=== PATIENT | female | born 1995 | race Caucasian/White ===

== ENCOUNTER 2023-03-02 19:22 | Outpatient (REF) | payer OTHER, SELFPAY ==
[2023-03-06 11:11] LABS: Age Gdln ACOG Testing Note (.); IGP, rfx Aptima HPV ASCU Note (.)
== END 2023-03-02 19:23 | disposition home or self-care (01) ==
LOC: LAB 19:22
PROVIDERS: Visit Provider Obstetrics & Gynecology
DX: Z12.4 Encounter for screening for malignant neoplasm of cervix (principal)
CPT/HCPCS: G0145

== ENCOUNTER 2024-04-24 08:57 | Outpatient (OUT) | payer OTHER, SELFPAY ==
--- NOTE | 2024-04-24 09:00 | US_ITS ---
The [address] [address] Patient Name: WILL BELL MRN: [id number] date: 1995 Sex: F Assigned Patient Location: [place] Current Patient Location: Accession/Order Number: [id number] Exam Date: 04/24/2024 09:01 Report Date: 04/25/2024 05:06 At the request of: QUENTIN SAHNI Procedure: US thyroid EXAMINATION: US thyroid HISTORY: Cervical Lymphadenopathy COMPARISON: No relevant comparison available. FINDINGS: RIGHT LOBE: Normal size and echotexture. Lobe size: 5.0 x 1.7 1.2 cm LEFT LOBE: Normal size and echotexture. Lobe size: 3.4 x 1.205 cm ISTHMUS: Normal size and echotexture. Thickness: 2 mm OTHER: 1.1 x 0.8 x 0.4 cm benign-appearing lymph node within upper posterior left neck corresponds to patient's palpable lump. US/US thyroid IMPRESSION: Unremarkable thyroid gland. 2. Patient's palpable lump corresponds to a benign-appearing lymph node. Electronically authenticated by: FARZANA LEON Date: 04/25/2024 05:06
== END 2024-04-24 08:58 | disposition home or self-care (01) ==
LOC: US 08:57
PROVIDERS: PCP Family Medicine; Visit Provider Family Medicine
DX: R59.0 Localized enlarged lymph nodes (principal)
CPT/HCPCS: 76536

== ENCOUNTER 2024-04-25 20:26 | Outpatient (REF) | payer OTHER, SELFPAY ==
--- OUTSIDE RECORDS SUMMARY | 2024-04-25 20:29 | XMS_ITS | CCD ---
Author Organization [facility] Prov[facility] Care Shank Archer Name Role Phone Schwerer, Cielo Unavailable Fitt, Mirella Unavailable DARIAN ., DR GANN Admitting Unavailable DARIAN ., DR GANN Attending Unavailable DARIAN ., DR GANN Consulting Unavailable REQUEST, NONE LISTED Primary Care Unavaila ble SCHWERER, CIELO Primary Care Unavailable SCHWERER, CIELO Consulting Unavailable SCHWERER, CIELO Attending Unavailable SCHWERER, CIELO Admitting Unavailable DARIAN ., DR GANN Attending Unavailable DARIAN ., DR GANN Admitting Unavailable DARIAN ., DR GANN Consulting Unavailable REQUEST, NONE LISTED Primary Care Unavaila ble DARIAN ., DR GANN Admitting Unavailable DARIAN ., DR GANN Consulting Unavailable DARIAN ., DR GANN Attending Unavailable REQUEST, NONE LISTED Primary Care Unavaila ble REQUEST, DR NGO LISTED Primary Care Unavaila ble DARIAN ., DR GANN Consulting Unavailable DARIAN ., DR GANN Attending Unavailable DARIAN ., DR GANN Admitting Unavailable SCARLET OROZCO Consulting Unavailable VEENA, SCARLET Consulting Unavailable VEENA, SCARLET Attending Unavailable REQUEST, NONE LISTED Primary Care Unavaila ble VEENA, SCARLET Admitting Unavailable DOMINIQUE POOLE Consulting Unavailable REQUEST, NONE LISTED Primary Care Unavaila ble DARIAN ., DR GANN Consulting Unavailable DARIAN ., DR GANN Attending Unavailable DARIAN ., DR GANN Admitting Unavailable GWEN II, ADELINA Consulting Unavailable DARIAN ., DR GANN Procedure Practitioner Unavail able REINA FULLER Attending Unavailable Bienvenido Long Consulting Unavailable REQUEST, DR NGO LISTED Primary Care Unavaila ble WILLIE ., REINA Admitting Unavailable WILLIE ., REINA Consulting Unavailable [place], DR MIMI Contreras Consulting Unavailable DARIAN ., DR GANN Attending Unavailable REQUEST, DR NONE LISTED Primary Care Unavaila ble DARIAN ., DR GANN Admitting Unavailable DARIAN ., DR GANN Consulting Unavailable DARIAN ., DR GANN Consulting Unavailable DARIAN ., DR GANN Attending Unavailable REQUEST, NONE LISTED Primary Care Unavaila ble DARIAN ., DR GANN Admitting Unavailable DARIAN ., DR GANN Consulting Unavailable DARIAN ., DR GANN Attending Unavailable REQUEST, NONE LISTED Primary Care Unavaila ble DARIAN ., DR GNAN Admitting Unavailable Zieber, Bienvenido Consulting Unavailable DARIAN ., DR GANN Admitting Unavailable DARIAN ., DR GANN Attending Unavailable DARIAN ., DR GANN Consulting Unavailable REQUEST, NONE LISTED Primary Care Unavaila ble Zieber, Bienvenido Consulting Unavailable DARIAN ., DR GANN Admitting Unavailable DARIAN ., DR GANN Attending Unavailable REQUEST, NONE LISTED Primary Care Unavaila ble [place], DR MIMI Contreras Consulting Unavailable DARIAN ., DR GANN Consulting Unavailable DARIAN ., DR GANN Attending Unavailable DARIAN ., DR GANN Consulting Unavailable REQUEST, NONE LISTED Primary Care Unavaila ble DARIAN ., DR GANN Admitting Unavailable DARIAN ., DR GANN Admitting Unavailable DARIAN ., DR GANN Attending Unavailable DARIAN ., DR GANN Consulting Unavailable REQUEST, NONE LISTED Primary Care Unavaila ble Perri Carmona Unavailable Cielo [place] DO Primary Care Provider [phone] REINA TAPIA Attending Unavailable REINA TAPIA Attending Unavailable REINA TAPIA Attending Unavailable DARIANAZEEM Attending Unavailable BRADEN DODD Attending Unavailable YOLIE FLETCHER Attending Unavailable REINA TAPIA Attending Unavailable Medications Current Medications Medication Drug Class(es) Dates Sig (Normalized) Sig (Original) [id number] 200 actuat albuterol 0.09 mg/actuat metered dose inhaler (2 sources) beta2-Adrenergic Agonist Start: 01-28-2024 take 2 puff(s) by inhalation every four hours albuterol HFA (ProAir HFA) 90 mcg/act inhaler Indications: Acute cough Inhale 2 puffs every 4 (four) hours if needed (cough) 8.5 g 01/28/2024 Active amoxicillin 875 mg / clavulanate 125 mg oral tablet (1 source) Penicillin-class Antibacterial Amoxicillin-Pot Clavulanate 875-125 MG 1 tablet BID for 10 days Active benzonatate 200 mg oral capsule (2 sources) Non-narcotic Antitussive Start: 01-28-2024 End: 02-04-2024 take 1 capsule by mouth three times daily as needed for cough benzonatate (Tessalon) 200 MG capsule Indications: Acute cough Take 1 capsule (200 mg) by mouth 3 (three) times a day as needed for cough for up to 7 days Do not crush or chew. 21 capsule 01/28/2024 02/04/2024 Active doxycycline monohydrate 100 mg oral tablet (2 sources) Tetracycline-class Drug Start: 01-28-2024 End: 02-07-2024 take 1 tablet by mouth once doxycycline (Adoxa) 100 MG tablet Indications: Acute cough Take 1 tablet (100 mg) by mouth every 12 (twelve) hours for 10 days Take with a full glass of water and do not lie down for at least 30 minutes after, avoid sun exposure 20 tablet 01/28/2024 02/07/2024 Active ethinyl estradiol 0.035 mg / norethindrone acetate 1 mg oral tablet (4 sources) Estrogen Start: 02-15-2023 End: 02-15-2024 take 1 tablet by mouth in the morning Nylia 135 1-35 MG-MCG tablet Indications: Encounter for initial prescription of contraceptive pills TAKE 1 TABLET BY MOUTH IN THE MORNING. 28 tablet 11 01/19/2024 Active metFORMIN hydrochloride 500 mg oral tablet (7 sources) Biguanide Start: 11-24-2022 End: 01-18-2025 take 1 tablet by mouth at mealtime metFORMIN (Glucophage) 500 MG tablet Indications: Abnormal weight gain TAKE 1 TABLET (500 MG) BY MOUTH IN THE MORNING. TAKE WITH MEALS. 30 tablet 6 01/19/2024 01/18/2025 Active Completed/Discontinued Medications Medication Drug Class(es) Dates Sig (Normalized) Sig (Original) fluconazole 150 mg oral tablet (3 sources) Azole Antifungal Start: 01-28-2024 End: 01-30-2024 fluconazole (Diflucan) 150 MG tablet Indications: History of candidal vulvovaginitis Take 1 tablet (150 mg) by mouth Daily for 2 doses 1 dose and repeat second dose in 3 days. 2 tablet 01/28/2024 01/30/2024 Start: 10-26-2023 End: 04-20-2024 Fluconazole 150 mg tablet Di scontinued 150 MG PO Q3D 2 October 25, 2023 11:00pm April 20, 2024 9:23am phentermine hydrochloride 37.5 mg oral tablet (11 sources) Sympathomimetic Amine Anorectic Start: 04-15-2023 End: 08-11-2023 take 1 tablet by mouth once daily 30 minutes after breakfast Phentermine (Adipex-P) 37.5 mg tablet Discontinued 37.5 MG PO Daily July 20, 2023 11:00pm July 22, 2023 9:07am must administer 30 minutes before or 1-2 hours after breakfast Adipex-P Active Problems Active Problems Problem Classification Problem Date Documented Date Episodic/Chronic Acute bronchitis (2 sources) Acute bronchitis; Translations: [Acute bronchitis, unspecified] 01-28-2024 Episodic Administrative/social admission (2 sources) Patient encounter status; Translations: [Persons encountering health services in other specified circumstances] 05-13-2023 Episodic Bacterial infection; unspecified site (1 source) Other specified bacterial agents as the cause of diseases classified elsewhere Episodic Early or threatened labor (4 sources) False labor at or after 37 completed weeks of gestation; Translations: [FALSE LABOR AT/AFTR 37 CMPL WK GEST] Onset: 07-14-2022 Episodic Fluid and electrolyte disorders (1 source) Dehydration; Translations: [DEHYDRATION] Onset: 05-19-2022 Episodic Menstrual disorders (4 sources) Irregular menstruation, unspecified; Translations: [IRREGULAR MENSTRUATION UNSPECIFIED] Onset: 12-25-2021 Chronic Nausea and vomiting (1 source) Nausea with vomiting, unspecified; Translations: [NAUSEA WITH VOMITING UNSPECIFIED] Onset: 05-19-2022 Episodic OB-related trauma to perineum and vulva (1 source) First degree perineal laceration during delivery; Translations: [FIRST DEG PERINEAL LAC DUR DELIV] Onset: 07-30-2022 Episodic Other complications of (5 sources) Other specified related conditions, third trimester; Translations: [OTH SPEC PREG RELATED COND 3RD TRI] Onset: 02-21-2023 Episodic Other complications of (4 sources) Maternal care for excessive growth, third trimester, not applicable or unspecified; Translations: [MAT CARE EXCSS FTL GRTH 3RD TRI UNS] Onset: 07-13-2022 Episodic Other ear and sense organ disorders (1 source) Impacted cerumen; Translations: [Impacted cerumen, bilateral] 07-22-2023 Episodic Other infections; including parasitic (2 sources) History of gynecological disorder; Translations: [Personal history of other infectious and parasitic diseases] 01-28-2024 Episodic Other lower respiratory disease (2 sources) Cough; Translations: [Acute cough] 01-28-2024 Episodic Other nutritional; endocrine; and metabolic disorders (2 sources) Weight gain; Translations: [Abnormal weight gain] 05-10-2023 Episodic Other and delivery including normal (14 sources) Single live ; Translations: [Encounter for supervision of normal , unspecified, third trimester] Onset: 12-12-2021 Episodic Other upper respiratory infections (2 sources) Bacterial sinusitis; Translations: [Chronic sinusitis, unspecified] Chronic Other upper respiratory infections (2 sources) Acute maxillary sinusitis; Translations: [Acute maxillary sinusitis, unspecified] 01-28-2024 Episodic Residual codes; unclassified (1 source) 40 weeks gestation of ; Translations: [40 WEEKS GESTATION OF ] Onset: 07-30-2022 Episodic Residual codes; unclassified (1 source) Type A blood, Rh negative; Translations: [TYPE A BLOOD RH NEGATIVE] Onset: 07-30-2022 Episodic Residual codes; unclassified (1 source) 38 weeks gestation of ; Translations: [38 WEEKS GESTATION OF ] Onset: 07-16-2022 Episodic Residual codes; unclassified (1 source) 34 weeks gestation of ; Translations: [34 WEEKS GESTATION OF ] Onset: 06-20-2022 Episodic Residual codes; unclassified (1 source) 30 weeks gestation of ; Translations: [30 WEEKS GESTATION OF ] Onset: 05-22-2022 Episodic Residual codes; unclassified (1 source) Unspecified blood type, Rh negative; Translations: [UNSPECIFIED BLOOD TYPE RH NEGATIVE] Onset: 05-05-2022 Episodic Residual codes; unclassified (1 source) 28 weeks gestation of ; Translations: [28 WEEKS GESTATION OF ] Onset: 05-05-2022 Episodic Past or Other Problems Problem Classification Problem Date Documented Date Episodic/Chronic Immunizations and screening for infectious disease (2 sources) Encounter for screening for human papillomavirus (HPV); Translations: [Contact with and (suspected) exposure to infections with a predominantly sexual mode of transmission] Onset: 02-26-2022 Episodic Other ear and sense organ disorders (1 source) Impacted cerumen, bilateral Onset: 10-20-2021 Resolved: 10-20-2021 Episodic Other female genital disorders (1 source) Other specified noninflammatory disorders of vagina; Translations: [OTH SPEC NONINFLAMMATORY D/O VAGINA] Onset: 02-26-2022 Episodic Other nutritional; endocrine; and metabolic disorders (2 sources) Abnormal weight gain; Translations: [ABNORMAL WEIGHT GAIN] Onset: 10-20-2021 Resolved: 10-20-2021 Episodic Other screening for suspected conditions (not mental disorders or infectious disease) (5 sources) Encounter for screening for malignant neoplasm of cervix; Translations: [Encounter for screening for diabetes mellitus] Onset: 12-29-2021 Episodic Unclassified (4 sources) Plastic surgery; Translations: [Plastic surgery, other] Results Test Name Value Interpretation Reference Range Facility CBC AUTO DIFFon 07-28-2022 BASO # 0.0 103/ul Normal 0.0-0.1 [facility] Comment on above: Performed By: #### C BC ####[facility] [address] [place] [address]Dr. Leigh Annpee Titus Basophils/100 WBC (Bld) 0.2 % Normal 0.2-2.0 [facility] Comment on above: Performed By: #### C BC ####[facility] [address] [place] [address]Dr. Leigh Annpee Titus EO # 0.1 103/ul Normal 0.0-0.7 [facility] Comment on above: Performed By: #### C BC ####[facility] [address] [place] [address]Dr. Bee Titus Eosinophils/100 WBC (Bld) 0.5 % Critically low 0.9-7.0 [facility] Comment on above: Performed By: #### C BC ####[facility] [address] [place] [address]Dr. Bee Titus Erythrocyte distribution width (RBC) [Ratio] 13.4 % Normal 11.0-15.0 [facility] Comment on above: Performed By: #### C BC ####[facility] [address] [place] [address]Dr. Bee Titus Hematocrit (Bld) [Volume fraction] 33.8 % Critically low 36.0-48.0 [facility] Comment on above: Performed By: #### C BC ####[facility] [address] [place] [address]Dr. Bee Titus Hemoglobin (Bld) [Mass/Vol] 11.3 g/dL Critically low 12.0-16.0 [facility] Comment on above: Performed By: #### C BC ####[facility] [address] [place], [place] [address]Dr. Leigh Annpee Titus IG # 0.05 10e3/ul Critically high 0.00-0.03 [facility] Comment on above: Performed By: #### C BC ####[facility] [address] [place] [address]Dr. Bee Titus IG % 0.4 % Normal 0.0-0.5 [facility] Comment on above: Performed By: #### C BC ####[facility] [address]qs[address] [place], [place] [address]Dr. Bee Titus LYMPH # 2.1 103/ul Normal 1.2-3.8 [facility] Comment on above: Performed By: #### C BC ####[facility] I[address]cin[address] [place], [place] [address]Dr. Leigh Annpee Titus Lymphocytes/100 WBC (Bld) 15.9 % Critically low 20.5-60.0 [facility] Comment on above: Performed By: #### C BC ####[facility] [address] [place], [place] [address]Dr. Leigh Annpee Titus MANUAL DIFF REQ NO Normal [facility] Comment on above: Performed By: #### C BC ####[facility] [address] [place] [id number]. eBe Titus MCH (RBC) [Entitic mass] 30.1 pg Normal 26.7-34.0 [facility] Comment on above: Performed By: #### C BC ####[facility] [address] [place] [address]Dr. Bee Titus MCHC (RBC) [Mass/Vol] 33.4 g/dL Normal 29.9-35.2 [facility] Comment on above: Performed By: #### C BC ####[facility] [address] [place], [place] [address]Dr. Bee Titus MCV (RBC) [Entitic vol] 90.1 fL Normal 81.0-99.0 [facility] Comment on above: Performed By: #### C BC ####[facility] Pdpnatk[address] [place], [place] [address]Dr. Bee Titus MONO # 0.7 103/ul Normal 0.3-0.8 [facility] Comment on above: Performed By: #### C BC ####[facility] [address] [place], [place] [address]Dr. Bee Titus Monocytes/100 WBC (Bld) 5.4 % Normal 1.7-12.0 [facility] Comment on above: Performed By: #### C BC ####[facility] [address] [place], [place] [id number]. Bee Titus NEUT # 10.2 103/ul Critically high 1.4-6.5 [facility] Comment on above: Performed By: #### C BC ####[facility] [address] [place], [place] [address]Dr. Bee Titus Neutrophils/100 WBC (Bld) 77.6 % Critically high 43.0-75.0 [facility] Comment on above: Performed By: #### C BC ####[facility] [address] [place], [place] [address]Dr. Bee Titus Platelet mean volume (Bld) [Entitic vol] 10.6 fL Normal 9.5-13.5 [facility] Comment on above: Performed By: #### C BC ####[facility] [address] [place], [place] [address]Bp. Bee Tacho PLT 198 103/ul Normal 150-450 [facility] Comment on above: Performed By: #### C BC ####[facility] [address] [place], [place] [address]Un. Bee Titus RBC 3.75 106/ul Critically low 4.20-5.40 [facility] Comment on above: Performed By: #### C BC ####[facility] [address] [place], [place] [address]Ah. Bee Titus WBC 13.1 103/ul Critically high 4.0-11.0 [facility] Comment on above: Performed By: #### C BC ####[facility] [address] [place] [id number]. Bee Titus SCREENon 07-28-2022 SCREEN Negative Normal [facility] Comment on above: Performed By: #### F ETSCRN ####[facility] [address] [place] [id number]. Bee Titus CBC AUTO DIFFon 07-27-2022 BASO # 0.0 103/ul Normal 0.0-0.1 [facility] Comment on above: Performed By: #### C BC #### [facility] [address] [address] [address] Bee Titus Basophils/100 WBC (Bld) 0.3 % Normal 0.2-2.0 [facility] Comment on above: Performed By: #### C BC #### [facility] [address] [address] [address] Bee Titus EO # 0.1 103/ul Normal 0.0-0.7 [facility] Comment on above: Performed By: #### C BC #### [facility] [address] [address] [address] Bee Titus Eosinophils/100 WBC (Bld) 0.7 % Critically low 0.9-7.0 [facility] Comment on above: Performed By: #### C BC #### [facility] [address] [place] [address] Dr. Bee Titus Erythrocyte distribution width (RBC) [Ratio] 13.2 % Normal 11.0-15.0 [facility] Comment on above: Performed By: #### C BC #### [facility] [address] [place] [address] Dr. Bee Titus Hematocrit (Bld) [Volume fraction] 35.8 % Critically low 36.0-48.0 [facility] Comment on above: Performed By: #### C BC #### [facility] [address] [place] [address] Dr. Bee Titus Hemoglobin (Bld) [Mass/Vol] 12.1 g/dL Normal 12.0-16.0 [facility] Comment on above: Performed By: #### C BC #### [facility] [address] [place] [address] Dr. Bee Titus IG # 0.06 10e3/ul Critically high 0.00-0.03 [facility] Comment on above: Performed By: #### C BC #### [facility] [address] [place] [address] Dr. Bee Titus IG % 0.5 % Normal 0.0-0.5 [facility] Comment on above: Performed By: #### C BC #### [facility] [address] [place] [address] Dr. Bee Titus LYMPH # 2.2 103/ul Normal 1.2-3.8 [facility] Comment on above: Performed By: #### C BC #### [facility] [address] [place] [address] Dr. Bee Titus Lymphocytes/100 WBC (Bld) 17.9 % Critically low 20.5-60.0 [facility] Comment on above: Performed By: #### C BC #### [facility] [address] [place] [address] Dr. Bee Titus MANUAL DIFF REQ NO Normal [facility] [place] [facility] Comment on above: Performed By: #### C BC #### [facility] [address] [place] [address] Dr. Bee Titus MCH (RBC) [Entitic mass] 29.4 pg Normal 26.7-34.0 [facility] Comment on above: Performed By: #### C BC #### [facility] [address] [address] [address] Bee Titus MCHC (RBC) [Mass/Vol] 33.8 g/dL Normal 29.9-35.2 [facility] Comment on above: Performed By: #### C BC #### [facility] [address] [address] [address] Bee Titus MCV (RBC) [Entitic vol] 87.1 fL Normal 81.0-99.0 [facility] Comment on above: Performed By: #### C BC #### [facility] [address] [place] [address] Dr. Bee Titus MONO # 0.6 103/ul Normal 0.3-0.8 [facility] Comment on above: Performed By: #### C BC #### [facility] [address] [place] [address] Dr. Bee Titus Monocytes/100 WBC (Bld) 5.0 % Normal 1.7-12.0 [facility] Comment on above: Performed By: #### C BC #### [facility] [address] [place] [address] Dr. Bee Titus NEUT # 9.1 103/ul Critically high 1.4-6.5 [facility] Comment on above: Performed By: #### C BC #### [facility] [address] [place] [address] Dr. Bee Titus Neutrophils/100 WBC (Bld) 75.6 % Critically high 43.0-75.0 [facility] Comment on above: Performed By: #### C BC #### [facility] [address] [place] [address] Dr. Bee Titus Platelet mean volume (Bld) [Entitic vol] 11.1 fL Normal 9.5-13.5 [facility] Comment on above: Performed By: #### C BC #### [facility] [address] [address] [address] Bee Titus PLT 249 103/ul Normal 150-450 [facility] Comment on above: Performed By: #### C BC #### [facility] [address] [address] [address] Bee Titus RBC 4.11 106/ul Critically low 4.20-5.40 [facility] Comment on above: Performed By: #### C BC #### [facility] [address] [address] [address] Bee Titus WBC 12.0 103/ul Critically high 4.0-11.0 [facility] Comment on above: Performed By: #### C BC #### [facility] [address] [address] [address] Bee Titus DRUG SCREEN RAPID (URINE)on 07-27-2022 AMP Negative Normal NEGATIVE [facility] Comment on above: Performed By: #### D RUGRPD ####[facility] [address] [place], [place] [address]Dr. Bee Titus BAR Negative Normal NEGATIVE [facility] Comment on above: Performed By: #### D RUGRPD ####[facility] [address] [place] [address]Dr. Bee Titus BUP Negative Normal NEGATIVE [facility] Comment on above: Performed By: #### D RUGRPD ####[facility] [address] [place] [address]Dr. Bee Titus BZO Negative Normal NEGATIVE [facility] Comment on above: Performed By: #### D RUGRPD ####[facility] [address] [place] [address]Dr. Bee Titus LORRI Negative Normal NEGATIVE [facility] Comment on above: Performed By: #### D RUGRPD ####[facility] [address] [place], [place] [address]Dr. Bee Titus CUT-OFFS SEE BELOW Normal [facility] Comment on above: Result Comment: AMP (Amphetamine): 500ng/mL, BAR (Barbituates): 200 ng/mL, BZO (Benzodiazepines): 150 ng/mL, BUP (Buprenorphine): 10 ng/mL, LORRI (Cocaine): 150 ng/mL, mAMP (Methamphetamine): 500 ng/mL, MTD (Methadone): 200 ng/mL, OPI (Opiates): 100 ng/mL, OXY (Oxycodone): 100 ng/mL, PCP (Phencyclidine): 25 ng/mL, PPX (Propoxyphene): 300 ng/mL, THC (Cannabinoids): 50 ng/mL, TCA (Trycyclic Antidepressants): 300 ng/mL Performed By: #### D RUGRPD ####[facility] [address] [place], [place] [address]Dr. [facility] DRUG CUT HEADER DRUG CLASS TEST SYSTEM CUT-OFF CONCENTRATIONS ARE FOLLOWS: Normal [facility] Comment on above: Performed By: #### D RUGRPD ####[facility] [address] [place], [place] [address]Dr. Leigh Annpee Titus mAMP Negative Normal NEGATIVE [facility] Comment on above: Performed By: #### D RUGRPD ####[facility] [address] [place], [place] [address]Dr. Bee Titus MTD Negative Normal NEGATIVE [facility] Comment on above: Performed By: #### D RUGRPD ####[facility] [address] [place], [place] [address]Dr. Leigh Annpee Titus OPI Negative Normal NEGATIVE [facility] Comment on above: Performed By: #### D RUGRPD ####[facility] [address] [place], [place] [address]Dr. Bee Titus OXY Negative Normal NEGATIVE [facility] Comment on above: Performed By: #### D RUGRPD ####[facility] [address] [place] [id number]. Bee Titus PCP Negative Normal NEGATIVE [facility] Comment on above: Performed By: #### D RUGRPD ####[facility] [id number] [place], [place] [address]Dr. Leigh Annpee [facility] PPX Negative Normal NEGATIVE [facility] Comment on above: Performed By: #### D RUGRPD ####[facility] [id number] [place] [id number]. Bee Titus TCA Negative Normal NEGATIVE [facility] Comment on above: Performed By: #### D RUGRPD ####[facility] [address] [place] [address]Dr. Bee Titus THC Negative Normal NEGATIVE [facility] Comment on above: Performed By: #### D RUGRPD ####[facility] [address] [place] [address] [address]Dr. Bee Titus TYPE AND SCREENon 07-27-2022 TYPE AND SCREEN Antibody Screen POSITIVE Blood Bank Notes PROBABLE ANTI-D DUE TO RHIG ADMIN. @28WEEKS, FURTHER WORKUP AT PHYSICIAN Blood Bank Notes REQUEST ABO Rh Typing A Rh Negative Normal [facility] Comment on above: Performed By: #### T NS ####[facility] [address] [address]Dr. Bee Titus AMNISUREon 07-14-2022 AMNISURE Negative Normal NEGATIVE [facility] Comment on above: Performed By: #### A MNI ####[facility] [address] [place] [address]Dr. Bee Titus BUNon 07-14-2022 Urea nitrogen [Mass/Vol] 8.0 mg/dL Normal 7.0-18.0 [facility] Comment on above: Performed By: #### U MICRO, UACSIND #### [facility] [address] [address] [address] Bee Titus CBC AUTO DIFFon 07-14-2022 BASO # 0.0 103/ul Normal 0.0-0.1 [facility] Comment on above: Performed By: #### U MICRO, UACSIND #### [facility] [address] [address] [address] Bee Titus Basophils/100 WBC (Bld) 0.3 % Normal 0.2-2.0 [facility] Comment on above: Performed By: #### U MICRO, UACSIND #### [facility] [address] [address] [address] Bee Titus EO # 0.1 103/ul Normal 0.0-0.7 [facility] Comment on above: Performed By: #### U MICRO, UACSIND #### [facility] [address] [address] [address] Bee Titus Eosinophils/100 WBC (Bld) 0.4 % Critically low 0.9-7.0 [facility] Comment on above: Performed By: #### U MICRO, UACSIND #### [facility] [address] [place] [address] Dr. Bee Titus Erythrocyte distribution width (RBC) [Ratio] 13.6 % Normal 11.0-15.0 [facility] Comment on above: Performed By: #### U MICRO, UACSIND #### [facility] [address] [place] [address] Dr. Bee Titus Hematocrit (Bld) [Volume fraction] 32.8 % Critically low 36.0-48.0 [facility] Comment on above: Performed By: #### U MICRO, UACSIND #### [facility] [address] [place] [address] Dr. Bee Titus Hemoglobin (Bld) [Mass/Vol] 11.2 g/dL Critically low 12.0-16.0 [facility] Comment on above: Performed By: #### U MICRO, UACSIND #### [facility] [address] [place] [address] Dr. Bee Titus IG # 0.05 10e3/ul Critically high 0.00-0.03 [facility] Comment on above: Performed By: #### U MICRO, UACSIND #### [facility] [address] [place] [address] Dr. Bee Titus IG % 0.4 % Normal 0.0-0.5 [facility] Comment on above: Performed By: #### U MICRO, UACSIND #### [facility] [address] [place] [address] Dr. Bee Titus LYMPH # 2.0 103/ul Normal 1.2-3.8 [facility] Comment on above: Performed By: #### U MICRO, UACSIND #### [facility] [address] [address] [address] Bee Titus Lymphocytes/100 WBC (Bld) 16.3 % Critically low 20.5-60.0 [facility] Comment on above: Performed By: #### U MICRO, UACSIND #### [facility] [address] [place] [address] Dr. Bee Titus MANUAL DIFF REQ NO Normal [facility] Comment on above: Performed By: #### U MICRO, UACSIND #### [facility] [address] [place] [address] Dr. Bee Titus MCH (RBC) [Entitic mass] 30.4 pg Normal 26.7-34.0 [facility] Comment on above: Performed By: #### U MICRO, UACSIND #### [facility] [address] [place] [address] Dr. Bee Titus MCHC (RBC) [Mass/Vol] 34.1 g/dL Normal 29.9-35.2 [facility] Comment on above: Performed By: #### U MICRO, UACSIND #### [facility] [address] [place] [address] Dr. Bee Titus MCV (RBC) [Entitic vol] 88.9 fL Normal 81.0-99.0 [facility] Comment on above: Performed By: #### U MICRO, UACSIND #### [facility] [address] [place] [address] Dr. Bee Titus MONO # 0.6 103/ul Normal 0.3-0.8 [facility] Comment on above: Performed By: #### U MICRO, UACSIND #### [facility] [address] [place] [address] Dr. Bee Titus Monocytes/100 WBC (Bld) 5.1 % Normal 1.7-12.0 [facility] Comment on above: Performed By: #### U MICRO, UACSIND #### [facility] [address] [place] [address] Dr. Bee Titus NEUT # 9.3 103/ul Critically high 1.4-6.5 [facility] Comment on above: Performed By: #### U MICRO, UACSIND #### [facility] [address] [address] [address] Bee Titus Neutrophils/100 WBC (Bld) 77.5 % Critically high 43.0-75.0 [facility] Comment on above: Performed By: #### U MICRO, UACSIND #### [facility] [address] [place] [address] Dr. Bee Titus Platelet mean volume (Bld) [Entitic vol] 10.4 fL Normal 9.5-13.5 [facility] Comment on above: Performed By: #### U MICRO, UACSIND #### [facility] [address] [place] [address] Dr. Bee Titus PLT 193 103/ul Normal 150-450 [facility] Comment on above: Performed By: #### U MICRO, UACSIND #### [facility] [address] [place] [address] Dr. Bee Titus RBC 3.69 106/ul Critically low 4.20-5.40 [facility] [place] [facility] Comment on above: Performed By: #### U MICRO, UACSIND #### [facility] [address] [place] [address] Dr. Bee Titus WBC 12.0 103/ul Critically high 4.0-11.0 [facility] Comment on above: Performed By: #### U MICRO, UACSIND #### [facility] [address] [place] [address] Dr. Bee Titus CREATININEon 07-14-2022 Creatinine [Mass/Vol] 0.83 mg/dL Normal 0.55-1.02 [facility] Comment on above: Performed By: #### C JORGE #### [facility] [address] [place] [address] Dr. Bee Titus EGFR-AF ESTONIAN >60 Normal >=60 [facility] Comment on above: Result Comment: Prev iously reported as: (blank) On 07/14/2022 10:27 By [email or web address] Performed By: #### C JORGE #### [facility] [address] [address] [address] Bee Titus EGFR-NON AF ESTONIAN >60 Normal >=60 [facility] Comment on above: Result Comment: Prev iously reported as: (blank) On 07/14/2022 10:27 By [email or web address] Performed By: #### C JORGE #### [facility] [address] [place] [address] Dr. Bee Titus UA (CLEAN/CATCH) ROLLER PRINTER/MICRO I F IND.on 07-14-2022 Bilirubin Ql (U) Negative Normal NEGATIVE [facility] Comment on above: Performed By: #### U MICRO, UACSIND #### [facility] [address] [address] [address] Bee Titus Clarity (U) CLEAR Normal CLEAR [facility] Comment on above: Performed By: #### U MICRO, UACSIND #### [facility] [address] [place] [address] Dr. Bee Titus Color (U) YELLOW Normal YELLOW [facility] Comment on above: Performed By: #### U MICRO, UACSIND #### [facility] [address] [place] [address] Dr. Bee Titus Glucose Ql (U) Negative Normal NEGATIVE [facility] Comment on above: Performed By: #### U MICRO, UACSIND #### [facility] [address] [place] [address] Dr. Bee Titus Hemoglobin Ql (U) LARGE Abnormal NEGATIVE [facility] Comment on above: Performed By: #### U MICRO, UACSIND #### [facility] [address] [address] [address] Bee Titus Ketones Ql (U) 15 mg/dl Abnormal NEGATIVE [facility] Comment on above: Performed By: #### U MICRO, UACSIND #### [facility] [address] [place] [address] Dr. Bee Titus LEUKOCYTES Negative Normal NEGATIVE [facility] Comment on above: Performed By: #### U MICRO, UACSIND #### [facility] [address] [place] [address] Dr. Bee Titus Nitrite Ql (U) Negative Normal NEGATIVE [facility] Comment on above: Performed By: #### U MICRO, UACSIND #### [facility] [address] [place] [address] Dr. Bee Titus pH (U) 5.5 [pH] Normal 5-9 [facility] Comment on above: Performed By: #### U MICRO, UACSIND #### [facility] [address] [address] [address] Bee Titus SPEC GRAVITY >=1.030 Abnormal 1.005-<=1.025 [facility] [place] [facility] Comment on above: Performed By: #### U MICRO, UACSIND #### [facility] [address] [place] [address] Dr. Bee Titus UA PROTEIN 30 mg/dl Abnormal NEGATIVE/ TRACE [facility] Comment on above: Performed By: #### U MICRO, UACSIND #### [facility] [address] [place] [address] Dr. Bee Titus UR MICRO IND INDICATED Normal [facility] Comment on above: Performed By: #### U MICRO, UACSIND #### [facility] [address] [place] [address] Dr. Bee Titus Urobilinogen Qn (U) 0.2 {Rama'U}/dL Normal 0.2 - 1. 0 [facility] Comment on above: Performed By: #### U MICRO, UACSIND #### [facility] [address] [place] [address] Dr. Bee Titus URINE MICROSCOPIC ONLYon BACTERIA NONE SEEN Normal NONE SEEN [facility] Comment on above: Performed By: #### U MICRO, UACSIND #### [facility] [address] [place] [address] Dr. Bee Titus Bacteria identified Cx Nom (U) NOT INDICATED Normal [facility] Comment on above: Performed By: #### U MICRO, UACSIND #### [facility] [address] [place] [address] Dr. Bee Titus CAST NONE SEEN Normal NONE SEEN [facility] Comment on above: Performed By: #### U MICRO, UACSIND #### [facility] [address] [address] [address] Bee Titus Crystals LM Nom (Urine sed) NONE SEEN Normal NONE SEEN [facility] Comment on above: Performed By: #### U MICRO, UACSIND #### [facility] [address] [address] [address] Bee Titus Epithelial cells LM Ql (Urine sed) FEW Abnormal NONE SEEN /RARE [facility] Comment on above: Performed By: #### U MICRO, UACSIND #### [facility] [address] [address] [address] Bee Titus MUCOUS MODERATE Abnormal NONE SEEN [facility] Comment on above: Performed By: #### U MICRO, UACSIND #### [facility] [address] [address] [address] Bee Titus RBC 20-50 Abnormal 0-2 [facility] Comment on above: Performed By: #### U MICRO, UACSIND #### [facility] [address] [address] [address] Bee Titus WBC NONE SEEN Normal NONE SEEN [facility] Comment on above: Performed By: #### U MICRO, UACSIND #### [facility] [address] [address] [address] Bee Titus US KIDNEYS BLADDERon 07-14- 023 US KIDNEYS BLADDER EXAM: US KIDNEYS BLADDER HISTORY: pain COMPARISON: None. TECHNIQUE: Transabdominal exam FINDINGS: The right kidney measures 12 cm Left kidney measures 12 cm. There is moderate hydronephrosis on the right with dilatation of the calyces and infundibula. Echogenic focus is identified involving the midportion of the right kidney measuring 7 mm may relate to nonobstructing calculus. There is mild caliectasis on the left. Echogenic focus measuring 7 mm midportion of the left kidney may relate to nonobstructive calculus. Urinary bladder is unremarkable. Prevoid bladder volume 146 cc. Bilateral ureteral jets noted. IMPRESSION: Bilateral hydronephrosis right greater than left indeterminate. Findings may relate to outlet obstruction or physiologic hydronephrosis secondary to . Bilateral ureteral jets noted. Suspected nonobstructive bilateral renal calculi. Clinical correlation and follow-up recommended Electronically authenticated by: SCARLET OROZCO Date: 2022-07-14 11:26 Normal [facility] US PREG GROWTHon 07-13-2022 US PREG GROWTH EXAMINATION: US PREG GROWTH HISTORY: High weight infant COMPARISON: No relevant comparison available. FINDINGS: Heart Rate: 142.9 bpm Amniotic Fluid Volume: 12.6 cm Number: 1.0 Position: Cephalic presentation, longitudinal lie Maximum Vertical Pocket: 2.7 cm cm 4.2 cm cm 2.5 cm cm 3.2 cm cm BIOMETRY: BPD: 9.1 cm cm; 36 weeks 5 days; 36% HC: 34.4 cmcm; 39 weeks 5 days, 69% AC: 34.3 cm cm; 38 weeks 1 days, 69% FL: 7.3 cm cm; 37 weeks 2 days; 29.4 % % EFW: 3352.6 grams, 7 lbs. 6 oz., 58% FL/AC: 21.2 FL/BPD: 80.2 HC/AC: 1.0 GESTATIONAL AGE: Age by EDC: 38 weeks 1 days CARY by EDC: 07/26/2022 Age by US: 38 weeks 0 days CARY by US: 07/27/2022 IMPRESSION: Normal interval growth. Electronically authenticated by: MIMI RICHEY Date: 2022-07-13 18:08 Normal [facility] GROUP B STREP CULTUREon S. agalactiae Ag Ql (Unsp spec) Culture Observations: NEGATIVE FOR GROUP B STREPTOCOCCUS. Normal [facility] Comment on above: Performed By: #### G BSCX #### [facility] [address] [place] [address] Dr. Bee Titus US PREG GROWTHon 06-16-2022 US PREG GROWTH EXAMINATION: US PREG GROWTH HISTORY: High weight COMPARISON: Ultrasound growth 05/19/2022 FINDINGS: Heart Rate: 135.7 bpm Number: 1.0 Position: CEPHALIC Amniotic Fluid Volume: 13.8 cm Maximum Vertical Pocket: 5.2 cm BIOMETRY: BPD: 8.7 cm cm; 35 weeks 1 days; 72% HC: 32.7 cmcm; 37 weeks 1 days; 84% AC: 33.0 cm cm; 37 weeks 0 days; >97% FL: 6.6 cm cm; 34 weeks 1 days; 35% EFW: 2833.7 grams; 90% FL/AC: 20.0 FL/BPD: 76.1 HC/AC: 1.0 GESTATIONAL AGE: Age by EDC: 34 weeks 2 days CARY by EDC: 07/26/2022 Age by US: 35 weeks 6 days CARY by US: 07/15/2022 IMPRESSION: 1. Single live intrauterine with growth detailed above. Electronically authenticated by: BIENVENIDO LONG Date: 2022-06-16 13:49 Normal [facility] US PREG GROWTHon 05-19-2022 US PREG GROWTH EXAMINATION: US PREG GROWTH HISTORY: Large for gestation age fetus COMPARISON: Ultrasound anatomy 03/09/2022 FINDINGS: Heart Rate: 142.0 bpm Number: 1.0 Position: CEPHALIC Amniotic Fluid Volume: 15.1 cm Maximum Vertical Pocket: 3.9 cm BIOMETRY: BPD: 7.9 cm cm; 31 weeks 6 days; 83% HC: 29.8 cmcm; 33 weeks 0 days; 86% AC: 27.8 cm cm; 31 weeks 6 days; 87% FL: 6.2 cm cm; 32 weeks 1 days; 85% EFW: 1894.7 grams; 92% FL/AC: 22.3 FL/BPD: 78.3 HC/AC: 1.1 GESTATIONAL AGE: Age by EDC: 30 weeks 2 days CARY by EDC: 07/26/2022 Age by US: 32 weeks 2 days CARY by US: 07/12/2022 IMPRESSION: 1. Single live intrauterine with growth detailed above. 2. Estimated weight is at 92nd percentile. Electronically authenticated by: BIENVENIDO LONG Date: 2022-05-19 15:21 Normal [facility] AMYLASEon 05-17-2022 Amylase [Catalytic activity/Vol] 49 U/L Normal 25-115 [facility] Comment on above: Performed By: #### A MY, CMP, LIPA ####[facility] [address] [place], [place] [address]HcEric Leigh Annpee Titus CBC AUTO DIFFon 05-17-2022 BASO # 0.0 103/ul Normal 0.0-0.1 [facility] Comment on above: Performed By: #### U MICRO, UACSIND #### [facility] [address] [address] [address] Bee Titus Basophils/100 WBC (Bld) 0.2 % Normal 0.2-2.0 [facility] Comment on above: Performed By: #### U MICRO, UACSIND #### [facility] [address] [place] [address] Dr. Bee Titus EO # 0.0 103/ul Normal 0.0-0.7 [facility] Comment on above: Performed By: #### U MICRO, UACSIND #### [facility] [address] [place] [address] Dr. Bee Titus Eosinophils/100 WBC (Bld) 0.1 % Critically low 0.9-7.0 [facility] Comment on above: Performed By: #### U MICRO, UACSIND #### [facility] [address] [place] [address] Dr. Bee Titus Erythrocyte distribution width (RBC) [Ratio] 12.9 % Normal 11.0-15.0 [facility] Comment on above: Performed By: #### U MICRO, UACSIND #### [facility] [address] [place] [address] Dr. Bee Titus Hematocrit (Bld) [Volume fraction] 35.7 % Critically low 36.0-48.0 [facility] Comment on above: Performed By: #### U MICRO, UACSIND #### [facility] [address] [place] [address] Dr. Bee Titus Hemoglobin (Bld) [Mass/Vol] 12.6 g/dL Normal 12.0-16.0 [facility] Comment on above: Performed By: #### U MICRO, UACSIND #### [facility] [address] [place] [address] Dr. Bee Titus IG # 0.10 10e3/ul Critically high 0.00-0.03 [facility] Comment on above: Performed By: #### U MICRO, UACSIND #### [facility] [address] [address] [address] Bee Titus IG % 0.6 % Critically high 0.0-0.5 [facility] Comment on above: Performed By: #### U MICRO, UACSIND #### [facility] [address] [place] [address] Dr. Bee Titus LYMPH # 0.4 103/ul Critically low 1.2-3.8 [facility] Comment on above: Performed By: #### U MICRO, UACSIND #### [facility] [address] [place] [address] Dr. Bee Titus Lymphocytes/100 WBC (Bld) 2.1 % Critically low 20.5-60.0 [facility] Comment on above: Performed By: #### U MICRO, UACSIND #### [facility] [address] [place] [address] Dr. Bee Titus MANUAL DIFF REQ NO Normal [facility] Comment on above: Performed By: #### U MICRO, UACSIND #### [facility] [address] [place] [address] Dr. Bee Titus MCH (RBC) [Entitic mass] 31.7 pg Normal 26.7-34.0 [facility] Comment on above: Performed By: #### U MICRO, UACSIND #### [facility] [address] [place] [address] Dr. Bee Titus MCHC (RBC) [Mass/Vol] 35.3 g/dL Critically high 29.9-35.2 [facility] Comment on above: Performed By: #### U MICRO, UACSIND #### [facility] [address] [place] [address] Dr. Bee Titus MCV (RBC) [Entitic vol] 89.9 fL Normal 81.0-99.0 [facility] Comment on above: Performed By: #### U MICRO, UACSIND #### [facility] [address] [place] [address] Dr. Bee Titus MONO # 0.4 103/ul Normal 0.3-0.8 [facility] Comment on above: Performed By: #### U MICRO, UACSIND #### [facility] [address] [address] [address] Bee Titus Monocytes/100 WBC (Bld) 2.0 % Normal 1.7-12.0 [facility] Comment on above: Performed By: #### U MICRO, UACSIND #### [facility] [address] [address] [address] Bee Titus NEUT # 17.2 103/ul Critically high 1.4-6.5 [facility] Comment on above: Performed By: #### U MICRO, UACSIND #### [facility] [address] [address] [address] Bee Titus Neutrophils/100 WBC (Bld) 95.0 % Critically high 43.0-75.0 [facility] Comment on above: Performed By: #### U MICRO, UACSIND #### [facility] [address] [place] [address] Dr. Bee Titus Platelet mean volume (Bld) [Entitic vol] 9.8 fL Normal 9.5-13.5 [facility] Comment on above: Performed By: #### U MICRO, UACSIND #### [facility] [address] [place] [address] Dr. Bee Titus PLT 164 103/ul Normal 150-450 [facility] Comment on above: Performed By: #### U MICRO, UACSIND #### [facility] [address] [address] [address] Bee Titus RBC 3.97 106/ul Critically low 4.20-5.40 [facility] Comment on above: Performed By: #### U MICRO, UACSIND #### [facility] [address] [place] [address] Dr. Bee Titus WBC 18.1 103/ul Critically high 4.0-11.0 [facility] Comment on above: Performed By: #### U MICRO, UACSIND #### [facility] [address] [place] [address] Dr. Bee Titus ER URINE PROFILEon 3 Bilirubin Ql (U) Negative Normal NEGATIVE [facility] Comment on above: Performed By: #### U MICRO, UACSIND #### [facility] [address] [address] [address] Bee Titus Clarity (U) CLEAR Normal CLEAR [facility] Comment on above: Performed By: #### U MICRO, UACSIND #### [facility] [address] [address] [address] Bee Titus Color (U) YELLOW Normal YELLOW [facility] Comment on above: Performed By: #### U MICRO, UACSIND #### [facility] [address] [address] [address] Bee GARLAND A micrscopic examination will be performed if indicated. Normal [facility] Comment on above: Performed By: #### U MICRO, UACSIND #### [facility] [address] [place] [address] Dr. Bee Titus Glucose Ql (U) Negative Normal NEGATIVE [facility] Comment on above: Performed By: #### U MICRO, UACSIND #### [facility] [address] [address] [address] Bee Titus Hemoglobin Ql (U) TRACE-INTACT Abnormal NEGATIVE [facility] Comment on above: Performed By: #### U MICRO, UACSIND #### [facility] [address] [address] [address] Bee Titus Ketones Ql (U) >=80 Abnormal NEGATIVE [facility] Comment on above: Performed By: #### U MICRO, UACSIND #### [facility] [address] [address] [address] Bee Titus LEUKOCYTES Negative Normal NEGATIVE [facility] Comment on above: Performed By: #### U MICRO, UACSIND #### [facility] [address] [address] [address] Bee Titus Nitrite Ql (U) Negative Normal NEGATIVE [facility] Comment on above: Performed By: #### U MICRO, UACSIND #### [facility] [address] [address] [address] Bee Titus pH (U) 6.5 [pH] Normal 5-9 [facility] Comment on above: Performed By: #### U MICRO, UACSIND #### [facility] [address] [address] [address] Bee Titus SPEC GRAVITY 1.015 Normal 1.005-<=1.025 [facility] Comment on above: Performed By: #### U MICRO, UACSIND #### [facility] [address] [address] [address] Bee Titus UA PROTEIN Negative Normal NEGATIVE/ TRACE [facility] Comment on above: Performed By: #### U MICRO, UACSIND #### [facility] [address] [address] Dr. Bee Titus UR MICRO IND INDICATED Normal [facility] Comment on above: Performed By: #### U MICRO, UACSIND #### [facility] [address] [address] [address] Bee Titus Urobilinogen Qn (U) 0.2 {Rama'U}/dL Normal 0.2 - 1. 0 [facility] Comment on above: Performed By: #### U MICRO, UACSIND #### [facility] [address] [address] [address] Bee Titus LIPASEon 05-17-2022 Lipase [Catalytic activity/Vol] 95.0 U/L Normal 73.0-393.0 [facility] Comment on above: Performed By: #### A MY, CMP, LIPA ####[facility] [address] [address]Dr. Bee Titus PROF 14(COMP METB)on 023 Albumin [Mass/Vol] 2.9 g/dL Critically low 3.4-5.0 Th e [facility] Comment on above: Performed By: #### A MY, CMP, LIPA ####[facility] [address] [address]Dr. Bee Titus Albumin/Globulin [Mass ratio] 0.8 {ratio} Normal [facility] Comment on above: Performed By: #### A MY, CMP, LIPA ####[facility] [address] [address]Dr. Bee Titus ALP [Catalytic activity/Vol] 85 U/L Normal 46-116 [facility] Comment on above: Performed By: #### A MY, CMP, LIPA ####[facility] [address] [address]Dr. Bee Titus ALT [Catalytic activity/Vol] 17 U/L Normal 14-59 [facility] Comment on above: Performed By: #### A MY, CMP, LIPA ####[facility] [address] [place], [place] [address]Dr. Bee Titus Anion gap [Moles/Vol] 15.6 mmol/L Normal [facility] Comment on above: Performed By: #### A MY, CMP, LIPA ####[facility] Myrd[address]of[address] [place], [place] [address]Dr. Bee Titus AST [Catalytic activity/Vol] 15 U/L Normal 15-37 [facility] Comment on above: Performed By: #### A MY, CMP, LIPA ####[facility] [address] [place], [place] [address]Dr. Bee Titus Bilirubin [Mass/Vol] 0.5 mg/dL Normal 0.2-1.0 [facility] Comment on above: Performed By: #### A MY, CMP, LIPA ####[facility] [address] [place], [place] [address]Dr. Bee Titus Calcium [Mass/Vol] 8.4 mg/dL Critically low 8.5-10.1 [facility] Comment on above: Performed By: #### A MY, CMP, LIPA ####[facility] [address] [place], [place] [address]Dr. Bee Titus Chloride [Moles/Vol] 105 mmol/L Normal 98-107 [facility] Comment on above: Performed By: #### A MY, CMP, LIPA ####[facility] [address] [place], [place] [address]Dr. Bee Titus CO2 [Moles/Vol] 22.3 mmol/L Normal 21.0-32.0 [facility] Comment on above: Performed By: #### A MY, CMP, LIPA ####[facility] [address] [address]Dr. Bee Titus Creatinine [Mass/Vol] 0.61 mg/dL Normal 0.55-1.02 [facility] Comment on above: Performed By: #### A MY, CMP, LIPA ####[facility] [address] [address]Dr. Bee Titus EGFR-AF ESTONIAN >60 Normal >=60 [facility] Comment on above: Performed By: #### A MY, CMP, LIPA ####[facility] [address] [address]Dr. Bee Titus EGFR-NON AF ESTONIAN >60 Normal >=60 [facility] Comment on above: Performed By: #### A MY, CMP, LIPA ####[facility] [address] [address]Dr. Bee Titus Globulin (S) [Mass/Vol] 3.7 g/dL Normal [facility] Comment on above: Performed By: #### A MY, CMP, LIPA ####[facility] [address] [address]Dr. Bee Titus Glucose [Mass/Vol] 112 mg/dL Critically high 74-106 [facility] Comment on above: Performed By: #### A MY, CMP, LIPA ####[facility] [address] [address]Dr. Bee Titus Potassium [Moles/Vol] 3.9 mmol/L Normal 3.5-5.1 [facility] Comment on above: Performed By: #### A MY, CMP, LIPA ####[facility] [address] [address]Dr. Bee Titus Protein [Mass/Vol] 6.6 g/dL Normal 6.4-8.2 [facility] Comment on above: Performed By: #### A MY, CMP, LIPA ####[facility] [address] [id number]. Bee Titus Sodium [Moles/Vol] 139 mmol/L Normal 136-145 [facility] Comment on above: Performed By: #### A MY, CMP, LIPA ####[facility] Hzluxxjmwc[address] [address]Dr. Bee Titus Urea nitrogen [Mass/Vol] 10.0 mg/dL Normal 7.0-18.0 [facility] Comment on above: Performed By: #### A MY, CMP, LIPA ####[facility] [address] [address]Dr. Bee Titus Urea nitrogen/Creatinine [Mass ratio] 16.4 mg/mg Normal [facility] Comment on above: Performed By: #### A MY, CMP, LIPA ####[facility] [address] [address]Dr. Bee Titus URINE MICROSCOPIC ONLYon BACTERIA NONE SEEN Normal NONE SEEN [facility] Comment on above: Performed By: #### U MICRO, UACSIND #### [facility] [address] [address] [address] Bee Titus Bacteria identified Cx Nom (U) NOT INDICATED Normal [facility] Comment on above: Performed By: #### U MICRO, UACSIND #### [facility] [address] [address] [address] Bee Titus CAST NONE SEEN Normal NONE SEEN [facility] Comment on above: Performed By: #### U MICRO, UACSIND #### [facility] [address] [address] [address] Bee Ttius Crystals LM Nom (Urine sed) NONE SEEN Normal NONE SEEN [facility] Comment on above: Performed By: #### U MICRO, UACSIND #### [facility] [address] [address] [address] Bee Titus Epithelial cells LM Ql (Urine sed) NONE SEEN Normal NONE SEEN /RARE [facility] Comment on above: Performed By: #### U MICRO, UACSIND #### [facility] [address] [address] [address] Bee Titus MUCOUS NONE SEEN Normal NONE SEEN [facility] Comment on above: Performed By: #### U MICRO, UACSIND #### [facility] [address] [address] [address] Bee Titus RBC 0-2 Normal 0-2 [facility] Comment on above: Performed By: #### U MICRO, UACSIND #### [facility] [id number] Bee Titus WBC NONE SEEN Normal NONE SEEN [facility] Comment on above: Performed By: #### U MICRO, UACSIND #### [facility] [address] [address] [address] Bee Titus TYPE AND SCREENon 05-04-2022 TYPE AND SCREEN Negative Normal [facility] [place] [facility] Comment on above: Performed By: #### T NS #### [facility] [address] [address] [address] Bee Titus GLUCOSE - 1HRon 04-30-2022 Glucose [Mass/Vol] 136 mg/dL Critically high 74-106 [facility] Comment on above: Performed By: #### G LU1HR ####[facility] [address] [id number]. Bee Titus US PREG ANATOMY SINGLEon US PREG ANATOMY SINGLE EXAMINATION: US PREG ANATOMY SINGLE HISTORY: Gynecologic examination COMPARISON: No relevant comparison available. TECHNIQUE: Transabdominal sonographic examination was performed for obstetrical and evaluation. FINDINGS: Number: 1 Heart Rate: 152.5 bpm H.B. /min Amniotic Fluid Volume: Subjectively normal position: Cephalic presentation, longitudinal lie Placental Location: Posterior, grade 0. Placental edge 2.7 cm from the internal os Cervix Length: 5.1 cm, closed Normal structures: Cerebellum. Choroid plexus. Cisterna magna. Lateral cerebral ventricles. Orbits. Midline falx. Hard palate. 4-chamber heart. RVOT. LVOT. Stomach. Kidneys. Bladder. Umbilical cord insertion into abdomen. 3 vessel cord. Cervical spine. Thoracic spine. Lumbar spine. Sacral spine. Right upper extremity. Left upper extremity. Right lower extremity. Left lower extremity. Suboptimally seen: None. Abnormalities/Other: None BIOMETRY: BPD: 4.8 cm 20 weeks 4 days , 69% HC: 18.5 cm 20 weeks 6 days, 73% AC: 17.1 cm 22 weeks 0 days, 93% FL: 3.2 cm 20 weeks 1 days, 42% EFW:400.9 grams; 14 ounces, 92% FL/AC: 19.0 FL/BPD: 67.2 HC/AC: 1.1 GESTATIONAL AGE: Age by EDC: 20 weeks 1 days CARY by EDC: 07/26/2022 Age by current US: 20 weeks 6 days CARY by current US: 07/21/2022 IMPRESSION: Normal anatomy scan *Reference: [employer] Practice Guideline for the performance of Obstetric Ultrasound Examinations, December 27, 2006. Electronically authenticated by: MIMI RICHEY Date: 2022-03-10 07:17 Normal [facility] PAP ACOG PANEL 2: 21 to 29on 03-03-2022 . . Normal [facility] Comment on above: Performed By: #### 4 [id number] ####[facility] [address] [address]DrEric Titus Age Gdln ACOG Testing 21-29 [facility] Comment on above: Performed By: #### 4 [id number] ####[facility] [address] [address]DrEric Titus DIAGNOSIS: Comment Normal [facility] Comment on above: Result Comment: NEGA TIVE FOR INTRAEPITHELIAL LESION OR MALIGNANCY. Performed By: #### 4 [id number] ####[facility] [address] [address]DrEric Titus Methodology: Comment Normal [facility] Comment on above: Result Comment: This liquid based ThinPrep(R) pap test was screened with the use of an image guided system. Performed By: #### 4 [id number] ####[facility] [address] [address]DrEric Titus Note: Comment Normal [facility] Comment on above: Result Comment: The Pap smear is a screening test designed to aid in the detection of premalignant and malignant conditions of the uterine cervix. It is not a diagnostic procedure and should not be used as the sole means of detecting cervical cancer. Both false-positive and false-negative reports do occur. . Performed By: #### 4 [id number] ####[facility] [address] [place], [place] [address]Dr. Bee Titus Performed by: Comment Normal [facility] Comment on above: Result Comment: Kamila Land, Breaker Engineer Performed By: #### 4 [id number] ####[facility] [address] [place], [place] [address]Dr. Bee Titus Reflex Criteria: Comment Normal [facility] Comment on above: Result Comment: The HPV DNA reflex criteria were not met with this specimen result therefore, no HPV testing was performed. . Performed By: #### 4 [id number] ####[facility] [address] [place], [place] [address]Dr. Bee Titus Specimen adequacy: Comment Normal [facility] Comment on above: Result Comment: Sati sfactory for evaluation. No endocervical component is identified. Performed By: #### 4 [id number] ####[facility] Z[address]rah[address] [place], [place] [address]Dr. Bee Titus CHLAMYDIA/GONOCOCCUS CJ (SW AB/URINE/PAPon 02-26-2022 Chlamydia trachomatis, CJ Negative Normal Negative [facility] Comment on above: Performed By: #### C T/NGNA #### [facility] [address] [place] [address] Dr. Bee Titus Neisseria gonorrhoeae, CJ Negative Normal Negative [facility] Comment on above: Performed By: #### C T/NGNA #### [facility] [address] [place] [address] Dr. Bee Titus VAGINITIS/VAGINOSIS DNA PROB Alcon 02-25-2022 Sofya species Negative Normal Negative [facility] Comment on above: Performed By: #### V AGINT ####[facility] [address] [place], [place] [address]DrEric Titus Gardnerella vaginalis Negative Normal Negative [facility] Comment on above: Performed By: #### V AGINT ####[facility] [address] [place], [place] [address]JsEric Titus Trichomonas vaginalis Negative Normal Negative [facility] Comment on above: Performed By: #### V AGINT ####[facility] [address] [place], [place] [address]Jb. Bee Titus HEP B SURFACE ANTIGEN SCREEN on 12-26-2021 HBsAg Screen Negative Normal Negative [facility] Comment on above: Performed By: #### U MICRO, UACSIND #### [facility] [address] [address] [address] Bee Titus HEPATITIS C VIRUS AB W/ REFL EX QUANTon 12-26-2021 HCV AB <0.1 Normal 0.0-0.9 [facility] Comment on above: Performed By: #### U MICRO, UACSIND #### [facility] [address] [address] [address] Bee Titus Interpretation: Comment Normal [facility] Comment on above: Result Comment: Nega tive Not infected with HCV, unless recent infection is suspected or other evidence exists to indicate HCV infection. Performed By: #### U MICRO, UACSIND #### [facility] [address] [address] [address] Bee Titus HIV 1 AND 2 WITH REFLEXon HIV Screen 4th Generation wRfx Non-Reactive Normal Non Reactive [facility] Comment on above: Result Comment: HIV Negative HIV-1/HIV-2 antibodies and HIV-1 p24 antigen were NOT detected. There is no laboratory evidence of HIV infection. Performed By: #### H IV12 ####[facility] [address] [id number]. Bee Titus RPR QUANTon 12-26-2021 Rapid Plasma Reagin, Quant Non-Reactive Normal NonRea<1:1 [facility] Comment on above: Result Comment: Plea se Note: This test does not meet current guidelines for screening and diagnosis of syphilis. This test is intended for following treatment response in patients being treated for syphilis infection. To screen for syphilis infection, a reflex cascade that includes both RPR and a treponema-specific assay should be utilized, such as Treponema pallidum (Syphilis) Screening Holder (218235) or Rapid Plasma Reagin (RPR) Test With Reflex to Quantitative RPR and Confirmatory Treponema pallidum Antibodies (654506). Performed By: #### U MICRO, UACSIND #### [facility] [address] [place] [address] Dr. Bee Titus RUBELLA AB IGGon 12-26-2021 Rubella Antibodies, IgG 2.83 index Normal Immune >0.99 [facility] Comment on above: Result Comment: Non- immune <0.90 Equivocal 0.90 - 0.99 Immune >0.99 Performed By: #### U MICRO, UACSIND #### [facility] [address] [place] [address] Dr. Bee Titus CBC AUTO DIFFon 12-25-2021 BASO # 0.0 103/ul Normal 0.0-0.1 [facility] Comment on above: Performed By: #### C BC ####[facility] [address] [place], [place] [address]Dr. Bee Titus Basophils/100 WBC (Bld) 0.3 % Normal 0.2-2.0 [facility] Comment on above: Performed By: #### C BC ####[facility] [address] [place], [place] [address]DrEric Titus EO # 0.1 103/ul Normal 0.0-0.7 [facility] Comment on above: Performed By: #### C BC ####[facility] [address] [place], [place] [address]DrEric Titus Eosinophils/100 WBC (Bld) 0.6 % Critically low 0.9-7.0 [facility] Comment on above: Performed By: #### C BC ####[facility] X[address] [place], [place] [address]DrEric Titus Erythrocyte distribution width (RBC) [Ratio] 12.1 % Normal 11.0-15.0 [facility] Comment on above: Performed By: #### C BC ####[facility] [address] [address]Dr. Bee Titus Hematocrit (Bld) [Volume fraction] 37.5 % Normal 36.0-48.0 [facility] Comment on above: Performed By: #### C BC ####[facility] [address] [address]Dr. Bee Titus Hemoglobin (Bld) [Mass/Vol] 13.3 g/dL Normal 12.0-16.0 [facility] Comment on above: Performed By: #### C BC ####[facility] [address] [address]Dr. Bee Tacho IG # 0.04 10e3/ul Critically high 0.00-0.03 [facility] Comment on above: Performed By: #### C BC ####[facility] [address] [place], [place] [address]Dr. Bee Tacho IG % 0.4 % Normal 0.0-0.5 [facility] Comment on above: Performed By: #### C BC ####[facility] [address] [place], [place] [address]Dr. Bee Tacho LYMPH # 1.7 103/ul Normal 1.2-3.8 [facility] Comment on above: Performed By: #### C BC ####[facility] [address] [address]DrEric Bee Tacho Lymphocytes/100 WBC (Bld) 17.2 % Critically low 20.5-60.0 [facility] Comment on above: Performed By: #### C BC ####[facility] [address] [address]DrEric Bee Tacho MANUAL DIFF REQ NO Normal [facility] Comment on above: Performed By: #### C BC ####[facility] [address] [address]DrEric Bee Tacho MCH (RBC) [Entitic mass] 32.0 pg Normal 26.7-34.0 [facility] Comment on above: Performed By: #### C BC ####[facility] [address] [place], [place] [address]DrEric Bee Titus MCHC (RBC) [Mass/Vol] 35.5 g/dL Critically high 29.9-35.2 [facility] Comment on above: Performed By: #### C BC ####[facility] [address] [id number]. Bee Titus MCV (RBC) [Entitic vol] 90.1 fL Normal 81.0-99.0 [facility] Comment on above: Performed By: #### C BC ####[facility] [address] [id number]. Bee Tacho MONO # 0.5 103/ul Normal 0.3-0.8 [facility] Comment on above: Performed By: #### C BC ####[facility] [address] [address]Dr. Bee Titus Monocytes/100 WBC (Bld) 4.8 % Normal 1.7-12.0 [facility] Comment on above: Performed By: #### C BC ####[facility] [address] [id number]. Bee Tacho NEUT # 7.4 103/ul Critically high 1.4-6.5 [facility] Comment on above: Performed By: #### C BC ####[facility] [address]so[address] [address]Dr. Leigh Annpee Titus Neutrophils/100 WBC (Bld) 76.7 % Critically high 43.0-75.0 [facility] Comment on above: Performed By: #### C BC ####[facility] [address] [id number]. Bee Tacho Platelet mean volume (Bld) [Entitic vol] 10.2 fL Normal 9.5-13.5 [facility] Comment on above: Performed By: #### C BC ####[facility] [address] [id number]. Bee Titus PLT 226 103/ul Normal 150-450 [facility] Comment on above: Performed By: #### C BC ####[facility] [address]fn[address] [id number]. Bee Titus RBC 4.16 106/ul Critically low 4.20-5.40 [facility] Comment on above: Performed By: #### C BC ####[facility] [address] [id number] Titus WBC 9.7 103/ul Normal 4.0-11.0 [facility] Comment on above: Performed By: #### C BC ####[facility] [address] [address]Dr. Leigh Annpee Titus CULTURE URINEon 12-25-2021 CULTURE URINE Culture Observations : LIGHT GROWTH OF MIXED GENITAL SUMA. NO POTENTIAL PATHOGENS SEEN. Normal [facility] Comment on above: Performed By: #### U RCX ####[facility] [address] [address]Dr. Bee Titus GLYCOHEMOGLOBIN A1Con 2021 ADA RECOMMENDATION SEE BELOW Normal [facility] Comment on above: Result Comment: ADA RECOMMENDED LIMIT 4.0 - 6.0 ADA THERAPEUTIC TARGET < 7.0 ACTION SUGGESTED > 7.0 Performed By: #### U MICRO, UACSIND #### [facility] [address] [address] [address] Bee Titus Glucose [Mass/Vol] 88 mg/dL Normal [facility] Comment on above: Performed By: #### U MICRO, UACSIND #### [facility] [address] [address] [address] Bee Titus HbA1c (Bld) [Mass fraction] 4.7 % Normal 4.5-6.2 [facility] Comment on above: Performed By: #### U MICRO, UACSIND #### [facility] [address] [address] [address] Bee Titus TYPE AND SCREENon 12-25-2021 TYPE AND SCREEN Negative Normal [facility] [place] [facility] Comment on above: Performed By: #### T NS #### [facility] [address] [address] [address] Bee Titus US PREG TVon 12-05-2021 US PREG TV EXAMINATION: US PREG TV HISTORY: Missed period COMPARISON: No relevant comparison available. FINDINGS: GESTATIONAL SAC: Present and normal appearing. POLE: Present and normal appearing. YOLK SAC: Present. CARDIAC: Present. UTERUS: Normal size and appearance. OVARIES: Right: Normal. Left: Normal. CERVIX: 4.7 cm in length and closed. CUL-DE-SAC: Normal. OTHER: None. AGE BY LMP: 8 weeks, 3 days CARY BY LMP: 07/14/2022 AGE BY US CRL: 6 weeks, 5 days CARY BY US CRL: 07/26/2022 IMPRESSION: 1. Single live intrauterine . Electronically authenticated by: BIENVENIDO LONG Date: 2021-12-05 16:58 Normal [facility] HCG-BETA SUBUNIT QUANTon hCG,Beta Subunit,Qnt,Serum 105 mIU/mL Normal [facility] Comment on above: Result Comment: Fema le (Non-) 0 - 5 (Postmenopausal) 0 - 8 . Female () Weeks of Gestation 3 6 - 71 4 10 - 750 5 217 - 7138 6 158 - 16926 7 [phone] [phone] 8 26987 -412501 9 96703 -667758 10 34830 077809 12 06438 -[phone] 14 55841 - 04966 15 54293 - 45112 16 9040 - 69170 17 8175 - 20008 18 8099 - 73157 [place] ECLIA methodology Performed By: #### U MICRO, UACSIND #### [facility] [address] [place] [address] Dr. Bee Titus HCG-BETA SUBUNIT QUANTon hCG,Beta Subunit,Qnt,Serum 41 mIU/mL Normal [facility] Comment on above: Result Comment: Fema le (Non-) 0 - 5 (Postmenopausal) 0 - 8 . Female () Weeks of Gestation 3 6 - 71 4 10 - 750 5 217 - 7138 6 158 - 47805 7 9757 -[phone] 8 94351 -556825 9 90517 -064726 10 54393 -670353 12 97114 -719996 14 87149 - 93164 15 69577 - 31608 16 9040 - 02465 17 8175 - 82261 18 8099 - 09108 [place] ECLIA methodology Performed By: #### H CGSUB ####[facility] [address] [address]Dr. Bee Titus CBC AUTO DIFFon 10-23-2021 BASO # 0.0 103/ul Normal 0.0-0.1 [facility] Comment on above: Performed By: #### C BC ####[facility] [address] [place], [place] [address]Dr. Bee Titus Basophils/100 WBC (Bld) 0.7 % Normal 0.2-2.0 [facility] Comment on above: Performed By: #### C BC ####[facility] [address] [place], [place] [address]Dr. Bee Titus EO # 0.2 103/ul Normal 0.0-0.7 [facility] Comment on above: Performed By: #### C BC ####[facility] [address] [place], [place] [address]Dr. Bee Titus Eosinophils/100 WBC (Bld) 2.7 % Normal 0.9-7.0 [facility] Comment on above: Performed By: #### C BC ####[facility] [address] [place], [place] [address]Dr. Bee Titus Erythrocyte distribution width (RBC) [Ratio] 12.2 % Normal 11.0-15.0 [facility] Comment on above: Performed By: #### C BC ####[facility] [address] [place], [place] [address]Dr. Bee Titus Hematocrit (Bld) [Volume fraction] 40.4 % Normal 36.0-48.0 [facility] Comment on above: Performed By: #### C BC ####[facility] [address] [place], [place] [address]Dr. Bee Titus Hemoglobin (Bld) [Mass/Vol] 14.0 g/dL Normal 12.0-16.0 [facility] Comment on above: Performed By: #### C BC ####[facility] [facility] Bcssooymlz[address] [place], [place] [address]Dr. Bee Titus IG # 0.01 10e3/ul Normal 0.00-0.03 [facility] Comment on above: Performed By: #### C BC ####[facility] [address] [address]Dr. Bee Tacho IG % 0.2 % Normal 0.0-0.5 [facility] Comment on above: Performed By: #### C BC ####[facility] [address] [address]Dr. Bee Tacho LYMPH # 1.8 103/ul Normal 1.2-3.8 [facility] Comment on above: Performed By: #### C BC ####[facility] [address]doc[address] [address]DrEric Bee Tacho Lymphocytes/100 WBC (Bld) 30.1 % Normal 20.5-60.0 [facility] Comment on above: Performed By: #### C BC ####[facility] [address] [place], [place] [address]Dr. Bee Tacho MANUAL DIFF REQ NO Normal [facility] Comment on above: Performed By: #### C BC ####[facility] [address] [address]Dr. Bee Tacho MCH (RBC) [Entitic mass] 31.2 pg Normal 26.7-34.0 [facility] Comment on above: Performed By: #### C BC ####[facility] [address]es[address] [place], [place] [address]Dr. Bee Tacho MCHC (RBC) [Mass/Vol] 34.7 g/dL Normal 29.9-35.2 [facility] Comment on above: Performed By: #### C BC ####[facility] [address] [address]DrEric Bee Tacho MCV (RBC) [Entitic vol] 90.0 fL Normal 81.0-99.0 [facility] Comment on above: Performed By: #### C BC ####[facility] [address] [place], [place] [address]DrEric Titus MONO # 0.4 103/ul Normal 0.3-0.8 [facility] Comment on above: Performed By: #### C BC ####[facility] [address] [address]Dr. Bee Titus Monocytes/100 WBC (Bld) 7.0 % Normal 1.7-12.0 [facility] Comment on above: Performed By: #### C BC ####[facility] [address] [address]Dr. Bee Titus NEUT # 3.5 103/ul Normal 1.4-6.5 [facility] Comment on above: Performed By: #### C BC ####[facility] [address] [place], [place] [address]Dr. Bee Titus Neutrophils/100 WBC (Bld) 59.3 % Normal 43.0-75.0 [facility] Comment on above: Performed By: #### C BC ####[facility] [address] [place], [place] [address]Dr. Bee Titus Platelet mean volume (Bld) [Entitic vol] 10.0 fL Normal 9.5-13.5 [facility] Comment on above: Performed By: #### C BC ####[facility] [address] [place], [place] [address]Dr. Bee Titus PLT 244 103/ul Normal 150-450 [facility] Comment on above: Performed By: #### C BC ####[facility] [address] [place], [place] [address]Dr. Bee Titus RBC 4.49 106/ul Normal 4.20-5.40 [facility] Comment on above: Performed By: #### C BC ####[facility] Ee[address]vct[address] [place], [place] [address]Dr. Bee Titus WBC 5.9 103/ul Normal 4.0-11.0 [facility] Comment on above: Performed By: #### C BC ####[facility] Ve[address] [place], [place] [address]Dr. Bee Titus FREE T4on 10-23-2021 Free T4 [Mass/Vol] 0.91 ng/dL Normal 0.76-1.46 [facility] Comment on above: Performed By: #### U MICRO, UACSIND #### [facility] [address] [address] [address] Bee Titus LIPID PROFILEon 10-23-2021 CHOL-HDL RATIO NORM SEE BELOW Normal [facility] Comment on above: Result Comment: 3.3 - 4.4 LOW RISK 4.4 - 7.1 AVERAGE RISK 7.1 - 11.0 MODERATE RISK >11.0 HIGH RISK Performed By: #### U MICRO, UACSIND #### [facility] [address] [address] [address] Bee Titus Cholesterol [Mass/Vol] 191 mg/dL Normal <=200 [facility] Comment on above: Performed By: #### U MICRO, UACSIND #### [facility] [address] [address] [address] Bee Titus Cholesterol in HDL [Mass/Vol] 77 mg/dL Critically high 40-60 [facility] Comment on above: Performed By: #### U MICRO, UACSIND #### [facility] [address] [address] [address] Bee Titus Cholesterol in LDL [Mass/Vol] 103.2 mg/dL Normal [facility] Comment on above: Performed By: #### U MICRO, UACSIND #### [facility] [address] [address] [address] Bee Titus Cholesterol.total/Cho lesterol in HDL [Mass ratio] 2.5 {ratio} Normal [facility] Comment on above: Performed By: #### U MICRO, UACSIND #### [facility] [address] [address] [address] Bee Titus HDL NORMAL > or = 60 mg/dl - LO W CARDIOVASCULAR RISK <40 mg/dl - HIGH CARDIOVASCULAR RISK Normal [facility] Comment on above: Performed By: #### U MICRO, UACSIND #### [facility] [address] [address] [address] Bee Titus LDL CALC NORMAL SEE BELOW Normal [facility] Comment on above: Result Comment: <100 mg/dl OPTIMAL 100 - 129 mg/dl NEAR OR ABOVE OPTIMAL 130 - 159 mg/dl BORDERLINE HIGH 160 - 189 mg/dl HIGH >190 mg/dl VERY HIGH Performed By: #### U MICRO, UACSIND #### [facility] [address] [place] [address] Dr. Bee Titus Triglyceride [Mass/Vol] 54 mg/dL Normal <=150 [facility] Comment on above: Performed By: #### U MICRO, UACSIND #### [facility] [address] [place] [address] Dr. Bee Titus VLDL CALC 10.8 mg/dL Normal [facility] Comment on above: Performed By: #### U MICRO, UACSIND #### [facility] [address] [place] [address] Dr. Bee Titus PROF 14(COMP METB)on 022 Albumin [Mass/Vol] 3.9 g/dL Normal 3.4-5.0 [facility] Comment on above: Performed By: #### U MICRO, UACSIND #### [facility] [address] [place] [address] Dr. Bee Titus Albumin/Globulin [Mass ratio] 1.3 {ratio} Normal [facility] Comment on above: Performed By: #### U MICRO, UACSIND #### [facility] [address] [place] [address] Dr. Bee Titus ALP [Catalytic activity/Vol] 54 U/L Normal 46-116 [facility] Comment on above: Performed By: #### U MICRO, UACSIND #### [facility] [address] [place] [address] Dr. Bee Titus ALT [Catalytic activity/Vol] 38 U/L Normal 14-59 [facility] Comment on above: Performed By: #### U MICRO, UACSIND #### [facility] [address] [place] [address] Dr. Bee Titus Anion gap [Moles/Vol] 10.9 mmol/L Normal [facility] Comment on above: Performed By: #### U MICRO, UACSIND #### [facility] [address] [address] [address] Bee Titus AST [Catalytic activity/Vol] 56 U/L Critically high 15-37 [facility] Comment on above: Performed By: #### U MICRO, UACSIND #### [facility] [address] [address] [address] Bee Titus Bilirubin [Mass/Vol] 0.4 mg/dL Normal 0.2-1.0 [facility] Comment on above: Performed By: #### U MICRO, UACSIND #### [facility] [address] [address] [address] Bee Titus Calcium [Mass/Vol] 8.9 mg/dL Normal 8.5-10.1 [facility] Comment on above: Performed By: #### U MICRO, UACSIND #### [facility] [address] [address] [address] Bee Titus Chloride [Moles/Vol] 109 mmol/L Critically high 98-107 [facility] Comment on above: Performed By: #### U MICRO, UACSIND #### [facility] [address] [address] [address] Bee Titus CO2 [Moles/Vol] 26.9 mmol/L Normal 21.0-32.0 [facility] Comment on above: Performed By: #### U MICRO, UACSIND #### [facility] [address] [address] [address] Bee Titus Creatinine [Mass/Vol] 0.84 mg/dL Normal 0.55-1.02 [facility] Comment on above: Performed By: #### U MICRO, UACSIND #### [facility] [address] [address] [address] Bee Titus EGFR-AF ESTONIAN >60 Normal >=60 [facility] Comment on above: Performed By: #### U MICRO, UACSIND #### [facility] [address] [address] [address] Bee Titus EGFR-NON AF ESTONIAN >60 Normal >=60 [facility] Comment on above: Performed By: #### U MICRO, UACSIND #### [facility] [address] [address] [address] Bee Titus Globulin (S) [Mass/Vol] 3.1 g/dL Normal [facility] Comment on above: Performed By: #### U MICRO, UACSIND #### [facility] [address] [address] [address] Bee Titus Glucose [Mass/Vol] 97 mg/dL Normal 74-106 [facility] Comment on above: Performed By: #### U MICRO, UACSIND #### [facility] [address] [address] [address] Bee Titus Potassium [Moles/Vol] 3.8 mmol/L Normal 3.5-5.1 [facility] Comment on above: Performed By: #### U MICRO, UACSIND #### [facility] [address] [place] [address] Dr. Bee Titus Protein [Mass/Vol] 7.0 g/dL Normal 6.4-8.2 [facility] Comment on above: Performed By: #### U MICRO, UACSIND #### [facility] [address] [address] [address] Bee Titus Sodium [Moles/Vol] 143 mmol/L Normal 136-145 [facility] Comment on above: Performed By: #### U MICRO, UACSIND #### [facility] [address] [place] [address] Dr. Bee Titus Urea nitrogen [Mass/Vol] 11.0 mg/dL Normal 7.0-18.0 [facility] Comment on above: Performed By: #### U MICRO, UACSIND #### [facility] [address] [address] [address] Bee Titus Urea nitrogen/Creatinine [Mass ratio] 13.1 mg/mg Normal [facility] Comment on above: Performed By: #### U MICRO, UACSIND #### [facility] [address] [place] [address] Dr. Bee Titus TSHon 10-23-2021 TSH 1.495 uIU/mL Normal 0.358-3.740 [facility] Comment on above: Performed By: #### U BANNER, UN[facility] HOSPITALSIND #### [facility] [address] [place] [address] Dr. Bee Titus Coding Summaryon 07-18-2020 Coding Summary HTMLBase 64 KpteqwhsFVm1kTs+PGhlY WQ+LX0LLWDaB80zxEApeH 8VF8mJCV3ALUHNUMAMEZ6 PQP1kdMX7RAzaY9UosgBr VtwyfFAzNM02YWm1YZE9x XjwLItkcK2wgEKjE6l8Yb KkDD35wE49DUcmZFBlEqQ 3LjZpbjsgbWFy H2vlKxMpeVTuQvi+PHRhY mxlIHdpZHRoPScxMDAlJy HcmMnoWK9uAl0bWKSrZBQ vbGxhcHNlOiBj s1sqHAHyZJbxHQ5msGpeG 0HeoDJ7HNLrp2c0Lo95oI I+TFJrECV3qCeyKEgmp36 8CrRjn4qoGRN5 rXVrKIuxPTV0W26sk8V1T NJnCGWmRWM5oFF8jJ6qtB kodxrtP4RowPCiIxM7LOW 2pTQfgS9cvHim dvhesL3hYnw+Z16SYF0BK SITHT2SQgg7L4WhFrsmdU I+WQ83MLNvET82sSAuhIL is8gpbTl6CmHk ANTgABH1pBkwHYxja1KjS AYxC99dtSZul2Q0CBCxgR nimQUhXgLhaAP9uI5sVOy kslimo5rrgkwz Wflcr4xrzn24kB97E20pV CjuZOBgMDJ9DSOpHRKvyL vsvp0caO8uGi8+MCaqg3b yr7rgjLk2IhYk GVYpduRzfUhhWZN6s1GyY i04C7WvaTuuu0JxBdg6ue 34uKZcb0F8dNZ9VUfgUOE irW5uJUzbTnR2 GDXbDwNiiS06fVPmEZuoI p6blKcmrYkbZQ5oAHIvcx tlHQHywD8aCVYneHSvlNw vVQ2eQRDnhalm c825OvRePQJ8PNVmiGLeM 2ElqH5xMjCjHMDfVRLwX6 JgcZGxRAblO612XMxpNiA 6GAJnvsMkM9Xg MSAwaFmgXhE4k1A9Fp7Ig 3OvlvclJNL0MZvyAHB1Ke HsBlEtYfD2O6SnSqe2KHS dkHlzGU2fR0Nu UYBoyjojmpxskSN6SREzB JAqoM30xITpRNqyTm0ag0 F0r301DAIlAJUwdS11Cw0 udDogMTBwdCBU kQ9cycppi2wgruqhEeMrZ MBnCCa3TGc9KTSuhVtdXl GpRTV3BoB5YYN4oWEcrH7 slDvxtdaeaK4p Oyc+W90jdR5eOGY5ZHN5w agqRWKmmhVwYL14EK92S5 RyPjwvdGFibGU+PGRpdiB woXjsLU5yQdTf t4fed9XkSPzvA1SnUYQfL YeuYwv4ESHzQSW5qRP3eY 1lMNOmOOemb3P1iIB9Z4R aqpAkrg4qg1tt UGUoKZllX26pyKIto3M6J HLfgOQ7BQTtbMmlEqEfcO 93Oyc+WCGxeJkgt4GkNcl zf4jiz0fnoDy7 RnLxDWPhwqMxeLmcNBD3z 9QiYw86O90dPClqZFPmFQ SfAERbCRMgsPxkkc7gbH5 wIi8+PGNvbCB3 hKI4wG6lQJGpQoY7FWlhZ 627AoMasLEhGtxvb3vxw9 bliAk2VpDtULCptkFkoEm dKZT8h3IkUu93 H23cTOrnGNWsCIKnICBtM VHiaGpzjl5rxR7lWg1+PC 6bo0ipst99dE02qER+PHR pFEE8fJyzFTuf FYVwfL0rNVykFxU9LYRaC pNjuQ12pVYnSVelVv4vzE kxyUhaPL6rSLAwbudvu75 0IdGcp0bxJMMt tXJmQRcuMZN7Z67xc5E5Z JGpABXcLOT5hBW7oE2taO lnbjogbGVmdDsgdmVydGl fYKmvVKqfS652 IHRvcDsnPlBhdGllbnQgT tCwDWr1X7XkOjw6RCTblE lkDP0mgRIeKMkhDm9xlEo dmPxhCV9xQFTn lqejb478CwXzs3dhSJWtk DJeZEetZRL5B88am4H7LQ HrRBRyWJO8wZN3lL6neDj nbjogbGVmdDsg jpBhaKbkXHllSBdaZ746P HRvcDsnPkJpcnRoIERhdG I0QF23GI25yDTse5T5sZE 2Y3BkYIVsgmzy iebhfIW1SDPxSCFyxH56N i7crSsmDz8bYCZpFKV2TT BafFQqR9DnsZ1eLrXaOGS vQCIsU7ZrzWZw SChxS835DZtwUeI3JVNsj sJwT6GwSLQffTntIeC1r2 G3Au3TB5R3BC68WD10ePP gz9O9sPH9S3Bh RCHplnvgcfykkRH8PTBrT NAqxI80Xj6zfRrbVk3wCJ KlTMW7PLGjfIBwD6OqsG4 yOiAjMDAwMDAw Q9VedEDfSSuqP873BOkeC nW8ZPIzjgNhW3HkXNVkmQ pyAhA7d9X5So6FBDi9XD7 8RW12fVRfp0E0 xUN4R8HwNVCsjguuzgzbu SJ0DFKcAWQgvH05Ot2itU dkBa0jRGPsKBN5HHVkcQQ cN8TnkP8iNhWr XOBsQIPzH2SrhQTzPNmlD 738LHwjZpS6PBRzbrPhX6 JnGRChaTzjMvJ1a3O2Un4 EUOHmGG07MKK1 tOY8EF44YP07R0FiJkkob GFibGU+PHRhYmxlIHdpZH RoPScxMDAlJyBzdHlsZT0 nEs9lASOiQMRi kXhinXLmScIsa1cwPELhQ PfaLL8haOxcN5BwaHQ9IO Orn9q5Iv28H87rA8AlcPS +MGRkhMA4lUW3 mM3zTvMsGqN7LShoV788G lNtdDXgRdsdl4wba9zmjO g9CnO6JWCxhxWvnTmqOTT 3t1AkOc51Z01w IHdpZHRoPSIxNSUiIHZhb Msdfp0hcO4eDf1+PGNvbC G8cBJ2xH1aEyTiFoM6PVp sB230XlArjOTv Apkpy0ubp6ciiLk8EjXqC ZGgkdRxnYdoLAR2m8NjIe 51H5GusPbol2OhGct1db8 6bYBaa0Z2aUL0 S1VrWUNsniasvBVxmWibK M0mFNNuqvheMCUtoU8aLE RlC6n9OoEmQzZ6IOgfP3T bnlE2MQPleICa LFzdWEO3B26eg5B2QKIqR XLwUUD9nKX5eS5piBuxva ogbGVmdDsgdmVydGljYWw bAGqdM479TTZk jUeiIURgwB7hTMLvrBIfw SjiVV0hBRPdflqhFgZUHD wgTElORFNZIEdSQUNFPC9 6EQ48vHUqf1Y5 lYI4B4ZkPIJlttdijpyvt BM5NQHpCELagL30dIKdMJ uePa4ed6J7n551HWHbHTT ocN93Vm0xvEua IONlpWVOdB0kuxkun4vnh ekxXlLdOGJgZNw0ETj4GC TngSpcGwNwAPK2MpZ8KIN 9oDXjqD4omKzj ftmbtP9hPuw+MDkvMTAvM Qo2YskldVF+ALQzBQG2dN mlGJhtHJZucC2cBUAxM1i 8SjLhFkE4NFat J1OwSNOvhbhsVi65gP7rA dYjGvT7QLkqR3LuoaG0BD QziCLcOUvkLYJ2U90rn2J 0RYIvEOKmFAH9 gEH3mS3fgZydvikgwAFgf DsgdmVydGljYWwtYWxpZ2 46IHRvcDsnPjIzIFllYXJ cHJ51EM32eEOo h6A3vFD4H5NhRTFkbofki otahFP9MMHrPFBotM34iH NlKTdcTi2gq3W4l359XWJ cZQUxaR63Bz5g vQyzASLlpBWLyD4savucd 5jdiiupGmLrGOKsGOw9UJ i3VIDjjKhzNoCuVLK1EwX 4WRT5jMCibI7k vLenkjlzyP4xKuo+RkVNQ QhLQS04YQ27gNYbc2R1aE D3F1KvFFMjlyhilqpsjLX 5DDOxUXObqY26 hUUeAGdgOi7dg0B8k278Z UHhUDKynN53Pb5swTkuXJ DuxXJXrU6tnxujh6gzemi gIzAwMDAwMDt0 QRb6RWQavAolSnNzMAM8D aS8YJI9uXYmvK8iaLlbru dqqP7eDzm+D0V6I1BsXew vdHI+AI53IHJe UT73zFKbkLJes5mktCy4O nZpCRPoKCV8jCutMXtpj4 PeTLKkW36bxXZiy3F1FCK vbGxhcHNlOyBl gRJ7gP5fFOxbhrqrg3dxk tvfVkovc3xagi65aK00Z9 9sIHdpZHRoPSIzMCUiIHZ wpIdzuk7zhQ7b Ii8+MOEkgQS0mCX5qY7fF zLxKyP3JKbwB387LyDboG QqKaonh7ngw4ctnPw6NpD wJSIgdmFsaWdu ZMV7o5OcWo81V17iRUipJ HRoPSIyMCUiIHZhbGlnbj 4pbU7dQq2+DQ9jl6vsbz5 8yI99tEX+PHRk RMD8bTfbJBsuOFTnaG0vP SlnVuP5ZXQjViUtcG66wA OcUFatLp6lkAyrvBijPN5 tSTElnxkxc254 DvKwb5ppCYRhyOTiUMsfC DA6X73vy1E7NGQnUXRhEV V4vKQ1oK5pbZiycsdraDM mdDsgdmVydGlj AMyaFWblL669BQTkiBglC eZujSSnS8kwdwXQYB3qLg wvdGQ+ENZkNCX7tUukGRj wUHPxoA4aGFJu F1v9ViDwJhV5AZblE5Yob oY5HWVusGYnTXYbmPOXqX 5vwzcfo8dvfupgEpHbXZS uDUg0DRv0BSVp iBeeUwJzIHU7UdZ8YBE7h FSpoM0scPyfrcuvvO6fKt c+RklOOjwvdGQ+PHRkIHN 0eWxlPSdwYWRk zZ3nZBRwV6x5MpDzEwX9O BenT4CmkvJ6XSKkhJQsMM DvyCFYyQ9oixybp9touxj gIzAwMDAwMDt0 PVw1LQGwlLdoJyUfKCT9H bC0MKB1bWPibU0niXckqo ntmP7xRss+TVJOOjwvdGQ +SHMlYSI3eKfx USapOATgvY4sFJIfH6j8Z iYpGmS0CBikO8GnaaK8HP ZleXRgVEHxoAANnF0jyiw kf7fqspxsWgVq PBAcMTl6AYn5QVWyqRheD tQpTDY9MwE1AZA6wUYogN 3hvRkzgpvvfM3aOcj+UGF 2LDD9AD84YX72 Q8ZhPwfuyPVyaNP+PHRhY mxlIHdpZHRoPScxMDAlJy VbsNeyQK9jEe9uBEEmHFN vbGxhcHNlOiBj b2x (more content not included)... Normal [facility] ED Clinical Summaryon 2020 ED Clinical Summary [facility] ? Urgent Care [address] [place] [address] [id number] Clinical Summary PERSON INFORMATION Name: LAKEISHA BELL Age: 24 Years Sex: FEMALE : 1995 MRN: Acct#: Visit Reason: UC - Skin Problem: simple; SKIN PROBLEM ON BACK Arrival: 07/10/2020 15:22:15 Discharge: 07/10/2020 16:32:00 LOS: 000 01:10 Check In: 07/10/2020 15:22:15 Checkout: 07/10/2020 16:32:00 Address: [address] [place] [address] [facility] [address] PCP: FLOR VILLAGOMEZ MD PROVIDER INFORMATION Provider Role Assigned Unassigned Ramsey Miranda PA-C ED PA 07/10/2020 15:23:21 Whitney Polanco ED Nurse 07/10/2020 15:24:58 VITALS INFORMATION Vital Sign Triage Latest Temperature Tympanic Temperature Temporal Artery Pulse Rate O2 Sat Respiratory Rate Blood Pressure /78 mmHg /78 mmHg MEDICAL INFORMATION Medications Given: Allergy Information: No Known Medication Allergies PHYSICIAN DOCUMENTATION DISCHARGE INFORMATION: Discharge Disposition: Home Discharge Location: Home PATIENT EDUCATION INFORMATION Instructions: Percutaneous Abscess Drain, Care After; Pilonidal Cyst Drainage, Care After Follow-Up: With: Address: When: Return to this practice Comments: 48 hours for packing removal With: Address: When: Braden Sandoval [address] [place] [address] Business (1) , only if needed With: Address: When: Jae Flores [address] [place], [place] [id number] O4IT (1) Comments: OR DIAGNOSIS: Pilonidal abscess Patient Understands: Yes - Patient/family/caregi fahad verbalizes understanding of instructions given Comment: Normal [facility] ED Patient Summaryon 021 ED Patient Summary [facility] ? Urgent Care [address] [place] [address] PATIENT DISCHARGE INSTRUCTIONS Patient Information Name: LAKEISHA BELL Age: 24 Years Date of : 1995 Reason For Visit: UC - Skin Problem: simple; SKIN PROBLEM ON BACK Arrival Time: 07/10/2020 15:22:15 Primary Care Physician: FLOR VILLAGOMEZ MD Attending Physician: Jhon Vigil Comment: Patient Education With: Address: When: Return to this practice Comments: 48 hours for packing removal With: Address: When: Braden Sandoval [address] [place], [place] [id number] O4IT (1) , only if needed With: Address: When: Jae Flores [address] [place], [place] [id number] O4IT (1) Comments: OR Percutaneous Abscess Drain, Care After This sheet gives you information about how to care for yourself after your procedure. Your health care provider may also give you more specific instructions. If you have problems or questions, contact your health care provider. What can I expect after the procedure? After your procedure, it is common to have: ? A small amount of bruising and discomfort in the area where the drainage tube (catheter) was placed. ? Sleepiness and fatigue. This should go away after the medicines you were given have worn off. Follow these instructions at home: Incision care ? Follow instructions from your health care provider about how to take care of your incision. Make sure you: ? Wash your hands with soap and water before you change your bandage (dressing). If soap and water are not available, use hand certified ophthalmic technologist. ? Change your dressing as told by your health care provider. ? Leave stitches (sutures), skin glue, or adhesive strips in place. These skin closures may need to stay in place for 2 weeks or longer. If adhesive strip edges start to loosen and curl up, you may trim the loose edges. Do not remove adhesive strips completely unless your health care provider tells you to do that. ? Check your incision area every day for signs of infection. Check for: ? More redness, swelling, or pain. ? More fluid or blood. ? Warmth. ? Pus or a bad smell. ? Fluid leaking from around your catheter (instead of fluid draining through your catheter). Catheter care ? Follow instructions from your health care provider about emptying and cleaning your catheter and collection bag. You may need to clean the catheter every day so it does not clog. ? If directed, write down the following information every time you empty your bag: ? The date and time. ? The amount of drainage. General instructions ? Rest at home for 1?2 days after your procedure. Return to your normal activities as told by your health care provider. ? Do not take baths, swim, or use a hot tub for 24 hours after your procedure, or until your health care provider says that this is okay. ? Take eufs-ukg-ryzfktb and prescription medicines only as told by your health care provider. ? Keep all follow-up visits as told by your health care provider. This is important. Contact a health care provider if: ? You have less than 10 mL of drainage a day for 2?3 days in a row, or as directed by your health care provider. ? You have more redness, swelling, or pain around your incision area. ? You have more fluid or blood coming from your incision area. ? Your incision area feels warm to the touch. ? You have pus or a bad smell coming from your incision area. ? You have fluid leaking from around your catheter (instead of through your catheter). ? You have a fever or chills. ? You have pain that does not get better with medicine. Get help right away if: ? Your catheter comes out. ? You suddenly stop having drainage from your catheter. ? You suddenly have blood in the fluid that is draining from your catheter. ? You become dizzy or you faint. ? You develop a rash. ? You have nausea or vomiting. ? You have difficulty breathing or you feel short of breath. ? You develop chest pain. ? You have problems with your speech or vision. ? You have trouble balancing or moving your arms or legs. Summary ? It is common to have a small amount of bruising and discomfort in the area where the drainage tube (catheter) was placed. ? You may be directed to record the amount of drainage from the bag every time you empty it. ? Follow instructions from your health care provider about emptying and cleaning your catheter and collection bag. This information is not intended to replace advice given to you by your health care provider. Make sure you discuss any questions you have with your health care provider. Document Released: 07/30/2014 Document Revised: 02/25/2018 Document Reviewed: 02/04/2017 [employer] Patient Education ? 2019 [employer]. Pilonidal Cyst Drainage, Care After This sheet gives you information about how to care f (more content not included)... [facility] Ur[facility] Care Note- Provideron 07-10-2020 Urgent Care Note- Provider Patient: LAKEISHA BELL Age: 24 years Sex: FEMALE : 1995 Associated Diagnoses: Pilonidal abscess Author: Ramsey Miranda PA-C Basic Information Additional information: Chief Complaint from Nursing Triage Note : Chief Complaint 07/10/2020 15:28 EDT Chief Complaint possible abscess 2 days painful area just to right of gluteal crease . History of Present Illness This is a 24 year old healthy female here today with concerns of her third day of worsening pain, swelling and a lump to top of the crease of her buttocks and to the right slightly. No fevers, chills or malaise. No abdominal pain, nausea, vomiting or diarrhea/constipation . No other skin rashes or lesions. She otherwise feels healthy. No history of this in the past. There are no other associated symptoms. Nothing makes the symptoms better or worse. Symptoms are described as gradual onset, moderate in nature and worsening. Health Status Allergies: Allergic Reactions (Selected) No Known Medication Allergies. Past Medical/ Family/ Social History Medical history: No active or resolved past medical history items have been selected or recorded.. Surgical history: No active procedure history items have been selected or recorded.. Family history: No family history items have been selected or recorded.. Social history: Social & Psychosocial Habits Tobacco 07/10/2020 Smoking tobacco use: Never (less than 100 in l Electronic Cigarette/Vaping 07/10/2020 Electronic Cigarette Use: Never . Problem list: No qualifying data available . Physical Examination Vital Signs Vital Signs 07/10/2020 15:28 EDT Temperature Oral 37 DegC Peripheral Pulse Rate 76 bpm Respiratory Rate 16 br/min Systolic Blood Pressure 138 mmHg Diastolic Blood Pressure 78 mmHg . GENERAL: Awake, alert and oriented to person, place and situation. Well nourished, well developed, non toxic, NAD. CARDIOVASCULAR: Regular rate and rhythm. +S1 +S2. No murmurs or rubs. RESPIRATORY: Clear to auscultation bilaterally without rales, rhonchi or wheeze. ABD: Soft, non tender, non distended, normal bowel sounds. SKIN: There is an area of induration and fluctuance to the pilonidal area and slightly to the right, tender to the touch, no local redness or warmth. Otherwise normal inspection, no visualized rash. Medical Decision Making Pilonidal abscess, drained. She tolerated well. It was packed. Return in 2 days for packing removal. Hot soaks until better after that. Bactrim. OTC Motrin as recommended, add PRN Only for severe pain. I reviewed OARR's. I have discussed the risks of taking opiates along with a benzodiazepine, which she is not on. She has failed Tylenol, Motrin. She understands the risks/benefits of this opiate medications as well as the addiction risk. No signs of escalating use or abuse identified today. Opioid risk tool score is 1. General surgery follow-up as needed. Return with new, or worsening symptoms, or symptoms failing to improve as expected and the patient voiced their understanding. Questions answered. Follow-up with their family doctor as directed, return here sooner as needed. Rx for Diflucan to use as needed for yeast vaginitis which she states is common after antibiotics. Procedure PROCEDURE NOTE: The affected area is cleansed with Betadine and anesthetized with 2 cc's of lidocaine without epinephrine. With an 11 blade scalpel, a 1 cm incision is made and 5 cc's of purulent, bloody discharge is expressed. The area is irrigated. It is packed with iodoform gauze. It is dressed in a sterile fashion. The patient tolerated the procedure well without complication. Impression and Plan Diagnosis Pilonidal abscess ([id number] L05.01, Discharge, Medical) Plan Condition: Stable. Disposition: Discharged: Time 07/10/2020 16:14:00, to home. Prescriptions: Launch prescriptions Pharmacy: Only 5 mg-325 mg oral tablet (Prescribe): 1 tab(s), PO, q4hr, for 3 day(s), PRN: for pain, 10 tab(s), 0 Refill(s) Bactrim DS 800 mg-160 mg oral tablet (Prescribe): 1 tab(s), PO, BID, for 10 day(s), 20 tab(s), 0 Refill(s), Launch prescriptions Pharmacy: Diflucan 150 mg oral tablet (Prescribe): 150 mg = 1 tab(s), PO, Once, Take one tab now and repeat in three days, 2 tab(s), 0 Refill(s). Patient was given the following educational materials: Pilonidal Cyst Drainage, Care After, Percutaneous Abscess Drain, Care After, Percutaneous Abscess Drain, Care After, Pilonidal Cyst Drainage, Care After. Follow up with: ; Jae Flores OR; Braden Sandoval , only if needed; Return to this practice 48 hours for packing removal. Counseled: Patient, Regarding diagnosis, Regarding treatment plan, Regarding prescription, Patient indicated understanding of instructions. Normal [facility] 021 Urgent Care Record [facility] ? Urgent Care [address] [place] [address] PATIENT DISCHARGE INSTRUCTIONS Patient Information Name: LAKEISHA BELL Age: 24 Years Date of : 1995 Reason For Visit: UC - Skin Problem: simple; SKIN PROBLEM ON BACK Arrival Time: 07/10/2020 15:22:15 Primary Care Physician: FLOR VILLAGOMEZ MD Attending Physician: Jhon Vigil Comment: Visit Diagnosis: Diagnoses This Visit Pilonidal abscess (L05.01) UC - Skin Problem: simple ([id number]) If you received any narcotics, sedation, or any other medication that causes drowsiness for the next 24 hours, unless otherwise directed: ? Do not drive a car. ? Do not operate machinery such as power tools, lawn mowers, drills, sewing machines, or stoves ? Avoid alcoholic beverages and drugs for allergies, nerves, or sleep ? Do not make important personal or business decisions or sign any legal documents With: Address: When: Return to this practice Comments: 48 hours for packing removal With: Address: When: Braden Sandoval [address] [place] [address] Business (1) , only if needed With: Address: When: Jae Flores [address] [facility] [address] [place] [address] Business (1) Comments: OR Medication Information: The exam and treatment you received today in the [facility] were for an urgent problem and are not intended as complete care. It is important for you to follow up with a doctor, nurse practitioner, or physician?s bindery library technical assistant for ongoing care. If your symptoms become worse or you do not improve as expected and you are unable to reach your usual health care provider, you should return to the Emergency Department, we are available 24 hours a day. For those patients who have received Radiology results, the interpretation of your X-ray as given to you by our Urgent Care physician is only a preliminary report. The Radiologist will review your films and if there is a change in the diagnosis you will be notified by phone. Please make sure you have provided a working phone number so we can reach you if necessary. In the event that you had a lab culture while you were a patient in the Urgent Care, you will be notified by phone if there is a need to change your antibiotic. Please make sure you have provided a working phone number so we can reach you if necessary. [facility] has provided you with a complete list of medications post discharge. Please inform your physician assistant primary care/provider of your visit and for further instruction on these medications. Any specific questions regarding your chronic medications and dosages should be discussed with your primary care physician(s) and/or pharmacist. New Medications [facility], [address] [place] [phone], [phone] acetaminophen-hydroco done (Only 5 mg-325 mg oral tablet) 1 tab(s) Oral Every 4 hours as needed for pain for 3 Days. Refills: 0. sulfamethoxazole-trim ethoprim (Bactrim DS 800 mg-160 mg oral tablet) 1 tab(s) Oral 2 times a day for 10 Days. Refills: 0. Visit Information Allergies: Substance Reaction Symptoms Type Comments No Known Medication Allergies Drug Vital Signs: Vitals and Measurements this Visit (last charted value for your 07/10/2020 visit) Vital Signs This Visit Temperature Oral: 37 DegC Peripheral Pulse Rate: 76 bpm Respiratory Rate: 16 br/min Systolic Blood Pressure: 138 mmHg Diastolic Blood Pressure: 78 mmHg Problems List: Problem Onset Comments No Problems found Patient Education Percutaneous Abscess Drain, Care After This sheet gives you information about how to care for yourself after your procedure. Your health care provider may also give you more specific instructions. If you have problems or questions, contact your health care provider. What can I expect after the procedure? After your procedure, it is common to have: ? A small amount of bruising and discomfort in the area where the drainage tube (catheter) was placed. ? Sleepiness and fatigue. This should go away after the medicines you were given have worn off. Follow these instructions at home: Incision care ? Follow instructions from your health care provider about how to take care of your incision. Make sure you: ? Wash your hands with soap and water before you change your bandage (dressing). If soap and water are not available, use hand certified ophthalmic technologist. ? Change your dressing as told by your health care provider. ? Leave stitches (sutures), skin glue, or adhesive strips in place. These skin closures may need to stay in place for 2 weeks or longer. If adhesive strip edges start to loosen and curl up, you may trim the loose edges. Do not remove adhesive strips completely unless your health care provider tells you to do that. ? Check your incision area every day for signs of infection. Check for: (more content not included)... Normal [facility] Vital Signs Date Time Vital Sign Value Performing Clinician Facility 04-20-2024 09:18-0500 Body height 167.64 cm [facility] 04-20-2024 09:18-0500 Body mass index (BMI) [Ratio] 28.5 kg/m2 [facility] 04-20-2024 09:18-0500 Body weight 80.28 kg [facility] 04-20-2024 09:18-0500 Diastolic blood pressure 74 mm[Hg] [facility] 04-20-2024 09:18-0500 Heart rate 81 /min [facility] 04-20-2024 09:18-0500 Systolic blood pressure 109 mm[Hg] [facility] 01-28-2024 12:33-0400 Body temperature 97 [degF] Yolie Fletcher STITCH BONDING MACHINE OPERATOR Work Phone: [facility] 01-28-2024 12:33-0400 Diastolic blood pressure 80 mm[Hg] Yolie Fletcher STITCH BONDING MACHINE OPERATOR Work Phone: [facility] 01-28-2024 12:33-0400 Heart rate 79 /min Yolie Fletcher STITCH BONDING MACHINE OPERATOR Work Phone: [facility] 01-28-2024 12:33-0400 SaO2% (BldA) [Mass fraction] 99 % Yolie Fletcher STITCH BONDING MACHINE OPERATOR Work Phone: [facility] 01-28-2024 12:33-0400 Systolic blood pressure 112 mm[Hg] Yolie Fletcher STITCH BONDING MACHINE OPERATOR Work Phone: [facility] 07-22-2023 10:01-0400 Body height 167.64 cm [facility] 07-22-2023 10:01-0400 Body mass index (BMI) [Ratio] 27.4 kg/m2 [facility] 07-22-2023 10:01-0400 Body temperature 98.5 [degF] [facility] 07-22-2023 10:01-0400 Body weight 77.11 kg [facility] 07-22-2023 10:01-0400 Diastolic blood pressure 78 mm[Hg] [facility] 07-22-2023 10:01-0400 Heart rate 74 /min [facility] 07-22-2023 10:01-0400 Systolic blood pressure 112 mm[Hg] [facility] 05-13-2023 09:56-0500 Body mass index (BMI) [Ratio] 27.41 kg/m2 Reina Tapia PA Work Phone: [facility] 05-13-2023 09:56-0500 Body weight 79.38 kg Reina Laneey PA Work Phone: [facility] 05-13-2023 09:56-0500 Diastolic blood pressure 76 mm[Hg] Reina Laneey PA Work Phone: [facility] 05-13-2023 09:56-0500 Systolic blood pressure 114 mm[Hg] Reina Laneey PA Work Phone: [facility] 01-29-2023 11:00-0400 Body height Perri Carmona Other [facility] Other 01-29-2023 11:00-0400 Body mass index (BMI) [Ratio] 32.6 kg/m2 Perri Carmona Other [facility] Other 01-29-2023 11:00-0400 Body weight 91.63 kg Perri Carmona Other [facility] Other 01-29-2023 11:00-0400 Diastolic blood pressure 74 mm[Hg] Perri Carmona Other [facility] Other 01-29-2023 11:00-0400 Systolic blood pressure 107 mm[Hg] Perri Carmona Other [facility] Other 10-20-2021 09:00-0400 Body height Cielo Boston Other [facility] Other 10-20-2021 09:00-0400 Body mass index (BMI) [Ratio] 35.26 kg/m2 Cielo Schwerer Other [facility] Other 10-20-2021 09:00-0400 Body temperature 98.2 [degF] Cielo Boston Other [facility] Other 10-20-2021 09:00-0400 Body weight 99.11 kg Cielo Lopezr Other [facility] Other 10-20-2021 09:00-0400 Diastolic blood pressure 88 mm[Hg] Cielo Mouraerer Other [facility] Other 10-20-2021 09:00-0400 SaO2% (BldA) [Mass fraction] 99 % Cielo Mouraerer Other [facility] Other 10-20-2021 09:00-0400 Systolic blood pressure 122 mm[Hg] Cielo Mouraerer Other [employer] Other Encounters Encounter Date Encounter Type Care Provider Facility Start: 04-20-2024 End: 04-20-2024 ambulatory [facility] Work Phone: Start: 04-20-2024 End: 04-20-2024 Patient encounter procedure [facility] Work Phone: Start: 01-28-2024 End: 01-28-2024 ambulatory YOLIE FLETCHER Not Available Start: 01-28-2024 End: 01-28-2024 Office outpatient visit 25 minutes Yolie Fletcher STITCH BONDING MACHINE OPERATOR Work Phone: [facility] Comment on above: Acute non-recurrent maxillary sinusitis (Primary Dx); Acute cough; Acute bronchitis, unspecified organism; History of candidal vulvovaginitis Start: 07-23-2023 End: 07-23-2023 ambulatory BRADEN DODD Not Available Start: 07-22-2023 End: 07-22-2023 ambulatory [facility] Work Phone: Start: 07-22-2023 End: 07-22-2023 Patient encounter procedure [facility] Work Phone: Start: 05-13-2023 End: 05-13-2023 Office outpatient visit 15 minutes Reina KULKARNI Work Phone: [facility] Comment on above: Weight gain; Encounter for weight management Start: 05-13-2023 End: 05-13-2023 ambulatory REINA TAPIA Not Available Start: 04-15-2023 End: 04-15-2023 ambulatory REINA LANEEY Not Available Start: 03-15-2023 End: 03-15-2023 ambulatory REINA TAPIA Not Available Start: 03-02-2023 End: 03-02-2023 ambulatory AZEEM VALENCIA Not Available Start: 02-15-2023 End: 02-15-2023 ambulatory REINA TAPIA Not Available Start: 01-29-2023 End: 01-29-2023 ambulatory Perri Carmona Other [facility] Other Start: 01-29-2023 Office outpatient ne w 30 minutes Perri Carmona [facility] Start: 07-27-2022 End: 07-28-2022 Evaluation and management of inpatient DR NONE LISTED REQUEST Facility:[facility] Start: 07-14-2022 End: 07-14-2022 ambulatory NONE LISTED REQUEST Facility:[facility] Start: 07-13-2022 End: 07-14-[address] MIMI RICHEY Facility:[facility] Start: 07-02-2022 End: 07-02-[address] AZEEM VALENCIA . Facility:[facility] Start: 06-16-2022 End: 06-17-[address] AZEEM VALENCIA . Facility:[facility] Start: 05-19-2022 End: 05-20-2022 ambulatory REINA TAPIA . Facility:[facility] Start: 05-17-2022 End: 05-17-2022 ambulatory SCARLET CURIEL Facility:[facility] Start: 05-04-2022 End: 05-05-[address] AZEEM VALENCIA . Facility:[facility] Start: 04-30-2022 End: 05-01-[address] AZEEM VALENCIA . Facility:[facility] Start: 03-09-2022 End: 03-10-[address] AZEEM VALENCIA . Facility:[facility] Start: 02-23-2022 End: 02-23-[address] AZEEM VALENCIA . Facility:[facility] Start: 12-25-2021 End: 12-26-[address] AZEEM VALENCIA . Facility:[facility] Start: 12-05-2021 End: [address] AZEEM VALENCIA . Facility:[facility] Start: 11-11-2021 End: 11-26-[address] AZEEM VALENCIA . Facility:[facility] Start: 11-03-2021 End: 11-03-2021 ambulatory Mirella Escobar Other [facility] Other Start: 11-03-2021 Telephone encounter Mirella Escobar [facility] Start: 10-29-2021 Encounter for genera l adult medical examination without abnormal findings CIELO BOSTON [facility] Start: 10-23-2021 End: 10-24-2021 ambulatory CIELO BOSTON Facility: Start: 10-23-2021 End: 10-24-2021 Encounter for general adult medical examination without abnormal findings CIELO BOSTON Facility: Start: 10-20-2021 End: 10-20-2021 ambulatory Cielo Boston Other [facility] Other Start: 10-20-2021 Encounter for genera l adult medical examination without abnormal findings Cielo Boston [facility] [place] Start: 10-20-2021 Initial preventive medicine new pt age 18-39yrs Cielo Boston [facility] [place] Start: 10-14-2021 End: 10-14-2021 ambulatory Cielo Boston Other [facility] Other Start: 10-14-2021 Telephone encounter Cielo Boston [facility] [place] Procedures Date Procedure Procedure Detail Performing Clinician Start: 07-27-2022 Delivery of Products of Conception, External Approach DR AZEEM VALENCIA . Start: 07-27-2022 Repair Perineum Skin , External Approach DR AZEEM VALENCIA . Plan of Treatment Date Care Activity Detail Author Start: 04-25-2024 End: 04-25-2024 Patient encounter procedure 04/25/2024 11:00 AM EST Office Visit [facility] [address] [place] [address] Azeem Valencia, [address] [place] [address] [facility] Payers Date Payer Category Payer Private Health Insurance [id number] 2021 Managed Care HMO (unspecified) [id number] 1995 Unknown [id number] 2.16.84 0.1.431171.3.579.2.593 1995 Unknown [id number] 2.16.84 0.1.226416.3.579.2.593 1996 Unknown [id number] 2.16.84 0.1.188528.3.579.2.593 1996 Unknown [id number] 2.16.84 0.1.662472.3.579.2.593 1996 Unknown [id number] 2.16.84 0.1.859829.3.579.2.593 1996 Unknown [id number] 2.16.84 0.1.960771.3.579.2.593 1996 Unknown [id number] 2.16.84 0.1.727207.3.579.2.593 1996 Unknown [id number] 2.16.84 0.1.990667.3.579.2.593 1996 Unknown [id number] 2.16.84 0.1.349228.3.579.2.593 1996 Unknown [id number] 2.16.84 0.1.334934.3.579.2.593 1996 Unknown [id number] 2.16.84 0.1.343254.3.579.2.593 1996 Unknown [id number] 2.16.84 0.1.446527.3.579.2.593 1996 Unknown [id number] 2.16.84 0.1.972347.3.579.2.593 1996 Unknown [id number] 2.16.84 0.1.532179.3.579.2.593 1996 Unknown [id number] 2.16.84 0.1.213882.3.579.2.593 1996 Unknown [id number] 2.16.840.1.580213.3.579.2.1259 1996 Unknown [id number] 2.16.840.1.205339.3.579.2.1259 1996 Unknown [id number] 2.16.840.1.593419.3.579.2.1259 1996 Unknown [id number] 2.16.840.1.066561.3.579.2.1259 1996 Unknown [id number] 2.16.840 .1.907299.3.579.2.1259 1996 Unknown [id number] 2.16.840 .1.362651.3.579.2.1259 1996 Unknown [id number] 2.16.840 .1.291215.3.579.2.1259 1959 Private Health Insurance [id number] 1959 Private Health Insurance [id number] 1959 Unknown [id number] 2.1 [id number] Unknown [facility] [id number] Social History Date Type Detail Facility Unknown if ever smoked [facility] Other Start: 03-12-2023 End: 07-23-2023 Sex Assigned At [facility] Start: 11-11-2022 End: 01-29-2023 Tobacco smoking status NHIS Never smoked tobacco [facility] Start: 11-11-2022 Tobacco use and exposure Smokeless tobacco non-user [facility] Start: 05-13-2023 End: 07-23-2023 Alcohol intake Current drinker of alcohol (finding) [facility] Start: 03-12-2023 End: 07-23-2023 History of Social function [facility] How often to you hav e a drink containing alcohol? Monthly or less [facility] Average Number of Drinks Not on file [facility] Start: 09-06-2022 Alcohol Comment drinks less than monthly in the past year [facility] Start: 1995 Sex Assigned At Female [facility] Start: 09-07-2022 Gender identity Identifies as female gender (finding) [facility] Start: 09-07-2022 Sexual orientation Heterosexual (finding) [facility] Start: 04-20-2024 Sex Female (finding) [facility] History of Present illness Narrative 01-28-2024 Yolie Fletcher NP - 01/28/2024 12:25 PM EDT Note Date & Type Note Facility 01-28-2024 History of Presen t illness Narrative HPI: Historian of HPI: patient Lakeisha Bell is a 28 y.o. female who presents today to the Urgent Care with the following complaints and denials which have been present for 2 week(s) C/O Denies Symptom Comments [] [x] Runny Nose [] [x] Difficulty Swallowing [] [x] Sore Throat [x] [] Cough Productive at times [x] [] Ear Pain [] [x] Fever [] [x] Chills [] [x] Nasal Congestion [] [x] Myalgia [] [x] Sinus Pain [] [x] Sinus Pressure Additional Comments: Denies or breatfeeding. Denies SOB. ROS: A complete system ROS was performed and negative aside from the pertinent positives noted in the HPI and PE. Examination General Examination: General Examination: in no acute distress, well developed, well nourished Head: normocephalic, atraumatic Eyes: no discharge Ears: BOTH EARS canals normal. TM with mild effusion bilat. Nose: nares patent, mild maxillary sinus tenderness Oral Cavity: mucosa moist Throat: pharynx with erythema and PND. No trismus, muffled voice, drooling or protrusion of soft palate. Uvula midline Neck/Thyroid: neck supple, trachea midline Lymph Nodes: no cervical adenopathy Skin: warm and dry Heart: S1, S2 normal, regular rate and rhythm, no S3, S4, no murmurs, rubs, gallops Lungs: clear anteriorly and posteriorly, clear to auscultation bilaterally, good air movement, no wheezes, rales, rhonchi Chest: normal shape and expansion, normal anteroposterior (AP) diameter occasional hacking cough. Psych: alert, oriented. 1. Acute non-recurrent maxillary sinusitis (Primary) Start meds as directed. Diflucan as needed due to report of candidal infection with use of atb. Immediate eval if new or worsening sx otherwise follow up with PCP if sx not resolved with course of atb, sooner if not improving over next 72 hours 2. Acute cough See 1 - doxycycline (Adoxa) 100 MG tablet; Take 1 tablet (100 mg) by mouth every 12 (twelve) hours for 10 days Take with a full glass of water and do not lie down for at least 30 minutes after, avoid sun exposure Dispense: 20 tablet; Refill: 0 - albuterol HFA (ProAir HFA) 90 mcg/act inhaler; Inhale 2 puffs every 4 (four) hours if needed (cough) Dispense: 8.5 g; Refill: 0 - benzonatate (Tessalon) 200 MG capsule; Take 1 capsule (200 mg) by mouth 3 (three) times a day as needed for cough for up to 7 days Do not crush or chew. Dispense: 21 capsule; Refill: 0 3. Acute bronchitis, unspecified organism See 1 documented in this encounter [facility] History of Present illness Narrative 05-13-2023 SHAD Thayer - 05/13/2023 9:40 AM EST Note Date & Type Note Facility 05-13-2023 History of Presen t illness Narrative Reason for Appointment: Patient ID: Lakeisha Bell is a 27 y.o. female who presents for Weight Management (Adipex #6) Patient presents today for a weight management consultation. Patient has been prescribed Adipex and she is here for her 6th prescription. Today's Vitals: Estimated body mass index is 27.41 kg/m as calculated from the following: Height as of 09/08/22: 5' 7 . Weight as of this encounter: 175 lb. 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 No pertinent surgical history. Review of Systems: Review of Systems Constitutional: Negative. HENT: Negative. Eyes: Negative. Respiratory: Negative. Cardiovascular: Negative. Gastrointestinal: Negative. Genitourinary: Negative. Musculoskeletal: Negative. Skin: Negative. Neurological: Negative. All other systems reviewed and are negative. Hematological: Negative. Endocrine: Negative. Allergic/Immunologic: Negative. Objective Physical Exam Constitutional: Appearance: Normal appearance. She is normal weight. HENT: Head: Normocephalic. Cardiovascular: Rate and Rhythm: Normal rate. Pulses: Normal pulses. Pulmonary: Effort: Pulmonary effort is normal. Breath sounds: Normal breath sounds. Abdominal: Palpations: Abdomen is soft. Musculoskeletal: General: Normal range of motion. Neurological: General: No focal deficit present. Mental Status: She is alert and oriented to person, place, and time. Psychiatric: Mood and Affect: Mood normal. Behavior: Behavior normal. Thought Content: Thought content normal. Judgment: Judgment normal. Vitals and nursing note reviewed. Assessment/Plan Encounter Diagnoses Name Primary? Weight gain Encounter for weight management Patient presents today for 3rd Adipex prescription. Patient desires additional weigh loss and she is currently taking metformin along with working out to achieve further results. Weight and blood pressure has been captured and I have discussed/reiterated the importance of keeping a food journal, proper nutrition/diet, and exercise regimen. Patient verbalized understanding. Patient has lost more than 5% of her initial body weight Follow Up: Pt will follow up in 3 months or for annual exam when needed. Pt doing well and given 90 day supply with this refill and will taper as needed. Documented by: SHAD Thayer on behalf of SHAD Thayer documented in this encounter [facility] Evaluation note 01-29-2023 Note Date & Type Note Facility 01-29-2023 Evaluation note Encounter Date Diagnosis Assessment Notes Jan, Chronic sinusitis, unspecified (ICD-10 - J32.9) Finish antibiotics. Stay hydrated. Discussed GI effects w Augmentin. Jan, Other specified bacterial agents as the cause of diseases classified elsewhere (ICD-10 - B96.89) Jan, Other Discussed wellness needs and overall care w future treatment options. [employer] Other Evaluation note 10-20-2021 Note Date & Type Note Facility 10-20-2021 Evaluation note Encounter Date Diagnosis Assessment Notes Sep, Well adult exam (ICD-10 - Z00.00) no concerns on exam. will follow as needed. will update labs. Sep, Weight gain (ICD-10 - R63.5) will get labs, if normal will set up with weight managament. Sep, Impacted cerumen of both ears (ICD-10 - H61.23) irrigated today without issue, large cerumen impaction removed from each ear. she will use debrox 1x per week to hopefully help prevent. Recommended against q tips. Sep, Other Patient was given a written hand out of important bullet points of what we had talked about in today's office visit with reminders of ordered items, new or changed prescriptions, and follow-up timing. Patient was instructed if there are any questions/neris rns to call the office between now and next office visit. Patient had all questions/neris rns that were relayed to me in the office visit today discussed/addre ssed. Patient denied further questions at conclusion of office visit. [employer] Other History general Narrative - Reported 03-29-2021 Note Date & Type Note Facility 03-29-2021 History general N arrative - Reported Type Medical History Cellulitis as a child Surgical History hand surgery 2004 Hospitalization History childbirth 03/2021 [facility] Other Clinical Note 07-10-2020 Note Date & Type Note Facility 07-10-2020 Note Patient Education Ma terials Follows: Pilonidal Cyst Drainage, Care After This sheet gives you information about how to care for yourself after your procedure. Your health care provider may also give you more specific instructions. If you have problems or questions, contact your health care provider. What can I expect after the procedure? After the procedure, it is common to have: ? Pain that gets better when you take medicine. ? Some fluid or blood coming from your wound. Follow these instructions at home: Medicines ? Take bvyg-mvt-mgklfxh and prescription medicines only as told by your health care provider. ? If you were prescribed an antibiotic medicine, take it as told by your health care provider. Do not stop taking the antibiotic even if you start to feel better. Lifestyle ? Do not do activities that irritate or put pressure on your buttocks for about 2 weeks, or as long as told by your health care provider. These activities include bike riding, running, and anything that involves a twisting motion. ? Do not sit for long periods at a time without getting up to move around. ? Sleep on your side instead of your back. ? Avoid wearing tight underwear and tight pants. Bathing ? Do not take baths or showers, swim, or use a hot tub until your health care provider approves. This depends on the type of wound you have from surgery. ? While bathing, clean your buttocks area gently with soap and water. ? After bathing: ? Pat the area dry with a soft, clean towel. ? Cover the area with a clean bandage (dressing), if told to by your health care provider. General instructions ? If you are taking prescription pain medicine, take actions to prevent or treat constipation. Your health care provider may recommend that you: ? Drink enough fluid to keep your urine pale yellow. ? Eat foods that are high in fiber, such as fresh fruits and vegetables, whole grains, and beans. ? Limit foods that are high in fat and processed sugars, such as fried or sweet foods. ? Take an fyct-mtv-qbdnlmy or prescription medicine for constipation. ? You will need to have a caregiver help you manage wound care and dressing changes. Your caregiver should: ? Wash his or her hands with soap and water before changing your dressing. If soap and water are not available, your caregiver should use hand certified ophthalmic technologist. ? Check your wound every day for signs of infection, such as: ? Redness, swelling, or more pain. ? More fluid or blood. ? Warmth. ? Pus or a bad smell. ? Follow any additional instructions from your health care provider on how to care for your wound, such as wound cleaning, wound flushing (irrigation), or packing your wound with a dressing. ? Keep all follow-up visits as told by your health care provider. This is important. If you had incision and drainage with wound packing: ? Return to your health care provider as instructed to have your packing material changed or removed. ? Keep the area dry until your packing has been removed. ? After the packing has been removed, you may start taking showers. If you had marsupialization: ? You may start taking showers the day after surgery, or when your health care provider approves. ? Remove your dressing before you shower, but let the water from the shower moisten your dressing before you remove it. This will make it easier to remove. ? Ask your health care provider when you can stop using a dressing. If you had incision and drainage without wound packing: ? Change your dressing as directed. ? Leave stitches (sutures), skin glue, or adhesive strips in place. These skin closures may need to stay in place for 2 weeks or longer. If adhesive strip edges start to loosen and curl up, you may trim the loose edges. Do not remove adhesive strips completely unless your health care provider tells you to do that. Contact a health care provider if: ? You have redness, swelling, or more pain around your wound. ? You have more fluid or blood coming from your wound. ? You have new bleeding from your wound. ? Your wound feels warm to the touch. ? There is pus or a bad smell coming from your wound. ? You have pain that does not get better with medicine. ? You have a fever or chills. ? You have muscle aches. ? You are dizzy. ? You feel generally sick. Summary ? After a procedure to drain a pilonidal cyst, it is common to have some fluid or blood coming from your wound. ? If you were prescribed an antibiotic medicine, take it as told by your health care provider. Do not stop taking the antibiotic even if you start to feel better. ? Return to your health care provider as instructed to have any packing material changed or removed. This information is not intended to replace advice given to you by your health care provider. Make sure you discuss any questions you have with your health care provider. Document Released: 04/15/2007 Document Revised: 01/05/2019 Docum (more content not included)... [facility] Evaluation note Note Date & Type Note Facility Evaluation note No Information [facility] Other Evaluation note Note Date & Type Note Facility Evaluation note Diagnosis Weight gain Other symptoms concerning nutrition, metabolism, and development Encounter for weight management documented in this encounter [facility] Evaluation note Note Date & Type Note Facility Evaluation note No assessment information [facility] Work Phone: Evaluation note Note Date & Type Note Facility Evaluation note Diagnosis Acute non-recurrent maxillary sinusitis- Primary Acute cough Acute bronchitis, unspecified organism History of candidal vulvovaginitis documented in this encounter [facility] Summary Purpose Family History Relationship Condition Age at Onset Recorded Date/T mayelin Not Specified Graves' disease Unknown Relationship Condition Age at Onset Recorded Date/T mayelin mother Graves' disease Unknown Advance Directives Advance Directive Response Recorded Date/ Time Advance Directives No July 20 10:06am Advance Directive Response Recorded Date/ Time Advance Directives No July 20 9:06am Chief Complaint and Reason for Visit Chief Complaint ear pain Chief Complaint Admit Date Knot on Neck April 20, 2024 9 :10am Additional Source Comments INFORMATION SOURCE (unrecogn ized section and content) DATE CREATED AUTHOR 07/21/2020 [facility] l DATE CREATED AUTHOR AUTHOR'S ORGANIZ ATION 07/31/2022 [facility] DATE CREATED AUTHOR AUTHOR'S ORGANIZ ATION 01/30/2024 [facility] EPIC REASON FOR VISIT (unrecogniz ed section and content) Reason Comments Weight Management Adipex #6 Care Teams (unrecognized sec tion and content) Shank Archer Relationship Specialty Start Date End Date Cielo Boston DO [address] [facility] [place] [id number] PCP - [facility] 09/08/22 Team Status: Active Member Role Status Dates Perri Carmona MD Primary Care Provider Active Team Status: Inactive Member Role Status Dates Perri Carmona MD Primary Care Provide r, Attending Provider Active Start: July 22, 2023 End: July 22, 2023 Shank Archer Relationship Specialty Start Date End Date Cielo Boston DO [address] [facility] [place] [id number] PCP - [facility] 09/08/22 Team Status: Inactive Member Role Status Dates Perri Carmona MD Primary Care Provide r, Attending Provider Active Start: April 20, 2024 End: April 20, 2024 Goals (unrecognized section and content) Goals may be documented in a n alternate section FOR RECORDS PERTAINING TO PATIENTS WHO ARE OR HAVE BEEN ENROLLED IN A CHEMICAL DEPENDENCY/SUBSTANCEABUSE PROGRAM, SOME INFORMATION MAY BE OMITTED. This clinical summary was aggregated from multiple sources. Caution should be exercised in using it in the provision of clinical care. This summary normalizes information from multiple sources, and as a consequence, information in this document may materially change the coding, format and clinical context of patient data. In addition, data may be omitted in some cases. CLINICAL DECISIONS SHOULD BE BASED ON THE PRIMARY CLINICAL RECORDS. [facility] provides no warranty or guarantee of the accuracy or completeness of information in this document.
[2024-05-01 12:08] LABS: Age Gdln ACOG Testing Note (.); IGP, rfx Aptima HPV ASCU Note (.)
== END 2024-04-25 20:27 | disposition home or self-care (01) ==
LOC: LAB 20:26
PROVIDERS: PCP Family Medicine; Visit Provider Obstetrics & Gynecology
DX: Z01.419 Encounter for gynecological examination (general) (routine) without abnormal findings (principal)
CPT/HCPCS: 88175

== ENCOUNTER 2024-05-15 11:25 | Outpatient (RCR) | payer OTHER, SELFPAY ==
--- OUTSIDE RECORDS SUMMARY | 2024-05-15 11:42 | XMS_ITS | CCD ---
Author Organization [facility] Care Team Providers Care Wood Barrel Reconditioner Name Role Phone Schwerer, Cielo Unavailable Fitt Mirella Unavailable ERIK ., DR GANN Admitting Unavailable ERIK ., DR GANN Attending Unavailable ERIK ., DR GANN Consulting Unavailable REQUEST, NONE LISTED Primary Care Unavaila ble SCHWERER, CIELO Primary Care Unavailable SCHWERER, CIELO Consulting Unavailable SCHWERER, CIELO Attending Unavailable SCHWERER, CIELO Admitting Unavailable ERIK ., DR GANN Attending Unavailable ERIK ., DR GANN Admitting Unavailable ERIK ., DR GANN Consulting Unavailable REQUEST, NONE LISTED Primary Care Unavaila ble ERIK ., DR GANN Admitting Unavailable ERIK ., DR GANN Consulting Unavailable ERIK ., DR GANN Attending Unavailable REQUEST, NONE LISTED Primary Care Unavaila ble REQUEST, NONE LISTED Primary Care Unavaila ble ERIK ., DR GANN Consulting Unavailable ERIK ., DR GANN Attending Unavailable ERIK ., DR GANN Admitting Unavailable SCARLET OROZCO Consulting Unavailable SCARLET CURIEL Consulting Unavailable SCARLET CURIEL Attending Unavailable REQUEST, NONE LISTED Primary Care Unavaila ble VEENA, SCARLET Admitting Unavailable DOMINIQUE POOLE Consulting Unavailable REQUEST, NONE LISTED Primary Care Unavaila ble ERIK ., DR GANN Consulting Unavailable ERIK ., DR GANN Attending Unavailable ERIK ., DR GANN Admitting Unavailable GWEN II, ADELINA Consulting Unavailable ERIK ., DR GANN Procedure Practitioner Unavail able WILLIE ., REINA Attending Unavailable Bienvenido Long Consulting Unavailable REQUEST, NONE LISTED Primary Care Unavaila ble WILLIE ., REINA Admitting Unavailable WILLIE ., REINA Consulting Unavailable WESTON, DR MIMI Contreras Consulting Unavailable ERIK ., DR GANN Attending Unavailable REQUEST, DR NONE LISTED Primary Care Unavaila ble ERIK ., DR GANN Admitting Unavailable ERIK ., DR GANN Consulting Unavailable ERIK ., DR GANN Consulting Unavailable ERIK ., DR GANN Attending Unavailable REQUEST, DR NONE LISTED Primary Care Unavaila ble ERIK ., DR GANN Admitting Unavailable ERIK ., DR GANN Consulting Unavailable ERIK ., DR GANN Attending Unavailable REQUEST, NONE LISTED Primary Care Unavaila ble ERIK ., DR GANN Admitting Unavailable Zieber, Bienvenido Consulting Unavailable ERIK ., DR GANN Admitting Unavailable ERIK ., DR GANN Attending Unavailable ERIK ., DR GANN Consulting Unavailable REQUEST, NONE LISTED Primary Care Unavaila ble Zieber, Bienvenido Consulting Unavailable ERIK ., DR GANN Admitting Unavailable ERIK ., DR GANN Attending Unavailable REQUEST, NONE LISTED Primary Care Unavaila ble WESTON, DR MIMI Contreras Consulting Unavailable ERIK ., DR GANN Consulting Unavailable ERIK ., DR GANN Attending Unavailable ERIK ., DR GANN Consulting Unavailable REQUEST, NONE LISTED Primary Care Unavaila ble ERIK ., DR GANN Admitting Unavailable ERIK ., DR GANN Admitting Unavailable ERIK ., DR GANN Attending Unavailable ERIK ., DR GANN Consulting Unavailable REQUEST, NONE LISTED Primary Care Unavaila ble Perri Carmona Unavailable Cielo [place] DO Primary Care Provider AZEEM VALENCIA Attending Unavailable REINA TAPIA Attending Unavailable BRADEN DODD Attending Unavailable YOLIE FLETCHER Attending Unavailable Medications Current Medications Medication Drug Class(es) Dates Sig (Normalized) Sig (Original) amoxicillin 875 mg / clavulanate 125 mg [...] sun exposure 20 tablet 01/28/2024 02/07/2024 Active Completed/Discontinued Medications Medication Drug Class(es) Dates Sig (Normalized) Sig (Original) [id number] 200 actuat albuterol 0.09 mg/actuat metered dose inhaler (5 sources) beta2-Adrenergic Agonist Start: 01-28-2024 End: 04-25-2024 take 2 puff(s) by inhalation every four hours albuterol HFA (ProAir HFA) 90 mcg/act inhaler Indications: Acute cough Inhale 2 puffs every 4 (four) hours if needed (cough) 8.5 g 01/28/2024 04/25/2024 Discontinued ethinyl estradiol 0.035 mg / norethindrone acetate 1 mg oral tablet (7 sources) Estrogen Start: 02-15-2023 End: 04-25-2024 take 1 tablet by mouth in the morning Nylia 1/35 1-35 MG-MCG tablet Indications: Encounter for initial prescription of contraceptive pills TAKE 1 TABLET BY MOUTH IN THE MORNING. 28 tablet 11 01/19/2024 04/25/2024 Discontinued fluconazole 150 mg oral tablet (3 sources) [...] 25, 2023 11:00pm April 20, 2024 9:23am metFORMIN hydrochloride 500 mg oral tablet (10 sources) Biguanide Start: 11-24-2022 End: 01-18-2025 take 1 tablet by mouth at mealtime metFORMIN (Glucophage) 500 MG tablet Indications: Abnormal weight gain TAKE 1 TABLET (500 MG) BY MOUTH IN THE MORNING. TAKE WITH MEALS. 30 tablet 6 01/19/2024 04/25/2024 Discontinued phentermine hydrochloride 37.5 mg oral tablet (17 sources) Sympathomimetic Amine Anorectic Start: 04-15-2023 End: 04-25-2024 take 1 tablet by mouth before mealtime phentermine (Adipex-P) 37.5 MG tablet Indications: Encounter for weight management Take 1 tablet (37.5 mg) by mouth in the morning. Take before meals. 90 tablet 05/13/2023 04/25/2024 Discontinued Adipex-P Active Problems Active Problems Problem Classification [...] SPEC PREG RELATED COND 3RD TRI] Onset: 05-19-2022 Episodic Other complications of (4 sources) Maternal [...] Test Name Value Interpretation Reference Range Facility IGP,APTIMA HPV,AGE GDLNon AGE GDLN ACOG TESTING Note . [facility] Comment on above: TESTS RESULT FLAG U NITS REF RANGE LAB Clinician Provided Cytology Information Source.............Cervix;Endocervix No. of containers..01 ThinPrep Vial Age Algo ACOG Tiffanie... FLAG LEGEND: L-Low Normal,H-High Normal,LL-Alert Low,HH-Alert High <-Panic Low,>-Panic High,A-Abnormal,AA-Critical Abnormal Performed at: 01 =[facility] [place] [address] Hetal Estrella MD, IGP, RFX APTIMA HPV ASCU Note . [facility] Comment on above: TESTS RESULT FLAG UN ITS REF RANGE LAB DIAGNOSIS: 02 NEGATIVE FOR INTRAEPITHELIAL LESION OR MALIGNANCY. Specimen adequacy: 02 Satisfactory for evaluation. No endocervical component is identified. Performed by: 02 Mary Polanco, [employer] . 02 Note: Note 02 The Pap smear is a screening test designed to aid in the detection of premalignant and malignant conditions of the uterine cervix. It is not a diagnostic procedure and should not be used as the sole means of detecting cervical cancer. Both false-positive and false-negative reports do occur. Test Methodology: Note 02 This liquid based ThinPrep(R) pap test was screened with the use of an image guided system. . 02 The HPV DNA reflex criteria were not met with this specimen result therefore, no HPV testing was performed. FLAG LEGEND: L-Low Normal,H-High Normal,LL-Alert Low,HH-Alert High <-Panic Low,>-Panic High,A-Abnormal,AA-Critical Abnormal Performed at: 02 WB [facility] [address] [id number] Hetal Estrella MD, Performed at: =G - [facility] [address] [id number] Pack Mule Worker: Hetal Estrella MD, Phone: [phone] Performed at: WB - [facility] [address] [id number] Pack Mule Worker: Hetal Estrella MD, Phone: [phone] BRUSH-SPATULA CERVIX ENDOCERVIX [facility] CBC AUTO DIFFon 07-28-2022 BASO # 0.0 103/ul Normal 0.0-0.1 [facility] Comment on above: Performed By: #### C BC ####[facility] [address] [place], [place] [address]Dr. Bee Titus Basophils/100 WBC (Bld) 0.2 % Normal 0.2-2.0 [facility] Comment on above: Performed By: #### C BC ####[facility] [address] [place], [place] [address]DrEric Titus EO # 0.1 103/ul Normal 0.0-0.7 [facility] Comment on above: Performed By: #### C BC ####[facility] [address] [place], [place] [address]DrEric Titus Eosinophils/100 WBC (Bld) 0.5 % Critically low 0.9-7.0 [facility] Comment on above: Performed By: #### C BC ####[facility] Mrx[address]byin[address] [place], [place] [address]DrEric Titus Erythrocyte distribution width (RBC) [Ratio] 13.4 % Normal 11.0-15.0 [facility] Comment on above: Performed By: #### C BC ####[facility] [address] [place], [place] [address]DrEric Titus Hematocrit (Bld) [Volume fraction] 33.8 % Critically low 36.0-48.0 [facility] Comment on above: Performed By: #### C BC ####[facility] [address] [place] [address]DrEric Titus Hemoglobin (Bld) [Mass/Vol] 11.3 g/dL Critically low 12.0-16.0 [facility] Comment on above: Performed By: #### C BC ####[facility] [address] [place], [place] [address]DrEric Titus IG # 0.05 10e3/ul Critically high 0.00-0.03 [facility] Comment on above: Performed By: #### C BC ####[facility] [address]up[address] [place], [place] [address]DrEric Titus IG % 0.4 % Normal 0.0-0.5 [facility] Comment on above: Performed By: #### C BC ####[facility] [address] [place], [place] [address]DrEric Titus LYMPH # 2.1 103/ul Normal 1.2-3.8 [facility] Comment on above: Performed By: #### C BC ####[facility] [address] [place], [place] [address]DrEric Titus Lymphocytes/100 WBC (Bld) 15.9 % Critically low 20.5-60.0 [facility] Comment on above: Performed By: #### C BC ####[facility] [address] [place], [place] [address]DrEric Titus MANUAL DIFF REQ NO Normal [facility] Comment on above: Performed By: #### C BC ####[facility] [address] [place] [address]DrEric Titus MCH (RBC) [Entitic mass] 30.1 pg Normal 26.7-34.0 [facility] Comment on above: Performed By: #### C BC ####[facility] [address] [place], [place] [address]DrEric Titus MCHC (RBC) [Mass/Vol] 33.4 g/dL Normal 29.9-35.2 [facility] Comment on above: Performed By: #### C BC ####[facility] [address] [place] [address]DrEric Titus MCV (RBC) [Entitic vol] 90.1 fL Normal 81.0-99.0 [facility] Comment on above: Performed By: #### C BC ####[facility] [address] [place], [place] [address]DrEric Titus MONO # 0.7 103/ul Normal 0.3-0.8 [facility] Comment on above: Performed By: #### C BC ####[facility] [address] [place], [place] [address]DrEric Titus Monocytes/100 WBC (Bld) 5.4 % Normal 1.7-12.0 [facility] Comment on above: Performed By: #### C BC ####[facility] [address] [place], [place] [address]DrEric Titus NEUT # 10.2 103/ul Critically high 1.4-6.5 [facility] Comment on above: Performed By: #### C BC ####[facility] [address] [place], [place] [address]DrEric Titus Neutrophils/100 WBC (Bld) 77.6 % Critically high 43.0-75.0 [facility] Comment on above: Performed By: #### C BC ####[facility] [address] [place], [place] [address]DrEric Titus Platelet mean volume (Bld) [Entitic vol] 10.6 fL Normal 9.5-13.5 [facility] Comment on above: Performed By: #### C BC ####[facility] [address] [place], [place] [address]DrEric Titus PLT 198 103/ul Normal 150-450 [facility] Comment on above: Performed By: #### C BC ####[facility] [address] [place], [place] [address]DrEric Titus RBC 3.75 106/ul Critically low 4.20-5.40 [facility] Comment on above: Performed By: #### C BC ####[facility] [address] [place] [address]Dr. Bee Titus WBC 13.1 103/ul Critically high 4.0-11.0 [facility] Comment on above: Performed By: #### C BC ####[facility] [address] [place] [address]Dr. Bee Titus SCREENon 07-28-2022 SCREEN Negative Normal [facility] Comment on above: Performed By: #### F ETSCRN ####[facility] [address] [place] [address]Dr. Bee Titus CBC AUTO DIFFon 07-27-2022 BASO # 0.0 103/ul Normal 0.0-0.1 [facility] Comment on above: Performed By: #### C BC #### [facility] [address] [place] [address] Dr. Bee Titus Basophils/100 WBC (Bld) 0.3 % Normal 0.2-2.0 [facility] Comment on above: Performed By: #### C BC #### [facility] [address] [place] [address] Dr. Bee Titus EO # 0.1 103/ul Normal 0.0-0.7 [facility] Comment on above: Performed By: #### C BC #### [facility] [address] [address] [address] Bee Titus Eosinophils/100 WBC (Bld) 0.7 % Critically low 0.9-7.0 [facility] Comment on above: Performed By: #### C BC #### [facility] [address] [address] [address] Bee Titus Erythrocyte distribution width (RBC) [Ratio] 13.2 % Normal 11.0-15.0 [facility] Comment on above: Performed By: #### C BC #### [facility] [address] [address] [address] Bee Titus Hematocrit (Bld) [Volume fraction] 35.8 % Critically low 36.0-48.0 [facility] Comment on above: Performed By: #### C BC #### [facility] [address] [place] [address] Dr. Bee Titus Hemoglobin (Bld) [Mass/Vol] 12.1 g/dL Normal 12.0-16.0 [facility] Comment on above: Performed By: #### C BC #### [facility] [address] [place] [address] Dr. Bee Titus IG # 0.06 10e3/ul Critically high 0.00-0.03 [facility] Comment on above: Performed By: #### C BC #### [facility] [address] [place] [address] Dr. Bee Titus IG % 0.5 % Normal 0.0-0.5 [facility] Comment on above: Performed By: #### C BC #### [facility] [address] [place] [address] Dr. Bee Titus LYMPH # 2.2 103/ul Normal 1.2-3.8 [facility] Comment on above: Performed By: #### C BC #### [facility] [address] [place] [address] Dr. Bee Titus Lymphocytes/100 WBC (Bld) 17.9 % Critically low 20.5-60.0 [facility] Comment on above: Performed By: #### C BC #### [facility] [address] [place] [address] Dr. Bee Titus MANUAL DIFF REQ NO Normal [facility] Comment on above: Performed By: #### C BC #### [facility] [address] [place] [address] Dr. Bee Titus MCH (RBC) [Entitic mass] 29.4 pg Normal 26.7-34.0 [facility] Comment on above: Performed By: #### C BC #### [facility] [address] [place] [address] Dr. Bee Titus MCHC (RBC) [Mass/Vol] 33.8 g/dL Normal 29.9-35.2 [facility] Comment on above: Performed By: #### C BC #### [facility] [address] [address] [address] Bee Titus MCV (RBC) [Entitic vol] 87.1 fL Normal 81.0-99.0 [facility] Comment on above: Performed By: #### C BC #### [facility] [address] [address] [address] Bee Titus MONO # 0.6 103/ul Normal 0.3-0.8 [facility] Comment on above: Performed By: #### C BC #### [facility] [address] [address] [address] Bee Titus Monocytes/100 WBC (Bld) 5.0 % Normal 1.7-12.0 [facility] Comment on above: Performed By: #### C BC #### [facility] [address] [place] [address] Dr. Bee Titus NEUT # 9.1 103/ul Critically high 1.4-6.5 [facility] Comment on above: Performed By: #### C BC #### [facility] [address] [place] [address] Dr. Bee Titus Neutrophils/100 WBC (Bld) 75.6 % Critically high 43.0-75.0 [facility] Comment on above: Performed By: #### C BC #### [facility] [address] [address] [address] Bee Titus Platelet mean volume (Bld) [Entitic vol] 11.1 fL Normal 9.5-13.5 [facility] Comment on above: Performed By: #### C BC #### [facility] [address] [address] [address] Bee Titus PLT 249 103/ul Normal 150-450 [facility] Comment on above: Performed By: #### C BC #### [facility] [address] [address] [address] Bee Titus RBC 4.11 106/ul Critically low 4.20-5.40 [facility] Comment on above: Performed By: #### C BC #### [facility] [address] [address] [address] Bee Titus WBC 12.0 103/ul Critically high 4.0-11.0 [facility] Comment on above: Performed By: #### C BC #### [facility] [address] [address] [address] Bee Titus DRUG SCREEN RAPID (URINE)on 07-27-2022 AMP Negative Normal NEGATIVE [facility] Comment on above: Performed By: #### D RUGRPD ####[facility] [address] [place] [address]Dr. Bee Titus BAR Negative Normal NEGATIVE [facility] Comment on above: Performed By: #### D RUGRPD ####[facility] [address] [place] [address]Dr. Bee Titus BUP Negative Normal NEGATIVE [facility] Comment on above: Performed By: #### D RUGRPD ####[facility] [address] [place] [address]Dr. Bee Titus BZO Negative Normal NEGATIVE [facility] Comment on above: Performed By: #### D RUGRPD ####[facility] [address] [place] [address]Dr. Bee Titus LORRI Negative Normal NEGATIVE [facility] Comment on above: Performed By: #### D RUGRPD ####[facility] [address] [place] [address]Dr. Bee Titus CUT-OFFS SEE BELOW Normal [facility] Comment on above: Result Comment: AMP (Amphetamine): 500ng/mL, BAR (Barbituates): 200 ng/mL, BZO (Benzodiazepines): 150 ng/mL, BUP (Buprenorphine): 10 ng/mL, LORRI (Cocaine): 150 ng/mL, mAMP (Methamphetamine): 500 ng/mL, MTD (Methadone): 200 ng/mL, OPI (Opiates): 100 ng/mL, OXY (Oxycodone): 100 ng/mL, PCP (Phencyclidine): 25 ng/mL, PPX (Propoxyphene): 300 ng/mL, THC (Cannabinoids): 50 ng/mL, TCA (Trycyclic Antidepressants): 300 ng/mL Performed By: #### D RUGRPD ####[facility] [address] [place], [place] [address]Dr. Bee Titus DRUG CUT HEADER DRUG CLASS TEST SYSTEM CUT-OFF CONCENTRATIONS ARE FOLLOWS: Normal [facility] Comment on above: Performed By: #### D RUGRPD ####[facility] [address] [place], [place] [address]Dr. Bee Titus mAMP Negative Normal NEGATIVE [facility] Comment on above: Performed By: #### D RUGRPD ####[facility] [address] [place], [place] [address]Dr. Bee Titus MTD Negative Normal NEGATIVE [facility] Comment on above: Performed By: #### D RUGRPD ####[facility] [address] [place], [place] [address]Dr. Bee Titus OPI Negative Normal NEGATIVE [facility] Comment on above: Performed By: #### D RUGRPD ####[facility] [address] [place], [place] [address]Dr. Bee Titus OXY Negative Normal NEGATIVE [facility] Comment on above: Performed By: #### D RUGRPD ####[facility] [address] [place], [place] [address]Dr. Bee Titus PCP Negative Normal NEGATIVE [facility] Comment on above: Performed By: #### D RUGRPD ####[facility] [address] [place], [place] [address]Dr. Bee Titus PPX Negative Normal NEGATIVE [facility] Comment on above: Performed By: #### D RUGRPD ####[facility] [address] [place], [place] [address]Dr. Bee Titus TCA Negative Normal NEGATIVE [facility] Comment on above: Performed By: #### D RUGRPD ####[facility] [address] [place], [place] [address]Dr. Bee Titus THC Negative Normal NEGATIVE [facility] Comment on above: Performed By: #### D RUGRPD ####[facility] [address] [place] [address]Dr. Bee Titus TYPE AND SCREENon 07-27-2022 TYPE AND SCREEN Antibody Screen POSITIVE Blood Bank Notes PROBABLE ANTI-D DUE TO RHIG ADMIN. @28WEEKS, FURTHER WORKUP AT PHYSICIAN Blood Bank Notes REQUEST ABO Rh Typing A Rh Negative Normal [facility] Comment on above: Performed By: #### T NS ####[facility] [address] [place] [address]Dr. Bee Titus AMNISUREon 07-14-2022 AMNISURE Negative Normal NEGATIVE [facility] Comment on above: Performed By: #### A MNI ####[facility] [address] [place], [place] [address]Dr. Bee Titus BUNon 07-14-2022 Urea nitrogen [Mass/Vol] 8.0 mg/dL Normal 7.0-18.0 [facility] Comment on above: Performed By: #### U MICRO, UACSIND #### [facility] [address] [place] [address] Dr. Bee Titus CBC AUTO DIFFon 07-14-2022 BASO # 0.0 103/ul Normal 0.0-0.1 [facility] Comment on above: Performed By: #### U MICRO, UACSIND #### [facility] [address] [place] [address] Dr. Bee Titus Basophils/100 WBC (Bld) 0.3 % Normal 0.2-2.0 [facility] Comment on above: Performed By: #### U MICRO, UACSIND #### [facility] [address] [address] [address] Bee Titus EO # 0.1 103/ul Normal 0.0-0.7 [facility] Comment on above: Performed By: #### U MICRO, UACSIND #### [facility] [address] [place] [address] Dr. Bee Titus Eosinophils/100 WBC (Bld) 0.4 % Critically low 0.9-7.0 [facility] Comment on above: Performed By: #### U MICRO, UACSIND #### [facility] [address] [address] [address] Bee Titus Erythrocyte distribution width (RBC) [Ratio] 13.6 % Normal 11.0-15.0 [facility] Comment on above: Performed By: #### U MICRO, UACSIND #### [facility] [address] [address] [address] Bee Titus Hematocrit (Bld) [Volume fraction] 32.8 % Critically low 36.0-48.0 [facility] Comment on above: Performed By: #### U MICRO, UACSIND #### [facility] [address] [address] [address] Bee Titus Hemoglobin (Bld) [Mass/Vol] 11.2 g/dL Critically low 12.0-16.0 [facility] Comment on above: Performed By: #### U MICRO, UACSIND #### [facility] [address] [address] [address] Bee Titus IG # 0.05 10e3/ul Critically high 0.00-0.03 [facility] Comment on above: Performed By: #### U MICRO, UACSIND #### [facility] [address] [place] [address] Dr. Bee Titus IG % 0.4 % Normal 0.0-0.5 [facility] Comment on above: Performed By: #### U MICRO, UACSIND #### [facility] [address] [address] [address] Bee Titus LYMPH # 2.0 103/ul Normal 1.2-3.8 [facility] Comment on above: Performed By: #### U MICRO, UACSIND #### [facility] [address] [address] [address] Bee Titus Lymphocytes/100 WBC (Bld) 16.3 % Critically low 20.5-60.0 [facility] Comment on above: Performed By: #### U MICRO, UACSIND #### [facility] [address] [place] [address] Dr. Bee Titus MANUAL DIFF REQ NO Normal [facility] Comment on above: Performed By: #### U MICRO, UACSIND #### [facility] [address] [address] [address] Bee Titus MCH (RBC) [Entitic mass] 30.4 pg Normal 26.7-34.0 [facility] Comment on above: Performed By: #### U MICRO, UACSIND #### [facility] [address] [place] [address] Dr. Bee Titus MCHC (RBC) [Mass/Vol] 34.1 g/dL Normal 29.9-35.2 [facility] Comment on above: Performed By: #### U MICRO, UACSIND #### [facility] [address] [place] [address] Dr. Bee Titus MCV (RBC) [Entitic vol] 88.9 fL Normal 81.0-99.0 [facility] Comment on above: Performed By: #### U MICRO, UACSIND #### [facility] [address] [place] [address] Dr. Bee Titus MONO # 0.6 103/ul Normal 0.3-0.8 [facility] Comment on above: Performed By: #### U MICRO, UACSIND #### [facility] [address] [place] [address] Dr. Bee Titus Monocytes/100 WBC (Bld) 5.1 % Normal 1.7-12.0 [facility] Comment on above: Performed By: #### U MICRO, UACSIND #### [facility] [address] [place] [address] Dr. Bee Titus NEUT # 9.3 103/ul Critically high 1.4-6.5 [facility] Comment on above: Performed By: #### U MICRO, UACSIND #### [facility] [address] [place] [address] Dr. Bee Titus Neutrophils/100 WBC (Bld) 77.5 % Critically high 43.0-75.0 [facility] Comment on above: Performed By: #### U MICRO, UACSIND #### [facility] [address] [address] [address] Bee Titus Platelet mean volume (Bld) [Entitic vol] 10.4 fL Normal 9.5-13.5 [facility] Comment on above: Performed By: #### U MICRO, UACSIND #### [facility] [address] [address] [address] Bee Titus PLT 193 103/ul Normal 150-450 [facility] Comment on above: Performed By: #### U MICRO, UACSIND #### [facility] [address] [address] [address] Bee Titus RBC 3.69 106/ul Critically low 4.20-5.40 [facility] Comment on above: Performed By: #### U MICRO, UACSIND #### [facility] [address] [address] [address] Bee Titus WBC 12.0 103/ul Critically high 4.0-11.0 [facility] Comment on above: Performed By: #### U MICRO, UACSIND #### [facility] [address] [address] [address] Bee Titus CREATININEon 07-14-2022 Creatinine [Mass/Vol] 0.83 mg/dL Normal 0.55-1.02 [facility] Comment on above: Performed By: #### C JORGE #### [facility] [address] [place] [address] Dr. Bee Titus EGFR-AF SOUTH AFRICAN >60 Normal >=60 [facility] Comment on above: Result Comment: Prev iously reported as: (blank) On 07/14/2022 10:27 By [email or web address] Performed By: #### C JORGE #### [facility] [address] [place] [address] Dr. Bee Titus EGFR-NON AF SOUTH AFRICAN >60 Normal >=60 [facility] Comment on above: Result Comment: Prev iously reported as: (blank) On 07/14/2022 10:27 By [email or web address] Performed By: #### C JORGE #### [facility] [address] [place] [address] Dr. Bee Titus UA (CLEAN/CATCH) HOT CELL TECHNICIAN/MICRO I F IND.on 07-14-2022 Bilirubin Ql (U) Negative Normal NEGATIVE [facility] Comment on above: Performed By: #### U MICRO, UACSIND #### [facility] [address] [place] [address] Dr. Bee Titus Clarity (U) CLEAR Normal CLEAR [facility] Comment on above: Performed By: #### U MICRO, UACSIND #### [facility] [address] [address] [address] Bee Titus Color (U) YELLOW Normal YELLOW [facility] Comment on above: Performed By: #### U MICRO, UACSIND #### [facility] [address] [place] [address] Dr. Bee Titus Glucose Ql (U) Negative Normal NEGATIVE [facility] Comment on above: Performed By: #### U MICRO, UACSIND #### [facility] [address] [address] [address] Bee Titus Hemoglobin Ql (U) LARGE Abnormal NEGATIVE [facility] Comment on above: Performed By: #### U MICRO, UACSIND #### [facility] [address] [place] [address] Dr. Bee Titus Ketones Ql (U) 15 mg/dl Abnormal NEGATIVE [facility] Comment on above: Performed By: #### U MICRO, UACSIND #### [facility] [address] [address] [address] Bee Titus LEUKOCYTES Negative Normal NEGATIVE [facility] Comment on above: Performed By: #### U MICRO, UACSIND #### [facility] [address] [address] [address] Bee Titus Nitrite Ql (U) Negative Normal NEGATIVE [facility] Comment on above: Performed By: #### U MICRO, UACSIND #### [facility] [address] [place] [address] Dr. Bee Titus pH (U) 5.5 [pH] Normal 5-9 [facility] Comment on above: Performed By: #### U MICRO, UACSIND #### [facility] [address] [address] [address] Bee Titus SPEC GRAVITY >=1.030 Abnormal 1.005-<=1.025 [facility] Comment on above: Performed By: #### U MICRO, UACSIND #### [facility] [address] [address] [address] Bee Titus UA PROTEIN 30 mg/dl Abnormal NEGATIVE/ TRACE [facility] Comment on above: Performed By: #### U MICRO, UACSIND #### [facility] [address] [address] [address] Bee Titus UR MICRO IND INDICATED Normal [facility] Comment on above: Performed By: #### U MICRO, UACSIND #### [facility] [address] [place] [address] Dr. Bee Titus Urobilinogen Qn (U) 0.2 {Rama'U}/dL Normal 0.2 - 1. 0 [facility] Comment on above: Performed By: #### U MICRO, UACSIND #### [facility] [address] [place] [address] Dr. Bee Titus URINE MICROSCOPIC ONLYon BACTERIA NONE SEEN Normal NONE SEEN [facility] Comment on above: Performed By: #### U MICRO, UACSIND #### [facility] [address] [place] [address] Dr. Bee Titus Bacteria identified Cx Nom (U) NOT INDICATED Normal [facility] Comment on above: Performed By: #### U MICRO, UACSIND #### [facility] [address] [place] [address] Dr. Bee Titus CAST NONE SEEN Normal NONE SEEN [facility] Comment on above: Performed By: #### U MICRO, UACSIND #### [facility] [address] [place] [address] Dr. Bee Titus Crystals LM Nom (Urine sed) NONE SEEN Normal NONE SEEN [facility] Comment on above: Performed By: #### U MICRO, UACSIND #### [facility] [address] [place] [address] Dr. Bee Titus Epithelial cells LM Ql (Urine sed) FEW Abnormal NONE SEEN /RARE [facility] Comment on above: Performed By: #### U MICRO, UACSIND #### [facility] [address] [address] [address] Bee Titus MUCOUS MODERATE Abnormal NONE SEEN [facility] Comment on above: Performed By: #### U MICRO, UACSIND #### [facility] [address] [address] [address] Bee Titus RBC 20-50 Abnormal 0-2 [facility] Comment on above: Performed By: #### U MICRO, UACSIND #### [facility] [address] [address] [address] Bee Titus WBC NONE SEEN Normal NONE SEEN [facility] Comment on above: Performed By: #### U MICRO, UACSIND #### [facility] [address] [address] [address] Bee Titus US KIDNEYS BLADDERon 023 US KIDNEYS BLADDER EXAM: US KIDNEYS [...] SCARLET OROZCO Date: 2022-07-14 11:26 Normal [facility] US PREG GROWTHon 07-13-2022 US PREG GROWTH EXAMINATION: US PREG GROWTH HISTORY: High weight COMPARISON: No relevant comparison available. FINDINGS: Heart [...] MIMI RICHEY Date: 2022-07-13 18:08 Normal [facility] GROUP B STREP CULTUREon S. agalactiae Ag Ql (Unsp spec) Culture Observations: NEGATIVE FOR GROUP B STREPTOCOCCUS. Normal [facility] Comment on above: Performed By: #### G BSCX #### [facility] [address] [place] [address] Dr. Bee Titus US PREG GROWTHon 06-16-2022 [...] BIENVENIDO LONG Date: 2022-06-16 13:49 Normal [facility] US PREG GROWTHon 05-19-2022 US PREG GROWTH [...] BIENVENIDO LONG Date: 2022-05-19 15:21 Normal [facility] AMYLASEon 05-17-2022 Amylase [Catalytic activity/Vol] 49 U/L Normal 25-115 [facility] Comment on above: Performed By: #### A MY, CMP, LIPA ####[facility] [id number] [address]Dr. Bee Titus CBC AUTO DIFFon 05-17-2022 BASO # 0.0 103/ul Normal 0.0-0.1 [facility] Comment on above: Performed By: #### U MICRO, UACSIND #### [facility] [id number] Bee Titus Basophils/100 WBC (Bld) 0.2 % Normal 0.2-2.0 [facility] Comment on above: Performed By: #### U MICRO, UACSIND #### [facility] [address] [address] [address] Bee Titus EO # 0.0 103/ul Normal 0.0-0.7 [facility] Comment on above: Performed By: #### U MICRO, UACSIND #### [facility] [address] [address] [address] Bee Titus Eosinophils/100 WBC (Bld) 0.1 % Critically low 0.9-7.0 [facility] Comment on above: Performed By: #### U MICRO, UACSIND #### [facility] [address] [address] [address] Bee Titus Erythrocyte distribution width (RBC) [Ratio] 12.9 % Normal 11.0-15.0 [facility] Comment on above: Performed By: #### U MICRO, UACSIND #### [facility] [address] [place] [address] Dr. Bee Tiuts Hematocrit (Bld) [Volume fraction] 35.7 % Critically low 36.0-48.0 [facility] Comment on above: Performed By: #### U MICRO, UACSIND #### [facility] [address] [address] [address] Bee Titus Hemoglobin (Bld) [Mass/Vol] 12.6 g/dL Normal 12.0-16.0 [facility] Comment on above: Performed By: #### U MICRO, UACSIND #### [facility] [address] [address] [address] Bee Titus IG # 0.10 10e3/ul Critically high 0.00-0.03 [facility] Comment on above: Performed By: #### U MICRO, UACSIND #### [facility] [address] [address] [address] Bee Titus IG % 0.6 % Critically high 0.0-0.5 [facility] Comment on above: Performed By: #### U MICRO, UACSIND #### [facility] [address] [address] [address] Bee Titus LYMPH # 0.4 103/ul Critically low 1.2-3.8 [facility] Comment on above: Performed By: #### U MICRO, UACSIND #### [facility] [address] [place] [address] Dr. Bee Titus Lymphocytes/100 WBC (Bld) 2.1 % Critically low 20.5-60.0 [facility] Comment on above: Performed By: #### U MICRO, UACSIND #### [facility] [address] [place] [address] Dr. Bee Titus MANUAL DIFF REQ NO Normal [facility] Comment on above: Performed By: #### U MICRO, UACSIND #### [facility] [address] [place] [address] Dr. Bee Titus MCH (RBC) [Entitic mass] 31.7 pg Normal 26.7-34.0 [facility] Comment on above: Performed By: #### U MICRO, UACSIND #### [facility] [address] [place] [address] Dr. Bee Titus MCHC (RBC) [Mass/Vol] 35.3 g/dL Critically high 29.9-35.2 [facility] Comment on above: Performed By: #### U MICRO, UACSIND #### [facility] [address] [place] [address] Dr. Bee Titus MCV (RBC) [Entitic vol] 89.9 fL Normal 81.0-99.0 [facility] Comment on above: Performed By: #### U MICRO, UACSIND #### [facility] [address] [place] [address] Dr. Bee Titus MONO # 0.4 103/ul Normal 0.3-0.8 [facility] Comment on above: Performed By: #### U MICRO, UACSIND #### [facility] [address] [place] [address] Dr. Bee Titus Monocytes/100 WBC (Bld) 2.0 % Normal 1.7-12.0 [facility] Comment on above: Performed By: #### U MICRO, UACSIND #### [facility] [address] [address] [address] Bee Titus NEUT # 17.2 103/ul Critically high 1.4-6.5 [facility] Comment on above: Performed By: #### U MICRO, UACSIND #### [facility] [address] [place] [address] Dr. Bee Titus Neutrophils/100 WBC (Bld) 95.0 % Critically high 43.0-75.0 [facility] Comment on above: Performed By: #### U MICRO, UACSIND #### [facility] [address] [place] [address] Dr. Bee Titus Platelet mean volume (Bld) [Entitic vol] 9.8 fL Normal 9.5-13.5 [facility] Comment on above: Performed By: #### U MICRO, UACSIND #### [facility] [address] [place] [address] Dr. Bee Titus PLT 164 103/ul Normal 150-450 [facility] Comment on above: Performed By: #### U MICRO, UACSIND #### [facility] [address] [place] [address] Dr. Bee Titus RBC 3.97 106/ul Critically low 4.20-5.40 [facility] Comment on above: Performed By: #### U MICRO, UACSIND #### [facility] [address] [place] [address] Dr. Bee Titus WBC 18.1 103/ul Critically high 4.0-11.0 [facility] Comment on above: Performed By: #### U MICRO, UACSIND #### [facility] [address] [place] [address] Dr. Bee Titus ER URINE PROFILEon 3 Bilirubin Ql (U) Negative Normal NEGATIVE [facility] Comment on above: Performed By: #### U MICRO, UACSIND #### [facility] [address] [place] [address] Dr. Bee Titus Clarity (U) CLEAR Normal CLEAR [facility] Comment on above: Performed By: #### U MICRO, UACSIND #### [facility] [address] [address] [address] Bee Titus Color (U) YELLOW Normal YELLOW [facility] Comment on above: Performed By: #### U MICRO, UACSIND #### [facility] [address] [address] [address] Bee GARLAND A micrscopic examination will be performed if indicated. Normal [facility] Comment on above: Performed By: #### U MICRO, UACSIND #### [facility] [address] [address] [address] Bee Titus Glucose Ql (U) Negative Normal NEGATIVE [facility] Comment on above: Performed By: #### U MICRO, UACSIND #### [facility] [address] [address] [address] Bee Titus Hemoglobin Ql (U) TRACE-INTACT Abnormal NEGATIVE [facility] Comment on above: Performed By: #### U MICRO, UACSIND #### [facility] [address] [address] [address] Bee Titus Ketones Ql (U) >=80 Abnormal NEGATIVE [facility] Comment on above: Performed By: #### U MICRO, UACSIND #### [facility] [address] [place] [address] Dr. Bee Titus LEUKOCYTES Negative Normal NEGATIVE [facility] Comment on above: Performed By: #### U MICRO, UACSIND #### [facility] [address] [place] [address] Dr. Bee Titus Nitrite Ql (U) Negative Normal NEGATIVE [facility] Comment on above: Performed By: #### U MICRO, UACSIND #### [facility] [address] [address] [address] Bee Titus pH (U) 6.5 [pH] Normal 5-9 [facility] Comment on above: Performed By: #### U MICRO, UACSIND #### [facility] [address] [place] [address] Dr. Bee Titus SPEC GRAVITY 1.015 Normal 1.005-<=1.025 [facility] Comment on above: Performed By: #### U MICRO, UACSIND #### [facility] [address] [address] [address] Bee Titus UA PROTEIN Negative Normal NEGATIVE/ TRACE [facility] Comment on above: Performed By: #### U MICRO, UACSIND #### [facility] [address] [address] [address] Bee Titus UR MICRO IND INDICATED Normal [facility] Comment on above: Performed By: #### U MICRO, UACSIND #### [facility] [address] [address] [address] Bee Titus Urobilinogen Qn (U) 0.2 {Rama'U}/dL Normal 0.2 - 1. 0 [facility] Comment on above: Performed By: #### U MICRO, UACSIND #### [facility] [address] [place] [address] Dr. Bee Titus LIPASEon 05-17-2022 Lipase [Catalytic activity/Vol] 95.0 U/L Normal 73.0-393.0 [facility] Comment on above: Performed By: #### A MY, CMP, LIPA ####[facility] [address] [address]Dr. Bee Titus PROF 14(COMP METB)on 023 Albumin [Mass/Vol] 2.9 g/dL Critically low 3.4-5.0 [facility] Comment on above: Performed By: #### A MY, CMP, LIPA ####[facility] [address] [address]DrEric Titus Albumin/Globulin [Mass ratio] 0.8 {ratio} Normal [facility] Comment on above: Performed By: #### A MY, CMP, LIPA ####[facility] [address] [address]DrEric Titus ALP [Catalytic activity/Vol] 85 U/L Normal 46-116 [facility] Comment on above: Performed By: #### A MY, CMP, LIPA ####[facility] [address] [address]Dr. Bee Titus ALT [Catalytic activity/Vol] 17 U/L Normal 14-59 [facility] Comment on above: Performed By: #### A MY, CMP, LIPA ####[facility] [address] [address]Dr. Bee Titus Anion gap [Moles/Vol] 15.6 mmol/L Normal [facility] Comment on above: Performed By: #### A MY, CMP, LIPA ####[facility] [address] [address]Dr. Bee Titus AST [Catalytic activity/Vol] 15 U/L Normal 15-37 [facility] Comment on above: Performed By: #### A MY, CMP, LIPA ####[facility] [address] [address]Dr. Bee Titus Bilirubin [Mass/Vol] 0.5 mg/dL Normal 0.2-1.0 [facility] Comment on above: Performed By: #### A MY, CMP, LIPA ####[facility] [address] [address]Dr. Bee Titus Calcium [Mass/Vol] 8.4 mg/dL Critically low 8.5-10.1 [facility] Comment on above: Performed By: #### A MY, CMP, LIPA ####[facility] [address] [address]Dr. Bee Titus Chloride [Moles/Vol] 105 mmol/L Normal 98-107 [facility] Comment on above: Performed By: #### A MY, CMP, LIPA ####[facility] [address] [address]Dr. Bee Titus CO2 [Moles/Vol] 22.3 mmol/L Normal 21.0-32.0 [facility] Comment on above: Performed By: #### A MY, CMP, LIPA ####[facility] [address] [address]Dr. Bee Titus Creatinine [Mass/Vol] 0.61 mg/dL Normal 0.55-1.02 [facility] Comment on above: Performed By: #### A MY, CMP, LIPA ####[facility] [address] [address]Dr. Bee Titus EGFR-AF SOUTH AFRICAN >60 Normal >=60 [facility] Comment on above: Performed By: #### A MY, CMP, LIPA ####[facility] [address] [address]Dr. Bee Titus EGFR-NON AF SOUTH AFR[place] >60 Normal >=60 [facility] Comment on above: Performed By: #### A MY, CMP, LIPA ####[facility] [address] [address]Dr. Bee Titus Globulin (S) [Mass/Vol] 3.7 g/dL Normal [facility] Comment on above: Performed By: #### A MY, CMP, LIPA ####[facility] [address] [place], [place] [address]Dr. Bee Titus Glucose [Mass/Vol] 112 mg/dL Critically high 74-106 [facility] Comment on above: Performed By: #### A MY, CMP, LIPA ####[facility] [address] [place], [place] [address]Dr. Bee Titus Potassium [Moles/Vol] 3.9 mmol/L Normal 3.5-5.1 [facility] Comment on above: Performed By: #### A MY, CMP, LIPA ####[facility] [address] [place], [place] [address]Dr. Bee Titus Protein [Mass/Vol] 6.6 g/dL Normal 6.4-8.2 [facility] Comment on above: Performed By: #### A MY, CMP, LIPA ####[facility] [address] [place], [place] [address]Dr. Bee Titus Sodium [Moles/Vol] 139 mmol/L Normal 136-145 [facility] Comment on above: Performed By: #### A MY, CMP, LIPA ####[facility] [address] [place], [place] [address]Dr. Yilan Titus Urea nitrogen [Mass/Vol] 10.0 mg/dL Normal 7.0-18.0 [facility] Comment on above: Performed By: #### A MY, CMP, LIPA ####[facility] [address] [address]Dr. Bee Titus Urea nitrogen/Creatinine [Mass ratio] 16.4 mg/mg Normal [facility] Comment on above: Performed By: #### A MY, CMP, LIPA ####[facility] [address] [address]Dr. Bee Titus URINE MICROSCOPIC ONLYon BACTERIA NONE SEEN Normal NONE SEEN [facility] Comment on above: Performed By: #### U MICRO, UACSIND #### [facility] [address] [place] [address] Dr. Bee Titus Bacteria identified Cx Nom (U) NOT INDICATED Normal [facility] Comment on above: Performed By: #### U MICRO, UACSIND #### [facility] [address] [place] [address] Dr. Bee Titus CAST NONE SEEN Normal NONE SEEN [facility] Comment on above: Performed By: #### U MICRO, UACSIND #### [facility] [address] [address] [address] Bee Titus Crystals LM Nom (Urine sed) NONE SEEN Normal NONE SEEN [facility] Comment on above: Performed By: #### U MICRO, UACSIND #### [facility] [address] [place] [address] Dr. Bee Titus Epithelial cells LM Ql (Urine sed) NONE SEEN Normal NONE SEEN /RARE [facility] Comment on above: Performed By: #### U MICRO, UACSIND #### [facility] [address] [address] [address] Bee Titus MUCOUS NONE SEEN Normal NONE SEEN [facility] Comment on above: Performed By: #### U MICRO, UACSIND #### [facility] [address] [place] [address] Dr. Bee Titus RBC 0-2 Normal 0-2 [facility] Comment on above: Performed By: #### U MICRO, UACSIND #### [facility] [address] [place], [place] [address] Dr. Bee Titus WBC NONE SEEN Normal NONE SEEN [facility] Comment on above: Performed By: #### U MICRO, UACSIND #### [facility] [address] [place], [place] [address] Dr. Bee Titus TYPE AND SCREENon 05-04-2022 TYPE AND SCREEN Negative Normal [facility] Comment on above: Performed By: #### T NS #### [facility] [address] [place], [place] [address] Dr. Bee Titus GLUCOSE - 1HRon 04-30-2022 Glucose [Mass/Vol] 136 mg/dL Critically high 74-106 [facility] Comment on above: Performed By: #### G LU1HR ####[facility] [address] [place], [place] [address]BpDr. Bee Titus US PREG ANATOMY SINGLEon US [...] authenticated by: MIMI RICHEY Date: 2022-03-10 07:17 [facility] PAP ACOG PANEL 2: 22 to 30on 03-03-2022 . . Normal [facility] Comment on above: Performed By: #### [id number] ####[facility] [address] [place], [place] [address]DrEric Titus Age Gdln ACOG Testing 22- [facility] Comment on above: Performed By: #### [id number] ####[facility] [address] [place], [place] [address]DrEric Titus DIAGNOSIS: Comment [facility] Comment on above: Result Comment: NEGA TIVE FOR INTRAEPITHELIAL LESION OR MALIGNANCY. Performed By: #### [id number] ####[facility] [address] [place], [place] [address]DrEric Titus Methodology: Comment [facility] Comment on above: Result Comment: This liquid based ThinPrep(R) pap test was screened with the use of an image guided system. Performed By: #### 4 [id number] ####[facility] [address] [place], [place] [address]DrEric Titus Note: Comment [facility] Comment on above: Result Comment: The Pap smear is a screening test designed to aid in the detection of premalignant and malignant conditions of the uterine cervix. It is not a diagnostic procedure and should not be used as the sole means of detecting cervical cancer. Both false-positive and false-negative reports do occur. . Performed By: #### 4 [id number] ####[facility] [address] [place], [place] [address]DrEric Titus Performed by: Comment Normal [facility] Comment on above: Result Comment: Kamila lie A Emery, [place] Wheeler Performed By: #### 4 [id number] ####[facility] [address] [place] [address]Dr. Bee Titus Reflex Criteria: Comment Normal [facility] Comment on above: Result Comment: The HPV DNA reflex criteria were not met with this specimen result therefore, no HPV testing was performed. . Performed By: #### 4 [id number] ####[facility] [address] [place] [address]Dr. Bee Titus Specimen adequacy: Comment Normal [facility] Comment on above: Result Comment: Sati sfactory for evaluation. No endocervical component is identified. Performed By: #### 4 [id number] ####[facility] [address] [place] [address]Dr. Bee Titus CHLAMYDIA/GONOCOCCUS CJ (SW AB/URINE/PAPon 02-26-2022 Chlamydia trachomatis, CJ Negative Normal Negative [facility] Comment on above: Performed By: #### C T/NGNA #### [facility] [address] [place] [address] Dr. Bee Titus Neisseria gonorrhoeae, CJ Negative Normal Negative [facility] Comment on above: Performed By: #### C T/NGNA #### [facility] [address] [place] [address] Dr. Bee Titus VAGINITIS/VAGINOSIS DNA PROB Alcon 02-25-2022 Sofya species Negative Normal Negative [facility] Comment on above: Performed By: #### V AGINT ####[facility] [address] [place] [address]Dr. Bee Titus Gardnerella vaginalis Negative Normal Negative [facility] Comment on above: Performed By: #### V AGINT ####[facility] [address] [place], [place] [address]DrEric Titus Trichomonas vaginalis Negative Normal Negative [facility] Comment on above: Performed By: #### V AGINT ####[facility] [address] [place], [place] [address]DrEric Titus HEP B SURFACE ANTIGEN SCREEN on 12-26-2021 HBsAg Screen Negative Normal Negative [facility] Comment on above: Performed By: #### U MICRO, UACSIND #### [facility] [address] [place] [address] [address] Bee Titus HEPATITIS C VIRUS AB W/ REFL EX QUANTon 12-26-2021 HCV AB <0.1 Normal 0.0-0.9 [facility] Comment on above: Performed By: #### U MICRO, UACSIND #### [facility] [address] [place] [address] [address] Bee Titus Interpretation: Comment Normal [facility] Comment on above: Result Comment: Nega tive Not infected with HCV, unless recent infection is suspected or other evidence exists to indicate HCV infection. Performed By: #### U MICRO, UACSIND #### [facility] [address] [place] [address] [address] Bee Titus HIV 1 AND 2 WITH REFLEXon HIV Screen 4th Generation wRfx Non-Reactive Normal Non Reactive [facility] Comment on above: Result Comment: HIV Negative HIV-1/HIV-2 antibodies and HIV-1 p24 antigen were NOT detected. There is no laboratory evidence of HIV infection. Performed By: #### H IV12 ####[facility] [address] [place] [address]Dr. Bee Titus RPR QUANTon 12-26-2021 Rapid Plasma Reagin, Quant Non-Reactive Normal NonRea<1:1 [facility] Comment on above: Result Comment: Plea se Note: This test does not meet current guidelines for screening and diagnosis of syphilis. This test is intended for following treatment response in patients being treated for syphilis infection. To screen for syphilis infection, a reflex cascade that includes both RPR and a treponema-specific assay should be utilized, such as Treponema pallidum (Syphilis) Screening Charles (350767) or Rapid Plasma Reagin (RPR) Test With Reflex to Quantitative RPR and Confirmatory Treponema pallidum Antibodies (042797). Performed By: #### U MICRO, UACSIND #### [facility] [address] [place] [address] [address] Bee Titus RUBELLA AB IGGon 12-26-2021 Rubella Antibodies, IgG 2.83 index Normal Immune >0.99 [facility] Comment on above: Result Comment: Non- immune <0.90 Equivocal 0.90 - 0.99 Immune >0.99 Performed By: #### U MICRO, UACSIND #### [facility] [address] [place], [place] [address] Dr. Bee Titus CBC AUTO DIFFon 12-25-2021 BASO # 0.0 103/ul Normal 0.0-0.1 [facility] Comment on above: Performed By: #### C BC ####[facility] [address] [place] [id number]. Bee Titus Basophils/100 WBC (Bld) 0.3 % Normal 0.2-2.0 [facility] Comment on above: Performed By: #### C BC ####[facility] [address] [place] [address]DrEric Titus EO # 0.1 103/ul Normal 0.0-0.7 [facility] Comment on above: Performed By: #### C BC ####[facility] [address] [place] [id number]. Bee Titus Eosinophils/100 WBC (Bld) 0.6 % Critically low 0.9-7.0 [facility] Comment on above: Performed By: #### C BC ####[facility] [address] [place] [id number] Titus Erythrocyte distribution width (RBC) [Ratio] 12.1 % Normal 11.0-15.0 [facility] Comment on above: Performed By: #### C BC ####[facility] [address] [place] [id number] Titus Hematocrit (Bld) [Volume fraction] 37.5 % Normal 36.0-48.0 [facility] Comment on above: Performed By: #### C BC ####[facility] [address] [place] [phone] Titus Hemoglobin (Bld) [Mass/Vol] 13.3 g/dL Normal 12.0-16.0 [facility] Comment on above: Performed By: #### C BC ####[facility] [address]ms[address] [place] [address]DrEric Titus IG # 0.04 10e3/ul Critically high 0.00-0.03 [facility] Comment on above: Performed By: #### C BC ####[facility] [address] [place] [address]DrEric Titus IG % 0.4 % Normal 0.0-0.5 [facility] Comment on above: Performed By: #### C BC ####[facility] [address]we[address] [place] [address]DrEric Titus LYMPH # 1.7 103/ul Normal 1.2-3.8 [facility] Comment on above: Performed By: #### C BC ####[facility] [address]sm[address] [place] [address]DrEric Titus Lymphocytes/100 WBC (Bld) 17.2 % Critically low 20.5-60.0 [facility] Comment on above: Performed By: #### C BC ####[facility] [address]fib[address] [place] [address]DrEric Titus MANUAL DIFF REQ NO Normal [facility] Comment on above: Performed By: #### C BC ####[facility] [address]im[address] [place] [address]DrEric Titus MCH (RBC) [Entitic mass] 32.0 pg Normal 26.7-34.0 [facility] Comment on above: Performed By: #### C BC ####[facility] [address] [place] [id number] Titus MCHC (RBC) [Mass/Vol] 35.5 g/dL Critically high 29.9-35.2 [facility] Comment on above: Performed By: #### C BC ####[facility] [address] [place] [phone] Titus MCV (RBC) [Entitic vol] 90.1 fL Normal 81.0-99.0 [facility] Comment on above: Performed By: #### C BC ####[facility] [address] [place] [id number]. Bee Titus MONO # 0.5 103/ul Normal 0.3-0.8 [facility] Comment on above: Performed By: #### C BC ####[facility] [address]sx[address]wmemb[address] [place] [id number]. Bee Titus Monocytes/100 WBC (Bld) 4.8 % Normal 1.7-12.0 [facility] Comment on above: Performed By: #### C BC ####[facility] [address]urs[address] [place] [phone]. Bee Titus NEUT # 7.4 103/ul Critically high 1.4-6.5 [facility] Comment on above: Performed By: #### C BC ####[facility] [address] [place] [address]Dr. Bee Titus Neutrophils/100 WBC (Bld) 76.7 % Critically high 43.0-75.0 [facility] Comment on above: Performed By: #### C BC ####[facility] [address]tr[address]xf[address] [place] [phone]. Bee Titus Platelet mean volume (Bld) [Entitic vol] 10.2 fL Normal 9.5-13.5 [facility] Comment on above: Performed By: #### C BC ####[facility] [address] [place] [phone]. Bee Titus PLT 226 103/ul Normal 150-450 [facility] Comment on above: Performed By: #### C BC ####[facility] [address]hmijtcnxo[address] [place] [phone]. Bee Titus RBC 4.16 106/ul Critically low 4.20-5.40 [facility] Comment on above: Performed By: #### C BC ####[facility] [address] [place] [phone]. Bee Titus WBC 9.7 103/ul Normal 4.0-11.0 [facility] Comment on above: Performed By: #### C BC ####[facility] [address] [place] [phone]. Bee Titus CULTURE URINEon 12-25-2021 CULTURE URINE Culture Observations : LIGHT GROWTH OF MIXED GENITAL SUMA. NO POTENTIAL PATHOGENS SEEN. Normal [facility] Comment on above: Performed By: #### U RCX ####[facility] [address] [place] [address]Dr. Bee Titus GLYCOHEMOGLOBIN A1Con 2021 ADA RECOMMENDATION SEE BELOW Normal [facility] Comment on above: Result Comment: ADA RECOMMENDED LIMIT 4.0 - 6.0 ADA THERAPEUTIC TARGET < 7.0 ACTION SUGGESTED > 7.0 Performed By: #### U MICRO, UACSIND #### [facility] [address] [place] [address] [address] Bee Titus Glucose [Mass/Vol] 88 mg/dL Normal [facility] Comment on above: Performed By: #### U MICRO, UACSIND #### [facility] [address] [place] [address] [address] Bee Titus HbA1c (Bld) [Mass fraction] 4.7 % Normal 4.5-6.2 [facility] Comment on above: Performed By: #### U MICRO, UACSIND #### [facility] [address] [place] [address] [address] Bee Titus TYPE AND SCREENon 12-25-2021 TYPE AND SCREEN Negative Normal [facility] Comment on above: Performed By: #### T NS #### [facility] [address] [place] [address] [address] Bee Titus US PREG TVon 12-05-2021 [...] BIENVENIDO LONG Date: 2021-12-05 16:58 Normal [facility] HCG-BETA SUBUNIT QUANTon hCG,Beta Subunit,Qnt,Serum 105 mIU/mL Normal [facility] Comment on above: Result Comment: Fema le (Non-) 0 - 5 (Postmenopausal) 0 - 8 . Female () Weeks of Gestation 3 6 - 71 4 10 - 750 5 217 - 7138 6 158 - 55969 7 3697 -731079 8 70607 -156160 9 26567 -513180 10 77889 -723778 12 27993 -631149 14 97450 - 15078 15 11344 - 85753 16 9040 - 79583 17 8175 - 33739 18 8099 - 37974 [place] ECLIA methodology Performed By: #### U JOSE UAIND #### [facility] [address] [place], [place] [address] Dr. Bee Titus HCG-BETA SUBUNIT QUANTon hCG,Beta Subunit,Qnt,Serum 41 mIU/mL Normal [facility] Comment on above: Result Comment: Fema le (Non-) 0 - 5 (Postmenopausal) 0 - 8 . Female () Weeks of Gestation 3 6 - 71 4 10 - 750 5 217 - 7138 6 158 - 80448 7 3697 -127324 8 87079 -479715 9 36542 -369743 10 48380 -677777 12 62078 -559574 14 05136 - 25985 15 74561 - 67029 16 9040 - 09989 17 8175 - 77372 18 8099 - 65929 [place] ECLIA methodology Performed By: #### H CGSUB ####[facility] [address] [place], [place] [address]WaDr. Bee Titus CBC AUTO DIFFon 10-23-2021 BASO # 0.0 103/ul Normal 0.0-0.1 [facility] Comment on above: Performed By: #### C BC ####[facility] [address]uy[address] [place] [phone]. Bee Titus Basophils/100 WBC (Bld) 0.7 % Normal 0.2-2.0 [facility] Comment on above: Performed By: #### C BC ####[facility] Howbdjuhni[address] [place] [phone]. Bee Titus EO # 0.2 103/ul Normal 0.0-0.7 [facility] Comment on above: Performed By: #### C BC ####[facility] [address] [place], [place] [address]Dr. Bee Titus Eosinophils/100 WBC (Bld) 2.7 % Normal 0.9-7.0 [facility] Comment on above: Performed By: #### C BC ####[facility] [address] [place], [place] [address]Dr. Bee Titus Erythrocyte distribution width (RBC) [Ratio] 12.2 % Normal 11.0-15.0 [facility] Comment on above: Performed By: #### C BC ####[facility] [address] [place], [place] [address]Dr. Bee Titus Hematocrit (Bld) [Volume fraction] 40.4 % Normal 36.0-48.0 [facility] Comment on above: Performed By: #### C BC ####[facility] [address] [place], [place] [address]Dr. Bee Titus Hemoglobin (Bld) [Mass/Vol] 14.0 g/dL Normal 12.0-16.0 [facility] Comment on above: Performed By: #### C BC ####[facility] [address] [place], [place] [address]Dr. Bee Titus IG # 0.01 10e3/ul Normal 0.00-0.03 [facility] Comment on above: Performed By: #### C BC ####[facility] [address] [place], [place] [address]Dr. Bee Titus IG % 0.2 % Normal 0.0-0.5 [facility] Comment on above: Performed By: #### C BC ####[facility] [address]qsnd[address] [place] [id number]. Bee Titus LYMPH # 1.8 103/ul Normal 1.2-3.8 [facility] Comment on above: Performed By: #### C BC ####[facility] [address] [place] [phone]. Bee Tacho Lymphocytes/100 WBC (Bld) 30.1 % Normal 20.5-60.0 [facility] Comment on above: Performed By: #### C BC ####[facility] [address]otquiby[address] [place] [phone]. Bee Tacho MANUAL DIFF REQ NO Normal [facility] Comment on above: Performed By: #### C BC ####[facility] [address]um[address] [place] [phone]. Bee Tacho MCH (RBC) [Entitic mass] 31.2 pg Normal 26.7-34.0 [facility] Comment on above: Performed By: #### C BC ####[facility] [address] [place] [phone]. Bee Titus MCHC (RBC) [Mass/Vol] 34.7 g/dL Normal 29.9-35.2 [facility] Comment on above: Performed By: #### C BC ####[facility] [address]bf[address] [place] [phone]. Bee Tacho MCV (RBC) [Entitic vol] 90.0 fL Normal 81.0-99.0 [facility] Comment on above: Performed By: #### C BC ####[facility] [address]ur[address] [place] [phone]. Bee Tacho MONO # 0.4 103/ul Normal 0.3-0.8 [facility] Comment on above: Performed By: #### C BC ####[facility] [address]isc[address] [place] [phone]. Bee Tacho Monocytes/100 WBC (Bld) 7.0 % Normal 1.7-12.0 [facility] Comment on above: Performed By: #### C BC ####[facility] [address]ms[address] [place], [place] [address]Wb. Bee Titus NEUT # 3.5 103/ul Normal 1.4-6.5 [facility] Comment on above: Performed By: #### C BC ####[facility] [address]sh[address] [place], [place] [address]Rz. Bee Titus Neutrophils/100 WBC (Bld) 59.3 % Normal 43.0-75.0 [facility] Comment on above: Performed By: #### C BC ####[facility] [address]eb[address] [place], [place] [address]Qg. Bee Titus Platelet mean volume (Bld) [Entitic vol] 10.0 fL Normal 9.5-13.5 [facility] Comment on above: Performed By: #### C BC ####[facility] [address] [place] [phone]. Bee Titus PLT 244 103/ul Normal 150-450 [facility] Comment on above: Performed By: #### C BC ####[facility] [address] [place] [phone]. Bee Titus RBC 4.49 106/ul Normal 4.20-5.40 [facility] Comment on above: Performed By: #### C BC ####[facility] [address]qu[address] [place] [phone]. Bee Tacho WBC 5.9 103/ul Normal 4.0-11.0 [facility] Comment on above: Performed By: #### C BC ####[facility] [address] [place] [phone] Titus FREE T4on 10-23-2021 Free T4 [Mass/Vol] 0.91 ng/dL Normal 0.76-1.46 [facility] Comment on above: Performed By: #### U MICRO, UACSIND #### [facility] [address] [place], [place] [address] Dr. Bee Titus LIPID PROFILEon 10-23-2021 CHOL-HDL RATIO NORM SEE BELOW Normal [facility] Comment on above: Result Comment: 3.3 - 4.4 LOW RISK 4.4 - 7.1 AVERAGE RISK 7.1 - 11.0 MODERATE RISK >11.0 HIGH RISK Performed By: #### U MICRO, UACSIND #### [facility] [address] [place] [address] [address] Bee Titus Cholesterol [Mass/Vol] 191 mg/dL Normal <=200 [facility] Comment on above: Performed By: #### U MICRO, UACSIND #### [facility] [address] [place] [address] [address] Bee Titus Cholesterol in HDL [Mass/Vol] 77 mg/dL Critically high 40-60 [facility] Comment on above: Performed By: #### U MICRO, UACSIND #### [facility] [address] [place] [address] [address] Bee Titus Cholesterol in LDL [Mass/Vol] 103.2 mg/dL Normal [facility] Comment on above: Performed By: #### U MICRO, UACSIND #### [facility] [address] [place] [address] [address] Bee Titus Cholesterol.total/Ch olesterol in HDL [Mass ratio] 2.5 {ratio} Normal [facility] Comment on above: Performed By: #### U MICRO, UACSIND #### [facility] [address] [place] [address] [address] Bee Titus HDL NORMAL > or = 60 mg/dl - LO W CARDIOVASCULAR RISK <40 mg/dl - HIGH CARDIOVASCULAR RISK Normal [facility] Comment on above: Performed By: #### U MICRO, UACSIND #### [facility] [address] [place] [address] [address] Bee Titus LDL CALC NORMAL SEE BELOW Normal [facility] Comment on above: Result Comment: <100 mg/dl OPTIMAL 100 - 129 mg/dl NEAR OR ABOVE OPTIMAL 130 - 159 mg/dl BORDERLINE HIGH 160 - 189 mg/dl HIGH >190 mg/dl VERY HIGH Performed By: #### U MICRO, UACSIND #### [facility] [address] [place] [address] [address] Bee Titus Triglyceride [Mass/Vol] 54 mg/dL Normal <=150 [facility] Comment on above: Performed By: #### U MICRO, UACSIND #### [facility] [address] [place] [address] [address] Bee Titus VLDL CALC 10.8 mg/dL Normal [facility] Comment on above: Performed By: #### U MICRO, UACSIND #### [facility] [address] [place] [address] [address] Bee Titus PROF 14(COMP METB)on 022 Albumin [Mass/Vol] 3.9 g/dL Normal 3.4-5.0 [facility] Comment on above: Performed By: #### U MICRO, UACSIND #### [facility] [address] [place] [address] [address] Bee Titus Albumin/Globulin [Mass ratio] 1.3 {ratio} Normal [facility] Comment on above: Performed By: #### U MICRO, UACSIND #### [facility] [address] [place] [address] [address] Bee Titus ALP [Catalytic activity/Vol] 54 U/L Normal 46-116 [facility] Comment on above: Performed By: #### U MICRO, UACSIND #### [facility] [address] [place] [address] [address] Bee Titus ALT [Catalytic activity/Vol] 38 U/L Normal 14-59 [facility] Comment on above: Performed By: #### U MICRO, UACSIND #### [facility] [address] [place] [address] [address] Bee Titus Anion gap [Moles/Vol] 10.9 mmol/L Normal [facility] Comment on above: Performed By: #### U MICRO, UACSIND #### [facility] [address] [place] [address] [address] Bee Titus AST [Catalytic activity/Vol] 56 U/L Critically high 15-37 [facility] Comment on above: Performed By: #### U MICRO, UACSIND #### [facility] [address] [place] [address] [address] Bee Titus Bilirubin [Mass/Vol] 0.4 mg/dL Normal 0.2-1.0 [facility] Comment on above: Performed By: #### U MICRO, UACSIND #### [facility] [address] [place] [address] [address] Bee Titus Calcium [Mass/Vol] 8.9 mg/dL Normal 8.5-10.1 [facility] Comment on above: Performed By: #### U MICRO, UACSIND #### [facility] [address] [place] [address] [address] Bee Titus Chloride [Moles/Vol] 109 mmol/L Critically high 98-107 [facility] Comment on above: Performed By: #### U MICRO, UACSIND #### [facility] [address] [place] [address] Dr. Bee Titus CO2 [Moles/Vol] 26.9 mmol/L Normal 21.0-32.0 [facility] Comment on above: Performed By: #### U MICRO, UACSIND #### [facility] [address] [place] [address] Dr. Bee Titus Creatinine [Mass/Vol] 0.84 mg/dL Normal 0.55-1.02 [facility] Comment on above: Performed By: #### U MICRO, UACSIND #### [facility] [address] [place] [address] Dr. Bee Titus EGFR-AF SOUTH AFRICAN >60 Normal >=60 [facility] Comment on above: Performed By: #### U MICRO, UACSIND #### [facility] [address] [place] [address] Dr. Bee Titus EGFR-NON AF SOUTH AFRICAN >60 Normal >=60 [facility] Comment on above: Performed By: #### U MICRO, UACSIND #### [facility] [address] [place] [address] Dr. Bee Titus Globulin (S) [Mass/Vol] 3.1 g/dL Normal [facility] Comment on above: Performed By: #### U MICRO, UACSIND #### [facility] [address] [place] [address] Dr. Bee Titus Glucose [Mass/Vol] 97 mg/dL Normal 74-106 [facility] Comment on above: Performed By: #### U MICRO, UACSIND #### [facility] [address] [place] [address] [address] Bee Titus Potassium [Moles/Vol] 3.8 mmol/L Normal 3.5-5.1 [facility] Comment on above: Performed By: #### U MICRO, UACSIND #### [facility] [address] [place] [address] [address] Bee Titus Protein [Mass/Vol] 7.0 g/dL Normal 6.4-8.2 [facility] Comment on above: Performed By: #### U MICRO, UACSIND #### [facility] [address] [place] [address] Dr. Bee Titus Sodium [Moles/Vol] 143 mmol/L Normal 136-145 [facility] Comment on above: Performed By: #### U MICRO, UACSIND #### [facility] [address] [place] [address] [address] Bee Titus Urea nitrogen [Mass/Vol] 11.0 mg/dL Normal 7.0-18.0 [facility] Comment on above: Performed By: #### U MICRO, UACSIND #### [facility] [address] [place] [address] Dr. Bee Titus Urea nitrogen/Creatinine [Mass ratio] 13.1 mg/mg Normal [facility] Comment on above: Performed By: #### U MICRO, UACSIND #### [facility] [address] [place] [address] [address] Bee Titus TSHon 10-23-2021 TSH 1.495 uIU/mL Normal 0.358-3.740 [facility] Comment on above: Performed By: #### U MICRO, UACSIND #### [facility] [address] [place] [address] [address] Bee Titus Coding Summaryon 07-18-2020 Coding Summary [facility] ZpexbejvUCa0iJq+PGhlY WQ+GM9OXURqX71yfNWieF 3NK5nOCQ4JECRLIKJXKC1 NNM3kmIQ6RVwmB7VzolGg DuxjcLEuAW16NUu9TRO4p EfoNHwyaN2kmKHhV5e5Yr MkKB56iW97YYghQSSzBgA 3LjZpbjsgbWFy J4cwDuLhiQQmFut+PHRhY mxlIHdpZHRoPScxMDAlJy KdoKotCS7oMm8mXXRmLBP vbGxhcHNlOiBj s0sySDHuWTkfBD5kfYooF 7RfkRW2JUNso4b1Ta02iK I+SDMnUHM6tEhfFBtuf82 8DtTch2ztIXU1 nNBvSIrfRCR9M56mk7S7O LSuCNRmOBP8yRT1gT3knS zpeaghW0RlhYPqHyI1SYY 2tADlsI6erGly flrweF1uBvq+B99HSP9EL EMTLX1PWee1N8NkFetnmZ I+ZY51VWFxEA84nKSxiWF uu4oheXx9QiIl YKBwHVG6gQcvENslz8WtS OFqN84orIHgg0B7XGHwvD kmzNGqBaVpsRT0bH4nKYq kdvcdy0tpjvep Vstbq6vrpm06xY94W45tL AicJDYzPES6MVTkKPQaaA dyqx2brF2tYh5+AAixb6r gp5jfkYu0CgSz XPKghaGkeMkxGXO6d8UqD e18P0TjrQimp6XoElm2sl 97nCWcg7Q0yJZ2BHrdFVE ouI9pPGntKjR1 JGYjBrDdiO02bJHpCJdmQ d0sdLwspZjcSS8pEOEzvf crADNydP1tHZTrwQCjnQf sQH7hNMBjwfdm c384CtTgUIW1QLFvjWDsT 5UrwM2eKuHbQFKhPEBmZ0 QvuCKiYYqgQ429ALcwJeL 5CKMchyTjO5Cy OJWvwXgfSxW6s4Q8Zf4Hp 3WtglfyKSD5IDrxRGQ0Pm QbXmGiLhF5P8SzNpm3ADN mtLoxZX1xH4Ah ICYyaelrsdkkeJD6FIBxN AAryX03yQSuSSnbIv0ja5 F8i890ZWVsMMKfcY51Cx7 udDogMTBwdCBU lL0qavzhk9wniamdNiFjD YIdTHk6AKj1TWJbkAqkYg OmBDZ7VdV2TQP4cDMzaG5 hvGibtfolzS7d Oyc+V93kpW1hHQD6ZJQ0l uhcDTXiydNcRX63YE75F2 RyPjwvdGFibGU+PGRpdiB yvYgjCB9dUeYk v2miq4YxXGidH1MrRVMoE LthWdf6EJWjKIB3xRO4jC 8dXYWlCXchw5S8wZE0F2W jvzGjhc4wn3ms ZFTjSSplO50nmFBrd8L6Q WHkrGE3FFHgaJxwOlMylP 93Oyc+ZKUwbPsfu3KpRgy sq8dwd7pijPg6 QeOwAVObndSfpOuaRCN6c 0AeCc76C33mMVjyGDUsWX DuSMVuGAWgkPchos7uhY4 wIi8+PGNvbCB3 oOA2uE3fRNXpGqP0TDtyG 008GoFshIWhZoqkm7afq5 jmrEz2YuYbFWEolgPxjHx vFND2j5MzSw53 M11tLYwgVUGtMUBfTXOvU MSdqZoivh0utI2kCh0+PC 7mg6xqxr49zK99oAF+PHR tIWH6kAenVMpg GEVszC8wTIfqDoK5DGTgQ hNvzR69iFWnNScfMk0bmI dbrLwpDM0iAYZdmewys64 4PfBjd8vmTZWg xYVfQDqoKVY5B35lt5S2A RYbUBTsGLV0iQD9bQ3voI lnbjogbGVmdDsgdmVydGl vBWnsCZlnR567 IHRvcDsnPlBhdGllbnQgT bEgHNp7L7ZlCwu3DUGlwH bqJM5fvQIzGPimGg6foCp yuHwjBS1vNAFf pzghb249JoRbq7uqQUFcw LZuZSvfESG8K35fy7F3ZV NqBCKmGMH5nCU4fH3moMo nbjogbGVmdDsg jfAwrEdtUGflNSjgG145Q HRvcDsnPkJpcnRoIERhdG I1TF32TP15gGUnc6S0gJS 5K4YuFJUezehe uqqnvXZ3EPCdGCRpmK65W k0nfEayLy2wOBFqFYF6IM TwqTTpN4ZqqT8yHaZfTHW lEEWeF1JxtJOp INluQ301OCcpBkI0TYZtz dQyN8TiPOQbkYzcUnW8w4 F7Jv1UE0F5HQ71IG85jJW pe5P4nGO2Y8Fq XIXbsdsrfgxpiJJ7WTKoN DZxpO19Pm1sxApnGy5kWG SxRYT4HLDofLVtN0VtbH7 yOiAjMDAwMDAw H7VtzUEhPBorO377DDshZ uT1FXNjfiEgK3RqPFBliQ lgHvK1e3N6Jq4ITLm4CT8 5PR69oUQms7Z0 vXY5B7RsYPYefraotxylf TP4QRJtAEQyqB29Cq4tcK fvBr8sSNUiTON1RHFvfCK dM1DemX5zOfBm SDRcJDLnH5ErwXHyAWtwT 578IEdqBsO3GTVtvfVeF9 QqGQOkaUkkPnX8r8V3Kh8 XWNJoSX37EMO4 cMJ5BF74JO51N7EzLutse GFibGU+PHRhYmxlIHdpZH RoPScxMDAlJyBzdHlsZT0 gBs3zUHWkSAEn vRrkeIFqHjHrr4veXQPyK ZojFR7bvGxnA0FsyKX6DA Feg0r4Ux98D48lY4OhzSH +CBTmoVC9aLL5 gV2hFdTeKtO0CJpeR796X fTgkYCpCaudv4gkh3jmiF w0BgE3HBUtllLeyFfaSKW 6r4WaHy29P43b IHdpZHRoPSIxNSUiIHZhb Amkym3psY7cKt4+PGNvbC O2bID1rJ0tZiRfGoK5KSr rU007PzOggAAg Skqlk7wpd6aumJp5XsGeY KYyccRxrYkiNTJ0q7KcJp 10X7CkcGdqw5PrAzd8dl1 9tYCzn7M8kZC6 B3RhDJXkcwgsuTBwzRaoP J7gXFAjasfmYPUebS1bCI RiT5z4ReKmLaW5UPyfG0G pmcP0ZTWcjWVi HSmsHTV8S63nn6K7WTOlL RBjTIX9mUO8zT5ujRwjfv ogbGVmdDsgdmVydGljYWw xGItoK655MXIr fWreDEEsuB2hQGOfgHSaq LtoSC0iTJJnxscaZmIRIL wgTElORFNZIEdSQUNFPC9 2MY00sNHjh3L5 xLY7E1QjXGAcicvidlmea VA5XMLtLVLqbK89vYMeHR viKd9wz9C3z404UVCcKUC imY85Vq2ldSlp UPFptQYBlV4suimbh6fqw jpdQwPqAOSmEUs3DLb0BS JybLgjErHzEKD0QoI3NVA 4vLPjuH4csXup iimlaP9hRhp+MDkvMTAvM Dm2QhlhvIS+JONvWZN9yP ptXZerWGHuyO2zIAGxI1f 3XrBhOgC2HGzs C3WfREGvscceYb60aF0vQ lDxEcF4OOzrO8TttpH0NA CnlIDgLVggNYW8A10jr2D 6YVQoZOZqSPH7 sQA7oQ5upFdrozbhbJWgt DsgdmVydGljYWwtYWxpZ2 46IHRvcDsnPjIzIFllYXJ pRE86WZ85jDAi p1H1oKX2X4PxMKZghklim pppoQO7CVTwTTFjwD97wE YhUZicZj8hc9F1n464PFE wKCVmiQ52Vu8z bQnrPPHzkNAFgL1hykvgi 8vavrvzPxYqZCEfUKj5KQ h2OSIkgDrvGvMiBRC7CcX 8LMN0qPZdpD0u zRoukkdpzU8xRxp+RkVNQ OpDZW87HV65dRVdf0S5uM K5V6HsLARptdnbadjedVR 4XDJyOZJbnU36 aNOdIYfkNb5xe7K5s289A ZJhZNHrfZ60Zc9hqQjrXZ VxtIFTyK7hbluzo6gwive gIzAwMDAwMDt0 JMu2BACuxMunMwYrCHC6J lK9SWN4iWOelR8mpFutdd eebK1yDfk+M5A4L1BrXcl vdHI+XJ83QFNq RM63jUIfiYRza1cgzXy8K uHaTAOvUPK2mLueCKqjo1 IxUEKuG09dyBTfn2E4FWO vbGxhcHNlOyBl uQF5fS3uHHlsvoiyh7fph czvAizfc2ablz64oE04Q2 9sIHdpZHRoPSIzMCUiIHZ rpZsnin8ogS8n Ii8+MJQdpSI9rRE8lX6bP bKeJmF8LGteB730OzPhyS DyDeqjf5kyt9wiqAr1BtF wJSIgdmFsaWdu NZO5y6BtVg67E73lENniF HRoPSIyMCUiIHZhbGlnbj 4umT4qBm3+CA0xo8tfbp3 0oW54sWR+PHRk YRM9uJyxTCnwMDJugL6gG JbkDvF1HJItRnLxyC54tF ChJNpsWr6qvJatdVbmEV6 wKCZtoybso513 XkQeg8wjJNUeqKKyVPcwA NA4D51pf6I9INKiTNTkQL J6jQU6yT5qxNlslmxqyKO mdDsgdmVydGlj RAxhFSjrS765HULdmAiiS dTxdJNnP0xsrmDKCZ2tEn wvdGQ+URXwLMA5pSgsTFq iJEQzgX2nPLGa S0z1WrSpJuU4SNpaI8Dsw pY2STIwzDRfJVNrhFUOxZ 7hifrwl1bhdhavKiXgLZM vVZr0HZn0FHKz lWhcOnOyDXT7OwH4CBY1p HZpvN8drNwdfsgljA9gBr c+RklOOjwvdGQ+PHRkIHN 0eWxlPSdwYWRk wU8vIOPdL3a6QuUxJnR7J ZwmX5TjdtP7JQSmnXEeFJ FdhUYWeI1wqrvtv2zexmp gIzAwMDAwMDt0 YTw2UOXbhPgnXuOgTPS5T xH6BAL7uYGtkG5ulPiqvl rkdQ0aVlw+TVJOOjwvdGQ +QGHaMXA8jXkp VGwmKTEqxD4bBNDoI9k8F yHmDhY1YGnwO7LcppP8UX JdoNKeREDneEFYoJ1onmj db3typazhSqJx CRBtOYk7QNu4PXIgvHicU rRlVSY0KgO1RDI5lSHmhD 1slXijvfmizA4pYow+UGF 1CNW8RV38YG41 T0BbNiudrMEgzOU+PHRhY mxlIHdpZHRoPScxMDAlJy QybAsaXM7oBh8fGBZkCLO vbGxhcHNlOiBj b2x (more content not included)... [facility] ED Clinical Summaryon 2020 ED Clinical Summary [facility] [address] [place] [id number] Clinical Summary PERSON INFORMATION Name: LAKEISHA BELL Age: 24 Years Sex: FEMALE : 1995 MRN: Acct#: Visit Reason: UC - Skin Problem: simple; SKIN PROBLEM ON BACK Arrival: 07/10/2020 15:22:15 Discharge: 07/10/2020 16:32:00 LOS: 000 01:10 Check In: 07/10/2020 15:22:15 Checkout: 07/10/2020 16:32:00 Address: [address] [place] [address] [place] [facility] [address] PCP: FLOR VILLAGOMEZ MD PROVIDER INFORMATION Provider Role Assigned Unassigned Ramsey Miranda-C ED PA 07/10/2020 15:23:21 Whitney Polanco ED [...] removal With: Address: When: Braden Sandoval [address] [place] [address] [employer] (1) , only if needed With: Address: When: Jae Flores [address] [address] [employer] (1) Comments: OR DIAGNOSIS: Pilonidal abscess Patient Understands: Yes - Patient/family/caregi fahad verbalizes understanding of instructions given Comment: [facility] ED Patient Summaryon ED Patient Summary [facility] ? Urgent Care [address] [place] [address] PATIENT DISCHARGE INSTRUCTIONS Patient Information Name: LAKEISHA BELL Age: 24 Years Date of : 1995 Reason For Visit: UC - Skin Problem: simple; SKIN PROBLEM ON BACK Arrival Time: 07/10/2020 15:22:15 Primary Care Physician: FLOR VILLAGOMEZ MD Attending Physician: Jhon Vigil Comment: Patient Education With: Address: When: Return to this practice Comments: 48 hours for packing removal With: Address: When: Braden Roseinocencio [address] [place] [address] [employer] (1) , only if needed With: Address: When: Jae Flores [address] [address] [employer] (1) Comments: OR Percutaneous Abscess Drain, Care [...] and water are not available, use hand logistics support. ? Change your dressing as told by [...] says that this is okay. ? Take pzqm-svf-eeiyizm and prescription medicines only as told by [...] 07/30/2014 Document Revised: 02/25/2018 Document Reviewed: 02/04/2017 [employer] Patient Education ? 2019 [employer]. Pilonidal Cyst Drainage, Care After This sheet gives you information about how to care f (more content not included)... Normal [facility] Urgent Care Note- Provideron 07-10-2020 Urgent Care [...] Bactrim. OTC Motrin as recommended, add PRN Romulus for severe pain. I reviewed OARR's. I [...] complication. Impression and Plan Diagnosis Pilonidal abscess ([id number] L05.01, Discharge, Medical) Plan Condition: Stable. Disposition: Discharged: Time 07/10/2020 16:14:00, to home. Prescriptions: Launch prescriptions Pharmacy: Romulus 5 mg-325 mg oral tablet (Prescribe): 1 [...] prescription, Patient indicated understanding of instructions. Normal [facility] 021 Urgent Care Record [facility] ? Urgent Care [address] [place] [address] PATIENT DISCHARGE INSTRUCTIONS Patient Information Name: LAKEISHA BELL Age: 24 Years Date of : 1995 Reason For Visit: UC - Skin Problem: simple; SKIN PROBLEM ON BACK Arrival Time: 07/10/2020 15:22:15 Primary Care Physician: FLOR VILLAGOMEZ MD Attending Physician: Jhon Vigil Comment: Visit Diagnosis: Diagnoses This Visit Pilonidal abscess (L05.01) UC - Skin Problem: simple ([id number]) If you received any narcotics, sedation, or [...] hours for packing removal With: Address: When: Bradne Sandoval [address] [place] [address] [employer] (1) , only if needed With: Address: When: Jae Mark [address] [facility] [address] [place] [address] [employer] (1) Comments: OR Medication Information: The exam and treatment you received today in the [facility] were for an urgent problem and are not intended as complete care. It is important for you to follow up with a doctor, nurse practitioner, or physician?s certified first assistant for ongoing care. If your symptoms [...] so we can reach you if necessary. [facility] has provided you with a complete list of medications post discharge. Please inform your client relation specialist/provider of your visit and for further instruction on these medications. Any specific questions regarding your chronic medications and dosages should be discussed with your primary care physician(s) and/or pharmacist. New Medications [facility], [address] [place] [id number], [phone] acetaminophen-hydroco done (Romulus 5 mg-325 mg oral tablet) 1 tab(s) [...] and water are not available, use hand logistics support. ? Change your dressing as told by [...] Check for: (more content not included)... Normal [facility] Vital Signs Date Time Vital Sign Value Performing Clinician Facility 04-25-2024 11:15-0500 Body mass index (BMI) [Ratio] 27.53 kg/m2 [employer] Work Phone: [facility] 04-25-2024 11:15-0500 Body weight 79.74 kg [employer] Work Phone: [facility] 04-25-2024 11:15-0500 Diastolic blood pressure 70 mm[Hg] [employer] Work Phone: [facility] 04-25-2024 11:15-0500 Systolic blood pressure 120 mm[Hg] Azeem Valencia DO Work Phone: [facility] 04-20-2024 09:18-0500 Body height 167.64 cm [facility] 04-20-2024 09:18-0500 Body mass index (BMI) [Ratio] 28.5 kg/m2 [facility] 04-20-2024 09:18-0500 Body weight 80.28 kg [facility] 04-20-2024 09:18-0500 Diastolic blood pressure 74 mm[Hg] [facility] 04-20-2024 09:18-0500 Heart rate 81 /min [facility] 04-20-2024 09:18-0500 Systolic blood pressure 109 mm[Hg] [facility] 01-28-2024 12:33-0400 Body temperature 97 [degF] Yolie Fletcher COMMUNICATION CLERK Work Phone: [facility] 01-28-2024 12:33-0400 Diastolic blood pressure 80 mm[Hg] Yolie Fletcher COMMUNICATION CLERK Work Phone: [facility] 01-28-2024 12:33-0400 Heart rate 79 /min Yolie Fletcher COMMUNICATION CLERK Work Phone: [facility] 01-28-2024 12:33-0400 SaO2% (BldA) [Mass fraction] 99 % Yolie Fletcher COMMUNICATION CLERK Work Phone: [facility] 01-28-2024 12:33-0400 Systolic blood pressure 112 mm[Hg] Yolie Fletcher COMMUNICATION CLERK Work Phone: [facility] 07-22-2023 10:01-0400 Body height 167.64 cm [facility] 07-22-2023 10:01-0400 Body mass index (BMI) [Ratio] 27.4 kg/m2 [facility] 07-22-2023 10:01-0400 Body temperature 98.5 [degF] [facility] 07-22-2023 10:01-0400 Body weight 77.11 kg [facility] 04-25-2024 10:01-0400 Diastolic blood pressure 78 mm[Hg] [facility] 07-22-2023 10:01-0400 Heart rate 74 /min [facility] 07-22-2023 10:01-0400 Systolic blood pressure 112 mm[Hg] [facility] 05-13-2023 09:56-0500 Body mass index (BMI) [Ratio] 27.41 kg/m2 Reina Tapia PA Work Phone: [facility] 05-13-2023 09:56-0500 Body weight 79.38 kg Reina Kersey PA Work Phone: [facility] 05-13-2023 09:56-0500 Diastolic blood pressure 76 mm[Hg] Reina Kersey PA Work Phone: [facility] 05-13-2023 09:56-0500 Systolic blood pressure 114 mm[Hg] Reina Tapia PA Work Phone: [facility] 01-29-2023 11:00-0400 Body height Perri Carmona Other [employer] Other 01-29-2023 11:00-0400 Body mass index (BMI) [Ratio] 32.6 kg/m2 Perri Carmona Other [employer] Other 01-29-2023 11:00-0400 Body weight 91.63 kg Perri Carmona Other [employer] Other 01-29-2023 11:00-0400 Diastolic blood pressure 74 mm[Hg] Perri Carmona Other [employer] Other 01-29-2023 11:00-0400 Systolic blood pressure 107 mm[Hg] Perri Carmona Other [employer] Other 10-20-2021 09:00-0400 Body height Cielo Boston Other [employer] Other 10-20-2021 09:00-0400 Body mass index (BMI) [Ratio] 35.26 kg/m2 Cielo Schwerer Other [employer] Other 10-20-2021 09:00-0400 Body temperature 98.2 [degF] Cielo Schwerer Other [employer] Other 10-20-2021 09:00-0400 Body weight 99.11 kg Cielo Schwerer Other [employer] Other 10-20-2021 09:00-0400 Diastolic blood pressure 88 mm[Hg] Cielo Schwerer Other [employer] Other 10-20-2021 09:00-0400 SaO2% (BldA) [Mass fraction] 99 % Cielo Schwerer Other [employer] Other 10-20-2021 09:00-0400 Systolic blood pressure 122 mm[Hg] Cielo Schwerer Other [employer] Other Encounters Encounter Date Encounter Type Care Provider Facility Start: 04-25-2024 End: 04-25-2024 Bamboo flowsheet Azeem Erik DO Work Phone: [facility] Start: 04-25-2024 End: 05-01-2024 Bamboo flowsheet Azeem Erik DO Work Phone: [facility] Start: 04-25-2024 End: 05-01-2024 Clinisync Result Encounter Azeem Erik DO Work Phone: [facility] Unsolicited Start: 04-25-2024 End: 04-25-2024 Patient encounter procedure Azeem Erik DO Work Phone: [facility] Work Phone: Start: 04-25-2024 End: 04-25-2024 Periodic preventive med est patient 18-39 yrs Azeem Valencia DO Work Phone: [facility] Comment on above: Well woman exam with routine gynecological exam Start: 04-25-2024 End: 04-25-2024 ambulatory AZEEM VALENCIA Not Available Start: 04-20-2024 End: 04-20-2024 ambulatory [facility] Work Phone: Start: 04-20-2024 End: 04-20-[address] [facility] Work Phone: Start: 01-28-2024 End: 01-28-2024 ambulatory YOILE FLETCHER Not Available Start: 01-28-2024 End: 01-28-2024 Office outpatient visit 25 minutes Yolie Fletcher COMMUNICATION CLERK Work Phone: [facility] Comment on above: Acute non-recurrent maxillary sinusitis (Primary Dx); Acute cough; Acute bronchitis, unspecified organism; History of candidal vulvovaginitis Start: 07-23-2023 End: 07-23-2023 ambulatory BRADEN DODD Not Available Start: 07-22-2023 End: 07-22-2023 ambulatory [facility] Work Phone: Start: 07-22-2023 End: 07-22-[address] [facility] Work Phone: Start: 05-13-2023 End: 05-13-2023 Office outpatient visit 15 minutes Reina KULKARNI Work Phone: [facility] Comment on above: Weight gain; Encounter for weight management Start: 05-13-2023 End: 05-13-2023 ambulatory REINA TAPIA Not Available Start: 01-29-2023 End: 01-29-2023 ambulatory Perri Carmona Other [employer] Other Start: 01-29-2023 Office outpatient ne w 30 minutes Perri Carmona [facility] Start: 07-27-2022 End: 07-28-2022 Evaluation and management of inpatient DR NONE LISTED REQUEST Facility:[facility] Start: 07-14-2022 End: 07-14-[address] NONE LISTED REQUEST Facility:[facility] Start: 07-13-2022 End: [...] 11-03-2021 End: 11-03-2021 ambulatory Mirella Escobar Other [employer] Other Start: 11-03-2021 Telephone encounter Mirella Escobar [facility] Start: 10-29-2021 Encounter for genera l adult medical examination without abnormal findings CIELO BOSTON [facility] Start: 10-23-2021 End: 10-24-2021 ambulatory CIELO BOSTON Facility:[facility] Start: 10-23-2021 End: 10-24-2021 Encounter for general adult medical examination without abnormal findings CIELO BOSTON Facility:[facility] Start: 10-20-2021 End: 10-20-2021 ambulatory Cielo [place] Other [employer] Other Start: 10-20-2021 Encounter for genera l adult medical examination without abnormal findings Cielo Boston [facility] Start: 10-20-2021 Initial preventive medicine new pt age 18-39yrs Cielo Boston [facility] Start: 10-14-2021 End: 10-14-2021 ambulatory Cielo [place] Other [employer] Other Start: 10-14-2021 Telephone encounter Cielo Boston [facility] [place] Procedures Date Procedure Procedure Detail Performing Clinician Start: 04-25-2024 IGP,APTIMA HPV,AGE GDLN Azeem Valencia DO Work Phone: Start: 07-27-2022 Delivery of Products of Conception, External Approach DR AZEEM VALENCIA . Start: 07-27-2022 Repair Perineum Skin , External Approach DR AZEEM VALENCIA . Plan of Treatment Date Care Activity Detail Author Start: 04-25-2024 End: 04-25-2024 Patient encounter procedure [facility] Comment on above: Arrived Cytology Cervical or vaginal smear or scraping study Pap Smear Pathology and Cytology Routine Well woman exam with routine gynecological exam Ordered: 04/25/2024 [facility] Work Phone: Comment on above: Ordered: 04/25/2024 Payers Date Payer Category Payer Private Health Insurance [employer] [id number] 2024 Unknown [id number] 2023 Private Health Insurance [id number] 2021 Managed Care HMO (unspecified) [id number] 1995 Unknown [id number] 2.16.840.1.302337.3.579.2. 593 1996 Unknown [id number] 2.16.840.1.310649.3.579.2. 593 1996 Unknown [id number] 2.16.840.1.102280.3.579.2. 593 1996 Unknown [id number] 2.16.840.1.150522.3.579.2. 593 1996 Unknown [id number] 2.16.840.1.399152.3.579.2. 593 1996 Unknown [id number] 2.16.840.1.898747.3.579.2. 593 1996 Unknown [id number] 2.16.840.1.602413.3.579.2. 593 1996 Unknown [id number] 2.16.840.1.153261.3.579.2. 593 1996 Unknown [id number] 2.16.840.1.754235.3.579.2. 593 1996 Unknown [id number] 2.16.840.1.996867.3.579.2. 593 1996 Unknown [id number] 2.16.840.1.641534.3.579.2. 593 1996 Unknown [id number] 2.16.840.1.022835.3.579.2. 593 1996 Unknown [id number] 2.16.840.1.783747.3.579.2. 593 1996 Unknown [id number] 2.16.840.1.841064.3.579.2. 593 1996 Unknown [id number] 2.16.840.1.654575.3.579.2. 593 1996 Unknown [id number] 2.16.840.1.135681.3.579.2. 1259 1996 Unknown [id number] 2.16.840.1.837457.3.579.2. 1259 1996 Unknown [id number] 2.16.840.1.943701.3.579.2. 1259 1996 Unknown [id number] 2.16.840.1.943991.3.579.2. 1259 1959 Private Health Insurance [id number] Private Health Insurance [id number] 1959 Unknown [id number] [id number] Social History Date Type Detail Facility Unknown if ever smoked [employer] Other Start: 03-12-2023 End: 07-23-2023 Sex Assigned At [facility] Start: 11-11-2022 End: 01-29-2023 Tobacco smoking status [facility] Never smoked tobacco [facility] Start: 11-11-2022 Tobacco use and exposure Smokeless tobacco non-user [facility] Start: 05-13-2023 End: 04-25-2024 Alcohol intake Current drinker of alcohol (finding) [facility] Start: 03-12-2023 End: 07-23-2023 History of Social function [facility] How often to you hav e a drink containing alcohol? Monthly or less [facility] Average Number of Drinks Not on file [facility] Start: 09-06-2022 Alcohol Comment drinks less than monthly in the past year [facility] Start: 1995 Sex Assigned At Female [facility] Start: 09-07-2022 Gender identity Identifies as female gender (finding) [facility] Start: 09-07-2022 Sexual orientation Heterosexual (finding) [facility] Start: 04-20-2024 Sex Female (finding) [facility] Clinical Notes 07-10-2020 to 04-25-2024 Dominique YeboahPAULA - 04/25/2024 11:00 AM Laura Fletcher NP - 01/28/2024 12:25 PM SHAD [place] - 05/13/2023 9:40 AM EST Note Date & Type Note Facility 04-25-2024 History of Presen t illness Narrative Reason for Appointment: Patient ID: Lakeisha Bell is a 28 y.o. female who presents for [facility] [address] Women Visit Patient presents today for Annual Exam. 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 SURGICAL HISTORY History reviewed. No pertinent surgical history. REVIEW OF SYSTEMS Review of Systems: Review of Systems Constitutional: Negative. HENT: Negative. Eyes: Negative. Respiratory: Negative. Cardiovascular: Negative. Gastrointestinal: Negative. Genitourinary: Negative. Musculoskeletal: Negative. Skin: Negative. Neurological: Negative. All other systems reviewed and are negative. Hematological: Negative. Endocrine: Negative. Allergic/Immunologic: Negative. OBJECTIVE Objective: Physical Exam Constitutional: Appearance: Normal appearance. She is well-developed. Genitourinary: Vulva normal. Breasts: Breasts are soft. Right: Normal. Left: Normal. Cardiovascular: Rate and Rhythm: Normal rate and regular rhythm. Pulmonary: Effort: Pulmonary effort is normal. Breath sounds: Normal breath sounds. Abdominal: General: Bowel sounds are normal. There is no distension. Palpations: Abdomen is soft. Tenderness: There is no abdominal tenderness. There is no guarding or rebound. Musculoskeletal: General: No swelling. Normal range of motion. Right lower leg: No edema. Left lower leg: No edema. Neurological: Mental Status: She is alert and oriented to person, place, and time. Skin: General: Skin is warm and dry. Psychiatric: Mood and Affect: Mood normal. Behavior: Behavior normal. Vitals and nursing note reviewed. Exam conducted with a commercial retoucher present. Vitals: Estimated body mass index is 27.53 kg/m as calculated from the following: Height as of 09/08/22: 5' 7 . Weight as of this encounter: 175 lb 12.8 oz. BP: 120/70 No LMP recorded. ASSESSMENT & PLAN ICD-10-CM 1. Well woman exam with routine gynecological exam Z01.419 Pap Smear Annual Exam: Patient presents today for an annual exam. Patient states she is doing well and has no complaints. Pap was obtained without difficulty. No orders of the defined types were placed in this encounter. Follow Up: Patient is to return in one year for annual unless needed otherwise. Documented by Dominique Yeboah LPN on behalf of: Azeem Valencia DO documented in this encounter [facility] 01-28-2024 History of Presen t illness Narrative [...] organism See 1 documented in this encounter [facility] 05-13-2023 History of Presen t illness Narrative [...] of SHAD Thayer documented in this encounter [facility] 01-29-2023 Evaluation note Encounter Date Diagnosis Assessment Notes Jan, Chronic sinusitis, unspecified (ICD-10 - J32.9) Finish antibiotics. Stay hydrated. Discussed GI effects w Augmentin. Jan, Other specified bacterial agents as the cause of diseases classified elsewhere (ICD-10 - B96.89) Jan, Other Discussed wellness needs and overall care w future treatment options. Really [employer] Other 07-25-2022 Evaluation note* Encounter Date Diagnosis Assessment Notes Treatment Notes Treatment Clinical Notes Sep, Well adult exam (ICD-10 - [...] against q tips. Sep, Other Patient was giv en a written hand out of important bullet points of what we had talked about in today's office visit with reminders of ordered items, new or changed prescriptions, and follow-up timing. Patient was instructed if there are any questions/concerns to call the office between now and next office visit. Patient had all questions/concerns that were relayed to me in the office visit today discussed/addressed . Patient denied further questions at conclusion of office visit. [facility] [employer] Other 01-01-2022 History general Narrative - Reported* Type Description Date Medical History Cellulitis as a child Surgical History hand surgery 2003 Hospitalization History childbirth 03/2021 Really [employer] Other 04-14-2021 NotePatient Education Materials Follows: Pilonidal Cyst Drainage, Care After This [...] these instructions at home: Medicines ? Take [id number] and prescription medicines only as told by your health care provider. ? If you were prescribed an antibiotic medicine, take it as told by your health care provider. Do not stop taking the antibiotic even if you start to feel better. Lifestyle ? Do not do activities that irritate or put pressure on your buttocks for about 2 weeks, or as longas told by your health care provider. These [...] take actions to prevent or treat constipation. Yourhealth care provider may recommend that you: ? Drink enough fluid to keep your urine pale yellow. ? Eat foods that are high in fiber, such as fresh fruits and vegetables, whole grains, and beans. ? Limit foods that are high in fat and processed sugars, such as fried or sweet foods. ? Take an iwef-gvr-zjjvgqz or prescription medicine for constipation. ? You will need to have a caregiver help you manage wound care and dressing changes. Your caregivershould: ? Wash his or her hands with soap and water before changing your dressing. If soap and water are not available, your caregiver should use hand logistics support. ? Check your wound every day for [...] in place. These skin closures may need tostay in place for 2 weeks or longer. If adhesive strip edges start to loosen and curl up, you may trim the loose edges. Do not remove adhesive strips completely unless your health care provider tellsyou to do that. Contact a health care [...] to have some fluid or blood coming fromyour wound. ? If you were prescribed an [...] Document Revised: 01/05/2019 Docum (more content not included)...[facility] [employer] Other Evaluation note* Diagnosis Weight gain Other symptoms concerning nutrition, metabolism, and development Encounter for weight management documented in this encounter [facility] HealthcareEvaluation noteNo assessment information [facility] Work Phone: Evaluation note* Diagnosis Acute non-recurrent maxillary sinusitis- Primary Acute cough Acute bronchitis, unspecified organism History of candidal vulvovaginitis documented in this encounter [facility] HealthcareEvaluation note* Diagnosis Well woman exam with routine gynecological exam Routine gynecological examination documented in this encounter [facility] Healthcare Summary Purpose Family History Relationship Condition [...] section and content) DATE CREATED AUTHOR 07/21/2020 [facility] l DATE CREATED AUTHOR AUTHOR'S ORGANIZ ATION 07/31/2022 [facility] pital DATE CREATED AUTHOR AUTHOR'S ORGANIZ ATION 04/26/2024 [facility] EPIC REASON FOR VISIT (unrecogniz ed section and content) Reason Comments Weight Management Adipex #6 Reason Comments Well Women Visit Care Teams (unrecognized sec tion and content) [employer] Relationship Specialty Start Date End Date Cielo Boston DO [address] [place] [id number] PCP - General Family Medicine 09/08/22 Team Status: Active Member Role Status Dates Perri Carmona MD Primary Care Provider Active Team Status: Inactive Member Role Status Dates Perri Carmona MD Primary Care Provide r, Attending Provider Active Start: July 22, 2023 End: July 22, 2023 [employer] Relationship Specialty Start Date End Date Cielo Boston DO [address] [place] [phone] PCP - General Family Medicine 09/08/22 Team Status: Inactive Member Role Status Dates Perri Carmona MD Primary Care Provide r, Attending Provider Active Start: April 20, 2024 End: April 20, 2024 [employer] Relationship Specialty Start Date End Date Johnmaria luisa DO Cielo [address] [place] [phone] PCP - [facility] 09/08/22 [employer] Relationship Specialty Start Date End Date Cielo Boston DO [address] [place] [id number] PCP - [facility] Medicine 09/08/22 [employer]er Relationship Specialty Start Date End Date Cielo BostonDO [address] [place] [id number] PCP - General Family Medicine 09/08/22 Goals (unrecognized section and content) Goals may [...] BE BASED ON THE PRIMARY CLINICAL RECORDS. [facility] [employer] provides no warranty or guarantee of the accuracy or completeness of information in this document.
[2024-05-15 13:20] LABS: HCG Quantitative 643 mIU/mL
[2024-05-17 12:46] LABS: HCG Quantitative 1927 mIU/mL
== END 2024-05-26 15:03 | disposition home or self-care (01) ==
LOC: LAB 11:25
PROVIDERS: PCP Family Medicine; Visit Provider Obstetrics & Gynecology
DX: N92.6 Irregular menstruation, unspecified (principal)
CPT/HCPCS: 36415; 84702

== ENCOUNTER 2024-06-13 09:28 | Outpatient (OUT) | payer OTHER, SELFPAY ==
--- OUTSIDE RECORDS SUMMARY | 2024-06-13 09:42 | XMS_ITS | CCD ---
Author Organization [facility] Care Team Providers Care Dietary Supervisor Name Role Phone Schwerer, Cielo Unavailable Fitt [...] Admitting Unavailable WILLIE ., REINA Consulting Unavailable BARTOW, DR MIMI Contreras Consulting Unavailable ERIK ., DR GANN Attending Unavailable REQUEST, NONE LISTED Primary Care Unavaila ble ERIK ., DR GANN Admitting Unavailable ERIK ., DR GANN Consulting Unavailable ERKI ., DR GANN Consulting Unavailable ERIK ., [...] REQUEST, NONE LISTED Primary Care Unavaila ble BARTOW, DR MIMI Contreras Consulting Unavailable ERIK ., [...] Unavailable Cielo [place] DO Primary Care Provider [phone] AZEEM VALENCIA Attending Unavailable BRADEN DODD Attending Unavailable YOLIE [...] Drug Class(es) Dates Sig (Normalized) Sig (Original) [id number] 200 actuat albuterol 0.09 mg/actuat metered dose [...] tablet Di scontinued 150 MG PO Q3D October 25, 2023 11:00pm April 20, 2024 [...] Translations: [DEHYDRATION] Onset: 05-19-2022 Episodic Menstrual disorders (5 sources) Irregular menstruation, unspecified; Translations: [Missed period] Onset: 12-25-2021 Chronic Nausea and vomiting (1 [...] 05-10-2023 Episodic Other and delivery including normal (16 sources) Single live ; Translations: [Encounter for [...] Test Name Value Interpretation Reference Range Facility HCG ( test) Ql (U)o n 06-08-2024 Interpretation and review of laboratory results Abnormal [facility] Preg Test, Ur Positive Negative [facility] OB TRANSVAGINALon 025 US OB TRANSVAGINAL EXAM: US OB TRANSVAGINAL HISTORY: Dating. COMPARISON: None available. TECHNIQUE: Two-dimensional transabdominal grayscale ultrasound imaging of the pelvis was performed. Color Doppler evaluation of the ovaries was also performed. FINDINGS: The uterus demonstrates a normal homogeneous echotexture. The cervix measures 4.3 cm in length and the cervical os is closed. The right ovary measures 4.7 x 2.5 x 2.7 cm and demonstrates a normal echotexture. There is normal color Doppler flow. The left ovary measures 3.2 x 2.1 x 2.7 cm and demonstrates a normal echotexture. There is normal color Doppler flow. Trace fluid is present within the cul-de-sac. There is a single, live intrauterine gestation identified with a heart rate of 156 beats per minute and a crown-rump length measurement of 1.7 cm, correlating to a gestational age of 8 weeks 0 days (+/- 5 days). There is no subchorionic hemorrhage visualized. A yolk sac is visualized. IMPRESSION: 1. Single, live intrauterine gestation 8 weeks, 3 days by LMP. Today's ultrasound measurements correlate with a gestational age of 8 weeks 0 days (+/- 5 days). CARY by today's ultrasound is 01/18/2025. 2. Normal color Doppler evaluation of the bilateral ovaries. Electronically Signed:Electronically signed by VALERIA SUERO II, MD, PHD at 11-Jun-2024 07:44:53 AM [facility] Normal Not Available Comment on above: Order Comment: US OB TRANSVAGINAL No LMP recorded. Urinalysis macro (dipstick) panel (U)on 06-08-2024 Bilirubin, UA Negative Negative - 4(70) +++ mg/dL [facility] Blood, UA Negative Negative - 50 Cassius/mcL [facility] Clarity, UA Clear [facility] Color, UA Yellow [facility] Glucose, UA Negative Negative - 2000(110) ++++ mg/dL [facility] Interpretation and review of laboratory results Normal [facility] Ketones, UA Negative Negative - 160(16) ++++ mg/dL [facility] Leukocytes, UA Negative Negative - 500+++ Shane/mcL [facility] Nitrite, UA Negative Negative - Positive [facility] pH, UA 6 5 - 9 [facility] Protein, UA Negative Negative - 2000(20) ++++ mg/dL [facility] Spec Grav, UA 1.025 1 - 1.03 [facility] Urobilinogen, UA 0.2 0.2 - 12 mg/dL [facility] PREG QUANT HCGon 025 HCG QUANTITATIVE 1927 mIU/mL [facility] Comment on above: 5-50 0.2-1 WEEK 50-500 1-2 WEEKS 100-5,000 2-3 WEEKS 500-10,000 3-4 WEEKS 1,000-50,000 4-5 WEEKS 10,000-100,000 5-6 WEEKS 15,000-200,000 6-8 WEEKS 10,000-100,000 2-3 MONTHS [facility] PREG QUANT HCGon 02-17-2 025 HCG QUANTITATIVE 643 mIU/mL [facility] Comment on above: 5-50 0.2-1 WEEK 50-500 1-2 WEEKS 100-5,000 2-3 WEEKS 500-10,000 3-4 WEEKS 1,000-50,000 4-5 WEEKS 10,000-100,000 5-6 WEEKS 15,000-200,000 6-8 WEEKS 10,000-100,000 2-3 MONTHS [facility] IGP,APTIMA HPV,AGE GDLNon AGE GDLN ACOG TESTING Note . [facility] Comment on above: TESTS RESULT FLAG UN ITS REF RANGE LAB Clinician Provided Cytology Information Source.............Cervix;Endocervix No. of containers..01 ThinPrep Vial Age Algo ACOG Tiffanie... FLAG LEGEND: L-Low Normal,H-High Normal,LL-Alert Low,HH-Alert High <-Panic Low,>-Panic High,A-Abnormal,AA-Critical Abnormal Performed at: 01 =G [address] [id number] Hetal Estrella MD, IGP, RFX APTIMA HPV ASCU Note . [facility] Comment on above: TESTS RESULT FLAG UN ITS REF RANGE LAB DIAGNOSIS: 02 NEGATIVE FOR INTRAEPITHELIAL LESION OR MALIGNANCY. Specimen adequacy: 02 Satisfactory for evaluation. No endocervical component is identified. Performed by: 02 [employer] Intern . 02 Note: Note 02 The Pap [...] <-Panic Low,>-Panic High,A-Abnormal,AA-Critical Abnormal Performed at: [address] [place] [address] Hetal Estrella MD, Performed at: = - [facility] [address] [id number] Pipe Line Gauger: Hetal Estrella MD, Phone: [phone] Performed at: [facility] [id number] Pipe Line Gauger: Hetal Estrella MD, Phone: [phone] BRUSH-SPATULA CERVIX ENDOCERVIX [facility] CBC AUTO DIFFon 07-28-2022 BASO # 0.0 103/ul Normal 0.0-0.1 [facility] Comment on above: Performed By: #### C BC ####[facility] [address] [place] [address]DrEric Titus Basophils/100 WBC (Bld) 0.2 % Normal 0.2-2.0 [facility] Comment on above: Performed By: #### C BC ####[facility] [address] [place], [place] [address]DrEric Titus EO # 0.1 103/ul Normal 0.0-0.7 [facility] Comment on above: Performed By: #### C BC ####[facility] [address] [place], [place] [address]DrEric Titus Eosinophils/100 WBC (Bld) 0.5 % Critically low 0.9-7.0 [facility] Comment on above: Performed By: #### C BC ####[facility] [address] [place], [place] [address]DrEric Titus Erythrocyte distribution width (RBC) [Ratio] 13.4 % Normal 11.0-15.0 [facility] Comment on above: Performed By: #### C BC ####[facility] [address] [place], [place] [address]DrEric Titus Hematocrit (Bld) [Volume fraction] 33.8 % Critically low 36.0-48.0 [facility] Comment on above: Performed By: #### C BC ####[facility] [address] [place], [place] [address]DrEric Titus Hemoglobin (Bld) [Mass/Vol] 11.3 g/dL Critically low 12.0-16.0 [facility] Comment on above: Performed By: #### C BC ####[facility] [address] [place], [place] [address]DrEric Titus IG # 0.05 10e3/ul Critically high 0.00-0.03 [facility] Comment on above: Performed By: #### C BC ####[facility] Yub[address] [place], [place] [address]Dr. Bee Titus IG % 0.4 % Normal 0.0-0.5 [facility] Comment on above: Performed By: #### C BC ####[facility] [address] [place] [address]DrEric Titus LYMPH # 2.1 103/ul Normal 1.2-3.8 [facility] Comment on above: Performed By: #### C BC ####[facility] [address] [place] [address]DrEric Titus Lymphocytes/100 WBC (Bld) 15.9 % Critically low 20.5-60.0 [facility] Comment on above: Performed By: #### C BC ####[facility] [address] [place], [place] [address]DrEric Titus MANUAL DIFF REQ NO Normal [facility] Comment on above: Performed By: #### C BC ####[facility] [address] [place] [address]DrEric Titus MCH (RBC) [Entitic mass] 30.1 pg Normal 26.7-34.0 [facility] Comment on above: Performed By: #### C BC ####[facility] [address] [place], [place] [address]DrEric Titus MCHC (RBC) [Mass/Vol] 33.4 g/dL Normal 29.9-35.2 [facility] Comment on above: Performed By: #### C BC ####[facility] [address] [place], [place] [address]DrEric Titus MCV (RBC) [Entitic vol] 90.1 fL Normal 81.0-99.0 [facility] Comment on above: Performed By: #### C BC ####[facility] [address] [place], [place] [address]DrEric Titus MONO # 0.7 103/ul Normal 0.3-0.8 [facility] Comment on above: Performed By: #### C BC ####[facility] [address]qi[address] [place], [place] [address]DrEric Titus Monocytes/100 WBC (Bld) 5.4 % Normal 1.7-12.0 [facility] Comment on above: Performed By: #### C BC ####[facility] [address] [place] [address]Dr. Bee Titus NEUT # 10.2 103/ul Critically high 1.4-6.5 [facility] Comment on above: Performed By: #### C BC ####[facility] [address] [place] [address]Dr. Bee Titus Neutrophils/100 WBC (Bld) 77.6 % Critically high 43.0-75.0 [facility] Comment on above: Performed By: #### C BC ####[facility] [address] [place], [place] [address]Dr. Bee Titus Platelet mean volume (Bld) [Entitic vol] 10.6 fL Normal 9.5-13.5 [facility] Comment on above: Performed By: #### C BC ####[facility] [address] [place], [place] [address]Dr. Bee Titus PLT 198 103/ul Normal 150-450 [facility] Comment on above: Performed By: #### C BC ####[facility] [address] [place], [place] [address]Dr. Bee Titus RBC 3.75 106/ul Critically low 4.20-5.40 [facility] Comment on above: Performed By: #### C BC ####[facility] [address] [place], [place] [address]Dr. Bee Titus WBC 13.1 103/ul Critically high 4.0-11.0 [facility] Comment on above: Performed By: #### C BC ####[facility] [address] [place], [place] [address]Dr. Bee Titus SCREENon 07-28-2022 SCREEN Negative Normal [facility] Comment on above: Performed By: #### F ETSCRN ####[facility] Or[address] [place], [place] [address]Dr. Bee Titus CBC AUTO DIFFon 07-27-2022 BASO # 0.0 103/ul Normal 0.0-0.1 [facility] Comment on above: Performed By: #### C BC #### [facility] Laboratory [address] [place] [address] Dr. Bee Titus Basophils/100 WBC (Bld) 0.3 % Normal 0.2-2.0 [facility] Comment on above: Performed By: #### C BC #### [facility] [address] [place] [address] Dr. Bee Titus EO # 0.1 103/ul Normal 0.0-0.7 [facility] Comment on above: Performed By: #### C BC #### [facility] [address] [place] [address] Dr. Bee Titus Eosinophils/100 WBC (Bld) 0.7 % Critically low 0.9-7.0 [facility] Comment on above: Performed By: #### C BC #### [facility] [address] [place] [address] Dr. Bee Titus Erythrocyte distribution width (RBC) [Ratio] 13.2 % Normal 11.0-15.0 [facility] Comment on above: Performed By: #### C BC #### [facility] [address] [place] [address] Dr. Bee Titus Hematocrit (Bld) [Volume fraction] 35.8 % Critically low 36.0-48.0 [facility] Comment on above: Performed By: #### C BC #### [facility] [address] [place] [address] Dr. Bee Titus Hemoglobin (Bld) [Mass/Vol] 12.1 g/dL Normal 12.0-16.0 [facility] Comment on above: Performed By: #### C BC #### [facility] [address] [place] [address] Dr. Bee Titus IG # 0.06 10e3/ul Critically high 0.00-0.03 [facility] Comment on above: Performed By: #### C BC #### [facility] [address] [place] [address] Dr. Bee Titus IG % 0.5 % Normal 0.0-0.5 [facility] Comment on above: Performed By: #### C BC #### [facility] [address] [place] [address] Dr. Bee Titus LYMPH # 2.2 103/ul Normal 1.2-3.8 [facility] Comment on above: Performed By: #### C BC #### [facility] [address] [place] [address] Dr. Bee Titus Lymphocytes/100 WBC (Bld) 17.9 % Critically low 20.5-60.0 [facility] Comment on above: Performed By: #### C BC #### [facility] [address] [place] [address] Dr. Bee Titus MANUAL DIFF REQ NO Normal [facility] Comment on above: Performed By: #### C BC #### [facility] [address] [place] [address] Dr. Bee Titus MCH (RBC) [Entitic mass] 29.4 pg Normal 26.7-34.0 [facility] Comment on above: Performed By: #### C BC #### [facility] [address] [place] [address] Dr. Bee Titus MCHC (RBC) [Mass/Vol] 33.8 g/dL Normal 29.9-35.2 [facility] Comment on above: Performed By: #### C BC #### [facility] [address] [place] [address] Dr. Bee Titus MCV (RBC) [Entitic vol] 87.1 fL Normal 81.0-99.0 [facility] Comment on above: Performed By: #### C BC #### [facility] [address] [place] [address] Dr. Bee Titus MONO # 0.6 103/ul Normal 0.3-0.8 [facility] Comment on above: Performed By: #### C BC #### [facility] [address] [place] [address] Dr. Bee Titus Monocytes/100 WBC (Bld) 5.0 % Normal 1.7-12.0 [facility] Comment on above: Performed By: #### C BC #### [facility] [address] [address] [address] Bee Titus NEUT # 9.1 103/ul Critically high 1.4-6.5 [facility] Comment on above: Performed By: #### C BC #### [facility] [address] [address] [address] Bee Titus Neutrophils/100 WBC (Bld) 75.6 % Critically high 43.0-75.0 [facility] Comment on above: Performed By: #### C BC #### [facility] [address] [address] [address] Bee Titus Platelet mean volume (Bld) [Entitic vol] 11.1 fL Normal 9.5-13.5 [facility] Comment on above: Performed By: #### C BC #### [facility] [address] [address] [address] Bee Titus PLT 249 103/ul Normal 150-450 [facility] Comment on above: Performed By: #### C BC #### [facility] [address] [place] [address] [address] Bee Titus RBC 4.11 106/ul Critically low 4.20-5.40 [facility] Comment on above: Performed By: #### C BC #### [facility] [address] [place] [address] [address] Bee Titus WBC 12.0 103/ul Critically high 4.0-11.0 [facility] Comment on above: Performed By: #### C BC #### [facility] [address] [address] [address] Bee Titus DRUG SCREEN RAPID (URINE)on 07-27-2022 AMP Negative Normal NEGATIVE [facility] Comment on above: Performed By: #### D RUGRPD ####[facility] [address] [place], [place] [address]SgDr. Bee Titus BAR Negative Normal NEGATIVE [facility] Comment on above: Performed By: #### D RUGRPD ####[facility] [address] [place] [address]Dr. Bee Titus BUP Negative Normal NEGATIVE [facility] Comment on above: Performed By: #### D RUGRPD ####[facility] [address] [place], [place] [address]Dr. Bee Titus BZO Negative Normal NEGATIVE [facility] Comment on above: Performed By: #### D RUGRPD ####[facility] [address] [place], [place] [address]Dr. Bee Titus LORRI Negative Normal NEGATIVE [facility] Comment on above: Performed By: #### D RUGRPD ####[facility] [address] [place], [place] [address]Dr. Bee Titus CUT-OFFS SEE BELOW Normal [facility] Comment on above: Result Comment: [...] 300 ng/mL Performed By: #### D RUGRPD ####[facility] [address] [place], [place] [address]Dr. Bee Titus DRUG CUT HEADER DRUG CLASS TEST SYSTEM CUT-OFF CONCENTRATIONS ARE FOLLOWS: Normal [facility] Comment on above: Performed By: #### D RUGRPD ####[facility] [address] [place], [place] [address]Dr. Bee Titus mAMP Negative Normal NEGATIVE [facility] Comment on above: Performed By: #### D RUGRPD ####[facility] [address] [place], [place] [address]Dr. Bee Titus MTD Negative Normal NEGATIVE [facility] Comment on above: Performed By: #### D RUGRPD ####[facility] [address] [place] [id number]. Bee Titus OPI Negative Normal NEGATIVE [facility] Comment on above: Performed By: #### D RUGRPD ####[facility] [address] [place], [place] [address]Dr. Yipee Titus OXY Negative Normal NEGATIVE [facility] Comment on above: Performed By: #### D RUGRPD ####[facility] [address] [place] [id number]. Bee Titus PCP Negative Normal NEGATIVE [facility] Comment on above: Performed By: #### D RUGRPD ####[facility] [address] [place] [address]Dr. Bee Titus PPX Negative Normal NEGATIVE [facility] Comment on above: Performed By: #### D RUGRPD ####[facility] [address] [place], [place] [address]Dr. Bee Titus TCA Negative Normal NEGATIVE [facility] Comment on above: Performed By: #### D RUGRPD ####[facility] [address] [place], [place] [address]Dr. Bee Titus THC Negative Normal NEGATIVE [facility] Comment on above: Performed By: #### D RUGRPD ####[facility] [address] [place] [id number]. Bee Titus TYPE AND SCREENon 07-27-2022 TYPE AND SCREEN Antibody Screen POSITIVE Blood Bank Notes PROBABLE ANTI-D DUE TO RHIG ADMIN. @28WEEKS, FURTHER WORKUP AT PHYSICIAN Blood Bank Notes REQUEST ABO Rh Typing A Rh Negative Normal [facility] Comment on above: Performed By: #### T NS ####[facility] [address] [place], [place] [address]Dr. Bee Titus AMNISUREon 07-14-2022 AMNISURE Negative Normal NEGATIVE [facility] Comment on above: Performed By: #### A MNI ####[facility] [address] [place], [place] [address]Dr. Bee Titus BUNon 07-14-2022 Urea nitrogen [Mass/Vol] 8.0 mg/dL Normal 7.0-18.0 [facility] Comment on above: Performed By: #### U MICRO, UACSIND #### [facility] Laboratory [address] [address] [address] Bee Titus CBC AUTO DIFFon 07-14-2022 BASO # 0.0 103/ul Normal 0.0-0.1 [facility] Comment on above: Performed By: #### U MICRO, UACSIND #### [facility] [address] [address] [address] Bee Titus Basophils/100 WBC (Bld) 0.3 % Normal 0.2-2.0 [facility] Comment on above: Performed By: #### U MICRO, UACSIND #### [facility] Laboratory [address] [place] [address] Dr. Bee Titus EO # 0.1 103/ul Normal 0.0-0.7 [facility] Comment on above: Performed By: #### U MICRO, UACSIND #### [facility] [address] [address] [address] Bee Titus Eosinophils/100 WBC (Bld) 0.4 % Critically low 0.9-7.0 [facility] Comment on above: Performed By: #### U MICRO, UACSIND #### [facility] [address] [place] [address] Dr. Bee Titus Erythrocyte distribution width (RBC) [Ratio] 13.6 % Normal 11.0-15.0 [facility] Comment on above: Performed By: #### U MICRO, UACSIND #### [facility] [address] [address] [address] Bee Titus Hematocrit (Bld) [Volume fraction] 32.8 % Critically low 36.0-48.0 [facility] Comment on above: Performed By: #### U MICRO, UACSIND #### [facility] [address] [place] [address] Dr. Bee Titus Hemoglobin (Bld) [Mass/Vol] 11.2 g/dL Critically low 12.0-16.0 [facility] Comment on above: Performed By: #### U MICRO, UACSIND #### [facility] [address] [address] [address] Bee Titus IG # 0.05 10e3/ul Critically high 0.00-0.03 [facility] Comment on above: Performed By: #### U MICRO, UACSIND #### [facility] [address] [place] [address] Dr. Bee Titus IG % 0.4 % Normal 0.0-0.5 [facility] Comment on above: Performed By: #### U MICRO, UACSIND #### [facility] [address] [place] [address] Dr. Bee Titus LYMPH # 2.0 103/ul Normal 1.2-3.8 [facility] [place] Comment on above: Performed By: #### U MICRO, UACSIND #### [facility] [address] [place] [address] Dr. Bee Titus Lymphocytes/100 WBC (Bld) 16.3 % Critically low 20.5-60.0 [facility] [place] Comment on above: Performed By: #### U MICRO, UACSIND #### [facility] [address] [place] [address] Dr. Bee Titus MANUAL DIFF REQ NO Normal [facility] Comment on above: Performed By: #### U MICRO, UACSIND #### [facility] [address] [place] [address] Dr. Bee Titus MCH (RBC) [Entitic mass] 30.4 pg Normal 26.7-34.0 [facility] [place] Comment on above: Performed By: #### U MICRO, UACSIND #### [facility] [address] [place] [address] Dr. Bee Titus MCHC (RBC) [Mass/Vol] 34.1 g/dL Normal 29.9-35.2 [facility] [place] Comment on above: Performed By: #### U MICRO, UACSIND #### [facility] [address] [place] [address] Dr. Bee Titus MCV (RBC) [Entitic vol] 88.9 fL Normal 81.0-99.0 [facility] Comment on above: Performed By: #### U MICRO, UACSIND #### [facility] [address] [address] [address] Bee Titus MONO # 0.6 103/ul Normal 0.3-0.8 [facility] Comment on above: Performed By: #### U MICRO, UACSIND #### [facility] [address] [address] [address] Bee Titus Monocytes/100 WBC (Bld) 5.1 % Normal 1.7-12.0 [facility] Comment on above: Performed By: #### U MICRO, UACSIND #### [facility] [address] [place] [address] Dr. Bee Titus NEUT # 9.3 103/ul Critically high 1.4-6.5 [facility] Comment on above: Performed By: #### U MICRO, UACSIND #### [facility] [address] [place] [address] Dr. Bee Titus Neutrophils/100 WBC (Bld) 77.5 % Critically high 43.0-75.0 [facility] Comment on above: Performed By: #### U MICRO, UACSIND #### [facility] [address] [place] [address] Dr. Bee Titus Platelet mean volume (Bld) [Entitic vol] 10.4 fL Normal 9.5-13.5 [facility] Comment on above: Performed By: #### U MICRO, UACSIND #### [facility] [address] [place] [address] Dr. Bee Titus PLT 193 103/ul Normal 150-450 [facility] Comment on above: Performed By: #### U MICRO, UACSIND #### [facility] [address] [place] [address] Dr. Bee Titus RBC 3.69 106/ul Critically low 4.20-5.40 [facility] Comment on above: Performed By: #### U MICRO, UACSIND #### [facility] [address] [place] [address] Dr. Bee Titus WBC 12.0 103/ul Critically high 4.0-11.0 [facility] Comment on above: Performed By: #### U MICRO, UACSIND #### [facility] [address] [place] [address] Dr. Bee Titus CREATININEon 07-14-2022 Creatinine [Mass/Vol] 0.83 mg/dL Normal 0.55-1.02 [facility] [place] Comment on above: Performed By: #### C JORGE #### [facility] [address] [place] [address] Dr. Bee Titus EGFR-AF PARAGUAYAN >60 Normal >=60 [facility] Comment on above: Result Comment: Prev iously reported as: (blank) On 07/14/2022 10:27 By [email or web address] Performed By: #### C JORGE #### [facility] [address] [place] [address] Dr. Bee Titus EGFR-NON AF PARAGUAYAN >60 Normal >=60 [facility] [place] Comment on above: Result Comment: Prev iously reported as: (blank) On 07/14/2022 10:27 By [email or web address] Performed By: #### C JORGE #### [facility] [address] [place] [address] Dr. Bee Titus UA (CLEAN/CATCH) ASSISTIVE TECHNOLOGY SPECIALIST/MICRO I F IND.on 07-14-2022 Bilirubin Ql (U) Negative Normal NEGATIVE [facility] Comment on above: Performed By: #### U MICRO, UACSIND #### [facility] [address] [place] [address] Dr. Bee Titus Clarity (U) CLEAR Normal CLEAR [facility] Comment on above: Performed By: #### U MICRO, UACSIND #### [facility] [address] [place] [address] Dr. Bee Titus Color (U) YELLOW Normal YELLOW [facility] Comment on above: Performed By: #### U MICRO, UACSIND #### [facility] [address] [place] [address] Dr. Bee Titus Glucose Ql (U) Negative Normal NEGATIVE [facility] Comment on above: Performed By: #### U MICRO, UACSIND #### [facility] [address] [address] [address] Bee Titus Hemoglobin Ql (U) LARGE Abnormal NEGATIVE [facility] Comment on above: Performed By: #### U MICRO, UACSIND #### [facility] [address] [address] [address] Bee Titus Ketones Ql (U) 15 mg/dl Abnormal NEGATIVE [facility] Comment on above: Performed By: #### U MICRO, UACSIND #### [facility] [address] [address] [address] Bee Titus LEUKOCYTES Negative Normal NEGATIVE [facility] [place] Comment on above: Performed By: #### U MICRO, UACSIND #### [facility] [address] [address] [address] Bee Titus Nitrite Ql (U) Negative Normal NEGATIVE [facility] Comment on above: Performed By: #### U MICRO, UACSIND #### [facility] [address] [address] [address] Bee Titus pH (U) 5.5 [pH] Normal 5-9 [facility] [place] Comment on above: Performed By: #### U MICRO, UACSIND #### [facility] [address] [address] [address] eBe Titus SPEC GRAVITY >=1.030 Abnormal 1.005-<=1.025 [facility] Comment on above: Performed By: #### U MICRO, UACSIND #### [facility] [address] [address] [address] Bee Titus UA PROTEIN 30 mg/dl Abnormal NEGATIVE/ TRACE [facility] Comment on above: Performed By: #### U MICRO, UACSIND #### [facility] [address] [address] [address] Bee Titus UR MICRO IND INDICATED Normal [facility] Comment on above: Performed By: #### U MICRO, UACSIND #### [facility] [address] [address] [address] Bee Titus Urobilinogen Qn (U) 0.2 {Rama'U}/dL Normal 0.2 - 1. 0 [facility] Comment on above: Performed By: #### U MICRO, UACSIND #### [facility] [address] [address] [address] Bee Titus URINE MICROSCOPIC ONLYon BACTERIA NONE SEEN Normal NONE SEEN [facility] Comment on above: Performed By: #### U MICRO, UACSIND #### [facility] [address] [address] [address] Bee Titus Bacteria identified Cx Nom (U) NOT INDICATED Normal [facility] Comment on above: Performed By: #### U MICRO, UACSIND #### [facility] [address] [place] [address] Dr. Bee Titus CAST NONE SEEN Normal NONE SEEN [facility] Comment on above: Performed By: #### U MICRO, UACSIND #### [facility] [address] [place] [address] Dr. Bee Titus Crystals LM Nom (Urine sed) NONE SEEN Normal NONE SEEN [facility] Comment on above: Performed By: #### U MICRO, UACSIND #### [facility] [address] [place] [address] Dr. Bee Titus Epithelial cells LM Ql (Urine sed) FEW Abnormal NONE SEEN /RARE [facility] Comment on above: Performed By: #### U MICRO, UACSIND #### [facility] [address] [place] [address] Dr. Bee Titus MUCOUS MODERATE Abnormal NONE SEEN [facility] Comment on above: Performed By: #### U MICRO, UACSIND #### [facility] [address] [place] [address] Dr. Bee Titus RBC 20-50 Abnormal 0-2 [facility] Comment on above: Performed By: #### U MICRO, UACSIND #### [facility] [address] [place] [address] Dr. Bee Titus WBC NONE SEEN Normal NONE SEEN [facility] Comment on above: Performed By: #### U MICRO, UACSIND #### [facility] [address] [address] [address] Bee Titus US KIDNEYS BLADDERon 023 [...] SCARLET OROZCO Date: 2022-07-14 11:26 Normal [facility] US PREG GROWTHon 07-13-2022 US [...] MIMI RICHEY Date: 2022-07-13 18:08 Normal [facility] GROUP B STREP CULTUREon S. agalactiae Ag Ql (Unsp spec) Culture Observations: NEGATIVE FOR GROUP B STREPTOCOCCUS. Normal [facility] Comment on above: Performed By: #### G BSCX #### [facility] [address] [place] [address] Dr. Bee Titus US PREG GROWTHon 06-16-2022 [...] BIENVENIDO LONG Date: 2022-06-16 13:49 Normal [facility] US PREG GROWTHon 05-19-2022 US [...] BIENVENIDO LONG Date: 2022-05-19 15:21 Normal [facility] AMYLASEon 05-17-2022 Amylase [Catalytic activity/Vol] 49 U/L Normal 25-115 [facility] [place] Comment on above: Performed By: #### A MY, CMP, LIPA ####[facility] [id number] [address]Dr. Bee Titus CBC AUTO DIFFon 05-17-2022 BASO # 0.0 103/ul Normal 0.0-0.1 [facility] [place] Comment on above: Performed By: #### U MICRO, UACSIND #### [facility] [address] [address] [address] Bee Titus Basophils/100 WBC (Bld) 0.2 % Normal 0.2-2.0 [facility] [place] Comment on above: Performed By: #### U MICRO, UACSIND #### [facility] [address] [address] [address] Bee Titus EO # 0.0 103/ul Normal 0.0-0.7 [facility] [place] Comment on above: Performed By: #### U MICRO, UACSIND #### [facility] [address] [address] [address] Bee Titus Eosinophils/100 WBC (Bld) 0.1 % Critically low 0.9-7.0 [facility] [place] Comment on above: Performed By: #### U MICRO, UACSIND #### [facility] [address] [address] [address] Bee Titus Erythrocyte distribution width (RBC) [Ratio] 12.9 % Normal 11.0-15.0 [facility] [place] Comment on above: Performed By: #### U MICRO, UACSIND #### [facility] [address] [address] [address] Bee Titus Hematocrit (Bld) [Volume fraction] 35.7 % Critically low 36.0-48.0 [facility] [place] Comment on above: Performed By: #### U MICRO, UACSIND #### [facility] [address] [address] [address] Bee Titus Hemoglobin (Bld) [Mass/Vol] 12.6 g/dL Normal 12.0-16.0 [facility] [place] Comment on above: Performed By: #### U MICRO, UACSIND #### [facility] [address] [place] [address] Dr. Bee Tiuts IG # 0.10 10e3/ul Critically high 0.00-0.03 [facility] Comment on above: Performed By: #### U MICRO, UACSIND #### [facility] [address] [place] [address] Dr. Bee Titus IG % 0.6 % Critically high 0.0-0.5 [facility] Comment on above: Performed By: #### U MICRO, UACSIND #### [facility] [address] [place] [address] Dr. Bee Titus LYMPH # 0.4 103/ul Critically low 1.2-3.8 [facility] Comment on above: Performed By: #### U MICRO, UACSIND #### [facility] [address] [place] [address] Dr. Bee Titus Lymphocytes/100 WBC (Bld) 2.1 % Critically low 20.5-60.0 [facility] [place] Comment on above: Performed By: #### U MICRO, UACSIND #### [facility] [address] [place] [address] Dr. Bee Titus MANUAL DIFF REQ NO Normal [facility] Comment on above: Performed By: #### U MICRO, UACSIND #### [facility] [address] [place] [address] Dr. Bee Titus MCH (RBC) [Entitic mass] 31.7 pg Normal 26.7-34.0 [facility] Comment on above: Performed By: #### U MICRO, UACSIND #### [facility] [address] [place] [address] Dr. Bee Titus MCHC (RBC) [Mass/Vol] 35.3 g/dL Critically high 29.9-35.2 [facility] Comment on above: Performed By: #### U MICRO, UACSIND #### [facility] [address] [place] [address] Dr. Bee Titus MCV (RBC) [Entitic vol] 89.9 fL Normal 81.0-99.0 [facility] Comment on above: Performed By: #### U MICRO, UACSIND #### [facility] [address] [place] [address] Dr. Bee Titus MONO # 0.4 103/ul Normal 0.3-0.8 [facility] Comment on above: Performed By: #### U MICRO, UACSIND #### [facility] [address] [place] [address] Dr. Bee Titus Monocytes/100 WBC (Bld) 2.0 % Normal 1.7-12.0 [facility] Comment on above: Performed By: #### U MICRO, UACSIND #### [facility] [address] [place] [address] Dr. Bee Titus NEUT # 17.2 103/ul Critically high 1.4-6.5 [facility] Comment on above: Performed By: #### U MICRO, UACSIND #### [facility] [address] [place] [address] Dr. Bee Titus Neutrophils/100 WBC (Bld) 95.0 % Critically high 43.0-75.0 [facility] Comment on above: Performed By: #### U MICRO, UACSIND #### [facility] [address] [place] [address] Dr. Bee Titus Platelet mean volume (Bld) [Entitic vol] 9.8 fL Normal 9.5-13.5 [facility] Comment on above: Performed By: #### U MICRO, UACSIND #### [facility] [address] [address] [address] Bee Titus PLT 164 103/ul Normal 150-450 [facility] [place] Comment on above: Performed By: #### U MICRO, UACSIND #### [facility] [address] [address] [address] Bee Titus RBC 3.97 106/ul Critically low 4.20-5.40 [facility] Comment on above: Performed By: #### U MICRO, UACSIND #### [facility] [address] [address] [address] Bee Titus WBC 18.1 103/ul Critically high 4.0-11.0 [facility] Comment on above: Performed By: #### U MICRO, UACSIND #### [facility] [address] [place] [address] Dr. Bee Titus ER URINE PROFILEon 3 Bilirubin Ql (U) Negative Normal NEGATIVE [facility] Comment on above: Performed By: #### U MICRO, UACSIND #### [facility] [address] [place] [address] Dr. Bee Titus Clarity (U) CLEAR Normal CLEAR [facility] [place] Comment on above: Performed By: #### U MICRO, UACSIND #### [facility] [address] [place] [address] Dr. Bee Titus Color (U) YELLOW Normal YELLOW [facility] [place] Comment on above: Performed By: #### U MICRO, UACSIND #### [facility] [address] [place] [address] Dr. Bee GARLAND A micrscopic examination will be performed if indicated. Normal [facility] Comment on above: Performed By: #### U MICRO, UACSIND #### [facility] [address] [place] [address] Dr. Bee Titus Glucose Ql (U) Negative Normal NEGATIVE [facility] Comment on above: Performed By: #### U MICRO, UACSIND #### [facility] [address] [place] [address] Dr. Bee Titus Hemoglobin Ql (U) TRACE-INTACT Abnormal NEGATIVE [facility] Comment on above: Performed By: #### U MICRO, UACSIND #### [facility] [address] [address] [address] Bee Titus Ketones Ql (U) >=80 Abnormal NEGATIVE [facility] Comment on above: Performed By: #### U MICRO, UACSIND #### [facility] [address] [address] [address] Bee Titus LEUKOCYTES Negative Normal NEGATIVE [facility] [place] Comment on above: Performed By: #### U MICRO, UACSIND #### [facility] [address] [address] [address] Bee Tiuts Nitrite Ql (U) Negative Normal NEGATIVE [facility] Comment on above: Performed By: #### U MICRO, UACSIND #### [facility] [address] [place] [address] Dr. Bee Titus pH (U) 6.5 [pH] Normal 5-9 [facility] [place] Comment on above: Performed By: #### U MICRO, UACSIND #### [facility] [address] [address] [address] Bee Titus SPEC GRAVITY 1.015 Normal 1.005-<=1.025 [facility] Comment on above: Performed By: #### U MICRO, UACSIND #### [facility] [address] [place] [address] Dr. Bee Titus UA PROTEIN Negative Normal NEGATIVE/ TRACE [facility] Comment on above: Performed By: #### U MICRO, UACSIND #### [facility] [address] [place] [address] Dr. Bee Titus UR MICRO IND INDICATED Normal [facility] [place] Comment on above: Performed By: #### U MICRO, UACSIND #### [facility] [address] [place] [address] Dr. Bee Titus Urobilinogen Qn (U) 0.2 {Rama'U}/dL Normal 0.2 - 1. 0 [facility] [place] Comment on above: Performed By: #### U MICRO, UACSIND #### [facility] [address] [address] [address] Bee Titus LIPASEon 05-17-2022 Lipase [Catalytic activity/Vol] 95.0 U/L Normal 73.0-393.0 [facility] [place] Comment on above: Performed By: #### A MY, CMP, LIPA ####[facility] [id number] [address]Dr. Bee Titus PROF 14(COMP METB)on 023 Albumin [Mass/Vol] 2.9 g/dL Critically low 3.4-5.0 Th e [facility] Comment on above: Performed By: #### A MY, CMP, LIPA ####[facility] [id number] [address]Dr. Bee Titus Albumin/Globulin [Mass ratio] 0.8 {ratio} Normal [facility] [place] Comment on above: Performed By: #### A MY, CMP, LIPA ####[facility] [id number] [address]Dr. Bee Titus ALP [Catalytic activity/Vol] 85 U/L Normal 46-116 [facility] Comment on above: Performed By: #### A MY, CMP, LIPA ####[facility] [id number] [address]Dr. Bee Titus ALT [Catalytic activity/Vol] 17 U/L Normal 14-59 [facility] [place] Comment on above: Performed By: #### A MY, CMP, LIPA ####[facility] [id number] [address]Dr. Bee Titus Anion gap [Moles/Vol] 15.6 mmol/L Normal [facility] Comment on above: Performed By: #### A MY, CMP, LIPA ####[facility] [id number] [address]Dr. Bee Titus AST [Catalytic activity/Vol] 15 U/L Normal 15-37 [facility] [place] Comment on above: Performed By: #### A MY, CMP, LIPA ####[facility] [id number] [address]Dr. Bee Titus Bilirubin [Mass/Vol] 0.5 mg/dL Normal 0.2-1.0 [facility] Comment on above: Performed By: #### A MY, CMP, LIPA ####[facility] [id number] [address]Dr. Bee Titus Calcium [Mass/Vol] 8.4 mg/dL Critically low 8.5-10.1 [facility] Comment on above: Performed By: #### A MY, CMP, LIPA ####[facility] [id number] [address]Dr. Bee Titus Chloride [Moles/Vol] 105 mmol/L Normal 98-107 [facility] Comment on above: Performed By: #### A MY, CMP, LIPA ####[facility] [id number] [address]Dr. Bee Titus CO2 [Moles/Vol] 22.3 mmol/L Normal 21.0-32.0 [facility] Comment on above: Performed By: #### A MY, CMP, LIPA ####[facility] [id number] [address]Dr. Bee Titus Creatinine [Mass/Vol] 0.61 mg/dL Normal 0.55-1.02 [facility] [place] Comment on above: Performed By: #### A MY, CMP, LIPA ####[facility] [id number] [address]Dr. Bee Titus EGFR-AF PARAGUAYAN >60 Normal >=60 [facility] Comment on above: Performed By: #### A MY, CMP, LIPA ####[facility] [address] [address]Dr. Bee Titus EGFR-NON AF PARAGUAYAN >60 Normal >=60 [facility] Comment on above: Performed By: #### A MY, CMP, LIPA ####[facility] [id number] [address]Dr. Bee Titus Globulin (S) [Mass/Vol] 3.7 g/dL Normal [facility] Comment on above: Performed By: #### A MY, CMP, LIPA ####[facility] [id number] [address]Dr. Bee Titus Glucose [Mass/Vol] 112 mg/dL Critically high 74-106 T [facility] Comment on above: Performed By: #### A MY, CMP, LIPA ####[facility] [id number] [address]Dr. Bee Titus Potassium [Moles/Vol] 3.9 mmol/L Normal 3.5-5.1 [facility] Comment on above: Performed By: #### A MY, CMP, LIPA ####[facility] [address] [place] [address]Dr. Bee Titus Protein [Mass/Vol] 6.6 g/dL Normal 6.4-8.2 [facility] Comment on above: Performed By: #### A MY, CMP, LIPA ####[facility] [address] [place] [address]Dr. Bee Titus Sodium [Moles/Vol] 139 mmol/L Normal 136-145 [facility] Comment on above: Performed By: #### A MY, CMP, LIPA ####[facility] [address] [place] [address]Dr. Bee Titus Urea nitrogen [Mass/Vol] 10.0 mg/dL Normal 7.0-18.0 [facility] Comment on above: Performed By: #### A MY, CMP, LIPA ####[facility] [address] [place] [address]Dr. Bee Titus Urea nitrogen/Creatinine [Mass ratio] 16.4 mg/mg Normal [facility] Comment on above: Performed By: #### A MY, CMP, LIPA ####[facility] [address] [place] [address]Dr. Bee Titus URINE MICROSCOPIC ONLYon BACTERIA NONE SEEN Normal NONE SEEN [facility] Comment on above: Performed By: #### U MICRO, UACSIND #### [facility] Laboratory [address] [address] [address] Bee Titus Bacteria identified Cx Nom (U) NOT INDICATED Normal [facility] Comment on above: Performed By: #### U MICRO, UACSIND #### [facility] [address] [place] [address] Dr. Bee Titus CAST NONE SEEN Normal NONE SEEN [facility] Comment on above: Performed By: #### U MICRO, UACSIND #### [facility] [address] [place] [address] Dr. Bee Titus Crystals LM Nom (Urine sed) NONE SEEN Normal NONE SEEN [facility] Comment on above: Performed By: #### U MICRO, UACSIND #### [facility] [address] [place] [address] Dr. Bee Titus Epithelial cells LM Ql (Urine sed) NONE SEEN Normal NONE SEEN /RARE [facility] Comment on above: Performed By: #### U MICRO, UACSIND #### [facility] [address] [place] [address] Dr. Bee Titus MUCOUS NONE SEEN Normal NONE SEEN [facility] Comment on above: Performed By: #### U MICRO, UACSIND #### [facility] [address] [place] [address] Dr. Bee Titus RBC 0-2 Normal 0-2 [facility] Comment on above: Performed By: #### U MICRO, UACSIND #### [facility] [address] [place] [address] Dr. Bee Titus WBC NONE SEEN Normal NONE SEEN [facility] Comment on above: Performed By: #### U MICRO, UACSIND #### [facility] [address] [place] [address] Dr. Bee Titus TYPE AND SCREENon 05-04-2022 TYPE AND SCREEN Negative Normal [facility] Comment on above: Performed By: #### T NS #### [facility] [address] [place] [address] Dr. Bee Titus GLUCOSE - 1HRon 04-30-2022 Glucose [Mass/Vol] 136 mg/dL Critically high 74-106 [facility] Comment on above: Performed By: #### G LU1HR ####[facility] [address] [place], [place] [address]LbEric Leigh Annpee Titus US PREG ANATOMY SINGLEon US PREG [...] by: MIMI RICHEY Date: 2022-03-10 07:17 Normal [facility] PAP ACOG PANEL 2: 21 to 29on 03-03-2022 . . Normal [facility] Comment on above: Performed By: #### 4 [id number] ####[facility] [address] [place], [place] [address]OpDr. Bee Titus Age Gdln ACOG Testing 21-29 Normal [facility] Comment on above: Performed By: #### 4 [id number] ####[facility] [address] [place], [place] [address]DrEric Titus DIAGNOSIS: Comment Normal [facility] Comment on above: Result Comment: NEGA TIVE FOR INTRAEPITHELIAL LESION OR MALIGNANCY. Performed By: #### 4 [id number] ####[facility] [address] [place], [place] [address]DrEric Titus Methodology: Comment Normal [facility] Comment on above: Result Comment: This liquid based ThinPrep(R) pap test was screened with the use of an image guided system. Performed By: #### 4 [id number] ####[facility] [address] [place], [place] [address]DrEric Titus Note: Comment Normal [facility] Comment on above: Result Comment: The Pap smear is a screening test designed to aid in the detection of premalignant and malignant conditions of the uterine cervix. It is not a diagnostic procedure and should not be used as the sole means of detecting cervical cancer. Both false-positive and false-negative reports do occur. . Performed By: #### 4 [id number] ####[facility] [address] [place], [place] [address]DrEric Titus Performed by: Comment Normal [facility] Comment on above: Result Comment: Kamila Land, University Intern Performed By: #### 4 [id number] ####[facility] [address] [place], [place] [address]DrEric Titus Reflex Criteria: Comment Normal [facility] Comment on above: Result Comment: The HPV DNA reflex criteria were not met with this specimen result therefore, no HPV testing was performed. . Performed By: #### 4 [id number] ####[facility] [address] [place], [place] [address]DrEric Titus Specimen adequacy: Comment Normal [facility] Comment on above: Result Comment: Sati sfactory for evaluation. No endocervical component is identified. Performed By: #### 4 [id number] ####[facility] [address] [place], [place] [address]DrEric Titus CHLAMYDIA/GONOCOCCUS CJ (SW AB/URINE/PAPon 02-26-2022 Chlamydia trachomatis, CJ Negative Normal Negative [facility] Comment on above: Performed By: #### C T/NGNA #### [facility] [address] [address] [address] Bee Titus Neisseria gonorrhoeae, CJ Negative Normal Negative [facility] Comment on above: Performed By: #### C T/NGNA #### [facility] [address] [address] [address] Bee Titus VAGINITIS/VAGINOSIS DNA PROB Alcon 02-25-2022 Sofya species Negative Normal Negative [facility] Comment on above: Performed By: #### V AGINT ####[facility] [address] [place] [address]DrEric Titus Gardnerella vaginalis Negative Normal Negative [facility] Comment on above: Performed By: #### V AGINT ####[facility] [address] [place] [address]DrEric Titus Trichomonas vaginalis Negative Normal Negative [facility] Comment on above: Performed By: #### V AGINT ####[facility] [address] [place] [address]Dr. Bee Titus HEP B SURFACE ANTIGEN SCREEN on 12-26-2021 HBsAg Screen Negative Normal Negative [facility] Comment on above: Performed By: #### U MICRO, UACSIND #### [facility] [address] [address] [address] Bee Titus HEPATITIS C VIRUS AB W/ REFL EX QUANTon 12-26-2021 HCV AB <0.1 Normal 0.0-0.9 [facility] Comment on above: Performed By: #### U MICRO, UACSIND #### [facility] [address] [address] [address] Bee Titus Interpretation: Comment Normal [facility] Comment on above: Result Comment: Nega tive Not infected with HCV, unless recent infection is suspected or other evidence exists to indicate HCV infection. Performed By: #### U MICRO, UACSIND #### [facility] [address] [address] [address] Bee Titus HIV 1 AND 2 WITH REFLEXon HIV Screen 4th Generation wRfx Non-Reactive Normal Non Reactive [facility] Comment on above: Result Comment: HIV Negative HIV-1/HIV-2 antibodies and HIV-1 p24 antigen were NOT detected. There is no laboratory evidence of HIV infection. Performed By: #### H IV12 ####[facility] [address] [place] [address]Dr. Bee Titus RPR QUANTon 12-26-2021 Rapid Plasma Reagin, Quant Non-Reactive Normal NonRea<1:1 [facility] Comment on above: Result Comment: Plea Note: This test does not meet current guidelines for screening and diagnosis of syphilis. This test is intended for following treatment response in patients being treated for syphilis infection. To screen for syphilis infection, a reflex cascade that includes both RPR and a treponema-specific assay should be utilized, such as Treponema pallidum (Syphilis) Screening Tucker (698759) or Rapid Plasma Reagin (RPR) Test With Reflex to Quantitative RPR and Confirmatory Treponema pallidum Antibodies (339021). Performed By: #### U MICRO, UACSIND #### [facility] [address] [address] [address] Bee Titus RUBELLA AB IGGon 12-26-2021 Rubella Antibodies, IgG 2.83 index Normal Immune >0.99 [facility] Comment on above: Result Comment: Non- immune <0.90 Equivocal 0.90 - 0.99 Immune >0.99 Performed By: #### U MICRO, UACSIND #### [facility] [address] [address] [address] Bee Titus CBC AUTO DIFFon 12-25-2021 BASO # 0.0 103/ul Normal 0.0-0.1 [facility] Comment on above: Performed By: #### C BC ####[facility] [address] [place] [address]Dr. Bee Titus Basophils/100 WBC (Bld) 0.3 % Normal 0.2-2.0 [facility] Comment on above: Performed By: #### C BC ####[facility] [address] [place] [address]Dr. Bee Titus EO # 0.1 103/ul Normal 0.0-0.7 [facility] Comment on above: Performed By: #### C BC ####[facility] [address] [place] [address]Dr. Leigh Annpee Titus Eosinophils/100 WBC (Bld) 0.6 % Critically low 0.9-7.0 [facility] Comment on above: Performed By: #### C BC ####[facility] [address] [place], [place] [address]Dr. Leigh Annpee Titus Erythrocyte distribution width (RBC) [Ratio] 12.1 % Normal 11.0-15.0 [facility] Comment on above: Performed By: #### C BC ####[facility] [address] [place], [place] [address]Dr. Bee Titus Hematocrit (Bld) [Volume fraction] 37.5 % Normal 36.0-48.0 [facility] Comment on above: Performed By: #### C BC ####[facility] [address] [place], [place] [address]Dr. Bee Titus Hemoglobin (Bld) [Mass/Vol] 13.3 g/dL Normal 12.0-16.0 [facility] Comment on above: Performed By: #### C BC ####[facility] [address] [place], [place] [address]Dr. Bee Titus IG # 0.04 10e3/ul Critically high 0.00-0.03 [facility] Comment on above: Performed By: #### C BC ####[facility] Un[address] [place], [place] [address]Dr. Bee Titus IG % 0.4 % Normal 0.0-0.5 [facility] Comment on above: Performed By: #### C BC ####[facility] [address] [place], [place] [address]Dr. Bee Titus LYMPH # 1.7 103/ul Normal 1.2-3.8 [facility] Comment on above: Performed By: #### C BC ####[facility] [address] [place] [address]DrEric Titus Lymphocytes/100 WBC (Bld) 17.2 % Critically low 20.5-60.0 [facility] Comment on above: Performed By: #### C BC ####[facility] [address] [place] [address]DrEric Titus MANUAL DIFF REQ NO Normal [facility] Comment on above: Performed By: #### C BC ####[facility] [address] [place] [address]DrEric Titus MCH (RBC) [Entitic mass] 32.0 pg Normal 26.7-34.0 [facility] Comment on above: Performed By: #### C BC ####[facility] [address] [place], [place] [address]Dr. Bee Titus MCHC (RBC) [Mass/Vol] 35.5 g/dL Critically high 29.9-35.2 [facility] Comment on above: Performed By: #### C BC ####[facility] [address] [place], [place] [address]DrEric Titus MCV (RBC) [Entitic vol] 90.1 fL Normal 81.0-99.0 [facility] Comment on above: Performed By: #### C BC ####[facility] [address] [place], [place] [address]DrEric Titus MONO # 0.5 103/ul Normal 0.3-0.8 [facility] Comment on above: Performed By: #### C BC ####[facility] [address] [place], [place] [address]DrEric Titus Monocytes/100 WBC (Bld) 4.8 % Normal 1.7-12.0 [facility] Comment on above: Performed By: #### C BC ####[facility] [address] [place], [place] [address]DrEric Titus NEUT # 7.4 103/ul Critically high 1.4-6.5 [facility] Comment on above: Performed By: #### C BC ####[facility] [address] [place] [address]Dr. Bee Titus Neutrophils/100 WBC (Bld) 76.7 % Critically high 43.0-75.0 [facility] Comment on above: Performed By: #### C BC ####[facility] [address] [place] [address]Dr. Bee Titus Platelet mean volume (Bld) [Entitic vol] 10.2 fL Normal 9.5-13.5 [facility] Comment on above: Performed By: #### C BC ####[facility] [address] [place] [address]Dr. Bee Titus PLT 226 103/ul Normal 150-450 [facility] Comment on above: Performed By: #### C BC ####[facility] [address] [place], [place] [address]Dr. Bee Titus RBC 4.16 106/ul Critically low 4.20-5.40 [facility] Comment on above: Performed By: #### C BC ####[facility] [address] [place], [place] [address]Dr. Bee Titus WBC 9.7 103/ul Normal 4.0-11.0 [facility] Comment on above: Performed By: #### C BC ####[facility] [address] [place], [place] [address]Dr. Bee Titus CULTURE URINEon 12-25-2021 CULTURE URINE Culture Observations : LIGHT GROWTH OF MIXED GENITAL SUMA. NO POTENTIAL PATHOGENS SEEN. Normal [facility] Comment on above: Performed By: #### U RCX ####[facility] [address] [place], [place] [address]Dr. Bee Titus GLYCOHEMOGLOBIN A1Con 2021 ADA RECOMMENDATION SEE BELOW Normal [facility] Comment on above: Result Comment: ADA RECOMMENDED LIMIT 4.0 - 6.0 ADA THERAPEUTIC TARGET < 7.0 ACTION SUGGESTED > 7.0 Performed By: #### U MICRO, UACSIND #### [facility] [address] [place], [place] [address] Dr. Bee Titus Glucose [Mass/Vol] 88 mg/dL Normal [facility] Comment on above: Performed By: #### U MICRO, UACSIND #### [facility] [address] [place], [place] [address] Dr. Bee Titus HbA1c (Bld) [Mass fraction] 4.7 % Normal 4.5-6.2 [facility] Comment on above: Performed By: #### U MICRO, UACSIND #### [facility] [address] [place], [place] [address] Dr. Bee Titus TYPE AND SCREENon 12-25-2021 TYPE AND SCREEN Negative Normal [facility] Comment on above: Performed By: #### T NS #### [facility] [address] [address] [address] Bee Titus US PREG TVon 12-05-2021 [...] BIENVENIDO LONG Date: 2021-12-05 16:58 Normal [facility] HCG-BETA SUBUNIT QUANTon hCG,Beta Subunit,Qnt,Serum 105 mIU/mL Normal [facility] Comment on above: Result Comment: Fema le (Non-) 0 - 5 (Postmenopausal) 0 - 8 . Female () Weeks of Gestation 3 6 - 71 4 10 - 750 5 361 - 7363 6 696 - 99654 7 6733 -[phone] 8 27364 -291924 9 18587 -369912 10 08037 -818961 12 70683 -806310 14 21439 - 47631 15 07447 - 18250 16 9040 - 74084 17 8175 - 82340 18 8099 - 74202 [place] ECLIA methodology Performed By: #### U JOSE, [facility] #### [facility] [address] [place] [address] Dr. Bee Titus HCG-BETA SUBUNIT QUANTon hCG,Beta Subunit,Qnt,Serum 41 mIU/mL Normal [facility] Comment on above: Result Comment: Fema le (Non-) 0 - 5 (Postmenopausal) 0 - 8 . Female () Weeks of Gestation 3 6 - 71 4 10 - 750 5 048 - 7637 6 830 - 93392 7 2560 -431934 8 75947 -666858 9 36455 -499364 10 61481 -410492 12 71607 -662595 14 93288 - 71371 15 70304 - 67554 16 9040 - 81106 17 8175 - 14478 18 8099 - 60243 [place] ECLIA methodology Performed By: #### H CGSUB ####[facility] [address] [place] [address]Dr. Bee Titus CBC AUTO DIFFon 10-23-2021 BASO # 0.0 103/ul Normal 0.0-0.1 [facility] Comment on above: Performed By: #### C BC ####[facility] [address] [place] [address]Dr. Bee Titus Basophils/100 WBC (Bld) 0.7 % Normal 0.2-2.0 [facility] Comment on above: Performed By: #### C BC ####[facility] [address] [place] [address]DrEric Titus EO # 0.2 103/ul Normal 0.0-0.7 [facility] Comment on above: Performed By: #### C BC ####[facility] [address] [place], [place] [address]Dr. Bee Titus Eosinophils/100 WBC (Bld) 2.7 % Normal 0.9-7.0 [facility] Comment on above: Performed By: #### C BC ####[facility] [address] [place], [place] [address]Dr. Bee Titus Erythrocyte distribution width (RBC) [Ratio] 12.2 % Normal 11.0-15.0 [facility] Comment on above: Performed By: #### C BC ####[facility] [address] [place], [place] [address]Dr. Bee Titus Hematocrit (Bld) [Volume fraction] 40.4 % Normal 36.0-48.0 [facility] Comment on above: Performed By: #### C BC ####[facility] [address] [place], [place] [address]Dr. Bee Titus Hemoglobin (Bld) [Mass/Vol] 14.0 g/dL Normal 12.0-16.0 [facility] Comment on above: Performed By: #### C BC ####[facility] Th[address] [place], [place] [address]Dr. Bee Titus IG # 0.01 10e3/ul Normal 0.00-0.03 [facility] Comment on above: Performed By: #### C BC ####[facility] [address] [place], [place] [address]Dr. Bee Titus IG % 0.2 % Normal 0.0-0.5 [facility] Comment on above: Performed By: #### C BC ####[facility] [address] [place], [place] [address]Dr. Bee Titus LYMPH # 1.8 103/ul Normal 1.2-3.8 [facility] Comment on above: Performed By: #### C BC ####[facility] [address] [place], [place] [address]Dr. Bee Titus Lymphocytes/100 WBC (Bld) 30.1 % Normal 20.5-60.0 [facility] Comment on above: Performed By: #### C BC ####[facility] [address] [place], [place] [address]Dr. Bee Titus MANUAL DIFF REQ NO Normal [facility] Comment on above: Performed By: #### C BC ####[facility] [address] [place] [address]Dr. Bee Titus MCH (RBC) [Entitic mass] 31.2 pg Normal 26.7-34.0 [facility] Comment on above: Performed By: #### C BC ####[facility] [address] [place] [address]Dr. Bee Titus MCHC (RBC) [Mass/Vol] 34.7 g/dL Normal 29.9-35.2 [facility] Comment on above: Performed By: #### C BC ####[facility] [address] [place] [address]Dr. Bee Titus MCV (RBC) [Entitic vol] 90.0 fL Normal 81.0-99.0 [facility] Comment on above: Performed By: #### C BC ####[facility] [address] [place], [place] [address]Dr. Leigh Annpee Tacho MONO # 0.4 103/ul Normal 0.3-0.8 [facility] Comment on above: Performed By: #### C BC ####[facility] [address] [place], [place] [address]Dr. Leigh Annpee Titus Monocytes/100 WBC (Bld) 7.0 % Normal 1.7-12.0 [facility] Comment on above: Performed By: #### C BC ####[facility] [address] [place], [place] [address]Dr. Bee Titus NEUT # 3.5 103/ul Normal 1.4-6.5 [facility] Comment on above: Performed By: #### C BC ####[facility] [address] [place], [place] [address]Dr. Leigh Annpee Titus Neutrophils/100 WBC (Bld) 59.3 % Normal 43.0-75.0 [facility] Comment on above: Performed By: #### C BC ####[facility] [address] [place], [place] [address]Dr. Bee Titus Platelet mean volume (Bld) [Entitic vol] 10.0 fL Normal 9.5-13.5 [facility] Comment on above: Performed By: #### C BC ####[facility] [address] [place], [place] [address]Lr. Bee Titus PLT 244 103/ul Normal 150-450 [facility] Comment on above: Performed By: #### C BC ####[facility] [address] [place], [place] [address]Fq. Leigh Annpee Titus RBC 4.49 106/ul Normal 4.20-5.40 [facility] Comment on above: Performed By: #### C BC ####[facility] [address] [place], [place] [address]Su. Bee Tacho WBC 5.9 103/ul Normal 4.0-11.0 [facility] Comment on above: Performed By: #### C BC ####[facility] [address] [place], [place] [address]ZxEric Titus FREE T4on 10-23-2021 Free T4 [Mass/Vol] 0.91 ng/dL Normal 0.76-1.46 [facility] Comment on above: Performed By: #### U MICRO, UACSIND #### [facility] [address] [address] [address] Bee Titus LIPID PROFILEon 10-23-2021 CHOL-HDL RATIO NORM SEE BELOW Normal [facility] Comment on above: Result Comment: 3.3 - 4.4 LOW RISK 4.4 - 7.1 AVERAGE RISK 7.1 - 11.0 MODERATE RISK >11.0 HIGH RISK Performed By: #### U MICRO, UACSIND #### [facility] [address] [address] [address] Bee Titus Cholesterol [Mass/Vol] 191 mg/dL Normal <=200 [facility] Comment on above: Performed By: #### U MICRO, UACSIND #### [facility] [address] [address] [address] Bee Titus Cholesterol in HDL [Mass/Vol] 77 mg/dL Critically high 40-60 [facility] Comment on above: Performed By: #### U MICRO, UACSIND #### [facility] [address] [address] [address] Bee Titus Cholesterol in LDL [Mass/Vol] 103.2 mg/dL Normal [facility] Comment on above: Performed By: #### U MICRO, UACSIND #### [facility] [address] [address] [address] Bee Titus Cholesterol.total/Ch olesterol in HDL [Mass ratio] 2.5 {ratio} Normal [facility] Comment on above: Performed By: #### U MICRO, UACSIND #### [facility] [address] [address] [address] Bee Titus HDL NORMAL > or = 60 mg/dl - LO W CARDIOVASCULAR RISK <40 mg/dl - HIGH CARDIOVASCULAR RISK Normal [facility] Comment on above: Performed By: #### U MICRO, UACSIND #### [facility] [address] [place] [address] Dr. Bee Titus LDL CALC NORMAL SEE BELOW Normal [facility] Comment on above: Result Comment: <100 mg/dl OPTIMAL 100 - 129 mg/dl NEAR OR ABOVE OPTIMAL 130 - 159 mg/dl BORDERLINE HIGH 160 - 189 mg/dl HIGH >190 mg/dl VERY HIGH Performed By: #### U MICRO, UACSIND #### [facility] [address] [address] [address] Bee Titus Triglyceride [Mass/Vol] 54 mg/dL Normal <=150 [facility] Comment on above: Performed By: #### U MICRO, UACSIND #### [facility] [address] [address] [address] Bee Titus VLDL CALC 10.8 mg/dL Normal [facility] Comment on above: Performed By: #### U MICRO, UACSIND #### [facility] [address] [address] [address] Bee Titus PROF 14(COMP METB)on 022 Albumin [Mass/Vol] 3.9 g/dL Normal 3.4-5.0 [facility] Comment on above: Performed By: #### U MICRO, UACSIND #### [facility] [address] [address] [address] Bee Titus Albumin/Globulin [Mass ratio] 1.3 {ratio} Normal [facility] Comment on above: Performed By: #### U MICRO, UACSIND #### [facility] [address] [address] [address] Bee Titus ALP [Catalytic activity/Vol] 54 U/L Normal 46-116 [facility] Comment on above: Performed By: #### U MICRO, UACSIND #### [facility] [address] [address] [address] Bee Titus ALT [Catalytic activity/Vol] 38 U/L Normal 14-59 [facility] Comment on above: Performed By: #### U MICRO, UACSIND #### [facility] [address] [address] [address] Bee Titus Anion gap [Moles/Vol] 10.9 mmol/L Normal [facility] Comment on above: Performed By: #### U MICRO, UACSIND #### [facility] [address] [address] [address] Bee Titus AST [Catalytic activity/Vol] 56 U/L Critically high 15-37 [facility] Comment on above: Performed By: #### U MICRO, UACSIND #### [facility] [address] [address] [address] Bee Titus Bilirubin [Mass/Vol] 0.4 mg/dL Normal 0.2-1.0 [facility] Comment on above: Performed By: #### U MICRO, UACSIND #### [facility] [address] [address] [address] Bee Titus Calcium [Mass/Vol] 8.9 mg/dL Normal 8.5-10.1 [facility] Comment on above: Performed By: #### U MICRO, UACSIND #### [facility] [address] [address] [address] Bee Titus Chloride [Moles/Vol] 109 mmol/L Critically high 98-107 [facility] Comment on above: Performed By: #### U MICRO, UACSIND #### [facility] [address] [address] [address] Bee Titus CO2 [Moles/Vol] 26.9 mmol/L Normal 21.0-32.0 [facility] Comment on above: Performed By: #### U MICRO, UACSIND #### [facility] [address] [address] [address] Bee Titus Creatinine [Mass/Vol] 0.84 mg/dL Normal 0.55-1.02 [facility] Comment on above: Performed By: #### U MICRO, UACSIND #### [facility] [address] [address] [address] Bee Titus EGFR-AF PARAGUAYAN >60 Normal >=60 [facility] Comment on above: Performed By: #### U MICRO, UACSIND #### [facility] [address] [address] [address] Bee Titus EGFR-NON AF PARAGUAYAN >60 Normal >=60 [facility] Comment on above: Performed By: #### U MICRO, UACSIND #### [facility] [address] [address] [address] Bee Titus Globulin (S) [Mass/Vol] 3.1 g/dL Normal [facility] Comment on above: Performed By: #### U MICRO, UACSIND #### [facility] [address] [address] [address] Bee Titus Glucose [Mass/Vol] 97 mg/dL Normal 74-106 [facility] Comment on above: Performed By: #### U MICRO, UACSIND #### [facility] [address] [address] [address] Bee Titus Potassium [Moles/Vol] 3.8 mmol/L Normal 3.5-5.1 [facility] Comment on above: Performed By: #### U MICRO, UACSIND #### [facility] [address] [address] [address] Bee Titus Protein [Mass/Vol] 7.0 g/dL Normal 6.4-8.2 [facility] Comment on above: Performed By: #### U MICRO, UACSIND #### [facility] [address] [address] [address] Bee Titus Sodium [Moles/Vol] 143 mmol/L Normal 136-145 [facility] Comment on above: Performed By: #### U MICRO, UACSIND #### [facility] [address] [address] [address] Bee Titus Urea nitrogen [Mass/Vol] 11.0 mg/dL Normal 7.0-18.0 [facility] Comment on above: Performed By: #### U MICRO, UACSIND #### [facility] [address] [address] [address] Bee Titus Urea nitrogen/Creatinine [Mass ratio] 13.1 mg/mg Normal [facility] Comment on above: Performed By: #### U MICRO, UACSIND #### [facility] [address] [address] [address] Bee Titus TSHon 10-23-2021 TSH 1.495 uIU/mL Normal 0.358-3.740 [facility] Comment on above: Performed By: #### U MICRO, UACSIND #### [facility] [address] [address] [address] Bee Titus Coding Summaryon 07-18-2020 Coding Summary HTMLBase 64 TajpuzatKIi2jQh+PGhlY WQ+NQ7MBCHkK43eaULfgG 3IA4dXXI2ZGVKUJYOKTS8 NDD3rxZP4AHxdG0MuurHd LoclpEBvTZ28ANz3HFD2x OrrOSwmrA4pjFEnA2l0Vj KeTQ58oU74WKafVPTtQoC 3LjZpbjsgbWFy Y7ogKvAiyRMtRmm+PHRhY mxlIHdpZHRoPScxMDAlJy GvlQpuXN3wZr0kJLNbXZV vbGxhcHNlOiBj w3kdBIUdWRyhZC4ejDpwC 7WhtYD2JRObo4i1Cm19zW I+VXMnKGN6sMswGGkze31 9ZkLrk1xcCQX5 wRHeYKgoZTH3Z30pi2H4U LUxVCPvBFP1jHD7yA7haX poblynJ1AqhCHvCuJ2GNQ 9uIRdjO1ocKdg piodhK9mOxh+X97IHD4MC SLEGV8WIzp4B2GgYdjfuK I+AX21ECMqJL60eBMirVE lr6bhsLq3EnBb XETqILK5hKtgGQcqv9JeC FWiF99oeQVok1D9KWCovG vrnPXiKuUzwAR2oQ4mYZt kksfrb3qtpiwe Vmxsr2nbqk17iA41Z45yP HccIYTvZAK7LBVmJIZlaW sgdg5mfB0zHn3+FZdgo8v qf9dlbPw6OhWi COXnsoWwlCxcVKH4a9GcX u01Z9QmeDabq1DlZgl4cl 06fEDmm2A6tZY3TDbvFRP rpS8vHSxeRcI7 EKEmGeWgaZ65qHFxJFmyF m3euLyljMmkDB0jJUEabr kxCHBitD4fEAMmhHCluHk jQL0iBRNjkuac s050ZuJcPFK2VVEjwYBdP 3FnwC9nDgUvPZXqBCEtJ4 BnnQKjLDogB944MJidJlW 3QCGpnuXzK6Vi LESjeIzjFoE1n7A1Zj9Gb 1PqfdpnBTA1KPloTZN7Kg YjEhLwQiW4U1VyYzo3LVU utXmvDK3qX0Ot SLPiomxfguefwIE7QNCcB TUtaD62zOLqZSioNz5fl8 Z9p775DPGkSKDuqW59Oa7 udDogMTBwdCBU hM3efuyop6lgwqymLbIlO SKtRDk2LQr8KXKkkGhzTr BzONL1YsE9CSF1oMKrcM3 neIxvbglzbN2i Oyc+K72bmQ7eIGQ4MYU3f jdlOKZrisDkGY10KI33Q2 RyPjwvdGFibGU+PGRpdiB zlYtbWW4zZhEe x9bqe6AiUTzwS0TcLMIwN NdgSvb3XHOzUSU5aRV2qE 9qIVMaPGmte0N4fHY9O3D lwgRxnq8th5zd KWVpGFhrG53zsYJia5U8R DXdjGQ1KQOtaXzbGmMytR 93Oyc+WZYdjCkpc4KvKhz at1fsi2yzrOx6 XeYeYLQdldCpcLcvLDO5d 6EgFq27O62gAAvqYRCoCO HkXOKnFCVrvAoohi0ntB7 wIi8+PGNvbCB3 mPN3xZ1yYYIpHmE3SJyoL 707YzZiuMDlIzgbp0cfa9 jzxNv5LhIiMTTqwpVizEj cBYF6j6OrAq66 S29rGDeoCNAkWRFhPULwN WOkdCjkbl9peT4eKs7+PC 7nd5gijd85zW90kIF+PHR xMCI6wJodRJlb HBIscM2wCOtlSjZ7LMEfV kYoaZ79oTTfTDmbMb8epZ yupDczJV0bCGMlvwojl78 7RtUlv5awPPIl kLShGCavOLJ7I36yi6H8Y IZlKFNvVKX3hTM5rO5yjN lnbjogbGVmdDsgdmVydGl qTXjdMTvsH733 IHRvcDsnPlBhdGllbnQgT eCkNQs1D4DjQrp5QEBooU qdQV2yqSQhPUxkGr6sjCa loWniSC7bIEYl qzegm909LoKzh3piOIHyn AFjAZajBPB0M07hj7Q7VZ MuSAHzWKE1fSH7nU0gaJu nbjogbGVmdDsg avSiwEpfRLftUZvzN943D HRvcDsnPkJpcnRoIERhdG H8ES05SC86vRDll0L5aHS 5G9FkFSQnxmmk gfgcgLH2UBHtZEMtgD05E d9atPnhNk9uKEGzFTP7SL WyuFYbW7NkuP2ePxNiYOH jUDZyY2VjlQDj WNzzI352GQxvOrJ4IROny yBsU5ElFAQsaDzuWdK8r8 E0Jw9FK2Q6ZD34JW81jBQ zr3B0aZK5W4Fp IUSxocwbvgzgbWB1SEOhC GXlzA43Jo4fmWjwPp5mDA CpMQS0ADZcqDAxL2XfpV6 yOiAjMDAwMDAw M9GjgCCmFWncV180IKfsA jT6JIOswmTsZ6YmBRMbqC eaXzG2y2B0Op7QHNz6EF6 6ZE98wHMoz9X1 vNG7K3PnYNOzdplfoujdx AY1KJUxABJxmJ40Sc7ynD ovHx9xUESnXDT4QERudWM hN0HypL8fCzTf LZBqYGItG2AzmYEkYZocA 679TMpyUeP5FYLcpxWsE4 JtBDLrmXitMvF5a3Q1Mp2 CTLOqMN75LTK6 iXJ1MF79SX95V5HsHkvtp GFibGU+PHRhYmxlIHdpZH RoPScxMDAlJyBzdHlsZT0 qMi0oAAEcYNWv uGibwXKbRuBow1xeENFpP IlxYO0pxJzhR9RwvRF9OM Hgz7b3Io43Y42xG2MgrYT +AENkdOJ6oHC5 aX5pSmSuObM7QElnT012O vQrmFViAkhul2fwe5hdoK i0SuE7SZWhmhHysTkaDKY 1w3GyBq86J37b IHdpZHRoPSIxNSUiIHZhb Kesqa4rgC6jMv9+PGNvbC Y3kVG8bW7oFaKsPoQ4FKh zG321GsVvdACt Ypsdu0eju5jfjRz8OyGnY RNyxgFjwOlpXNL8x7IdQu 04M2TlbAdkn8AsWdj3zj9 9hGOzm8I0lAE3 K4WqFGUamewkhAMpeRqaY A6rXGPwkkklDRDvpL6bWD HzL7x5OdHdBpP0KMrfH0W ngwP4PBIrtKRp CZkwJKQ7K51sa1T6DLCfW JAnZOL9xLL7vD0vnWitmg ogbGVmdDsgdmVydGljYWw eBMkyS863MRXo aIycMQAsdU7tEUHciENnc ZekKI8xUKIkksdwIkKNWJ wgTElORFNZIEdSQUNFPC9 0LN70rDJeo0H8 xVT9H6HsTULmhmhodvaku QF6BZDjUSFjgF99dNUaZO vcDn5gs0Z6r980SHFjDWQ nuE46Ot2szLgn ODUkrDEBsJ5fzaxac9eyf vmtAvGoXIYdCMw0PYf4XV BsmGfhHbPgZCM4LjD7VBI 6yDKrzT8ikRbh fkanaF0sOuc+MDkvMTAvM Lk5SprmpSR+ZCNsZKW5nL jvVRhqUCEwaA3rYTGiI3i 7DtYoMoJ6GQku H0QmBMJudtxsYu91mD4lZ lTgPiP5CVrbP7TliqD7PD RovFXmLRirXCK7R49da2E 6DUOeXNNhCBH6 sZR4rM5wmRqujnpbkOBmv DsgdmVydGljYWwtYWxpZ2 46IHRvcDsnPjIzIFllYXJ uVS98AO18zJDn o4K0zFC7J7ClKOCrtvftv yglfAW8YBYeKOIfpE31hN QsXObiIe8lu6W4d536RYD hSAKeyP02Rf6q uMntSHPmyVCKzN8nenpjp 7nzsazaMqNqPPXuCEk5IW j8IQAhjJkwMtKoCCG7PxH 7ZIO7vHWfdR5s yCnstpsorT2sBnt+RkVNQ VgYOW69WX17mJNlq6C1jZ Y5E5PbTBIpayxwbjcchJC 5KWQyXXWqpU11 qSDhNZdgFj6zv0H5i873Z LLuHDAefI00Tm2uxUdlHM CdcPURkH2wtjnjp2ymavt gIzAwMDAwMDt0 ARo0IZSatQctGgIcFZX3Y sE3TZN5yPIxeR9nrUscng wqrO1dFry+C3S2P8EeNim vdHI+IV84HAYv AL73qAEvbIPlo1jinYj0J cXoMYScDFK4aMthVFyju8 BnGMMsX00uiXGqt6U6SED vbGxhcHNlOyBl zWW5xL8rXRwjpylye7gvu qhoXmtzk9fzar12kH83V3 9sIHdpZHRoPSIzMCUiIHZ jlTuqdu2qlN6l Ii8+KNMvkTT4sJZ9iO7pR yHqPeP0TFtrR778AiEplX LzEaxxl1ivv1dlnTa9UqD wJSIgdmFsaWdu OZO6e6MtWr03S63cYGfrB HRoPSIyMCUiIHZhbGlnbj 3wbT6wNk4+IL4oy1unha8 0uP79sOB+PHRk DOW3tQtkIPpaIBFklL9iX VpdMpJ5VFPpCcCwqB65zN MzVKhjIk0uuDgwvGigAR3 aHWRojzsau480 PwNir2ayGMWfpPMdKOfyF OW0X42oi3X5JODaNVPiLH X1mLF2xO5nePnyzlzirQF mdDsgdmVydGlj BXbqJTjxQ344CKBbcEqaX qTaiAWjN2vitrXDDG1oQa wvdGQ+DDRiHFN6xEezEYz vIYXjdH6sXQLg N1q3AzSfMyS3TYkkX4Wgu wM7ZVHgzBDkRWTjjBRTsH 9uxjuye2gctsntLjYzZPW oBXl0OVv4BPHl dFcwEnMyIQY4FoT5OUS4o NSskY7vdVnfvssdqX0eTi c+RklOOjwvdGQ+PHRkIHN 0eWxlPSdwYWRk hW3mFFEyB2m8FiHhZbD4T LofR6CgjiO1IJDbuFRgCC VmhYFAxL6jkyubk8llrgd gIzAwMDAwMDt0 ZEp2OWUpiMtuCjBpAQX8P bA3CJX8sNKvxD4ycNwmln zaaG7wQjq+TVJOOjwvdGQ +WLUxCCQ4qMnc POhcHYXikE5cBQZnF0t4K gVsElD1UXcdC8ZeufM0RK RonXWeYHQjgUWUsX3ksxg ek2eatsjeIkLj EFEtETq3YBh7XCBssLerI gMpNRG6AwR0ZWU0cUFptZ 3dwQapxvmjxI6rSrt+UGF 4WCF7QM11ZU55 L1TvTjfhnIFzvRT+PHRhY mxlIHdpZHRoPScxMDAlJy RdwDbmPM0hFu4aUXHtDMG vbGxhcHNlOiBj b2x (more content not included)... Normal [facility] ED Clinical Summaryon 2020 ED Clinical Summary [facility] ? Urgent Care [address] [place], [place] [id number] Clinical Summary PERSON INFORMATION Name: LAKEISHA BELL Age: 24 Years Sex: FEMALE : 1995 MRN: Acct#: Visit Reason: UC - Skin Problem: simple; SKIN PROBLEM ON BACK Arrival: 07/10/2020 15:22:15 Discharge: 07/10/2020 16:32:00 LOS: 000 01:10 Check In: 07/10/2020 15:22:15 Checkout: 07/10/2020 16:32:00 Address: [place] [address] PCP: FLOR VILLAGOMEZ MD PROVIDER INFORMATION Provider Role Assigned Unassigned Ramsey Miranda PA-C ED PA 07/10/2020 15:23:21 Collin Whitney ED Nurse 07/10/2020 15:24:58 VITALS INFORMATION Vital [...] for packing removal With: Address: When: Braden Gildardojosé manuel [address] [place] [address] [place] [address] [employer]bookin ([employer]) (1) , only if needed With: Address: When: Jae Flores [address] [place] [id number] [employer] ([employer]) (1) Comments: OR DIAGNOSIS: Pilonidal abscess Patient Understands: Yes - Patient/family/caregi fahad verbalizes understanding of instructions given Comment: Normal [facility] ED Patient Summaryon 021 ED Patient Summary [facility] ? Urgent Care [address] [place] [id number] PATIENT DISCHARGE INSTRUCTIONS Patient Information Name: LAKEISHA BELL Age: 24 Years Date of : 1995 Reason For Visit: UC - Skin Problem: simple; SKIN PROBLEM ON BACK Arrival Time: 07/10/2020 15:22:15 Primary Care Physician: FLOR VILLAGOMEZ MD Attending Physician: Jhon Vigil Comment: Patient Education With: Address: When: Return to this practice Comments: 48 hours for packing removal With: Address: When: Braden Sandoval [address] [place] [id number] [employer] ([employer]) (1) , only if needed With: Address: When: Jae Flores [address] [facility] [address] [place] [id number] [facility] (1) Comments: OR Percutaneous Abscess Drain, Care [...] and water are not available, use hand engineer fishing vessel. ? Change your dressing as told by [...] says that this is okay. ? Take ywoh-eoc-bxfwzjz and prescription medicines only as told by [...] 07/30/2014 Document Revised: 02/25/2018 Document Reviewed: 02/04/2017 [employer] Patient Education ? 2019 [employer] Pilonidal Cyst Drainage, Care After This sheet gives you information about how to care f (more content not included)... [facility] Urgent Care Note- Provideron 07-10-2020 Urgent Care [...] Bactrim. OTC Motrin as recommended, add PRN [place] for severe pain. I reviewed OARR's. I [...] complication. Impression and Plan Diagnosis Pilonidal abscess ([id number] L05.01, Discharge, Medical) Plan Condition: Stable. Disposition: Discharged: Time 07/10/2020 16:14:00, to home. Prescriptions: Launch prescriptions Pharmacy: [place] 5 mg-325 mg oral tablet (Prescribe): 1 [...] prescription, Patient indicated understanding of instructions. Normal [facility] Care [place] 021 Urgent Care Record [facility] ? Urgent Care [address] [place] [address] PATIENT DISCHARGE INSTRUCTIONS Patient Information Name: LAKEISHA BELL Age: 24 Years Date of : 1995 Reason For Visit: UC - Skin Problem: simple; SKIN PROBLEM ON BACK Arrival Time: 07/10/2020 15:22:15 Primary Care Physician: FLOR VILLAGOMEZ MD Attending Physician: Jhon Vigil Comment: Visit Diagnosis: Diagnoses This Visit Pilonidal abscess (L05.01) UC - Skin Problem: simple ([id number]) If you received any narcotics, sedation, or [...] removal With: Address: When: Braden Sandoval [address] [place] [address] [facility] () , only if needed With: Address: When: Jae Flores [address] [address] [facility] (1) Comments: OR Medication Information: The exam and treatment you received today in the [facility] were for an urgent problem and are not intended as complete care. It is important for you to follow up with a doctor, nurse practitioner, or physician?s esol teacher assistant for ongoing care. If your symptoms [...] so we can reach you if necessary. [facility] has provided you with a complete list of medications post discharge. Please inform your resident physician/provider of your visit and for further instruction on these medications. Any specific questions regarding your chronic medications and dosages should be discussed with your primary care physician(s) and/or pharmacist. New Medications [facility], [address] [place] [phone], [phone] acetaminophen-hydroco done ([place] 5 mg-325 mg oral tablet) 1 tab(s) [...] and water are not available, use hand engineer fishing vessel. ? Change your dressing as told by [...] Check for: (more content not included)... Normal [facility] Vital Signs Date Time Vital Sign Value Performing Clinician Facility 06-08-2024 14:18-0400 Body mass index (BMI) [Ratio] 29.48 kg/m2 [facility] Nurse [facility] 06-08-2024 14:18-0400 Body weight 85.37 kg [facility] Nurse [facility] 06-08-2024 14:18-0400 Diastolic blood pressure 70 mm[Hg] [facility] Nurse [facility] 06-08-2024 14:18-0400 Systolic blood pressure 120 mm[Hg] [facility] Nurse [facility] 04-25-2024 11:15-0500 Body mass index (BMI) [Ratio] 27.53 kg/m2 Azeem Erik DO Work Phone: [facility] 04-25-2024 11:15-0500 Body weight 79.74 kg Azeem Erik DO Work Phone: [facility] 04-25-2024 11:15-0500 Diastolic blood pressure 70 mm[Hg] Azeem Erik DO Work Phone: [facility] 04-25-2024 11:15-0500 Systolic blood pressure 120 mm[Hg] Azeem Erik DO Work Phone: [facility] 04-20-2024 09:18-0500 Body height 167.[address] [facility] 04-20-2024 09:18-0500 Body mass index (BMI) [Ratio] 28.5 kg/m2 [facility] 04-20-2024 09:18-0500 Body weight 80.[address] [facility] 04-20-2024 09:18-0500 Diastolic blood pressure 74 mm[Hg] [facility] 04-20-2024 09:18-0500 Heart rate 81 /min [facility] 04-20-2024 09:18-0500 Systolic blood pressure 109 mm[Hg] [facility] 01-28-2024 12:33-0400 Body temperature 97 [degF] Yolie Fletcher POWER PRESS TENDER Work Phone: [facility] 01-28-2024 12:33-0400 Diastolic blood pressure 80 mm[Hg] Yolie Fletcher POWER PRESS TENDER Work Phone: [facility] 01-28-2024 12:33-0400 Heart rate 79 /min Yolie Fletcher POWER PRESS TENDER Work Phone: [facility] 01-28-2024 12:33-0400 SaO2% (BldA) [Mass fraction] 99 % Yolie Fletcher POWER PRESS TENDER Work Phone: [facility] 01-28-2024 12:33-0400 Systolic blood pressure 112 mm[Hg] Yolie Fletcher POWER PRESS TENDER Work Phone: [facility] 07-22-2023 10:01-0400 Body height 167.[address] [facility] 07-22-2023 10:01-0400 Body mass index (BMI) [Ratio] 27.4 kg/m2 [facility] 07-22-2023 10:01-0400 Body temperature 98.5 [degF] [facility] 07-22-2023 10:01-0400 Body weight 77.[address] [facility] 07-22-2023 10:01-0400 Diastolic blood pressure 78 mm[Hg] [facility] 07-22-2023 10:01-0400 Heart rate 74 /min [facility] 07-22-2023 10:01-0400 Systolic blood pressure 112 mm[Hg] [facility] 02-15-2024 09:56-0500 Body mass index (BMI) [Ratio] 27.41 kg/m2 Reina Tapia PA Work Phone: [facility] 05-13-2023 09:56-0500 Body weight 79.38 kg Reina Laneey PA Work Phone: [facility] 05-13-2023 09:56-0500 Diastolic blood pressure 76 mm[Hg] Reina Laneey PA Work Phone: [facility] 05-13-2023 09:56-0500 Systolic blood pressure 114 mm[Hg] Reina Laneey PA Work Phone: [facility] 01-29-2023 11:00-0400 Body height Perri Carmona Other [employer] Other 01-29-2023 11:00-0400 Body mass index (BMI) [Ratio] 32.6 kg/m2 Perri Carmona Other [employer] Other 01-29-2023 11:00-0400 Body weight 91.63 kg Perri Carmona Other [employer] Other 01-29-2023 11:00-0400 Diastolic blood pressure 74 mm[Hg] Perri Carmona Other [facility] Other 01-29-2023 11:00-0400 Systolic blood pressure 107 mm[Hg] Perri Carmona Other [facility] Other 10-20-2021 09:00-0400 Body height Cielo [place] Other [facility] Other 10-20-2021 09:00-0400 Body mass index (BMI) [Ratio] 35.26 kg/m2 Cielo Schwerer Other [facility] Other 10-20-2021 09:00-0400 Body temperature 98.2 [degF] Cielo [place] Other [facility] Other 10-20-2021 09:00-0400 Body weight 99.11 kg Cielo Lopezr Other [facility] Other 10-20-2021 09:00-0400 Diastolic blood pressure 88 mm[Hg] Cielo Lopezr Other [facility] Other 10-20-2021 09:00-0400 SaO2% (BldA) [Mass fraction] 99 % Cielo Lopezr Other [facility] Other 10-20-2021 09:00-0400 Systolic blood pressure 122 mm[Hg] Cielo Lopezr Other [facility] Other Encounters Encounter Date Encounter Type Care Provider Facility Start: 06-08-2024 End: 06-08-2024 Office outpatient visit 5 minutes [facility] Erik Nurse [facility] Comment on above: GA: 8w3d Start: 06-08-2024 End: 06-08-2024 ambulatory AZEEM ERIK Not Available Start: 05-17-2024 End: 05-17-2024 Clinisync Result Encounter Azeem Erik DO Work Phone: [facility] External Department Unsolicited Start: 05-17-2024 End: 05-17-2024 Clinisync Result Encounter Azeem Erik DO Work Phone: [facility] Unsolicited Start: 05-15-2024 End: 05-15-2024 Clinisync Result Encounter Azeem Erik DO Work Phone: [facility] Unsolicited Start: 05-15-2024 End: 05-15-2024 Clinisync Result Encounter Azeem Erik DO Work Phone: [facility] Unsolicited Start: 04-25-2024 End: 04-25-2024 Bamboo flowsheet Azeem [...] preventive med est patient 18-39 yrs Azeem Erik DO Work Phone: [facility] Comment on above: Well woman exam with routine gynecological exam Start: 04-25-2024 End: 04-25-2024 ambulatory AZEEM ERIK Not Available Start: 04-20-2024 End: 04-20-2024 ambulatory [facility] Work Phone: Start: 04-20-2024 End: 04-20-2024 Patient encounter procedure [facility] Work Phone: Start: 01-28-2024 End: 01-28-2024 ambulatory YOLIE FLETCHER Not Available Start: 01-28-2024 End: 01-28-2024 Office outpatient visit 25 minutes Yolie Fletcher [employer] Work Phone: [facility] Comment on above: Acute non-recurrent maxillary sinusitis (Primary Dx); Acute cough; Acute bronchitis, unspecified organism; History of candidal vulvovaginitis Start: 07-23-2023 End: 07-23-2023 ambulatory BRADEN DODD Not Available Start: 07-22-2023 End: 07-22-2023 ambulatory [facility] Work Phone: Start: 07-22-2023 End: 07-22-2023 Patient encounter procedure [facility] Work Phone: Start: 05-13-2023 End: 05-13-2023 Office outpatient visit 15 minutes Reina Tapia PA Work Phone: [facility] Comment on above: Weight gain; Encounter for weight management Start: 01-29-2023 End: 01-29-2023 ambulatory Perri Carmona Other [facility] Other Start: 01-29-2023 Office outpatient ne w 30 minutes Perri Carmona [facility] Start: 07-27-2022 End: 07-28-2022 Evaluation and management [...] Facility:H1 Start: 05-17-2022 End: 05-17-2022 ambulatory SCARLET CUIREL Facility:H1 Start: 05-04-2022 End: 05-05-[address] [...] Facility:H1 Start: 11-03-2021 End: 11-03-2021 ambulatory Mirella Welchpastora Other [facility] Other Start: 11-03-2021 Telephone encounter Mirella Escoabr [facility] Start: 10-29-2021 Encounter for genera l adult medical examination without abnormal findings CIELO BOSTON [facility] Start: 10-23-2021 End: 10-24-2021 ambulatory CIELO BOSTON Facility:H1 Start: 10-23-2021 End: 10-24-2021 Encounter for general adult medical examination without abnormal findings CIELO BOSTON Facility:H1 Start: 10-20-2021 End: 10-20-2021 ambulatory Cielo Boston Other [facility] Other Start: 10-20-2021 Encounter for genera l adult medical examination without abnormal findings Cielo Boston [facility] [place] Start: 10-20-2021 Initial preventive medicine new pt age 18-39yrs Cielo Boston [facility] [place] Start: 10-14-2021 End: 10-14-2021 ambulatory Cielo Boston Other [facility] Other Start: 10-14-2021 Telephone encounter Cielo Boston [facility] [place] Procedures Date Procedure Procedure Detail Performing Clinician Start: 06-08-2024 Urnls dip stick/tabl et rgnt non-auto w/o micrscp Azeem Erik DO Work Phone: Start: 05-17-2024 [facility] PREG QUANT HCG Core y Erik DO Work Phone: Start: 05-15-2024 [facility] PREG QUANT HCG Core y Erik DO Work Phone: Start: 04-25-2024 IGP,APTIMA HPV,AGE GDLN Azeem Erik DO Work Phone: Start: 07-27-2022 Delivery of Products of Conception, External Approach DR AZEEM VALENCIA . Start: 07-27-2022 Repair Perineum Skin , External Approach DR AZEEM VALENCIA . Plan of Treatment Date Care Activity Detail Author Start: 07-05-2024 End: 07-05-2024 Patient encounter procedure 07/05/2024 1:50 PM EDT Routine [facility] [address] [place] [address] Azeem Valencia, [address] [place] [address] [facility] Start: 06-08-2024 End: 06-08-2025 ABO/Rh ABO/Rh Lab Routine Missed menses , unspecified gestational age Expected: 06/08/2024 (Approximate), Expires: 06/08/2025 [facility] Comment on above: Expected: 06/08/2024 (Approximate), Expires: 06/08/2025 Start: 06-08-2024 End: 06-08-2025 Blood type and Indirect antibody screen panel - Blood Type and screen Lab Routine Missed menses , unspecified gestational age Expected: 06/08/2024 (Approximate), Expires: 06/08/2025 [facility] Work Phone: Comment on above: Expected: 06/08/2024 (Approximate), Expires: 06/08/2025 Start: 06-08-2024 End: 06-08-2025 Drugs of abuse panel - Urine by Screen method Rapid drug screen, urine Lab Routine , unspecified gestational age Encounter for supervision of normal first in first trimester Expected: 06/08/2024 (Approximate), Expires: 06/08/2025 [facility] Comment on above: Expected: 06/08/2024 (Approximate), Expires: 06/08/2025 Start: 04-25-2024 End: 04-25-2024 Patient encounter procedure [facility] Comment on above: Arrived Bacteria identified in Urine by Culture Urine culture Microbiology Routine Missed menses Ordered: 06/08/2024 [facility] Comment on above: Ordered: 06/08/2024 CBC W Auto Different ial panel - Blood CBC and differential Lab Routine Missed menses , unspecified gestational age Ordered: 06/08/2024 [facility] Comment on above: Ordered: 06/08/2024 Cytology Cervical or vaginal smear or scraping study Pap Smear Pathology and Cytology Routine Well woman exam with routine gynecological exam Ordered: 04/25/2024 [facility] Work Phone: Comment on above: Ordered: 04/25/2024 Hemoglobin A1c/Hemoglobin.total in Blood Hemoglobin A1c Lab Routine Missed menses , unspecified gestational age Ordered: 06/08/2024 [facility] Comment on above: Ordered: 06/08/2024 Hepatitis B virus surface Ag [Presence] in Serum or Plasma by Immunoassay Hepatitis B surface antigen Lab Routine Missed menses , unspecified gestational age Ordered: 06/08/2024 [facility] Comment on above: Ordered: 06/08/2024 Hepatitis C virus Ab [Presence] in Serum or Plasma by Immunoassay Hepatitis C antibody Lab Routine Missed menses , unspecified gestational age Ordered: 06/08/2024 [facility] Comment on above: Ordered: 06/08/2024 HIV-1/HIV-2 antigen/antibody combination immunoassay HIV-1 and HIV-2 antibodies Lab Routine Missed menses , unspecified gestational age Ordered: 06/08/2024 [facility] Comment on above: Ordered: 06/08/2024 Reagin Ab [Presence] in Serum by RPR RPR Lab Routine Missed menses , unspecified gestational age Ordered: 06/08/2024 [facility] Comment on above: Ordered: 06/08/2024 Rubella antibody, IgG Rubella an tibody, IgG Lab Routine Missed menses , unspecified gestational age Ordered: 06/08/2024 [facility] Comment on above: Ordered: 06/08/2024 Payers Date Payer Category Payer Private Health Insurance [employer] [id number] 2024 Unknown [id number] 2023 Private Health Insurance [id number] 2021 Managed Care HMO (unspecified) [id number] 1996 Unknown [id number] 2.16.840.1.893017.3.579.2. 593 1996 Unknown [id number] 2.16.840.1.373329.3.579.2. 593 1996 Unknown [id number] 2.16.840.1.067711.3.579.2. 593 1996 Unknown [id number] 2.16.840.1.326595.3.579.2. 593 1996 Unknown [id number] 2.16.840.1.427645.3.579.2. 593 1996 Unknown [id number] 2.16.840.1.030471.3.579.2. 593 1996 Unknown [id number] 2.16.840.1.602480.3.579.2. 593 1996 Unknown [id number] 2.16.840.1.213979.3.579.2. 593 1996 Unknown [id number] 2.16.840.1.253241.3.579.2. 593 1996 Unknown [id number] 2.16.840.1.598688.3.579.2. 593 1996 Unknown [id number] 2.16.840.1.220088.3.579.2. 593 1996 Unknown [id number] 2.16.840.1.382481.3.579.2. 593 1996 Unknown [id number] 2.16.840.1.320416.3.579.2. 593 1996 Unknown [id number] 2.16.840.1.403996.3.579.2. 593 1996 Unknown [id number] 2.16.840.1.827716.3.579.2. 593 1996 Unknown [id number] 2.16.840.1.635889.3.579.2. 1259 1996 Unknown [id number] 2.16.840.1.220407.3.579.2. 1259 1996 Unknown [id number] 2.16.840.1.167802.3.579.2. 1259 1996 Unknown [id number] 2.16.840.1.474406.3.579.2. 9 1996 Unknown [id number] 2.16.840.1.914785.3.579.2. 1259 1959 Private Health Insurance [id number] 1959 Private Health Insurance [id number] 1959 Unknown [id number] 2.16.840.1.843651.19 Social History Date Type Detail Facility Unknown if ever smoked [facility] Other Start: 03-12-2023 End: 07-23-2023 Sex Assigned At [facility] Start: 11-11-2022 End: 01-29-2023 Tobacco smoking status HIIS Never smoked tobacco [facility] Start: 11-11-2022 Tobacco use and exposure Smokeless tobacco non-user [facility] Start: 05-13-2023 End: 06-08-2024 Alcohol intake Current drinker of alcohol (finding) [facility] Start: 03-12-2023 End: 07-23-2023 History of Social function [facility] How often to you hav e a drink containing alcohol? Monthly or less [facility] Average Number of Drinks Not on file [facility] Start: 09-06-2022 Alcohol Comment drinks less than monthly in the past year [facility] Start: 1995 Sex Assigned At Female [facility] Start: 09-07-2022 Gender identity Identifies as female gender (finding) [facility] Start: 09-07-2022 Sexual orientation Heterosexual (finding) [facility] Start: 04-20-2024 Sex Female (finding) [facility] Start: 04-24-2024 [facility] Clinical Notes 07-10-2020 to 06-08-2024 Maty Sanchez, CREDIT DEPARTMENT MANAGER - 06/08/2024 2:00 PM Katey Yeboah, PAULA - 04/25/2024 11:00 AM Laura Fletcher NP - 01/28/2024 12:25 PM SHAD Sheridan - 05/13/2023 9:40 AM EST Note Date & Type Note Facility 06-08-2024 History of Presen t illness Narrative Reason for Appointment: Patient ID: Lakeisha Bell is a 28 y.o. female who presents for Amenorrhea Patient presents today for a Nurse OB Intake appointment. Patient is 8w3d with a Estimated Date of Delivery: 01/15/25 OB History Para Term AB Living 3 2 2 2 SAB IAB Ectopic Multiple Live Births 2 # Outcome Date GA Lbr Emmett/2nd Weight Sex Type Anes PTL Lv 3 Current 2 Term 07/27/22 8 lb 2 oz F Vag-Spont HILTON 1 Term 04/18/21 7 lb 11 oz F Vag-Spont HILTON Obstetric Comments Last pap smear date 04/25/2021 neg Current Medications: currently has no medications in their medication list. Medical History: Active Ambulatory Problems Diagnosis Date Noted No Active Ambulatory Problems Resolved Ambulatory Problems Diagnosis Date Noted No Resolved Ambulatory Problems Past Medical History: Diagnosis Date COVID 04/09/2021 Metatarsus adductus of left foot Family History Problem Relation Name Age of Onset Graves' disease Mother Social History Tobacco Use Smoking status: Never Smokeless tobacco: Never Vaping Use Vaping status: Never Used Substance Use Topics Alcohol use: Yes Comment: drinks less than monthly in the past year Drug use: Never History reviewed. No pertinent surgical history. No Known Allergies Vitals: Estimated body mass index is 29.48 kg/m as calculated from the following: Height as of 09/08/22: 5' 7 . Weight as of this encounter: 188 lb 3.2 oz. BP: 120/70 Patient's last menstrual period was 04/10/2024. Assessment/Plan Diagnoses and all orders for this visit: Missed menses - Type and screen; Future - ABO/Rh; Future - CBC and differential - Hemoglobin A1c - RPR - Rubella antibody, IgG - Hepatitis B surface antigen - Hepatitis C antibody - HIV-1 and HIV-2 antibodies - Urine culture - POCT , urine manually resulted - POCT urinalysis dipstick manually resulted , unspecified gestational age - Type and screen; Future - ABO/Rh; Future - CBC and differential - Hemoglobin A1c - RPR - Rubella antibody, IgG - Hepatitis B surface antigen - Hepatitis C antibody - HIV-1 and HIV-2 antibodies - Rapid drug screen, urine; Future Encounter for supervision of normal first in first trimester - Rapid drug screen, urine; Future Nurse Note: OB Intake: Patient presents today for first OB visit. Patients history has been reviewed in great detail including any potential risks. Patient signed consent forms and patient desires testing in both trimesters. Patient currently has no complaints and has been advised to drink 6-8 glasses of water a day, eat no raw or undercooked meat, and stay away from [facility]. Patient has also been advised to not change litter boxes and eat 6 small meals a day. Patient has been consulted regarding the do's and don'ts of . Patient was given labs and all questions and concerns were answered. Henniker ordered and patient aware to have this with her intake labs when she is 9 weeks. Follow Up: Patient is to return in 4 weeks for routine OB appointment. Follow Up: Patient is to have labs drawn at directed and return to office for initial OB appointment with provider. Patient may call office as needed with any concerns or questions. Nurse Visit Completed by: Maty Sanchez LPN documented in this encounter [facility] 04-25-2024 History of Presen t illness Narrative Reason for Appointment: Patient ID: Lakeisha Bell is a 28 y.o. female who presents for [facility] Women Visit Patient presents today for Annual [...] nursing note reviewed. Exam conducted with a precision lens polisher present. Vitals: Estimated body mass index is [...] Azeem Valencia DO documented in this encounter [facility] 01-28-2024 History of Presen t illness Narrative [...] organism See 1 documented in this encounter [facility] 05-13-2023 History of Presen t illness Narrative [...] of SHAD Thayer documented in this encounter [facility] 01-29-2023 Evaluation note Encounter Date Diagnosis Assessment Notes Jan, Chronic sinusitis, unspecified (ICD-10 - J32.9) Finish antibiotics. Stay hydrated. Discussed GI effects w Augmentin. Jan, Other specified bacterial agents as the cause of diseases classified elsewhere (ICD-10 - B96.89) Jan, Other Discussed wellness needs and overall care w future treatment options. [facility] Other 07-25-2022 Evaluation note* Encounter Date Diagnosis [...] further questions at conclusion of office visit. [facility] Other 01-01-2022 History general Narrative - Reported* Type Description Date Medical History Cellulitis as a child Surgical History hand surgery 2003 Hospitalization History childbirth 03/2021 [facility] Other 04-14-2021 NotePatient Education Materials Follows: Pilonidal [...] these instructions at home: Medicines ? Take uipr-vpy-nlpgcvd and prescription medicines only as told by [...] fried or sweet foods. ? Take an htqa-gwx-wagokxm or prescription medicine for constipation. ? You will need to have a caregiver help you manage wound care and dressing changes. Your caregivershould: ? Wash his or her hands with soap and water before changing your dressing. If soap and water are not available, your caregiver should use hand engineer fishing vessel. ? Check your wound every day for [...] Document Revised: 01/05/2019 Docum (more content not included)...[facility] noteNo InformationNort [employer] Other Evaluation note* Diagnosis Weight gain Other symptoms concerning nutrition, metabolism, and development Encounter for weight management [facility] Work Phone: Evaluation note* Diagnosis Acute non-recurrent maxillary sinusitis- Primary Acute cough Acute bronchitis, unspecified organism History of candidal vulvovaginitis [facility] Diagnosis Well woman exam with routine gynecological exam Routine gynecological examination documented [facility] encounter [facility]* Diagnosis Missed menses , unspecified gestational age Encounter for supervision of normal first in first trimester documented in this encounter [facility] Summary Purpose Family History No Family History Records Found Relationship Condition Age at Onset Recorded Date/T mayelin Not Specified Graves' disease Unknown Relationship Condition Age at Onset Recorded Date/T mayelin mother Graves' disease Unknown Advance Directives No Advanced Directives Records Found Advance Directive Response Recorded Date/ Time Advance Directives No July 20 10:06am Advance Directive Response Recorded Date/ Time Advance Directives No July 20 9:06am Chief Complaint and Reason for Visit Chief Complaint ear pain Chief Complaint Admit Date Knot on Neck April 20, 2024 9 :10am Additional Source Comments INFORMATION SOURCE (unrecogn ized section and content) DATE CREATED AUTHOR 07/21/2020 [facility] DATE CREATED AUTHOR AUTHOR'S ORGANIZ ATION 07/31/2022 [facility] DATE CREATED AUTHOR AUTHOR'S ORGANIZ ATION 06/11/2024 [facility] EPIC REASON FOR VISIT (unrecogniz ed section and content) Reason Comments Weight Management Adipex #6 Reason Comments Well Women Visit Reason Comments Amenorrhea Care Teams (unrecognized sec tion and content) Dietary Supervisor Relationship Specialty Start Date End Date Cielo Boston DO [address] [place] [address] PCP - General Family Medicine 09/08/22 Team Status: Active Member Role Status Dates Perri Carmona MD Primary Care Provider Active Team Status: Inactive Member Role Status Dates Perri Carmona MD Primary Care Provide r, Attending Provider Active Start: July 22, 2023 End: July 22, 2023 Dietary Supervisor Relationship Specialty Start Date End Date Cielo Boston DO [address] [facility] [place] [address] PCP - General Family Medicine 09/08/22 Team Status: Inactive Member Role Status Dates Perri Carmona MD Primary Care Provide r, Attending Provider Active Start: April 20, 2024 End: April 20, 2024 Dietary Supervisor Relationship Specialty Start Date End Date Cielo Boston DO [address] [place] [address] PCP - [facility] Family Medicine 09/08/22 Dietary Supervisor Relationship Specialty Start Date End Date Cielo Boston DO [address] [place] [address] PCP - [facility] 09/08/22 Dietary Supervisor Relationship Specialty Start Date End Date Cielo Boston DO [address] [place] [phone] PCP - [facility] 09/08/22 Dietary Supervisor Relationship Specialty Start Date End Date Cielo Boston DO [address] [place] [address] PCP - [facility] Medicine 09/08/22 Goals (unrecognized section and content) [...] BE BASED ON THE PRIMARY CLINICAL RECORDS. [employer] provides no warranty or guarantee of the accuracy or completeness of information in this document.
[2024-06-13 10:00] LABS: Basophils Percent Auto 0.2 % (0.2-2.0); Eosinophils Absolute Auto 0.1 10^3/uL (0.0-0.7); Eosinophils Percent Auto 0.9 % (0.9-7.0); Hematocrit 39.8 % (36.0-48.0); Hemoglobin 14.1 g/dL (12.0-16.0); Immature Granulocytes Abs Auto 0.02 10^3/uL (0.00-0.03); Immature Granulocytes Pct Auto 0.2 % (0.0-0.5); Lymphocytes Absolute Auto 1.6 10^3/uL (1.2-3.8); Mean Corpuscular HGB Conc 35.4 g/dL (29.9-35.2); Mean Corpuscular Hemoglobin 32.6 pg (26.7-34.0); Mean Corpuscular Volume 91.9 fL (81.0-99.0); Mean Platelet Volume 10.4 fL (9.5-13.5); Monocytes Absolute Auto 0.3 10^3/uL (0.3-0.8); Monocytes Percent Auto 4.1 % (1.7-12.0); Neutrophils Absolute Auto 6.1 10^3/uL (1.4-6.5); Neutrophils Percent Auto 74.6 % (43.0-75.0); Platelet Count 221 10^3/uL (150-450); Red Blood Count 4.33 10^6/uL (4.20-5.40); White Blood Count 8.2 10^3/uL (4.0-11.0)
[2024-06-13 10:19] LABS: Amphetamine Screen Urine NEGATIVE (NEGATIVE); Barbiturates Screen Urine NEGATIVE (NEGATIVE); Benzodiazepines Screen Urine NEGATIVE (NEGATIVE); Buprenorphine Screen Urine NEGATIVE (NEGATIVE); Cannabinoid Screen Urine NEGATIVE (NEGATIVE); Cocaine Screen Urine NEGATIVE (NEGATIVE); Methadone Screen Urine NEGATIVE (NEGATIVE); Methamphetamines Screen Urine NEGATIVE (NEGATIVE); Opiate Screen Urine NEGATIVE (NEGATIVE); Oxycodone Screen Urine NEGATIVE (NEGATIVE); Phencyclidine Screen Urine NEGATIVE (NEGATIVE); Tricyclic Antidepressant Urine NEGATIVE (NEGATIVE)
[2024-06-13 10:41] LABS: BOX Test Reference Lab UNITY; BOX Test Sent Out UNITY
[2024-06-13 10:46] LABS: Estimated Average Glucose 88 mg/dL; Glycohemoglobin A1C 4.7 % (4.5-6.2)
[2024-06-14 06:08] LABS: HBsAg Screen Negative (Negative); HCV Ab Non Reactive (Non Reactive); HIV Ab/p24 Ag Screen Non Reactive (Non Reactive)
[2024-06-14 07:13] LABS: Rubella Antibodies, IgG 3.04 index (Immune >0.99)
[2024-06-14 14:09] LABS: Rapid Plasma Reagin, Quant Non Reactive titer (NonRea<1:1)
== END 2024-06-13 09:29 | disposition home or self-care (01) ==
LOC: LAB 09:29
PROVIDERS: PCP Family Medicine; Visit Provider Obstetrics & Gynecology
DX: N92.6 Irregular menstruation, unspecified (principal); Z34.01 Encounter for supervision of normal first pregnancy, first trimester; Z36.0 Encounter for antenatal screening for chromosomal anomalies
CPT/HCPCS: 36415; 80307; 83036; 85025; 86592; 86762; 86803; 86850; 86900; 86901; 87086; 87340; 87389

== ENCOUNTER 2024-10-17 07:24 | Outpatient (OUT) | payer OTHER, SELFPAY ==
--- OUTSIDE RECORDS SUMMARY | 2024-10-10 08:00 | XMS_ITS | Encounter Summary ---
Author Organization [facility] Address [address] [place] [address] Care Team Providers Care Cut To Length Operator Name Role Phone Chanel Hilton DO Primary Care Provider [phone] Encounter Details Date Type Department Care Team (Late st Contact Info) Description 10/10/2024 8:00 AM EDT Ancillary Procedure [facility] [address] [place] [address] Social History Tobacco Use Types Packs/Day Years Used Date Smoking Tobacco: Never Smokeless Tobacco: Never Alcohol Use Standard Drinks/Week Comments Yes 0 (1 standard drink = 0.6 oz pure alcohol) drinks less than monthly in the past year AUDIT-C Answer Date Recorded Q1: How often do you have a drink containing alc ohol? Monthly or less 03/12/2023 Average Number of Drinks Not on file 023 Frequency of Binge Drinking Not on file 02/26 Estimated Date of Delivery Comme nts Yes 01/15/2025 Based on last me nstrual period of 04/10/2024 Sex and Gender Information Value Date Recorded Sex Assigned at Female 09/07/2022 12:08 PM EDT Legal Sex Female 7:34 PM EDT Gender Identity Female 09/07/2022 12:08 PM EDT Sexual Orientation Straight 09/07/2022 12 :08 PM EDT documented as of this encounter Plan of Treatment Upcoming Encounters Date Type Department Care Team (Late st Contact Info) Description 10/19/2024 9:50 AM EDT Routine [facility] [address] [place] [address] Jesus Valencia DO [address] [place] [address] documented as of this encounter Goals Goal Patient Goal Type Associated Problems Recent Progress Patient-Stated? Author Reminders Care Plan OB Reminders No Open Scheduling, Background documented as of this encounter Procedures Procedure Name Priority Date/Time Associated Diagnosis Comments US OB LIMITED 1+ FETUSES Routine 10/10/2024 8:39 AM EDT Second trimester ([facility] 24 weeks gestation of ([facility]) Encounter for follow-up ultrasound of anatomy ([facility]) documented in this encounter Results * US OB limited 1+ fetuses (10/10/2024 8:39 AM EDT) Anatomical Region Laterality Modality Body Ultrasound 10/11/2024 6:32 PM EDT Impressions 10/12/2024 8:07 AM EDT Normal cardiac anatomy and outflow tracts, appropriate for this gestational age TRANSCRIBED BY: ELECTRONICALLY SIGNED BY: Sarabjit Frias MD Narrative 10/12/2024 8:07 AM EDT FINDINGS: Single viable intrauterine with cephalic presentation and normal cardiac activity of 133 bpm. Current exam demonstrates an adequate 4 chamber heart view with normal outflow tracts. Procedure Note Sarabjit Frias MD - 10/12/2024 FINDINGS: Single viable intrauterine with cephalic presentation and normalcardiac activity of 133 bpm. Current exam demonstrates an adequate 4chamber heart view with normal outflow tracts. IMPRESSION: Normal cardiac anatomy and outflow tracts, appropriate for thisgestational age TRANSCRIBED BY: ELECTRONICALLY SIGNED BY: Sarabjit Frias MD us Ashley Redman SERVICE OFFICER IMG OB US PROCEDURES Final Re sult documented in this encounter Visit Diagnoses Not on filedocumented in this encounter Additional Health Concerns Active Problems Noted Date Diagnosed Date OB Reminders 06/13/2024 documented as of this encounter Care Teams Cut To Length Operator Relationship Specialty Start Date End Date Chanel Hilton DO [address] [facility] [facility] [place] [address] PCP - General Family Medicine 09/08/22 documented as of this encounter
--- OUTSIDE RECORDS SUMMARY | 2024-10-17 07:26 | XMS_ITS | Encounter Summary ---
Author Organization [facility] Address [address] [place] [address] Care Team Providers Care Financial Reserve Clerk Name Role Phone Chanel Hilton Primary Care Provider [phone] Encounter Details Date Type Department Care Team (Latest Contact Info) Description 10/16/2024 Travel Social History Tobacco Use Types Packs/Day Years [...] AM EDT Routine [facility] [address] [facility] [place] [phone] Jesus Valencia, DO [address] [place], [place] [id number] documented as of this encounter Goals Goal Patient Goal Type Associated Problems Recent Progress Patient-Stated? Author Reminders Care Plan OB Reminders No Open Scheduling, Background documented as of this encounter Visit Diagnoses Not on filedocumented in this encounter Additional Health Concerns Active Problems Noted Date Diagnosed Date OB Reminders 06/13/2024 documented as of this encounter Care Teams Financial Reserve Clerk Relationship Specialty Start Date End Date Chanel Hilton DO [address] [place] [address] PCP - General Family Medicine 09/08/22 documented as of this encounter
--- OUTSIDE RECORDS SUMMARY | 2024-10-17 07:26 | XMS_ITS | Encounter Summary ---
Author Organization [facility] Address [address] [place] [address] Care Team Providers Care Traffic Control Signaler Name Role Phone Chanel Hilton Primary Care Provider [phone] Encounter Details Date Type Department Care Team (Latest Contact Info) Description 10/04/2024 Travel Social History Tobacco Use Types Packs/Day [...] AM EDT Routine [facility] [address] [facility] [phone] Jesus Valencia, DO [address] [place], [place] [id number] documented as of this encounter Goals Goal Patient Goal Type Associated Problems Recent Progress Patient-Stated? Author Reminders Care Plan OB Reminders No Open Scheduling, Background documented as of this encounter Visit Diagnoses Not on filedocumented in this encounter Additional Health Concerns Active Problems Noted Date Diagnosed Date OB Reminders 06/13/2024 documented as of this encounter Care Teams Traffic Control Signaler Relationship Specialty Start Date End Date Chanel Hilton DO [address] [facility] [place] [address] PCP - General Family Medicine 09/08/22 documented as of this encounter
--- OUTSIDE RECORDS SUMMARY | 2024-10-17 07:27 | XMS_ITS | CCD ---
Author Organization [facility] Care Team Providers Care Health And Wellness Director Name Role Phone Schwerer, Cielo Unavailable Fitt [...] REQUEST, NONE LISTED Primary Care Unavaila ble SCARLET CURIEL Admitting Unavailable DOMINIQUE POOLE Consulting Unavailable REQUEST, NONE LISTED Primary Care Unavaila ble ERIK ., DR GANN Consulting Unavailable ERIK ., DR GANN Attending Unavailable ERIK ., DR GANN Admitting Unavailable GWEN II, ADELINA Consulting Unavailable ERIK ., DR GANN Procedure Practitioner Unavail able WILLIE .REINA Attending Unavailable Farzana Long Consulting Unavailable REQUEST, NONE LISTED Primary Care Unavaila ble WILLIE ., REINA Admitting Unavailable WILLIE ., REINA Consulting Unavailable HOMEWOOD, DR MIMI Contreras Consulting Unavailable ERIK ., [...] ERIK ., DR GANN Admitting Unavailable Zieber, Farzana Consulting Unavailable ERIK ., DR GANN Admitting Unavailable ERIK ., DR GANN Attending Unavailable ERIK ., DR GANN Consulting Unavailable REQUEST, DR NONE LISTED Primary Care Unavaila ble Zieber, Farzana Consulting Unavailable ERIK ., DR GANN Admitting Unavailable ERIK ., DR GANN Attending Unavailable REQUEST, DR NONE LISTED Primary Care Unavaila ble HOMEWOOD, DR MIMI Contreras Consulting Unavailable ERIK ., DR GANN Consulting Unavailable ERIK ., DR GANN Attending Unavailable ERIK ., DR GANN Consulting Unavailable REQUEST, DR NONE LISTED Primary Care Unavaila ble ERIK ., DR GANN Admitting Unavailable ERIK ., DR GANN Admitting Unavailable ERIK ., DR GANN Attending Unavailable ERIK ., DR GANN Consulting Unavailable REQUEST, DR NONE LISTED Primary Care Unavaila ble CarmonaPerri Unavailable [facility] Primary Care Provider [phone] [facility] Primary Care Provider [phone] [facility] Primary Care Provider [phone] JESUS VALENCIA Attending Unavailable ERIKJESUS Attending Unavailable REINA TAPIA Attending Unavailable REINA TAPIA Referring Unavailable YOLIE FLETCHER Attending Unavailable ERIKJESUS Attending Unavailable ERIKJESUS Attending Unavailable APRYL REDMAN Referring Unavailable Medications Current Medications Medication Drug Class(es) [...] Drug Class(es) Dates Sig (Normalized) Sig (Original) [id number] 200 actuat albuterol 0.09 mg/actuat metered dose [...] source) Dehydration; Translations: [DEHYDRATION] Onset: 05-19-2022 Episodic Immunizations and screening for infectious disease (4 sources) Encounter for screening for human papillomavirus (HPV); Translations: [Contact with and (suspected) exposure to infections with a predominantly sexual mode of transmission] Onset: 02-26-2022 08-02-2024 Episodic Menstrual disorders (5 sources) Irregular menstruation, [...] 05-10-2023 Episodic Other and delivery including normal (20 sources) Single live ; Translations: [Encounter for supervision of normal , unspecified, third trimester] Onset: 12-12-2021 Episodic Other screening for suspected conditions (not mental disorders or infectious disease) (13 sources) Encounter for screening for malignant neoplasm of cervix; Translations: [Encounter for screening for diabetes mellitus] Onset: 12-29-2021 Episodic Other upper respiratory infections (2 sources) [...] WEEKS GESTATION OF ] Onset: 05-05-2022 Episodic Residual codes; unclassified (2 sources) Gestation period, 12 weeks; Translations: [12 weeks gestation of ] 07-05-2024 Episodic Residual codes; unclassified (2 sources) Gestation period, 16 weeks; Translations: [16 weeks gestation of ] 08-02-2024 Episodic Residual codes; unclassified (2 sources) Gestation period, 20 weeks; Translations: [20 weeks gestation of ] 08-30-2024 Episodic Residual codes; unclassified (2 sources) Gestation period, 24 weeks; Translations: [24 weeks gestation of ] 09-27-2024 Episodic Unclassified (12 sources) OB Reminders Onset: 06-13-2024 06-13-2024 Past or Other Problems Problem Classification Problem Date Documented Date Episodic/Chronic Other ear and sense organ disorders (1 source) Impacted cerumen, bilateral Onset: 10-20-2021 Resolved: 10-20-2021 Episodic Other female genital disorders (1 source) Other specified noninflammatory disorders of vagina; Translations: [OTH SPEC NONINFLAMMATORY D/O VAGINA] Onset: 02-26-2022 Episodic Other nutritional; endocrine; and metabolic disorders (2 sources) Abnormal weight gain; Translations: [ABNORMAL WEIGHT GAIN] Onset: 10-20-2021 Resolved: 10-20-2021 Episodic Unclassified (4 sources) Plastic surgery; Translations: [Plastic surgery, other] Results Test Name Value Interpretation Reference Range Facility US OB LIMITED 1+ FETUSESon 0 10-04-2024 US OB LIMITED 1+ FETUSES FINDINGS: Single viable intrauterine with cephalic presentation and normal cardiac activity of 133 bpm. Current exam demonstrates an adequate 4 chamber heart view with normal outflow tracts. IMPRESSION: Normal cardiac anatomy and outflow tracts, appropriate for this gestational age TRANSCRIBED BY: ELECTRONICALLY SIGNED BY: Sarabjit Frias MD Normal Not Available Comment on above: Order Comment: US OB INCOMPLETE ANATOMY Estimated Date of Delivery: 01/15/25 Gestational Age as of 09/27/2024: 24w2d US OB 14+ WEEKS ANATOMY SCAN on 08-30-2024 US OB 14+ WEEKS ANATOMY SCAN EXAM: US OB 14+ WEEKS ANATOMY SCAN HISTORY: anatomy. COMPARISON: Ob ultrasound 06/08/2024. TECHNIQUE: Two-dimensional transabdominal grayscale ultrasound imaging of the pelvis was performed. FINDINGS: Gestation: Single Presentation: Cephalic Cardiac Activity: 148 beats per minute Placental Location: Anterior with no sonographic abnormalities identified. Distance from Placental Tip to Cervix: 6.0 cm Cervical Length: 4.6 cm Amniotic Fluid: Appears adequate MEASUREMENTS: BPD: 4.3 cm EGA: 18 weeks 6 days HC: 17.4 cm EGA: 20 weeks 0 days AC: 15.0 cm EGA: 20 weeks 1 days FL: 3.5 cm EGA: 21 weeks 1 days HC/AC Ratio: 1.16 The gestational age by today's ultrasound is 20 weeks 0 days (+/- 10 days gestation). Estimated Weight: 357 grams, +/- 53 grams ( 0 lb 13 oz). Weight Percentile for gestational age: 56 % ANATOMY C-Spine: Unremarkable T-Spine: Unremarkable L-Spine: Unremarkable Sacrum: Unremarkable Four Chamber Heart: Not visualized LVOT: Not visualized RVOT: Not visualized Stomach: Unremarkable Kidneys: Unremarkable Bladder: Unremarkable Diaphragm: Unremarkable Cord insertion: Unremarkable Cord vessels: Three Lateral Ventricles: Unremarkable Cerebellum: Unremarkable Cisterna Magna: Unremarkable Posterior Fossa: Unremarkable Right Femur: Unremarkable Left Femur: Unremarkable Right Tib/Fib: Unremarkable Left Tib/Fib: Unremarkable Right Rad/Ulnar: Unremarkable Left Rad/Ulnar: Unremarkable Right Humerus: Unremarkable Left Humerus: Unremarkable Nose/Lips: Unremarkable Profile: Unremarkable Orbits: Unremarkable IMPRESSION: 1. Single, live intrauterine gestation 20 weeks, 2 days by LMP. Today's ultrasound measurements correlate with a gestational age of 20 weeks 0 days. Estimated weight is 357 grams, +/- 53 grams ( 0 lb 13 oz) which correlates to 56 %. CARY is 01/17/2025. 2. Unremarkable anatomy with limited visualization of the four-chamber heart and outflow tracts. A short-term follow-up ultrasound is recommended. Interpreted by: Electronically signed by VALERIA SUERO II, MD, PHD at 31-Aug-2024 08:53:46 AM [facility] Normal Not Available Comment on above: Order Comment: US OB ANATOMY SINGLE W US OB CERVICAL LENGTH Estimated Date of Delivery: 01/15/25 Gestational Age as of 08/02/2024: 16w2d Urinalysis macro (dipstick) panel (U)on 08-30-2024 Bilirubin, UA Negative Negative - 4(70) +++ mg/dL [facility] Blood, UA Negative Negative - 50 Cassius/mcL [facility] Clarity, UA Clear [facility] Color, UA Yellow [facility] Glucose, UA Negative Negative - 2000(110) ++++ mg/dL [facility] Interpretation and review of laboratory results Normal [facility] Ketones, UA Negative Negative - 160(16) ++++ mg/dL [facility] Leukocytes, UA Negative Negative - 500+++ Shane/mcL [facility] Nitrite, UA Negative Negative - Positive [facility] pH, UA 6.5 5 - 9 [facility] Protein, UA Negative Negative - 2000(20) ++++ mg/dL [facility] Spec Grav, UA 1.025 1 - 1.03 [facility] Urobilinogen, UA 0.2 0.2 - 12 mg/dL [facility] RECURRENT VAGINITIS (HTRX)on 08-04-2024 ATOPOBIUM VAGINAE 0 [facility] ATOPOBIUM VAGINAE Not detected [facility] BVAB 2,3 (BACTERIAL VAGINOSIS ASSOCIATED BACTERIA 2, 3); MOBILUNCUS SPP 26.49 Abnormal [facility] BVAB 2,3 (BACTERIAL VAGINOSIS ASSOCIATED BACTERIA 2, 3); MOBILUNCUS SPP Detected Abnormal [facility] JAS ALBICANS, PARAPSILOSIS, TROPICALIS 0 [facility] JAS ALBICANS, PARAPSILOSIS, TROPICALIS Not detected [facility] JAS GLABRATA 0 [facility] JAS GLABRATA Not detected [facility] JAS KRUSEI 0 [facility] JAS KRUSEI Not detected [facility] CHLAMYDIA TRACHOMATIS 0 [facility] CHLAMYDIA TRACHOMATIS Not detected [facility] GARDNERELLA VAGINALIS 0 [facility] GARDNERELLA VAGINALIS Not detected [facility] Interpretation and review of laboratory results Abnormal [facility] MEGASPHAERA (TYPES 1, 2) 0 [facility] MEGASPHAERA (TYPES 1, 2) Not detected [facility] MYCOPLASMA GENITALIUM 0 [facility] MYCOPLASMA GENITALIUM Not detected [facility] NEISSERIA GONORRHOEAE 0 [facility] NEISSERIA GONORRHOEAE Not detected [facility] TRICHOMONAS VAGINALIS 0 [facility] TRICHOMONAS VAGINALIS Not detected [facility] Urinalysis macro (dipstick) panel (U)on 08-02-2024 Bilirubin, UA Negative Negative - 4(70) +++ mg/dL [facility] Blood, UA Negative Negative - 50 Cassius/mcL [facility] Clarity, UA Clear [facility] Color, UA Yellow [facility] Glucose, UA Negative Negative - 1999(110) ++++ mg/dL [facility] Interpretation and review of laboratory results Normal [facility] Ketones, UA Negative Negative - 160(16) ++++ mg/dL [facility] Leukocytes, UA Negative Negative - 500+++ Shane/mcL [facility] Nitrite, UA Negative Negative - Positive [facility] pH, UA 6.5 5 - 9 [facility] Protein, UA Negative Negative - 1999(20) ++++ mg/dL [facility] Spec Grav, UA 1.02 1 - 1.03 [facility] Urobilinogen, UA 0.2 0.2 - 12 mg/dL [facility] Urinalysis macro (dipstick) panel (U)on 07-05-2024 Bilirubin, UA Negative Negative - 4(70) +++ mg/dL [facility] Blood, UA Negative Negative - 50 Cassius/mcL [facility] Clarity, UA Clear [facility] Color, UA Yellow [facility] Glucose, UA Negative Negative - 1999(110) ++++ mg/dL [facility] Interpretation and review of laboratory results Normal [facility] Ketones, UA Negative Negative - 160(16) ++++ mg/dL [facility] Leukocytes, UA Negative Negative - 500+++ Shane/mcL [facility] Nitrite, UA Negative Negative - Positive [facility] pH, UA 6 5 - 9 [facility] Protein, UA Negative Negative - 1999(20) ++++ mg/dL [facility] Spec Grav, UA 1.015 1 - 1.03 [facility] Urobilinogen, UA 0.2 0.2 - 12 mg/dL [facility] HCG ( test) Ql (U)o n 06-08-2024 Interpretation and review of laboratory results Abnormal [facility] Preg Test, Ur Positive Negative [facility] US OB TRANSVAGINALon 025 US OB TRANSVAGINAL EXAM: [...] II, MD, PHD at 11-Jun-2024 07:44:53 AM [facility] Normal Not Available Comment on above: Order Comment: US OB TRANSVAGINAL No LMP recorded. Urinalysis macro (dipstick) panel (U)on 06-08-2024 Bilirubin, UA Negative Negative - 4(70) +++ mg/dL [facility] Blood, UA Negative Negative - 50 Cassius/mcL [facility] Clarity, UA Clear [facility] Color, UA Yellow [facility] Glucose, UA Negative Negative - 1999(110) ++++ mg/dL [facility] Interpretation and review of laboratory results Normal [facility] Ketones, UA Negative Negative - 160(16) ++++ mg/dL [facility] Leukocytes, UA Negative Negative - 500+++ Shane/mcL [facility] Nitrite, UA Negative Negative - Positive [facility] pH, UA 6 5 - 9 [facility] Protein, UA Negative Negative - 1999(20) ++++ mg/dL [facility] Spec Grav, UA 1.025 1 - 1.03 [facility] Urobilinogen, UA 0.2 0.2 - 12 mg/dL [facility]H PREG QUANT HCGon 025 HCG QUANTITATIVE 1927 mIU/mL [facility] Comment on above: 5-50 0.2-1 WEEK 50-500 1-2 WEEKS 100-5,000 2-3 WEEKS 500-10,000 3-4 WEEKS 1,000-50,000 4-5 WEEKS 10,000-100,000 5-6 WEEKS 15,000-200,000 6-8 WEEKS 10,000-100,000 2-3 [facility]on 025 HCG QUANTITATIVE 643 mIU/mL [facility] Comment on above: 5-50 0.2-1 WEEK 50-500 1-2 WEEKS 100-5,000 2-3 WEEKS 500-10,000 3-4 WEEKS 1,000-50,000 4-5 WEEKS 10,000-100,000 5-6 WEEKS 15,000-200,000 6-8 WEEKS 10,000-100,000 2-[address] [facility] IGP,APTIMA HPV,AGE GDLNon AGE GDLN ACOG TESTING Note . [facility] Comment on above: TESTS RESULT FLAG UN ITS REF RANGE LAB Clinician Provided Cytology Information Source.............Cervix;Endocervix No. of containers..01 ThinPrep Vial Age Malu Moreno... FLAG LEGEND: L-Low Normal,H-High Normal,LL-Alert Low,HH-Alert High <-Panic Low,>-Panic High,A-Abnormal,AA-Critical Abnormal Performed at: 01 =G [facility] [id number] Hetal Estrella MD, IGP, RFX APTIMA HPV ASCU Note . [facility] Comment on above: TESTS RESULT FLAG UN ITS REF RANGE LAB DIAGNOSIS: 02 NEGATIVE FOR INTRAEPITHELIAL LESION OR MALIGNANCY. Specimen adequacy: 02 Satisfactory for evaluation. No endocervical component is identified. Performed by: Jenise Polanco, Yarn Washer . 02 Note: Note 02 The Pap [...] <-Panic Low,>-Panic High,A-Abnormal,AA-Critical Abnormal Performed at: [address] [phone] Hetal Estrella MD, Performed at: =G - [facility] [id number] Package Dyeing Machine Operator: Hetal Estrella MD, Phone: [phone] Performed at: - [facility] [id number] Package Dyeing Machine Operator: Hetal Estrella MD, Phone: [phone] BRUSH-SPATULA CERVIX ENDOCERVIX [facility] CBC AUTO DIFFon 07-28-2022 BASO # 0.0 103/ul Normal 0.0-0.1 [facility] Comment on above: Performed By: #### C BC ####[facility] [address] [address]Dr. Bee Titus Basophils/100 WBC (Bld) 0.2 % Normal 0.2-2.0 [facility] Comment on above: Performed By: #### C BC ####[facility] [address] [id number] Titus EO # 0.1 103/ul Normal 0.0-0.7 [facility] Comment on above: Performed By: #### C BC ####[facility] [address] [id number] Titus Eosinophils/100 WBC (Bld) 0.5 % Critically low 0.9-7.0 [facility] Comment on above: Performed By: #### C BC ####[facility] [address] [address]Dr. Bee Titus Erythrocyte distribution width (RBC) [Ratio] 13.4 % Normal 11.0-15.0 [facility] Comment on above: Performed By: #### C BC ####[facility] [address] [address]Dr. Bee Titus Hematocrit (Bld) [Volume fraction] 33.8 % Critically low 36.0-48.0 [facility] Comment on above: Performed By: #### C BC ####[facility] [address] [place], [place] [address]Dr. Bee Titus Hemoglobin (Bld) [Mass/Vol] 11.3 g/dL Critically low 12.0-16.0 [facility] Comment on above: Performed By: #### C BC ####[facility] [address] [place], [place] [address]Dr. Bee Titus IG # 0.05 10e3/ul Critically high 0.00-0.03 [facility] Comment on above: Performed By: #### C BC ####[facility] [address] [place], [place] [address]Dr. Bee Titus IG % 0.4 % Normal 0.0-0.5 [facility] Comment on above: Performed By: #### C BC ####[facility] [address] [place], [place] [address]Dr. Bee Titus LYMPH # 2.1 103/ul Normal 1.2-3.8 [facility] Comment on above: Performed By: #### C BC ####[facility] [address] [place], [place] [address]Dr. Bee Titus Lymphocytes/100 WBC (Bld) 15.9 % Critically low 20.5-60.0 [facility] Comment on above: Performed By: #### C BC ####[facility] [address] [place], [place] [address]Dr. Bee Tacho MANUAL DIFF REQ NO Normal [facility] Comment on above: Performed By: #### C BC ####[facility] [address] [phone]. Bee Tacho MCH (RBC) [Entitic mass] 30.1 pg Normal 26.7-34.0 [facility] Comment on above: Performed By: #### C BC ####[facility] [address] [address]Dr. Bee Titus MCHC (RBC) [Mass/Vol] 33.4 g/dL Normal 29.9-35.2 [facility] Comment on above: Performed By: #### C BC ####[facility] [address] [address]Dr. Bee Titus MCV (RBC) [Entitic vol] 90.1 fL Normal 81.0-99.0 [facility] Comment on above: Performed By: #### C BC ####[facility] [address] [place], [place] [address]DrEric Titus MONO # 0.7 103/ul Normal 0.3-0.8 [facility] Comment on above: Performed By: #### C BC ####[facility] [address] [place], [place] [address]Dr. Bee Titus Monocytes/100 WBC (Bld) 5.4 % Normal 1.7-12.0 [facility] Comment on above: Performed By: #### C BC ####[facility] [address] [place], [place] [address]DrEric Titus NEUT # 10.2 103/ul Critically high 1.4-6.5 [facility] Comment on above: Performed By: #### C BC ####[facility] [address] [place], [place] [id number] Titus Neutrophils/100 WBC (Bld) 77.6 % Critically high 43.0-75.0 [facility] Comment on above: Performed By: #### C BC ####[facility] [address] [place], [place] [address]DrEric Titus Platelet mean volume (Bld) [Entitic vol] 10.6 fL Normal 9.5-13.5 [facility] Comment on above: Performed By: #### C BC ####[facility] [address] [id number]. Bee Titus PLT 198 103/ul Normal 150-450 [facility] Comment on above: Performed By: #### C BC ####[facility] [address] [id number]. Bee Titus RBC 3.75 106/ul Critically low 4.20-5.40 [facility] Comment on above: Performed By: #### C BC ####[facility] [address] [id number]. Bee Titus WBC 13.1 103/ul Critically high 4.0-11.0 [facility] Comment on above: Performed By: #### C BC ####[facility] [address] [id number] Titus SCREENon 07-28-2022 SCREEN Negative Normal [facility] Comment on above: Performed By: #### F ETSCRN ####[facility] [address] [id number] Titus CBC AUTO DIFFon 07-27-2022 BASO # 0.0 103/ul Normal 0.0-0.1 [facility] Comment on above: Performed By: #### C BC #### [facility] [address] [address] [address] Bee Titus Basophils/100 WBC (Bld) 0.3 % Normal 0.2-2.0 [facility] Comment on above: Performed By: #### C BC #### [facility] [address] [address] [address] Bee Titus EO # 0.1 103/ul Normal 0.0-0.7 [facility] Comment on above: Performed By: #### C BC #### [facility] [address] [address] [address] Bee Titus Eosinophils/100 WBC (Bld) 0.7 % Critically low 0.9-7.0 [facility] Comment on above: Performed By: #### C BC #### [facility] [address] [place] [address] Dr. Bee Titus Erythrocyte distribution width (RBC) [Ratio] 13.2 % Normal 11.0-15.0 [facility] Comment on above: Performed By: #### C BC #### [facility] [address] [place] [address] Dr. Bee Titus Hematocrit (Bld) [Volume fraction] 35.8 % Critically low 36.0-48.0 [facility] Comment on above: Performed By: #### C BC #### [facility] [address] [place] [address] Dr. Bee Titus Hemoglobin (Bld) [Mass/Vol] 12.1 g/dL Normal 12.0-16.0 [facility] Comment on above: Performed By: #### C BC #### [facility] [address] [place] [address] Dr. Bee Titus IG # 0.06 10e3/ul Critically high 0.00-0.03 [facility] Comment on above: Performed By: #### C BC #### [facility] [address] [place] [address] Dr. Bee Titus IG % 0.5 % Normal 0.0-0.5 [facility] Comment on above: Performed By: #### C BC #### [facility] [address] [place] [address] Dr. Bee Titus LYMPH # 2.2 103/ul Normal 1.2-3.8 [facility] Comment on above: Performed By: #### C BC #### [facility] [address] [place] [address] Dr. Bee Titus Lymphocytes/100 WBC (Bld) 17.9 % Critically low 20.5-60.0 [facility] Comment on above: Performed By: #### C BC #### [facility] [address] [place] [address] Dr. Bee Titus MANUAL DIFF REQ NO Normal [facility] Comment on above: Performed By: #### C BC #### [facility] [address] [address] [address] Bee Titus MCH (RBC) [Entitic mass] 29.4 pg Normal 26.7-34.0 [facility] Comment on above: Performed By: #### C BC #### [facility] [address] [address] [address] Bee Titus MCHC (RBC) [Mass/Vol] 33.8 g/dL Normal 29.9-35.2 [facility] Comment on above: Performed By: #### C BC #### [facility] [address] [address] [address] Bee Titus MCV (RBC) [Entitic vol] 87.1 fL Normal 81.0-99.0 [facility] Comment on above: Performed By: #### C BC #### [facility] [address] [place] [address] Dr. Bee Titus MONO # 0.6 103/ul Normal 0.3-0.8 [facility] Comment on above: Performed By: #### C BC #### [facility] [address] [address] [address] Bee Titus Monocytes/100 WBC (Bld) 5.0 % Normal 1.7-12.0 [facility] Comment on above: Performed By: #### C BC #### [facility] [address] [address] [address] Bee Titus NEUT # 9.1 103/ul Critically high 1.4-6.5 [facility] Comment on above: Performed By: #### C BC #### [facility] [address] [address] [address] Bee Titus Neutrophils/100 WBC (Bld) 75.6 % Critically high 43.0-75.0 [facility] Comment on above: Performed By: #### C BC #### [facility] [address] [place] [address] Dr. Bee Titus Platelet mean volume (Bld) [Entitic vol] 11.1 fL Normal 9.5-13.5 [facility] Comment on above: Performed By: #### C BC #### [facility] [address] [address] [address] Bee Titus PLT 249 103/ul Normal 150-450 [facility] Comment on above: Performed By: #### C BC #### [facility] [address] [place], [place] [address] Dr. Bee Titus RBC 4.11 106/ul Critically low 4.20-5.40 [facility] Comment on above: Performed By: #### C BC #### [facility] [address] [address] [address] Bee Titus WBC 12.0 103/ul Critically high 4.0-11.0 [facility] Comment on above: Performed By: #### C BC #### [facility] [address] [address] [address] Bee Titus DRUG SCREEN RAPID (URINE)on 07-27-2022 AMP Negative Normal NEGATIVE [facility] [facility] Comment on above: Performed By: #### D RUGRPD ####[facility] [address] [address]Dr. Bee Titus BAR Negative Normal NEGATIVE [facility] Comment on above: Performed By: #### D RUGRPD ####[facility] [address] [id number]. Bee Titus BUP Negative Normal NEGATIVE [facility] Comment on above: Performed By: #### D RUGRPD ####[facility] [address] [address]Dr. Bee Titus BZO Negative Normal NEGATIVE [facility] Comment on above: Performed By: #### D RUGRPD ####[facility] [address] [address]Dr. Bee Titus LORRI Negative Normal NEGATIVE [facility] Comment on above: Performed By: #### D RUGRPD ####[facility] [address] [address]Dr. Bee Titus CUT-OFFS SEE BELOW Normal [facility] Comment on above: Result Comment: AMP (Amphetamine): 500ng/mL, BAR (Barbituates): 200 ng/mL, BZO (Benzodiazepines): 150 ng/mL, BUP (Buprenorphine): 10 ng/mL, LORRI (Cocaine): 150 ng/mL, mAMP (Methamphetamine): 500 ng/mL, MTD (Methadone): 200 ng/mL, OPI (Opiates): 100 ng/mL, OXY (Oxycodone): 100 ng/mL, PCP (Phencyclidine): 25 ng/mL, PPX (Propoxyphene): 300 ng/mL, THC (Cannabinoids): 50 ng/mL, TCA (Trycyclic Antidepressants): 300 ng/mL Performed By: #### D RUGRPD ####[facility] [address] [place], [place] [address]Dr. [facility] DRUG CUT HEADER DRUG CLASS TEST SYSTEM CUT-OFF CONCENTRATIONS ARE FOLLOWS: Normal [facility] Comment on above: Performed By: #### D RUGRPD ####[facility] [address] [place], [place] [address]Dr. Bee Titus mAMP Negative Normal NEGATIVE [facility] Comment on above: Performed By: #### D RUGRPD ####[facility] [address] [place], [place] [address]Dr. [facility] MTD Negative Normal NEGATIVE [facility] Comment on above: Performed By: #### D RUGRPD ####[facility] [address] [place], [place] [address]Dr. [facility] OPI Negative Normal NEGATIVE [facility] Comment on above: Performed By: #### D RUGRPD ####[facility] [address] [place], [place] [address]Dr. Bee Titus OXY Negative Normal NEGATIVE [facility] Comment on above: Performed By: #### D RUGRPD ####[facility] [address] [place], [place] [address]Dr. [facility] PCP Negative Normal NEGATIVE [facility] Comment on above: Performed By: #### D RUGRPD ####[facility] [address] [place], [place] [address]Dr. [facility] PPX Negative Normal NEGATIVE [facility] Comment on above: Performed By: #### D RUGRPD ####[facility] [address] [address]Dr. Bee Titus TCA Negative Normal NEGATIVE [facility] Comment on above: Performed By: #### D RUGRPD ####[facility] [address] [address]Dr. Bee Titus THC Negative Normal NEGATIVE [facility] Comment on above: Performed By: #### D RUGRPD ####[facility] [address] [address]Dr. Bee Titus TYPE AND SCREENon 07-27-2022 TYPE AND SCREEN Antibody Screen POSITIVE Blood Bank Notes PROBABLE ANTI-D DUE TO RHIG ADMIN. @28WEEKS, FURTHER WORKUP AT PHYSICIAN Blood Bank Notes REQUEST ABO Rh Typing A Rh Negative Normal [facility] Comment on above: Performed By: #### T NS ####[facility] [address] [place], [place] [address]DrEric Titus AMNISUREon 07-14-2022 AMNISURE Negative Normal NEGATIVE [facility] Comment on above: Performed By: #### A MNI ####[facility] [address] [place], [place] [address]Dr. Bee Titus BUNon 07-14-2022 Urea nitrogen [Mass/Vol] 8.0 mg/dL Normal 7.0-18.0 [facility] Comment on above: Performed By: #### U MICRO UACSIND #### [facility] [address] [place] [address] Dr. Bee Titus CBC AUTO DIFFon 07-14-2022 BASO # 0.0 103/ul Normal 0.0-0.1 [facility] Comment on above: Performed By: #### U MICRO UACSIND #### [facility] [address] [place] [address] Dr. Bee Titus Basophils/100 WBC (Bld) 0.3 % Normal 0.2-2.0 [facility] Comment on above: Performed By: #### U MICRO UACSIND #### [facility] [address] [address] [address] Bee Titus EO # 0.1 103/ul Normal 0.0-0.7 [facility] Comment on above: Performed By: #### U MICRO, UACSIND #### [facility] [address] [place] [address] Dr. Bee Titus Eosinophils/100 WBC (Bld) 0.4 % Critically low 0.9-7.0 [facility] Comment on above: Performed By: #### U MICRO, UACSIND #### [facility] [address] [place] [address] Dr. Bee Titus Erythrocyte distribution width (RBC) [Ratio] 13.6 % Normal 11.0-15.0 [facility] Comment on above: Performed By: #### U MICRO, UACSIND #### [facility] [address] [place] [address] Dr. Bee Titus Hematocrit (Bld) [Volume fraction] 32.8 % Critically low 36.0-48.0 [facility] Comment on above: Performed By: #### U MICRO, UACSIND #### [facility] [address] [place] [address] Dr. Bee Titus Hemoglobin (Bld) [Mass/Vol] 11.2 g/dL Critically low 12.0-16.0 [facility] Comment on above: Performed By: #### U MICRO, UACSIND #### [facility] [address] [place] [address] Dr. Bee Titus IG # 0.05 10e3/ul Critically high 0.00-0.03 [facility] Comment on above: Performed By: #### U MICRO, UACSIND #### [facility] [address] [place] [address] Dr. Bee Titus IG % 0.4 % Normal 0.0-0.5 [facility] Comment on above: Performed By: #### U MICRO, UACSIND #### [facility] [address] [place] [address] Dr. Bee Titus LYMPH # 2.0 103/ul Normal 1.2-3.8 [facility] Comment on above: Performed By: #### U MICRO, UACSIND #### [facility] [address] [address] [address] Bee Titus Lymphocytes/100 WBC (Bld) 16.3 % Critically low 20.5-60.0 [facility] Comment on above: Performed By: #### U MICRO, UACSIND #### [facility] [address] [address] [address] Bee Titus MANUAL DIFF REQ NO Normal [facility] Comment on above: Performed By: #### U MICRO, UACSIND #### [facility] [address] [place] [address] Dr. Bee Titus MCH (RBC) [Entitic mass] 30.4 pg Normal 26.7-34.0 [facility] Comment on above: Performed By: #### U MICRO, UACSIND #### [facility] [address] [place] [address] Dr. Bee Titus MCHC (RBC) [Mass/Vol] 34.1 g/dL Normal 29.9-35.2 [facility] Comment on above: Performed By: #### U MICRO, UACSIND #### [facility] [address] [place] [address] Dr. Bee Titus MCV (RBC) [Entitic vol] 88.9 fL Normal 81.0-99.0 [facility] Comment on above: Performed By: #### U MICRO, UACSIND #### [facility] [address] [place] [address] Dr. Bee Titus MONO # 0.6 103/ul Normal 0.3-0.8 [facility] Comment on above: Performed By: #### U MICRO, UACSIND #### [facility] [address] [place] [address] Dr. Bee Titus Monocytes/100 WBC (Bld) 5.1 % Normal 1.7-12.0 [facility] Comment on above: Performed By: #### U MICRO, UACSIND #### [facility] [address] [place] [address] Dr. Bee Tiuts NEUT # 9.3 103/ul Critically high 1.4-6.5 [facility] Comment on above: Performed By: #### U MICRO, UACSIND #### [facility] [address] [address] [address] Bee Titus Neutrophils/100 WBC (Bld) 77.5 % Critically high 43.0-75.0 [facility] Comment on above: Performed By: #### U MICRO, UACSIND #### [facility] [address] [address] [address] Bee Titus Platelet mean volume (Bld) [Entitic vol] 10.4 fL Normal 9.5-13.5 [facility] Comment on above: Performed By: #### U MICRO, UACSIND #### [facility] [address] [address] [address] Bee Titus PLT 193 103/ul Normal 150-450 [facility] Comment on above: Performed By: #### U MICRO, UACSIND #### [facility] [address] [address] [address] Bee Titus RBC 3.69 106/ul Critically low 4.20-5.40 [facility] Comment on above: Performed By: #### U MICRO, UACSIND #### [facility] [address] [place] [address] Dr. Bee Titus WBC 12.0 103/ul Critically high 4.0-11.0 [facility] Comment on above: Performed By: #### U MICRO, UACSIND #### [facility] [address] [place] [address] Dr. Bee Titus CREATININEon 07-14-2022 Creatinine [Mass/Vol] 0.83 mg/dL Normal 0.55-1.02 [facility] Comment on above: Performed By: #### C JORGE #### [facility] [address] [place] [address] Dr. Bee Titus EGFR-AF [place] >60 Normal >=60 [facility] Comment on above: Result Comment: Prev iously reported as: (blank) On 07/14/2022 10:27 By [email or web address] Performed By: #### C JORGE #### [facility] [address] [place] [address] Dr. Bee Titus EGFR-NON AF [place] >60 Normal >=60 [facility] Comment on above: Result Comment: Prev iously reported as: (blank) On 07/14/2022 10:27 By [email or web address] Performed By: #### C JORGE #### [facility] [address] [place] [address] Dr. Bee Titus UA (CLEAN/CATCH) SEAFOOD TEAM MEMBER/MICRO I F IND.on 07-14-2022 Bilirubin Ql (U) Negative Normal NEGATIVE [facility] Comment on above: Performed By: #### U MICRO, UACSIND #### [facility] [address] [place] [address] Dr. Bee Titus Clarity (U) CLEAR Normal CLEAR [facility] Comment on above: Performed By: #### U MICRO, UACSIND #### [facility] [address] [place] [address] Dr. Bee Titus Color (U) YELLOW Normal YELLOW [facility] Comment on above: Performed By: #### U MICRO, UACSIND #### [facility] [address] [place] [address] Dr. Bee Titus Glucose Ql (U) Negative Normal NEGATIVE [facility] Comment on above: Performed By: #### U MICRO, UACSIND #### [facility] [address] [place] [address] Dr. Bee Titus Hemoglobin Ql (U) LARGE Abnormal NEGATIVE [facility] Comment on above: Performed By: #### U MICRO, UACSIND #### [facility] [address] [place] [address] Dr. Bee Titus Ketones Ql (U) 15 mg/dl Abnormal NEGATIVE [facility] Comment on above: Performed By: #### U MICRO, UACSIND #### [facility] [address] [place] [address] Dr. Bee Titus LEUKOCYTES Negative Normal NEGATIVE [facility] Comment on above: Performed By: #### U MICRO, UACSIND #### [facility] [address] [address] [address] Bee Titus Nitrite Ql (U) Negative Normal NEGATIVE [facility] Comment on above: Performed By: #### U MICRO, UACSIND #### [facility] [address] [address] [address] Bee Titus pH (U) 5.5 [pH] Normal 5-9 [facility] Comment on above: Performed By: #### U MICRO, UACSIND #### [facility] [address] [address] [address] Bee Titus SPEC GRAVITY >=1.030 Abnormal 1.005-<=1.025 [facility] Comment on above: Performed By: #### U MICRO, UACSIND #### [facility] [address] [place] [address] Dr. Bee Titus UA PROTEIN 30 mg/dl Abnormal NEGATIVE/ TRACE [facility] Comment on above: Performed By: #### U MICRO, UACSIND #### [facility] [address] [place] [address] Dr. Bee Titus UR MICRO IND INDICATED Normal [facility] Comment on above: Performed By: #### U MICRO, UACSIND #### [facility] [address] [place] [address] Dr. Bee Titus Urobilinogen Qn (U) 0.2 {Rama'U}/dL Normal 0.2 - 1. 0 [facility] Comment on above: Performed By: #### U MICRO, UACSIND #### [facility] [address] [place] [address] Dr. Bee Titus URINE MICROSCOPIC ONLYon BACTERIA NONE SEEN Normal NONE SEEN [facility] Comment on above: Performed By: #### U MICRO, UACSIND #### [facility] [address] [place] [address] Dr. Bee Titus Bacteria identified Cx Nom (U) NOT INDICATED Normal [facility] Comment on above: Performed By: #### U MICRO, UACSIND #### [facility] [address] [address] [address] Bee Titus CAST NONE SEEN Normal NONE SEEN [facility] Comment on above: Performed By: #### U MICRO, UACSIND #### [facility] [address] [address] [address] Bee Titus Crystals LM Nom (Urine sed) NONE SEEN Normal NONE SEEN [facility] Comment on above: Performed By: #### U MICRO, UACSIND #### [facility] [address] [address] [address] Bee Titus Epithelial cells LM Ql (Urine sed) FEW Abnormal NONE SEEN /RARE [facility] Comment on above: Performed By: #### U MICRO, UACSIND #### [facility] [address] [place] [address] Dr. Bee Titus MUCOUS MODERATE Abnormal NONE SEEN [facility] Comment on above: Performed By: #### U MICRO, UACSIND #### [facility] [address] [place] [address] Dr. Bee Titus RBC 20-50 Abnormal 0-2 [facility] Comment on above: Performed By: #### U MICRO, UACSIND #### [facility] [address] [place] [address] Dr. Bee Titus WBC NONE SEEN Normal NONE SEEN [facility] Comment on above: Performed By: #### U MICRO, UACSIND #### [facility] [address] [place] [address] Dr. Bee Titus US KIDNEYS BLADDERon 023 [...] SCARLET OROZCO Date: 2022-07-14 11:26 Normal [facility] US PREG GROWTHon 07-13-2022 US PREG [...] MIMI RICHEY Date: 2022-07-13 18:08 Normal [facility] GROUP B STREP CULTUREon S. agalactiae Ag Ql (Unsp spec) Culture Observations: NEGATIVE FOR GROUP B STREPTOCOCCUS. Normal [facility] Comment on above: Performed By: #### G BSCX #### [facility] [address] [place] [address] Dr. Bee Titus PREG GROWTHon 06-16-2022 US PREG GROWTH EXAMINATION: US PREG GROWTH HISTORY: High weight infant COMPARISON: Ultrasound growth 05/19/2022 FINDINGS: Heart Rate: [...] with growth detailed above. Electronically authenticated by: FARZANA LONG Date: 2022-06-16 13:49 Normal [facility] US PREG GROWTHon 05-19-2022 US PREG [...] is at 92nd percentile. Electronically authenticated by: FARZANA LONG Date: 2022-05-19 15:21 Normal [facility] AMYLASEon 05-17-2022 Amylase [Catalytic activity/Vol] 49 U/L Normal 25-115 [facility] Comment on above: Performed By: #### A MY, CMP, LIPA ####[facility] [address] [address]DrEric Titus CBC AUTO DIFFon 05-17-2022 BASO # 0.0 103/ul Normal 0.0-0.1 [facility] Comment on above: Performed By: #### U MICRO, UACSIND #### [facility] [address] [address] [address] Bee Titus Basophils/100 WBC (Bld) 0.2 % Normal 0.2-2.0 [facility] Comment on above: Performed By: #### U MICRO, UACSIND #### [facility] [address] [place] [address] Dr. Bee Titus EO # 0.0 103/ul Normal 0.0-0.7 [facility] Comment on above: Performed By: #### U MICRO, UACSIND #### [facility] [address] [place] [address] Dr. Bee Titus Eosinophils/100 WBC (Bld) 0.1 % Critically low 0.9-7.0 [facility] Comment on above: Performed By: #### U MICRO, UACSIND #### [facility] [address] [place] [address] Dr. Bee Titus Erythrocyte distribution width (RBC) [Ratio] 12.9 % Normal 11.0-15.0 [facility] Comment on above: Performed By: #### U MICRO, UACSIND #### [facility] [address] [place] [address] Dr. Bee Titus Hematocrit (Bld) [Volume fraction] 35.7 % Critically low 36.0-48.0 [facility] Comment on above: Performed By: #### U MICRO, UACSIND #### [facility] [address] [place] [address] Dr. Bee Titus Hemoglobin (Bld) [Mass/Vol] 12.6 g/dL Normal 12.0-16.0 [facility] Comment on above: Performed By: #### U MICRO, UACSIND #### [facility] [address] [place] [address] Dr. Bee Titus IG # 0.10 10e3/ul Critically high 0.00-0.03 [facility] Comment on above: Performed By: #### U MICRO, UACSIND #### [facility] [address] [address] [address] Bee Titus IG % 0.6 % Critically high 0.0-0.5 [facility] Comment on above: Performed By: #### U MICRO, UACSIND #### [facility] [address] [address] [address] Bee Titus LYMPH # 0.4 103/ul Critically low 1.2-3.8 [facility] Comment on above: Performed By: #### U MICRO, UACSIND #### [facility] [address] [place] [address] Dr. Bee Titus Lymphocytes/100 WBC (Bld) 2.1 % Critically low 20.5-60.0 [facility] Comment on above: Performed By: #### U MICRO, UACSIND #### [facility] [address] [place] [address] Dr. Bee Titus MANUAL DIFF REQ NO Normal [facility] Comment on above: Performed By: #### U MICRO, UACSIND #### [facility] [address] [place] [address] Dr. Bee Titus MCH (RBC) [Entitic mass] 31.7 pg Normal 26.7-34.0 [facility] Comment on above: Performed By: #### U MICRO, UACSIND #### [facility] [address] [place] [address] Dr. Bee Titus MCHC (RBC) [Mass/Vol] 35.3 g/dL Critically high 29.9-35.2 [facility] Comment on above: Performed By: #### U MICRO, UACSIND #### [facility] [address] [place] [address] Dr. Bee Titus MCV (RBC) [Entitic vol] 89.9 fL Normal 81.0-99.0 [facility] Comment on above: Performed By: #### U MICRO, UACSIND #### [facility] [address] [place] [address] Dr. Bee Titus MONO # 0.4 103/ul Normal 0.3-0.8 [facility] Comment on above: Performed By: #### U MICRO, UACSIND #### [facility] [address] [address] [address] Bee Titus Monocytes/100 WBC (Bld) 2.0 % Normal 1.7-12.0 [facility] Comment on above: Performed By: #### U MICRO, UACSIND #### [facility] [address] [address] [address] Bee Titus NEUT # 17.2 103/ul Critically high 1.4-6.5 [facility] Comment on above: Performed By: #### U MICRO, UACSIND #### [facility] [address] [place] [address] Dr. Bee Titus Neutrophils/100 WBC (Bld) 95.0 % Critically high 43.0-75.0 [facility] Comment on above: Performed By: #### U MICRO, UACSIND #### [facility] [address] [place] [address] Dr. Bee Titus Platelet mean volume (Bld) [Entitic vol] 9.8 fL Normal 9.5-13.5 [facility] Comment on above: Performed By: #### U MICRO, UACSIND #### [facility] [address] [place] [address] Dr. Bee Titus PLT 164 103/ul Normal 150-450 [facility] Comment on above: Performed By: #### U MICRO, UACSIND #### [facility] [address] [place] [address] Dr. Bee Titus RBC 3.97 106/ul Critically low 4.20-5.40 [facility] Comment on above: Performed By: #### U MICRO, UACSIND #### [facility] [address] [place] [address] Dr. Bee Titus WBC 18.1 103/ul Critically high 4.0-11.0 [facility] Comment on above: Performed By: #### U MICRO, UACSIND #### [facility] [address] [address] [address] Bee MCQUEEN URINE PROFILEon 3 Bilirubin Ql (U) Negative Normal NEGATIVE [facility] Comment on above: Performed By: #### U MICRO, UACSIND #### [facility] [address] [address] [address] Bee Titus Clarity (U) CLEAR Normal CLEAR [facility] Comment on above: Performed By: #### U MICRO, UACSIND #### [facility] [address] [address] [address] Bee Titus Color (U) YELLOW Normal YELLOW [facility] Comment on above: Performed By: #### U MICRO, UACSIND #### [facility] [address] [address] [address] Bee GARLAND A micrscopic examination will be performed if indicated. Normal [facility] Comment on above: Performed By: #### U MICRO, UACSIND #### [facility] [address] [address] [address] Bee Titus Glucose Ql (U) Negative Normal NEGATIVE [facility] Comment on above: Performed By: #### U MICRO, UACSIND #### [facility] [address] [address] [address] Bee Titus Hemoglobin Ql (U) TRACE-INTACT Abnormal NEGATIVE [facility] Comment on above: Performed By: #### U MICRO, UACSIND #### [facility] [address] [address] [address] Bee Titus Ketones Ql (U) >=80 Abnormal NEGATIVE [facility] Comment on above: Performed By: #### U MICRO, UACSIND #### [facility] [address] [address] [address] Bee Titus LEUKOCYTES Negative Normal NEGATIVE [facility] Comment on above: Performed By: #### U MICRO, UACSIND #### [facility] [address] [place] [address] Dr. Bee Titus Nitrite Ql (U) Negative Normal NEGATIVE [facility] Comment on above: Performed By: #### U MICRO, UACSIND #### [facility] [address] [address] [address] Bee Titus pH (U) 6.5 [pH] Normal 5-9 [facility] Comment on above: Performed By: #### U MICRO, UACSIND #### [facility] [address] [address] [address] Bee Titus SPEC GRAVITY 1.015 Normal 1.005-<=1.025 [facility] Comment on above: Performed By: #### U MICRO, UACSIND #### [facility] [address] [address] [address] Bee Titus UA PROTEIN Negative Normal NEGATIVE/ TRACE [facility] Comment on above: Performed By: #### U MICRO, UACSIND #### [facility] [address] [address] [address] Bee Titus UR MICRO IND INDICATED Normal [facility] Comment on above: Performed By: #### U MICRO, UACSIND #### [facility] [address] [address] [address] Bee Titus Urobilinogen Qn (U) 0.2 {Rama'U}/dL Normal 0.2 - 1. 0 [facility] Comment on above: Performed By: #### U MICRO, UACSIND #### [facility] [address] [address] [address] Bee Titus LIPASEon 05-17-2022 Lipase [Catalytic activity/Vol] 95.0 U/L Normal 73.0-393.0 [facility] Comment on above: Performed By: #### A MY, CMP, LIPA ####[facility] [address] [address]Dr. Bee Titus PROF 14(COMP METB)on 023 Albumin [Mass/Vol] 2.9 g/dL Critically low 3.4-5.0 [facility] Comment on above: Performed By: #### A MY, CMP, LIPA ####[facility] [address] [address]Dr. Bee Titus Albumin/Globulin [Mass ratio] 0.8 {ratio} Normal [facility] Comment on above: Performed By: #### A MY, CMP, LIPA ####[facility] [address] [address]Dr. Bee Titus ALP [Catalytic activity/Vol] 85 U/L Normal 46-116 [facility] Comment on above: Performed By: #### A MY, CMP, LIPA ####[facility] [address] [address]Dr. Bee Titus ALT [Catalytic activity/Vol] 17 U/L Normal 14-59 [facility] Comment on above: Performed By: #### A MY, CMP, LIPA ####[facility] [address] [address]Dr. Bee Titus Anion gap [Moles/Vol] 15.6 mmol/L Normal [facility] Comment on above: Performed By: #### A MY, CMP, LIPA ####[facility] [address] [place], [place] [address]Dr. Bee Titus AST [Catalytic activity/Vol] 15 U/L Normal 15-37 [facility] Comment on above: Performed By: #### A MY, CMP, LIPA ####[facility] [address] [place], [place] [address]Dr. Bee Titus Bilirubin [Mass/Vol] 0.5 mg/dL Normal 0.2-1.0 [facility] Comment on above: Performed By: #### A MY, CMP, LIPA ####[facility] [address] [place] [address]Dr. Bee Titus Calcium [Mass/Vol] 8.4 mg/dL Critically low 8.5-10.1 [facility] Comment on above: Performed By: #### A MY, CMP, LIPA ####[facility] [address] [place] [address]Dr. Bee Titus Chloride [Moles/Vol] 105 mmol/L Normal 98-107 [facility] Comment on above: Performed By: #### A MY, CMP, LIPA ####[facility] [address]xwnpu[address] [place] [address]Dr. Bee Titus CO2 [Moles/Vol] 22.3 mmol/L Normal 21.0-32.0 [facility] Comment on above: Performed By: #### A MY, CMP, LIPA ####[facility] O[address]uf[address] [place] [address]Dr. Bee Titus Creatinine [Mass/Vol] 0.61 mg/dL Normal 0.55-1.02 [facility] Comment on above: Performed By: #### A MY, CMP, LIPA ####[facility] [address] [place] [address]Dr. Bee Titus EGFR-AF [place] >60 Normal >=60 [facility] Comment on above: Performed By: #### A MY, CMP, LIPA ####[facility] [address]rg[address] [place] [address]Dr. Bee Titus EGFR-NON AF [place] >60 Normal >=60 [facility] Comment on above: Performed By: #### A MY, CMP, LIPA ####[facility] Z[address]lstysxe[address] [place] [address]Dr. Bee Titus Globulin (S) [Mass/Vol] 3.7 g/dL Normal [facility] Comment on above: Performed By: #### A MY, CMP, LIPA ####[facility] [address]waum[address] [place] [address]Dr. Bee Titus Glucose [Mass/Vol] 112 mg/dL Critically high 74-106 T [facility] Comment on above: Performed By: #### A MY, CMP, LIPA ####[facility] R[address]fmxdphq[address] [place] [address]Dr. Bee Titus Potassium [Moles/Vol] 3.9 mmol/L Normal 3.5-5.1 [facility] Comment on above: Performed By: #### A MY, CMP, LIPA ####[facility] [address]tfwbvlh[address] [place] [address]Dr. Bee Titus Protein [Mass/Vol] 6.6 g/dL Normal 6.4-8.2 [facility] Comment on above: Performed By: #### A MY, CMP, LIPA ####[facility] [address]jlhz[address] [place] [address]Dr. Bee Titus Sodium [Moles/Vol] 139 mmol/L Normal 136-145 [facility] Comment on above: Performed By: #### A MY, CMP, LIPA ####[facility] [address]tx[address] [place] [address]Dr. Bee Titus Urea nitrogen [Mass/Vol] 10.0 mg/dL Normal 7.0-18.0 [facility] Comment on above: Performed By: #### A MY, CMP, LIPA ####[facility] Ll[address]wailyge[address] [place] [address]Dr. Bee Titus Urea nitrogen/Creatinine [Mass ratio] 16.4 mg/mg Normal [facility] Comment on above: Performed By: #### A MY, CMP, LIPA ####[facility] [address]mcy[address] [place] [address]Dr. Bee Titus URINE MICROSCOPIC ONLYon BACTERIA NONE SEEN Normal NONE SEEN [facility] Comment on above: Performed By: #### U MICRO, UACSIND #### [facility] [address] [address] [address] Bee Titus Bacteria identified Cx Nom (U) NOT INDICATED Normal [facility] Comment on above: Performed By: #### U MICRO, UACSIND #### [facility] [address] [address] [address] Bee Titus CAST NONE SEEN Normal NONE SEEN [facility] Comment on above: Performed By: #### U MICRO, UACSIND #### [facility] [address] [address] [address] Bee Titus Crystals LM Nom (Urine sed) NONE SEEN Normal NONE SEEN [facility] Comment on above: Performed By: #### U MICRO, UACSIND #### [facility] [address] [address] [address] Bee Titus Epithelial cells LM Ql (Urine sed) NONE SEEN Normal NONE SEEN /RARE [facility] Comment on above: Performed By: #### U MICRO, UACSIND #### [facility] [address] [address] [address] Bee Titus MUCOUS NONE SEEN Normal NONE SEEN [facility] Comment on above: Performed By: #### U MICRO, UACSIND #### [facility] [address] [address] [address] Bee Titus RBC 0-2 Normal 0-2 [facility] Comment on above: Performed By: #### U MICRO, UACSIND #### [facility] [address] [address] [address] Bee Titus WBC NONE SEEN Normal NONE SEEN [facility] Comment on above: Performed By: #### U MICRO, UACSIND #### [facility] [address] [address] [address] Bee Titus TYPE AND SCREENon 05-04-2022 TYPE AND SCREEN Negative Normal [facility] Comment on above: Performed By: #### T NS #### [facility] [address] [address] [address] Bee Titus GLUCOSE - 1HRon 04-30-2022 Glucose [Mass/Vol] 136 mg/dL Critically high 74-106 [facility] Comment on above: Performed By: #### G LU1HR ####[facility] [address] [place] [id number]. Bee Titus US PREG ANATOMY SINGLEon US [...] by: MIMI RICHEY Date: 2022-03-10 07:17 Normal [facility] PAP ACOG PANEL 2: 22 to 30on 03-03-2022 . . Normal [facility] Comment on above: Performed By: #### 4 [id number] ####[facility] [address] [place] [address]Dr. Bee Titus Age Gdln ACOG Testing 22- [facility] Comment on above: Performed By: #### 4 [id number] ####[facility] [address] [place] [address]DrEric Titus DIAGNOSIS: Comment Normal [facility] Comment on above: Result Comment: NEGA TIVE FOR INTRAEPITHELIAL LESION OR MALIGNANCY. Performed By: #### 4 [id number] ####[facility] [address] [place] [address]DrEric Titus Methodology: Comment [facility] Comment on above: Result Comment: This liquid based ThinPrep(R) pap test was screened with the use of an image guided system. Performed By: #### 4 [id number] ####[facility] [address]mhk[address] [place] [address]DrEric Titus Note: Comment [facility] Comment on above: Result Comment: The Pap smear is a screening test designed to aid in the detection of premalignant and malignant conditions of the uterine cervix. It is not a diagnostic procedure and should not be used as the sole means of detecting cervical cancer. Both false-positive and false-negative reports do occur. . Performed By: #### 4 [id number] ####[facility] [address] [place] [address]Dr. Bee Titus Performed by: Comment Normal [facility] Comment on above: Result Comment: Kamila Land, Yarn Washer Performed By: #### 4 [id number] ####[facility] [address] [place], [place] [address]DrEric Titus Reflex Criteria: Comment Normal [facility] Comment on above: Result Comment: The HPV DNA reflex criteria were not met with this specimen result therefore, no HPV testing was performed. . Performed By: #### 4 [id number] ####[facility] [address] [place], [place] [address]DrEric Titus Specimen adequacy: Comment Normal [facility] Comment on above: Result Comment: Sati sfactory for evaluation. No endocervical component is identified. Performed By: #### 4 [id number] ####[facility] [address] [place], [place] [address]Dr. Bee Titus CHLAMYDIA/GONOCOCCUS CJ (SW AB/URINE/PAPon 02-26-2022 Chlamydia trachomatis, CJ Negative Normal Negative [facility] Comment on above: Performed By: #### C T/NGNA #### [facility] [address] [place] [address] Dr. Bee Titus Neisseria gonorrhoeae, CJ Negative Normal Negative [facility] Comment on above: Performed By: #### C T/NGNA #### [facility] [address] [place] [address] Dr. Bee Titus VAGINITIS/VAGINOSIS DNA PROB Alcon 02-25-2022 Jas species Negative Normal Negative [facility] Comment on above: Performed By: #### V AGINT ####[facility] [address] [place], [place] [address]DrEric Titus Gardnerella vaginalis Negative Normal Negative [facility] Comment on above: Performed By: #### V AGINT ####[facility] [address]ax[address] [place] [address]Dr. Bee Titus Trichomonas vaginalis Negative Normal Negative [facility] Comment on above: Performed By: #### V AGINT ####[facility] [address] [place] [id number] Titus HEP B SURFACE ANTIGEN SCREEN on 12-26-2021 HBsAg Screen Negative Normal Negative [facility] Comment on above: Performed By: #### U MICRO, UACSIND #### [facility] [address] [address] [address] Bee Titus HEPATITIS C VIRUS AB W/ REFL EX QUANTon 12-26-2021 HCV AB <0.1 Normal 0.0-0.9 [facility] Comment on above: Performed By: #### U MICRO, UACSIND #### [facility] [address] [address] [address] Bee Titus Interpretation: Comment Normal [facility] Comment on above: Result Comment: Nega tive Not infected with HCV, unless recent infection is suspected or other evidence exists to indicate HCV infection. Performed By: #### U MICRO, UACSIND #### [facility] [address] [address] [address] Bee Titus HIV 1 AND 2 WITH REFLEXon HIV Screen 4th Generation wRfx Non-Reactive Normal Non Reactive [facility] Comment on above: Result Comment: HIV Negative HIV-1/HIV-2 antibodies and HIV-1 p24 antigen were NOT detected. There is no laboratory evidence of HIV infection. Performed By: #### H IV12 ####[facility] [address] [place] [address]Dr. Bee Titus RPR QUANTon 12-26-2021 Rapid Plasma Reagin, Quant Non-Reactive Normal NonRea<1:1 [facility] Comment on above: Result Comment: Plea se Note: This test does not meet current guidelines for screening and diagnosis of syphilis. This test is intended for following treatment response in patients being treated for syphilis infection. To screen for syphilis infection, a reflex cascade that includes both RPR and a treponema-specific assay should be utilized, such as Treponema pallidum (Syphilis) Screening Sebastian (916928) or Rapid Plasma Reagin (RPR) Test With Reflex to Quantitative RPR and Confirmatory Treponema pallidum Antibodies (807667). Performed By: #### U MICRO, UACSIND #### [facility] [address] [place] [address] Dr. Bee Titus RUBELLA AB IGGon 12-26-2021 Rubella Antibodies, IgG 2.83 index Normal Immune >0.99 [facility] Comment on above: Result Comment: Non- immune <0.90 Equivocal 0.90 - 0.99 Immune >0.99 Performed By: #### U MICRO, UACSIND #### [facility] [address] [place] [address] Dr. Bee Titus CBC AUTO DIFFon 12-25-2021 BASO # 0.0 103/ul Normal 0.0-0.1 [facility] Comment on above: Performed By: #### C BC ####[facility] [address] [place] [address]DrEric Titus Basophils/100 WBC (Bld) 0.3 % Normal 0.2-2.0 [facility] Comment on above: Performed By: #### C BC ####[facility] [address]hrq[address] [place] [address]DrEric Titus EO # 0.1 103/ul Normal 0.0-0.7 [facility] Comment on above: Performed By: #### C BC ####[facility] [address]vy[address] [place] [address]DrEric Titus Eosinophils/100 WBC (Bld) 0.6 % Critically low 0.9-7.0 [facility] Comment on above: Performed By: #### C BC ####[facility] [address]xy[address]ktkl[address] [place] [address]DrEric Titus Erythrocyte distribution width (RBC) [Ratio] 12.1 % Normal 11.0-15.0 [facility] Comment on above: Performed By: #### C BC ####[facility] [address] [place] [address]Dr. Bee Titus Hematocrit (Bld) [Volume fraction] 37.5 % Normal 36.0-48.0 [facility] Comment on above: Performed By: #### C BC ####[facility] [address]uzmvpo[address] [place] [address]DrEric Bee Titus Hemoglobin (Bld) [Mass/Vol] 13.3 g/dL Normal 12.0-16.0 [facility] Comment on above: Performed By: #### C BC ####[facility] [address]yz[address] [place] [address]Dr. Bee Titus IG # 0.04 10e3/ul Critically high 0.00-0.03 [facility] Comment on above: Performed By: #### C BC ####[facility] [address]pegwnvgs[address] [place] [address]Dr. Leigh Annpee Titus IG % 0.4 % Normal 0.0-0.5 [facility] Comment on above: Performed By: #### C BC ####[facility] [address]weg[address] [place] [address]Dr. Bee Tacho LYMPH # 1.7 103/ul Normal 1.2-3.8 [facility] Comment on above: Performed By: #### C BC ####[facility] [address] [place], [place] [address]DrEric Bee Tacho Lymphocytes/100 WBC (Bld) 17.2 % Critically low 20.5-60.0 [facility] Comment on above: Performed By: #### C BC ####[facility] [address]ecfi[address] [place] [address]DrEric Bee Tacho MANUAL DIFF REQ NO Normal [facility] Comment on above: Performed By: #### C BC ####[facility] [address]uhyhr[address] [place] [address]DrEric Leigh Annpee Titus MCH (RBC) [Entitic mass] 32.0 pg Normal 26.7-34.0 [facility] Comment on above: Performed By: #### C BC ####[facility] [address]rkg[address] [place] [id number]. Bee Titus MCHC (RBC) [Mass/Vol] 35.5 g/dL Critically high 29.9-35.2 [facility] Comment on above: Performed By: #### C BC ####[facility] [address]ws[address] [place] [id number] Titus MCV (RBC) [Entitic vol] 90.1 fL Normal 81.0-99.0 [facility] Comment on above: Performed By: #### C BC ####[facility] [address]dtbl[address] [place] [phone] Titus MONO # 0.5 103/ul Normal 0.3-0.8 [facility] Comment on above: Performed By: #### C BC ####[facility] [address] [place], [place] [address]DrEric Titus Monocytes/100 WBC (Bld) 4.8 % Normal 1.7-12.0 [facility] Comment on above: Performed By: #### C BC ####[facility] [address] [place], [place] [id number] Titus NEUT # 7.4 103/ul Critically high 1.4-6.5 [facility] Comment on above: Performed By: #### C BC ####[facility] [address] [place], [place] [id number] Titus Neutrophils/100 WBC (Bld) 76.7 % Critically high 43.0-75.0 [facility] Comment on above: Performed By: #### C BC ####[facility] [address] [place] [phone] Titus Platelet mean volume (Bld) [Entitic vol] 10.2 fL Normal 9.5-13.5 [facility] Comment on above: Performed By: #### C BC ####[facility] [address] [place] [id number] Titus PLT 226 103/ul Normal 150-450 [facility] Comment on above: Performed By: #### C BC ####[facility] [address]dqfn[address] [place] [id number] Titus RBC 4.16 106/ul Critically low 4.20-5.40 [facility] Comment on above: Performed By: #### C BC ####[facility] [address]nyyajl[address] [place] [address]DrEric Titus WBC 9.7 103/ul Normal 4.0-11.0 [facility] Comment on above: Performed By: #### C BC ####[facility] [address]twfyy[address] [place] [address]DrEric Titus CULTURE URINEon 12-25-2021 CULTURE URINE Culture Observations : LIGHT GROWTH OF MIXED GENITAL SUMA. NO POTENTIAL PATHOGENS SEEN. Normal [facility] Comment on above: Performed By: #### U RCX ####[facility] [address]gnsozb[address] [place] [address]Dr. Bee Titus GLYCOHEMOGLOBIN A1Con 2021 ADA RECOMMENDATION SEE BELOW Normal [facility] Comment on above: Result Comment: ADA RECOMMENDED LIMIT 4.0 - 6.0 ADA THERAPEUTIC TARGET < 7.0 ACTION SUGGESTED > 7.0 Performed By: #### U MICRO, UACSIND #### [facility] [address] [address] [address] Bee Titus Glucose [Mass/Vol] 88 mg/dL Normal [facility] Comment on above: Performed By: #### U MICRO, UACSIND #### [facility] [address] [address] [address] Bee Titus HbA1c (Bld) [Mass fraction] 4.7 % Normal 4.5-6.2 [facility] Comment on above: Performed By: #### U MICRO, UACSIND #### [facility] [address] [address] [address] Bee Titus TYPE AND SCREENon 12-25-2021 TYPE AND SCREEN Negative Normal [facility] Comment on above: Performed By: #### T NS #### [facility] [address] [address] [address] Bee Titus US PREG TVon 12-05-2021 [...] Single live intrauterine . Electronically authenticated by: FARZANA LONG Date: 2021-12-05 16:58 Normal [facility] HCG-BETA SUBUNIT QUANTon hCG,Beta Subunit,Qnt,Serum 105 mIU/mL Normal [facility] Comment on above: Result Comment: Fema le (Non-) 0 - 5 (Postmenopausal) 0 - 8 . Female () Weeks of Gestation 3 6 - 4 10 - 750 5 217 - 7138 6 158 - 74138 7 [phone] 8 [phone] [phone] 9 52740 [phone] 10 92837 308696 12 30496 [phone] 14 03203 - 52327 15 44479 - 34543 16 9040 [phone] 17 4627 - 08659 18 [phone] [place] ECLIA methodology Performed By: #### U MICRO, UAIND #### [facility] [address] [place] [address] Dr. Bee Titus HCG-BETA SUBUNIT QUANTon hCG,Beta Subunit,Qnt,Serum 41 mIU/mL Normal [facility] Comment on above: Result Comment: Fema le (Non-) 0 - 5 (Postmenopausal) 0 - 8 . Female () Weeks of Gestation 3 6 - 71 4 10 - 750 5 217 - 7138 6 158 - 59434 7 [phone] 8 [phone] [phone] 9 [phone] 10 97926 [phone] 12 50599 -[phone] 14 54724 - 50923 15 95897 - 10922 16 0293 - 10711 17 3280 - 38628 18 0275 [phone] [place] ECLIA methodology Performed By: #### H CGSUB ####[facility] [address]ds[address] [place] [address]Dr. Bee Titus CBC AUTO DIFFon 10-23-2021 BASO # 0.0 103/ul Normal 0.0-0.1 [facility] Comment on above: Performed By: #### C BC ####[facility] X[address]wqikl[address] [place] [address]Dr. Bee Titus Basophils/100 WBC (Bld) 0.7 % Normal 0.2-2.0 [facility] Comment on above: Performed By: #### C BC ####[facility] [address] [place], [place] [address]Dr. Bee Titus EO # 0.2 103/ul Normal 0.0-0.7 [facility] Comment on above: Performed By: #### C BC ####[facility] [address] [place], [place] [address]Dr. Bee Titus Eosinophils/100 WBC (Bld) 2.7 % Normal 0.9-7.0 [facility] Comment on above: Performed By: #### C BC ####[facility] [address] [place], [place] [address]Dr. Bee Titus Erythrocyte distribution width (RBC) [Ratio] 12.2 % Normal 11.0-15.0 [facility] Comment on above: Performed By: #### C BC ####[facility] [address] [place], [place] [address]Dr. Bee Titus Hematocrit (Bld) [Volume fraction] 40.4 % Normal 36.0-48.0 [facility] Comment on above: Performed By: #### C BC ####[facility] [address] [place], [place] [address]Dr. Bee Titus Hemoglobin (Bld) [Mass/Vol] 14.0 g/dL Normal 12.0-16.0 [facility] Comment on above: Performed By: #### C BC ####[facility] [address] [place] [phone]. Bee Titus IG # 0.01 10e3/ul Normal 0.00-0.03 [facility] Comment on above: Performed By: #### C BC ####[facility] [address]rotry[address] [place] [phone]. Bee Tacho IG % 0.2 % Normal 0.0-0.5 [facility] Comment on above: Performed By: #### C BC ####[facility] [address]uxdaj[address] [place] [address]Dr. Bee Tacho LYMPH # 1.8 103/ul Normal 1.2-3.8 [facility] Comment on above: Performed By: #### C BC ####[facility] [address]uzwz[address] [place] [address]Dr. Bee Titus Lymphocytes/100 WBC (Bld) 30.1 % Normal 20.5-60.0 [facility] Comment on above: Performed By: #### C BC ####[facility] [address]kl[address] [place] [address]Dr. Leigh Annpee Titus MANUAL DIFF REQ NO Normal [facility] Comment on above: Performed By: #### C BC ####[facility] [address]xlv[address] [place] [address]Dr. Bee Tacho MCH (RBC) [Entitic mass] 31.2 pg Normal 26.7-34.0 [facility] Comment on above: Performed By: #### C BC ####[facility] [address]qza[address] [place] [address]Dr. Bee Tacho MCHC (RBC) [Mass/Vol] 34.7 g/dL Normal 29.9-35.2 [facility] Comment on above: Performed By: #### C BC ####[facility] [address]wdrkx[address] [place] [address]Dr. Bee Tacho MCV (RBC) [Entitic vol] 90.0 fL Normal 81.0-99.0 [facility] Comment on above: Performed By: #### C BC ####[facility] [address]rsqxp[address] [place] [phone]. Bee Titus MONO # 0.4 103/ul Normal 0.3-0.8 [facility] Comment on above: Performed By: #### C BC ####[facility] [address]vsigbx[address] [place] [id number]. Bee Titus Monocytes/100 WBC (Bld) 7.0 % Normal 1.7-12.0 [facility] Comment on above: Performed By: #### C BC ####[facility] [address]xwegp[address] [place] [id number]. Bee Titus NEUT # 3.5 103/ul Normal 1.4-6.5 [facility] Comment on above: Performed By: #### C BC ####[facility] [address]iev[address] [place] [address]Dr. Bee Titus Neutrophils/100 WBC (Bld) 59.3 % Normal 43.0-75.0 [facility] Comment on above: Performed By: #### C BC ####[facility] [address] [place], [place] [address]Dr. Bee Titus Platelet mean volume (Bld) [Entitic vol] 10.0 fL Normal 9.5-13.5 [facility] Comment on above: Performed By: #### C BC ####[facility] [address]erf[address] [place] [phone]. Bee Titus PLT 244 103/ul Normal 150-450 [facility] Comment on above: Performed By: #### C BC ####[facility] [address] [place], [place] [address]Dr. Bee Titus RBC 4.49 106/ul Normal 4.20-5.40 [facility] Comment on above: Performed By: #### C BC ####[facility] [address] [place], [place] [address]Dr. Bee Titus WBC 5.9 103/ul Normal 4.0-11.0 [facility] Comment on above: Performed By: #### C BC ####[facility] [address] [place], [place] [address]Dr. Bee Titus FREE T4on 10-23-2021 Free T4 [Mass/Vol] 0.91 ng/dL Normal 0.76-1.46 [facility] Comment on above: Performed By: #### U MICRO, UACSIND #### [facility] [address] [address] [address] Bee Titus LIPID PROFILEon 10-23-2021 CHOL-HDL RATIO NORM SEE BELOW Normal [facility] Comment on above: Result Comment: 3.3 - 4.4 LOW RISK 4.4 - 7.1 AVERAGE RISK 7.1 - 11.0 MODERATE RISK >11.0 HIGH RISK Performed By: #### U MICRO, UACSIND #### [facility] [address] [address] [address] Bee Titus Cholesterol [Mass/Vol] 191 mg/dL Normal <=200 [facility] Comment on above: Performed By: #### U MICRO, UACSIND #### [facility] [address] [address] [address] Bee Titus Cholesterol in HDL [Mass/Vol] 77 mg/dL Critically high 40-60 [facility] Comment on above: Performed By: #### U MICRO, UACSIND #### [facility] [address] [address] [address] Bee Titus Cholesterol in LDL [Mass/Vol] 103.2 mg/dL Normal [facility] Comment on above: Performed By: #### U MICRO, UACSIND #### [facility] [address] [address] [address] Bee Titus Cholesterol.total/Ch olesterol in HDL [Mass ratio] 2.5 {ratio} Normal [facility] Comment on above: Performed By: #### U MICRO, UACSIND #### [facility] [address] [address] [address] Bee Titus HDL NORMAL > or = 60 mg/dl - LO W CARDIOVASCULAR RISK <40 mg/dl - HIGH CARDIOVASCULAR RISK Normal [facility] Comment on above: Performed By: #### U MICRO, UACSIND #### [facility] [address] [address] [address] Bee Titus LDL CALC NORMAL SEE BELOW Normal [facility] Comment on above: Result Comment: <100 mg/dl OPTIMAL 100 - 129 mg/dl NEAR OR ABOVE OPTIMAL 130 - 159 mg/dl BORDERLINE HIGH 160 - 189 mg/dl HIGH >190 mg/dl VERY HIGH Performed By: #### U MICRO, UACSIND #### [facility] [address] [address] [address] Bee iTtus Triglyceride [Mass/Vol] 54 mg/dL Normal <=150 [facility] Comment on above: Performed By: #### U MICRO, UACSIND #### [facility] [address] [address] [address] Bee Titus VLDL CALC 10.8 mg/dL Normal [facility] Comment on above: Performed By: #### U MICRO, UACSIND #### [facility] [address] [address] [address] Bee Titus PROF 14(COMP METB)on 022 Albumin [Mass/Vol] 3.9 g/dL Normal 3.4-5.0 [facility] Comment on above: Performed By: #### U MICRO, UACSIND #### [facility] [address] [address] [address] Bee Titus Albumin/Globulin [Mass ratio] 1.3 {ratio} Normal [facility] Comment on above: Performed By: #### U MICRO, UACSIND #### [facility] [address] [address] [address] Bee Titus ALP [Catalytic activity/Vol] 54 U/L Normal 46-116 [facility] Comment on above: Performed By: #### U MICRO, UACSIND #### [facility] [address] [address] [address] Bee Titus ALT [Catalytic activity/Vol] 38 U/L Normal 14-59 [facility] Comment on above: Performed By: #### U MICRO, UACSIND #### [facility] [address] [address] [address] Bee Titus Anion gap [Moles/Vol] 10.9 mmol/L Normal [facility] Comment on above: Performed By: #### U MICRO, UACSIND #### [facility] [address] [address] [address] Bee Titus AST [Catalytic activity/Vol] 56 U/L Critically high 15-37 [facility] Comment on above: Performed By: #### U MICRO, UACSIND #### [facility] [address] [address] [address] Bee Titus Bilirubin [Mass/Vol] 0.4 mg/dL Normal 0.2-1.0 [facility] Comment on above: Performed By: #### U MICRO, UACSIND #### [facility] [address] [place] [address] Dr. eBe Titus Calcium [Mass/Vol] 8.9 mg/dL Normal 8.5-10.1 [facility] Comment on above: Performed By: #### U MICRO, UACSIND #### [facility] [address] [place] [address] Dr. Bee Titus Chloride [Moles/Vol] 109 mmol/L Critically high 98-107 [facility] Comment on above: Performed By: #### U MICRO, UACSIND #### [facility] [address] [place] [address] Dr. Bee Titus CO2 [Moles/Vol] 26.9 mmol/L Normal 21.0-32.0 [facility] Comment on above: Performed By: #### U MICRO, UACSIND #### [facility] [address] [place] [address] Dr. Bee Titus Creatinine [Mass/Vol] 0.84 mg/dL Normal 0.55-1.02 [facility] Comment on above: Performed By: #### U MICRO, UACSIND #### [facility] [address] [place] [address] Dr. Bee Titus EGFR-AF [place] >60 Normal >=60 [facility] Comment on above: Performed By: #### U MICRO, UACSIND #### [facility] [address] [address] [address] Bee Titus EGFR-NON AF [place] >60 Normal >=60 [facility] Comment on above: Performed By: #### U MICRO, UACSIND #### [facility] [address] [place] [address] Dr. Bee Titus Globulin (S) [Mass/Vol] 3.1 g/dL Normal [facility] Comment on above: Performed By: #### U MICRO, UACSIND #### [facility] [address] [address] [address] Bee Titus Glucose [Mass/Vol] 97 mg/dL Normal 74-106 [facility] Comment on above: Performed By: #### U MICRO, UACSIND #### [facility] [address] [place] [address] Dr. Bee Titus Potassium [Moles/Vol] 3.8 mmol/L Normal 3.5-5.1 [facility] Comment on above: Performed By: #### U MICRO, UACSIND #### [facility] [address] [place] [address] Dr. Bee Titus Protein [Mass/Vol] 7.0 g/dL Normal 6.4-8.2 [facility] Comment on above: Performed By: #### U MICRO, UACSIND #### [facility] [address] [place] [address] Dr. Bee Titus Sodium [Moles/Vol] 143 mmol/L Normal 136-145 [facility] Comment on above: Performed By: #### U MICRO, UACSIND #### [facility] [address] [place] [address] Dr. Bee Titus Urea nitrogen [Mass/Vol] 11.0 mg/dL Normal 7.0-18.0 [facility] Comment on above: Performed By: #### U MICRO, UACSIND #### [facility] [address] [place] [address] Dr. Bee Titus Urea nitrogen/Creatinine [Mass ratio] 13.1 mg/mg Normal [facility] Comment on above: Performed By: #### U MICRO, UACSIND #### [facility] [address] [address] [address] Bee Titus TSHon 10-23-2021 TSH 1.495 uIU/mL Normal 0.358-3.740 [facility] Comment on above: Performed By: #### U MICRO, UACSIND #### [facility] [address] [address] [address] Bee Titus Coding Summaryon 07-18-2020 Coding Summary HTMLBase 64 GiwypdbrGKz3nBh+PGhlY WQ+PX3ANHDyN82pcRFkwF 6WN4uPEJ3KJQDEIYSTAL8 KXW4jtWV9YKorQ9AclfLl ZkcoqZKmWV43EDa2MXG1z FxrDLcllE3jmFBgZ5s2Qd MvBA60mG24QTzfPMCtAzG 3LjZpbjsgbWFy P6czKuSvhBBxHxs+PHRhY mxlIHdpZHRoPScxMDAlJy HjqTaeMQ9uHy7fXJJjGYB vbGxhcHNlOiBj i7gvCOByMCnqVJ0cfNzlX 5XstEE4JRVqd5s4Ub13eD I+WYYjEJD7gDkxSFpuc89 0PpIjp5caKMJ5 uXGtGOcfDPV4G27vy4T1D INrQWZsPPT2gCZ5jX5aoX phwowtI9YdbYBlBgV5RWK 8zVYuxS2ztGlz qpjpcB6qFwx+U59IOJ3DK XSAAJ6XGjj8E1DfVpkdwD I+VL75UNQvWQ42qPJqwHN gu5whrVt9ZgSw QVLoJBW8gPatLZhku9FrB AKtP95ylKKsx9I9VEOrrA qkrCRxOjWweBA6kA2cXQj wbfyky0lhecul Bxqkg3gein30tF14B49iB HloVYOpPZG9GEFhOIZngX qdmm7xcF5xKm0+UHmsj5f fv0wfpAw2QwPm FCLfnsSnhEaySBI2s7MhV q41K8HmyNvxd6PyEff3ob 75yBIpz4V8uLS1UJrjVKX ppP1gRQdiPoM3 RHNgJhFqsE73pPUeURzpX e2gzRvusDtoJD7yGSMidn epYLNpwE9oJUApgYHaxSe aYX7lDHYxrxlt m106PkBrKRT5MQLysVFlO 0UbwX2uQbBlNJFtQHMiW4 EvbROuQZazI212MUxbCrC 5VJZotnFgK5Sl WZYghWstJjV8l3H0Lr9Oe 0EbxplhKIZ7UVnsXVV2Wn XaBiZuGaH9K9SsXwv5TAH ftNqkHP7wR3Jg ARHmagaepgiivQS2UYHqP DEoqT25eCJsEDkdRs2hf8 N2n992ZYJdZUMboI86Ih9 udDogMTBwdCBU cC7shkdld1lwsfbaEpFmR XEhJIn5XRl8OAHdkDufPo IwCNV1VfI4MEQ2mYCwsD7 glWkzioibeI6l Oyc+U38vxI1nAHX5VZI4o dmmZQGwzoOwOJ65AV66B9 RyPjwvdGFibGU+PGRpdiB fmUsqMU9bGlVh j6jhs3EyYTgvS6QdZDBfN UkgYzg2XLCjZJP0lIQ6pG 4tWGCjBDsus2L5lJA9S6M imhPyab9oe9sc VAYwPQniS31jnAQwd2B6R JRyvMM4JTGgaGghLpBgsH 93Oyc+YBJywQojg4KfWws nb9fim9opbAd8 NhMbTCUvfyKplBorKAF6i 6ZbQa79S75iDQjdLLGsNG UbCXAbNZRkcGaabe5ldD5 wIi8+PGNvbCB3 pJQ5oB0jJPHzFmS1KSjeA 854WyQheGTqLvasg7bol9 akfYl6PzIwAGZvxmZneFu bDZN2r1JzJq05 Y14aKNegSQKoRZCiFAVrK LFoyQcxle0dtY3fOn3+PC 5uq8dums65zM99rBJ+PHR gHFF1fNewNLhl FLBqwC2iSWeoBzN7UNHwR eMisW99yAOtXZfrVr1hiN vycXfkBO9tQEXvhvwvu83 2RfYin1ieLADb fNKoOVijLLK5Z22eh4M6M TImRHDgFMV1xZY6xR3lrZ lnbjogbGVmdDsgdmVydGl jOAhiGTwyI860 IHRvcDsnPlBhdGllbnQgT jEtNZv4G2TmAxp3HIBghT mzLU3gePUjQYhvTm0tkMy fmAzsPT7aIILp xigwx151FmCht3xmYJOer MAtFPxyBBN5N40xr4A5FS OjGAZeVCS9oUE6wE5uaRx nbjogbGVmdDsg zrPzcHliWQgqFPznB731O HRvcDsnPkJpcnRoIERhdG A8LG80VA77jBLoq0V8fIK 4E4WvYWIofjku cudkcUI4BIHlDOVcaF19D k4pcPpmCs6aCFKcYHY7FS PovNWnN9RjuB5tJiLtEGO lTGKcU2QerDXz PRmnI202SVznFiP4FVRgu wFhQ0BjJNXebMcdUkK5y5 R8Ii2XW2W2CX62TU57eLR wp7Y0dXJ4D1Bg KTKesjncfklwrLU5DRXcS TPklT49Hu5eoVjaGg1pKT QuXMQ7REHcoGHtB1KgjY3 yOiAjMDAwMDAw R6LlvJUgRZmqU254SRafO kP9XLUftjFcG3QhZIPvxS gvJzX9c9G9Bi1CEBl0GO4 5VK64sVXwd6G1 oUW6J7RpOHYamwqdbmzqb TZ3DRLzIVLqoT84Eq2fkS qsKq3jFYEhGHH2RSSsyFO xE7OeqM9rMdJu JNJcQFRcG8ZwoEWpWGdkR 346BSasCeG2PSSpsfGkL9 FqZKFfcXrbImK5k8O3Kv1 TEFYqJK19KFX6 jVK0LB85AD12W3HfCpiwc GFibGU+PHRhYmxlIHdpZH RoPScxMDAlJyBzdHlsZT0 eRt4eIBRkSXHk uNttlTVyBfDik6anZEDeD WdlOH1ioKkbA5NubEH7ZA Xee8p8Ld03A08hM6PdeZL +CRLlzAT1tCI5 cU4qMqStItO4JWgnI831I zZezVLgCyytq7vzo0fwsR r0UuS6UOFyjtEpkGmoNWB 4m6MmXt39E34m IHdpZHRoPSIxNSUiIHZhb Tubsu9tsR3oKk2+PGNvbC C7yCO3kW7tNoOlUgR0BKk oG142FbYgyOFv Yqfql8kzm9amwYe0GwZcV ROwoiAntDocOGX5k6PfUu 55I9KusUhht2OvHtw0pf5 5bEQea4E7uXC1 B0ErSCKsrnlgfYHdcZegL K8dKMBknfdcAQZhwZ3cSW TbK8i9FgSuPgW7WDbuF0A kopO0JTDdvQJy NAzzZDH9F77ma1Z7KGHmE DCyEVP4xBQ8kF0ooSphve ogbGVmdDsgdmVydGljYWw mQEnyL087HBPc jNrjAUQifK5cJAMebKQex LhcSW4jVEKoisfnZbFBAB wgTElORFNZIEdSQUNFPC9 8ID13aTUqs9S7 iQV0S7IvAKGvdcnspcgnd PJ6ZQNwTNPtdC11dZFnXC uxLo5ab1C6w751VRTgFMH vbQ36Ex8cqWqo BUJnpUNWoW3iuqfwc2atq ardXmBtWNImPZm7CFr0UN XcxLgqIgLxJPN0IgV9RVO 6sREiyL8ryFvv szqneW1aFrj+MDkvMTAvM Ey8RtqjlML+RHQvEQZ9aT ztWBmsPRIxmA9zHPHyG9j 0OyRyHwM9TCmp M8QyFPEtxlllYf77rL1aP cKjRyG5CRedP5YitiY5AD GhyAVkRGniLRN7O77wk5L 3LBWsWPWbWJP5 zZV5kT9uiGztxcngqQUqw DsgdmVydGljYWwtYWxpZ2 46IHRvcDsnPjIzIFllYXJ eHF02TQ49gMUs y5G4fLJ9S2TtTFOulzjkw jbjcCX7DXDiGIOfrF62nQ AkAPykZq9yu9E4j702AKK nDONdwY56Cp0u hYvlEFVhuLXDlX7klfssy 8erwmgxHxGqXZSoLBv3GN o8BIOfgYggBhYhLZW3NnE 2ECT4bLNjeZ6g vSwqixuxuN1bBne+RkVNQ LpICG75IZ20eTFwv6X3kQ U3S2DbYPFkucntvpruiAI 5PGYcEUVikH41 yPRvXLbbOs9ns4B5a264N HYkUBDlbX94Lj1ssCyoTH TabEDMlE8phrfwm7hzcup gIzAwMDAwMDt0 CLc0DTOzfWnxAdFcZEV9E yE0NFP8lJMdcG9tzOfxlk sciQ4sFoa+I0P3L0CdHrk vdHI+FF04PLDv NT56mWAigVRhf3mzlIa2T nLaDBDsRBA5hExuJWwet4 BxGIHuO90slPWhg9O7SYI vbGxhcHNlOyBl sGC7xW0kVDzbbdwoy2jnx szpMxidm0fveg66zQ16T3 9sIHdpZHRoPSIzMCUiIHZ hvOodkd2rbM6p Ii8+YMQvlZA6sSJ7mD1jU yEqIzP6HAguX560DxQhsA IgPffus8ojy2vpaNo5AaX wJSIgdmFsaWdu VJO8s5AzPr72L62nIEimV HRoPSIyMCUiIHZhbGlnbj 3ouQ3eMq7+PD0ww2azvz3 7pA05vOE+PHRk DQM2qJjqMHorYYSsiN6sR HsfYoW0GMRvMeGehB06nO KfLOsyYn9diUrpvJjvGX2 mQECssvyhe461 WjQkc5znHGVrfQDtVOxlK DU3I19pm3R8DGPiWNDaYF S7jMZ7lF4cgSveyjgbrTR mdDsgdmVydGlj DMmxICfmN575MZOgqAunN uFnkFPhK2xfauGFOU9dQu wvdGQ+FTHyEHE7eTruDNv bVNDvyI6xJDGf G8i3YcZlWlF8IMwbM6Wne cA3MBUjtXRgZZDugMJUlA 6ibhutz7nkxsmtQfWxWHO mELa3BNt2VXVo lRkgHfJqOOY8JuA3TQF1h YGnrI5kgZdxysiwoC2qTe c+RklOOjwvdGQ+PHRkIHN 0eWxlPSdwYWRk kY9pYTZsW2e1EzSuKvW3G XrrX2BissA7XDPpaTExHN MwuDNCiL7uapbgu7pulae gIzAwMDAwMDt0 PHl2NUIklPapUiJdLNM8E rH0BHQ6oMGhrR7ydEsqtb gulA8kElv+TVJOOjwvdGQ +NGClWTX9kQed UMejOUDojV6iIGUoD8v9D oFoNnS7ZMgcG4WoenS6DB YyhREsUDPvrVVFpV0dbdo ln3liijgoXpJv ECDoUTe0QZg6CIWqiZefR qSsGWW0IlU6GKV1eNSnyK 6ynAlhohtphM7eUyl+UGF 1ZYV6ZW60MY15 U7JiJqoppNQnuKS+PHRhY mxlIHdpZHRoPScxMDAlJy YcvCumIS0fAm2zYGXmAMJ vbGxhcHNlOiBj b2x (more content not included)... Normal [facility] ED Clinical Summaryon 2020 ED Clinical Summary [facility] ? Urgent Care [address] [place] [address] Clinical Summary PERSON INFORMATION Name: LAKEISHA BELL Age: 24 Years Sex: FEMALE : 1995 MRN: Acct#: Visit Reason: UC - Skin Problem: simple; SKIN PROBLEM ON BACK Arrival: 07/10/2020 15:22:15 Discharge: 07/10/2020 16:32:00 LOS: 000 01:10 Check In: 07/10/2020 15:22:15 Checkout: 07/10/2020 16:32:00 Address: [address] [place] [id number] PCP: FLOR VILLAGOMEZ MD PROVIDER INFORMATION Provider [...] removal With: Address: When: Braden Sandoval [address] [phone] [facility] (1) , only if needed With: Address: When: Jae Flores [address] [place] [address] [address] [phone] [facility] (1) Comments: OR DIAGNOSIS: Pilonidal abscess Patient Understands: Yes - Patient/family/caregi fahad verbalizes understanding of instructions given Comment: Normal [facility] ED Patient Summaryon 021 ED Patient Summary [facility] ? Urgent Care [address] [place], [place] [address] PATIENT DISCHARGE INSTRUCTIONS Patient Information Name: LAKEISHA BELL Age: 24 Years Date of : 1995 Reason For Visit: UC - Skin Problem: simple; SKIN PROBLEM ON BACK Arrival Time: 07/10/2020 15:22:15 Primary Care Physician: FLOR VILLAGOMEZ MD Attending Physician: Jhon Vigil Comment: Patient Education With: Address: When: Return to this practice Comments: 48 hours for packing removal With: Address: When: Braden Sandoval [address] [place], [place] [phone] [facility] () , only if needed With: Address: When: Jae Flores [address] [place], [place] [phone] [facility] (1) Comments: OR Percutaneous Abscess Drain, Care [...] and water are not available, use hand plunket nurse. ? Change your dressing as told by [...] says that this is okay. ? Take zekh-tow-jpexmfa and prescription medicines only as told by [...] 07/30/2014 Document Revised: 02/25/2018 Document Reviewed: 02/04/2017 [employer] Patient Education ? 2020 m2fx. Pilonidal Cyst Drainage, Care After This sheet gives you information about how to care f (more content not included)... [facility] Urgent Care Note- Provideron 07-10-2020 Urgent Care [...] Bactrim. OTC Motrin as recommended, add PRN [facility] for severe pain. I reviewed OARR's. I [...] complication. Impression and Plan Diagnosis Pilonidal abscess (MNI92-AH L05.01, Discharge, Medical) Plan Condition: Stable. Disposition: Discharged: Time 07/10/2020 16:14:00, to home. Prescriptions: Launch prescriptions Pharmacy: [facility] 5 mg-325 mg oral tablet (Prescribe): 1 [...] prescription, Patient indicated understanding of instructions. Normal [facility] [place] 021 Urgent Care Record [facility] ? Urgent Care [address] [place] [address] PATIENT DISCHARGE INSTRUCTIONS Patient Information Name: LAKEISHA BELL Age: 24 Years Date of : 1995 Reason For Visit: UC - Skin Problem: simple; SKIN PROBLEM ON BACK Arrival Time: 07/10/2020 15:22:15 Primary Care Physician: FLOR VILLAGOMEZ MD Attending Physician: Jhon Vigil Comment: Visit Diagnosis: Diagnoses This Visit Pilonidal abscess (L05.01) UC - Skin Problem: simple ([id number]) If you received any narcotics, sedation, or [...] removal With: Address: When: Braden Sandoval [address] [phone] [facility] (1) , only if needed With: Address: When: Jae Flores [address] [address] [facility] (1) Comments: OR Medication Information: The exam and treatment you received today in the [facility] were for an urgent problem and are not intended as complete care. It is important for you to follow up with a doctor, nurse practitioner, or physician?s coding assistant for ongoing care. If your symptoms [...] so we can reach you if necessary. [facility] has provided you with a complete list of medications post discharge. Please inform your delivery sales worker/provider of your visit and for further instruction on these medications. Any specific questions regarding your chronic medications and dosages should be discussed with your primary care physician(s) and/or pharmacist. New Medications [facility], [address] [place] [phone], [phone] acetaminophen-hydroco done ([facility] 5 mg-325 mg oral tablet) 1 tab(s) [...] and water are not available, use hand plunket nurse. ? Change your dressing as told by [...] Check for: (more content not included)... Normal [facility] Vital Signs Date Time Vital Sign Value Performing Clinician Facility 09-27-2024 15:06-0400 Body mass index (BMI) [Ratio] 33.75 kg/m2 Jesus Erik DO Work Phone: [facility] 09-27-2024 15:06-0400 Body weight 97.75 kg Jesus Erik DO Work Phone: [facility] 09-27-2024 15:06-0400 Diastolic blood pressure 70 mm[Hg] Jesus Erik DO Work Phone: [facility] 09-27-2024 15:06-0400 Systolic blood pressure 110 mm[Hg] Jesus Erik DO Work Phone: [facility] 08-30-2024 14:24-0400 Body mass index (BMI) [Ratio] 32.19 kg/m2 Jesus Erik DO Work Phone: [facility] 08-30-2024 14:24-0400 Body weight 93.21 kg Jesus Erik DO Work Phone: [facility] 08-30-2024 14:24-0400 Diastolic blood pressure 72 mm[Hg] Jesus Erik DO Work Phone: [facility] 08-30-2024 14:24-0400 Systolic blood pressure 118 mm[Hg] Jesus Erik DO Work Phone: [facility] 08-02-2024 14:14-0400 Body mass index (BMI) [Ratio] 31.64 kg/m2 Reina KULKARNI Work Phone: [facility] 08-02-2024 14:14-0400 Body weight 91.63 kg Reina KULKARNI Work Phone: [facility] 08-02-2024 14:14-0400 Diastolic blood pressure 70 mm[Hg] Reina KULKARNI Work Phone: [facility] 08-02-2024 14:14-0400 Systolic blood pressure 110 mm[Hg] Reina KULKARNI Work Phone: [facility] 07-05-2024 13:59-0400 Body mass index (BMI) [Ratio] 30.23 kg/m2 Jesus Erik DO Work Phone: [facility] 07-05-2024 13:59-0400 Body weight 87.54 kg Jesus Erik DO Work Phone: [facility] 07-05-2024 13:59-0400 Diastolic blood pressure 68 mm[Hg] Jesus Erik DO Work Phone: [facility] 07-05-2024 13:59-0400 Systolic blood pressure 108 mm[Hg] Jesus Erik DO Work Phone: [facility] 06-08-2024 14:18-0400 Body mass index (BMI) [Ratio] 29.48 kg/m2 [facility] Nurse [facility] 06-08-2024 14:18-0400 Body weight 85.37 kg [facility] Nurse [facility] 06-08-2024 14:18-0400 Diastolic blood pressure 70 mm[Hg] [facility] Nurse [facility] 06-08-2024 14:18-0400 Systolic blood pressure 120 mm[Hg] [facility] Nurse [facility] 04-25-2024 11:15-0500 Body mass index (BMI) [Ratio] 27.53 kg/m2 Jesus Erik DO Work Phone: [facility] 04-25-2024 11:15-0500 Body weight 79.74 kg Jesus Erik DO Work Phone: [facility] 04-25-2024 11:15-0500 Diastolic blood pressure 70 mm[Hg] Jesus Erik DO Work Phone: [facility] 04-25-2024 11:15-0500 Systolic blood pressure 120 mm[Hg] Jesus Erik DO Work Phone: [facility] 04-20-2024 09:18-0500 Body height 167.64 cm [facility] 04-20-2024 09:18-0500 Body mass index (BMI) [Ratio] 28.5 kg/m2 [facility] 04-20-2024 09:18-0500 Body weight 80.28 kg [facility] 04-20-2024 09:18-0500 Diastolic blood pressure 74 mm[Hg] [facility] 04-20-2024 09:18-0500 Heart rate 81 /min [facility] 04-20-2024 09:18-0500 Systolic blood pressure 109 mm[Hg] [facility] 01-28-2024 12:33-0400 Body temperature 97 [degF] Yolie Fletcher INSPECTION MACHINE TENDER Work Phone: [facility] 01-28-2024 12:33-0400 Diastolic blood pressure 80 mm[Hg] Yolie Fletcher INSPECTION MACHINE TENDER Work Phone: [facility] 01-28-2024 12:33-0400 Heart rate 79 /min Yolie Fletcher INSPECTION MACHINE TENDER Work Phone: [facility] 01-28-2024 12:33-0400 SaO2% (BldA) [Mass fraction] 99 % Yolie Fletcher INSPECTION MACHINE TENDER Work Phone: [facility] 01-28-2024 12:33-0400 Systolic blood pressure 112 mm[Hg] Yolie Fletcher INSPECTION MACHINE TENDER Work Phone: [facility] 07-22-2023 10:01-0400 Body height 167.64 cm [facility] 07-22-2023 10:01-0400 Body mass index (BMI) [Ratio] 27.4 kg/m2 [facility] 07-22-2023 10:01-0400 Body temperature 98.5 [degF] [facility] 07-22-2023 10:01-0400 Body weight 77.11 kg [facility] 07-22-2023 10:01-0400 Diastolic blood pressure 78 mm[Hg] [facility] 07-22-2023 10:01-0400 Heart rate 74 /min [facility] 07-22-2023 10:01-0400 Systolic blood pressure 112 mm[Hg] [facility] 05-13-2023 09:56-0500 Body mass index (BMI) [Ratio] 27.41 kg/m2 Reina KULKARNI Work Phone: [facility] 05-13-2023 09:56-0500 Body weight 79.38 kg Reina Tapia SHAD Work Phone: [facility] 05-13-2023 09:56-0500 Diastolic blood pressure 76 mm[Hg] Reina Tapia PA Work Phone: [facility] 05-13-2023 09:56-0500 Systolic blood pressure 114 mm[Hg] Reina Tapia PA Work Phone: [facility] 01-29-2023 11:00-0400 Body height Perri Carmona Other [facility] Other 01-29-2023 11:00-0400 Body mass index (BMI) [Ratio] 32.6 kg/m2 Perri Carmona Other [facility] Other 01-29-2023 11:00-0400 Body weight 91.63 kg Perri Carmona Other [facility] Other 01-29-2023 11:00-0400 Diastolic blood pressure 74 mm[Hg] Perri Carmona Other [facility] Other 01-29-2023 11:00-0400 Systolic blood pressure 107 mm[Hg] Perri Carmona Other [facility] Other 10-20-2021 09:00-0400 Body height Cielosteven Mouraihsan Other [facility] Other 10-20-2021 09:00-0400 Body mass index (BMI) [Ratio] 35.26 kg/m2 Cielosteven Mouraerer Other [facility] Other 10-20-2021 09:00-0400 Body temperature 98.2 [degF] Cielosteven Mouraerer Other [facility] Other 10-20-2021 09:00-0400 Body weight 99.11 kg Cielo Boston Other [facility] Other 10-20-2021 09:00-0400 Diastolic blood pressure 88 mm[Hg] Cielo Boston Other [facility] Other 10-20-2021 09:00-0400 SaO2% (BldA) [Mass fraction] 99 % Cielo Boston Other [facility] Other 10-20-2021 09:00-0400 Systolic blood pressure 122 mm[Hg] Cielo Boston Other [facility] Other Encounters Encounter Date Encounter Type Care Provider Facility Start: 10-10-2024 End: 10-10-2024 ambulatory APRYL REDMAN Not Available Start: 09-27-2024 End: 09-27-2024 flow sheet Jesus Erik DO Work Phone: [facility] Comment on above: Encounter for follow -up ultrasound of anatomy ([facility]) (Primary Dx); Diabetes mellitus screening; Second trimester ([facility]); 24 weeks gestation of ([facility]) Start: 09-27-2024 End: 09-27-2024 ambulatory JESUS ERIK Not Available Start: 09-27-2024 End: 09-27-2024 Bamboo flowsheet Jesus Erik DO Work Phone: [facility] Start: 09-27-2024 End: 09-27-2024 Bamboo flowsheet Jesus Erik DO Work Phone: [facility] Start: 08-30-2024 End: 08-30-2024 ambulatory JESUS ERIK Not Available Start: 08-30-2024 End: 08-30-2024 flow sheet Jesus Erik DO Work Phone: [facility] Comment on above: Second trimester pre gnancy; 20 weeks gestation of Start: 08-30-2024 End: 08-30-2024 ambulatory REINA TAPIA Not Available Start: 08-02-2024 End: 08-02-2024 Bamboo flowsheet Reina KULKARNI Work Phone: [facility] Start: 08-02-2024 End: 08-04-2024 Bamboo flowsheet Reina KULKARNI Work Phone: [facility] Start: 08-02-2024 End: 08-04-2024 External Result Encounter Reina KULKARNI Work Phone: [facility] Unsolicited Start: 08-02-2024 End: 08-02-2024 flow sheet Reina KULKARNI Work Phone: [facility] Comment on above: Exposure to STD; Second trimester ; 16 weeks gestation of ; Screening, , for anatomic survey; Need for maternal serum alpha-protein (MSAFP) screening Start: 08-02-2024 End: 08-02-2024 ambulatory REINA TAPIA Not Available Start: 07-05-2024 End: 07-05-2024 Bamboo flowsheet Jesus Erik DO Work Phone: [facility] Start: 07-05-2024 End: 07-05-2024 Bamboo flowsheet Jesus Erik DO Work Phone: [facility] Start: 07-05-2024 End: 07-05-2024 flow sheet Jesus Erik DO Work Phone: [facility] Comment on above: First trimester preg chris; 12 weeks gestation of Start: 07-05-2024 End: 07-05-2024 ambulatory JESUS ERIK Not Available Start: 06-08-2024 End: 06-08-2024 Office outpatient visit 5 minutes [facility] Erik Nurse [facility] Comment on above: GA: 8w3d Start: 06-08-2024 End: 06-08-2024 ambulatory JESUS ERIK Not Available Start: 05-17-2024 End: 05-17-2024 Clinisync Result Encounter Jesus Erik DO Work Phone: [facility] Unsolicited Start: 05-17-2024 End: 05-17-2024 Clinisync Result Encounter Jesus Erik DO Work Phone: [facility] Unsolicited Start: 05-15-2024 End: 05-15-2024 Clinisync Result Encounter Jesus Erik DO Work Phone: [facility] Unsolicited Start: 05-15-2024 End: 05-15-2024 Clinisync Result Encounter Jesus Erik DO Work Phone: [facility] Unsolicited Start: 04-25-2024 End: 04-25-2024 Bamboo flowsheet Jesus Erik DO Work Phone: [facility] Start: 04-25-2024 End: 05-01-2024 Bamboo flowsheet Jesus Erik DO Work Phone: [facility] Start: 04-25-2024 End: 05-01-2024 Clinisync Result Encounter Jesus Erik DO Work Phone: [facility] Unsolicited Start: 04-25-2024 End: 04-25-2024 Patient encounter procedure Jesus Erik DO Work Phone: [facility] Work Phone: Start: 04-25-2024 End: 04-25-2024 Periodic preventive med est patient 18-39 yrs Jesus Erik DO Work Phone: [facility] Comment on above: Well woman exam with routine gynecological exam Start: 04-25-2024 End: 04-25-2024 ambulatory JESUS ERIK Not Available Start: 04-20-2024 End: 04-20-2024 ambulatory [facility] Work Phone: Start: 04-20-2024 End: 04-20-2024 Patient encounter procedure [facility] Work Phone: Start: 01-28-2024 End: 01-28-2024 ambulatory YOLIE FLETCHER Not Available Start: 01-28-2024 End: 01-28-2024 Office outpatient visit 25 minutes Yolie Fletcher [employer] Work Phone: [facility] Comment on above: Acute non-recurrent maxillary sinusitis (Primary Dx); Acute cough; Acute bronchitis, unspecified organism; History of candidal vulvovaginitis Start: 07-22-2023 End: 07-22-2023 ambulatory [facility] Work Phone: Start: 07-22-2023 End: 07-22-2023 Patient encounter procedure [facility] Work Phone: Start: 05-13-2023 End: 05-13-2023 Office outpatient visit 15 minutes Reina Tapia PA Work Phone: [facility] Comment on above: Weight gain; Encounter for weight management Start: 01-29-2023 End: 01-29-2023 ambulatory Perri Carmona Other [facility] Other Start: 01-29-2023 Office outpatient ne w 30 minutes Perri Carmona [facility] Start: 07-27-2022 End: 07-28-2022 Evaluation and management of inpatient DR NONE LISTED REQUEST Facility:[facility]1 Start: 07-14-2022 End: 07-14-2022 ambulatory NONE LISTED REQUEST Facility:[facility] Start: 07-13-2022 End: 07-14-[address] MIMI RICHEY Facility:[facility] Start: 07-02-2022 End: 07-02-[address] JESUS VALENCIA . Facility:[facility] Start: 06-16-2022 End: 06-17-[address] JESUS VALENCIA . Facility:[facility] Start: 05-19-2022 End: 05-20-2022 ambulatory REINA TAPIA . Facility:[facility] Start: 05-17-2022 End: 05-17-2022 ambulatory SCARLET CURIEL Facility:[facility] Start: 05-04-2022 End: 05-05-[address] JESUS VALENCIA . Facility:[facility] Start: 04-30-2022 End: 05-01-[address] JESUS VALENCIA . Facility:[facility] Start: 03-09-2022 End: 03-10-[address] JESUS VALENCIA . Facility:[facility] Start: 02-23-2022 End: 02-23-[address] JESUS VALENCIA . Facility:[facility] Start: 12-25-2021 End: 12-26-[address] JESUS VALENCIA . Facility:[facility] Start: 12-05-2021 End: [address] JESUS VALENCIA . Facility:[facility] Start: 11-11-2021 End: 11-26-[address] JESUS VALENCIA . Facility:[facility] Start: 11-03-2021 End: 11-03-2021 ambulatory Mirella Escobar Other [facility] Other Start: 11-03-2021 Telephone encounter Mirella Escobar [facility] Start: 10-29-2021 Encounter for genera l adult medical examination without abnormal findings CIELO BOSTON [facility] Start: 10-23-2021 End: 10-24-2021 ambulatory CIELO BOSTON Facility: Start: 10-23-2021 End: 10-24-2021 Encounter for general adult medical examination without abnormal findings CIELO BOSTON Facility: Start: 10-20-2021 End: 10-20-2021 ambulatory Cielo Boston Other [facility] Other Start: 10-20-2021 Encounter for genera l adult medical examination without abnormal findings Cielo Boston [facility] [place] Start: 10-20-2021 Initial preventive medicine new pt age 18-39yrs Cielo Boston [facility] [place] Start: 10-14-2021 End: 10-14-2021 ambulatory Cielo Boston Other [facility] Other Start: 10-14-2021 Telephone encounter Cielo Boston [facility] [place] Procedures Date Procedure Procedure Detail Performing Clinician Start: 08-30-2024 Urnls dip stick/tabl et rgnt non-auto w/o micrscp Jesus Erik DO Work Phone: Start: 08-02-2024 RECURRENT VAGINITIS (HTRX) Reina KULKARNI Work Phone: Start: 08-02-2024 Urnls dip stick/tabl et rgnt non-auto w/o micrscp Reina KULKARNI Work Phone: Start: 07-05-2024 Urnls dip stick/tabl et rgnt non-auto w/o micrscp Jesus Erik DO Work Phone: Start: 06-08-2024 Urnls dip stick/tabl et rgnt non-auto w/o micrscp Jesus Erik DO Work Phone: Start: 05-17-2024 [facility] PREG QUANT HCG Core y Erik DO Work Phone: Start: 05-15-2024 [facility] PREG QUANT HCG Core y Erik DO Work Phone: Start: 04-25-2024 IGP,APTIMA HPV,AGE GDLN Jesus Erik DO Work Phone: Start: 07-27-2022 Delivery of Products of Conception, External Approach DR JESUS VALENCIA . Start: 07-27-2022 Repair Perineum Skin , External Approach DR JESUS VALENCIA . Plan of Treatment Date Care Activity Detail Author Start: 10-19-2024 End: 10-19-2024 Patient encounter procedure 10/19/2024 9:50 AM EDT Routine [facility] [address] [place] [id number] Jesus Valencia, [place] [address] [facility] Start: 10-04-2024 End: 10-04-2024 Professional / ancillary services management 10/04/2024 10:00 AM EDT Ancillary Procedure [facility] [address] [place] [address] [facility] Start: 09-27-2024 End: 09-27-2024 Patient encounter procedure [facility] Comment on above: Arrived Start: 09-27-2024 End: 09-27-2025 CBC panel - Blood by Automated count CBC Lab Routine Diabetes mellitus screening Expected: 09/27/2024 (Approximate), Expires: 09/27/2025 [facility] Work Phone: Comment on above: Expected: 09/27/2024 (Approximate), Expires: 09/27/2025 Start: 09-27-2024 End: 09-27-2025 Measurement of glucose 1 hour after glucose challenge for glucose tolerance test Glucose tolerance, 1 hour Lab Routine Diabetes mellitus screening Expected: 09/27/2024 (Approximate), Expires: 09/27/2025 [facility] Comment on above: Expected: 09/27/2024 (Approximate), Expires: 09/27/2025 Start: 09-27-2024 End: 12-28-2024 US for US OB limited 1+ fetuses Imaging Routine Second trimester ([facility]) 24 weeks gestation of ([facility]) Encounter for follow-up ultrasound of anatomy ([facility]) Expected: 09/27/2024, Expires: 12/28/2024 [facility] Work Phone: Comment on above: Expected: 09/27/2024 , Expires: 12/28/2024 Start: 08-30-2024 End: 08-30-2024 Patient encounter procedure 08/30/2024 2:10 PM EDT Routine [facility] [address] [place] [address] Jesus Valencia, DO [address] [place], [place] [id number] [facility] Start: 08-30-2024 End: 08-30-2024 Professional / ancillary services management 08/30/2024 1:00 PM EDT Ancillary Procedure [facility] [address] [place] [address] [facility] Start: 08-02-2024 End: 09-02-2024 Alpha fetoprotein, maternal Alpha fetoprotein, maternal Lab Routine Need for maternal serum alpha-protein (MSAFP) screening Expected: 08/02/2024 (Approximate), Expires: 09/02/2024 [facility] Comment on above: Expected: 08/02/2024 (Approximate), Expires: 09/02/2024 Start: 08-02-2024 End: 11-02-2024 US for US OB 14+ weeks anatomy scan Imaging Routine Screening, , for anatomic survey Expected: 08/02/2024 (Approximate), Expires: 11/02/2024 [facility] Comment on above: Expected: 08/02/2024 (Approximate), Expires: 11/02/2024 Start: 08-02-2024 End: 08-02-2024 Patient encounter procedure [facility] Comment on above: Arrived Start: 07-05-2024 End: 07-05-2024 Patient encounter procedure [facility] Comment on above: Arrived Start: 06-08-2024 End: 06-08-2025 ABO/Rh ABO/Rh Lab Routine Missed menses , unspecified gestational age Expected: 06/08/2024 (Approximate), Expires: 06/08/2025 [facility] Comment on above: Expected: 06/08/2024 (Approximate), Expires: 06/08/2025 Start: 06-08-2024 End: 06-08-2025 Blood type and Indirect antibody screen panel - Blood Type and screen Lab Routine Missed menses , unspecified gestational age Expected: 06/08/2024 (Approximate), Expires: 06/08/2025 [facility] Work Phone: Comment on above: Expected: 06/08/2024 (Approximate), Expires: 06/08/2025 Start: 06-08-2024 End: 06-08-2025 Drugs of abuse panel - Urine by Screen method Rapid drug screen, urine Lab Routine , unspecified gestational age Encounter for supervision of normal first in first trimester Expected: 06/08/2024 (Approximate), Expires: 06/08/2025 [facility] Comment on above: Expected: 06/08/2024 (Approximate), Expires: 06/08/2025 Start: 04-25-2024 End: 04-25-2024 Patient encounter procedure [facility] Comment on above: Arrived Bacteria identified in Urine by Culture Urine culture Microbiology Routine Missed menses Ordered: 06/08/2024 [facility] Comment on above: Ordered: 06/08/2024 CBC W Auto Different ial panel - Blood CBC and differential Lab Routine Missed menses , unspecified gestational age Ordered: 06/08/2024 [facility] Comment on above: Ordered: 06/08/2024 CHLAMYDIA TRACHOMATI S (GENITO/STI) CHLAMYDIA TRACHOMATIS (GENITO/STI) Lab Routine Exposure to STD Ordered: 08/02/2024 [facility] Comment on above: Ordered: 08/02/2024 Cytology Cervical or vaginal smear or scraping study Pap Smear Pathology and Cytology Routine Well woman exam with routine gynecological exam Ordered: 04/25/2024 [facility] Work Phone: Comment on above: Ordered: 04/25/2024 Hemoglobin A1c/Hemoglobin.total in Blood Hemoglobin A1c Lab Routine Missed menses , unspecified gestational age Ordered: 06/08/2024 [facility] Comment on above: Ordered: 06/08/2024 Hepatitis B virus surface Ag [Presence] in Serum or Plasma by Immunoassay Hepatitis B surface antigen Lab Routine Missed menses , unspecified gestational age Ordered: 06/08/2024 [facility] Comment on above: Ordered: 06/08/2024 Hepatitis C virus Ab [Presence] in Serum or Plasma by Immunoassay Hepatitis C antibody Lab Routine Missed menses , unspecified gestational age Ordered: 06/08/2024 [facility] Comment on above: Ordered: 06/08/2024 HIV-1/HIV-2 antigen/antibody combination immunoassay HIV-1 and HIV-2 antibodies Lab Routine Missed menses , unspecified gestational age Ordered: 06/08/2024 [facility] Comment on above: Ordered: 06/08/2024 Neisseria gonorrhoea e DNA [Presence] in Unspecified specimen by CJ with probe detection Neisseria gonorrhea DNA probe, direct Lab Routine Exposure to STD Ordered: 08/02/2024 [facility] Comment on above: Ordered: 08/02/2024 Reagin Ab [Presence] in Serum by RPR RPR Lab Routine Missed menses , unspecified gestational age Ordered: 06/08/2024 [facility] Comment on above: Ordered: 06/08/2024 Rubella antibody, IgG Rubella an tibody, IgG Lab Routine Missed menses , unspecified gestational age Ordered: 06/08/2024 [facility] Comment on above: Ordered: 06/08/2024 SURESWAB(R) ADVANCED VAGINITIS PLUS, TMA SURESWAB(R) ADVANCED VAGINITIS PLUS, TMA Pathology and Cytology Routine Exposure to STD Ordered: 08/02/2024 [facility] Work Phone: Comment on above: Ordered: 08/02/2024 Payers Date Payer Category Payer Private Health Insurance [employer] [id number] 2024 Unknown [id number] 2023 Private Health Insurance [id number] 2021 Managed Care O (unspecified) [id number] 1996 Unknown [id number] 2.16.840.1.008128.3.579.2. 593 1996 Unknown [id number] 2.16.840.1.773626.3.579.2. 593 1996 Unknown [id number] 2.16.840.1.988293.3.579.2. 593 1996 Unknown [id number] 2.16.840.1.735372.3.579.2. 593 1996 Unknown [id number] 2.16.840.1.996933.3.579.2. 593 1996 Unknown [id number] 2.16.840.1.212900.3.579.2. 593 1996 Unknown [id number] 2.16.840.1.910216.3.579.2. 593 1996 Unknown [id number] 2.16.840.1.957847.3.579.2. 593 1996 Unknown [id number] 2.16.840.1.672112.3.579.2. 593 1996 Unknown [id number] 2.16.840.1.810542.3.579.2. 593 1996 Unknown [id number] 2.16.840.1.114906.3.579.2. 593 1996 Unknown [id number] 2.16.840.1.448555.3.579.2. 593 1996 Unknown [id number] 2.16.840.1.611633.3.579.2. 593 1996 Unknown [id number] 2.16.840.1.059708.3.579.2. 593 1996 Unknown [id number] 2.16.840.1.354528.3.579.2. 593 1996 Unknown [id number] 2.16.840.1.409575.3.579.2. 1259 1996 Unknown [id number] 2.16.840.1.227240.3.579.2. 1259 1996 Unknown [id number] 2.16.840.1.956812.3.579.2. 1259 1996 Unknown [id number] 2.16.840.1.379530.3.579.2. 1259 1996 Unknown [id number] 2.16.840.1.456240.3.579.2. 1259 1996 Unknown [id number] 2.16.840.1.251541.3.579.2. 9 1996 Unknown [id number] 2.16.840.1.361604.3.579.2. 9 1996 Unknown [id number] 2.16.840.1.241664.3.579.2. 9 1996 Unknown [id number] 2.16.840.1.048661.3.579.2. 9 1996 Unknown [id number] 2.16.840.1.487054.3.579.2. 1259 1959 Private Health Insurance [id number] 1959 Private Health Insurance [id number] 1959 Unknown [id number] 2.16.840.1.028058.19 Social History Date Type Detail Facility Unknown if ever smoked [facility] Other Start: 03-12-2023 End: 07-23-2023 Sex Assigned At [facility] Start: 11-11-2022 End: 01-29-2023 Tobacco smoking status [facility] Never smoked tobacco [facility] Start: 11-11-2022 Tobacco use and exposure Smokeless tobacco non-user [facility] Start: 05-13-2023 End: 06-08-2024 Alcohol intake [...] Healthcare Start: 09-07-2022 Sexual orientation Heterosexual (finding) [facility] Start: 04-20-2024 Sex Female (finding) [facility] Start: 04-24-2024 [facility] Goals Date Patient Goal Desired Activity /State Personal health goal Clinical Notes 07-10-2020 to 09-27-2024 Apryl Redman NP - 09/27/2024 2:50 PM Katey Yeboah LPN - 08/30/2024 2:10 PM EDMerritt Mccall MA - 08/02/2024 1:30 PM Katey Yeboah LPN - 07/05/2024 1:50 PM EDT Note Date & Type Note Facility 09-27-2024 History of Presen t illness Narrative Reason for Appointment: Patient ID: Lakeisha Bell is a 28 y.o. female who presents for Routine Visit Patient presents today for Return OB appointment. MEDICATIONS No current outpatient medications ALLERGIES No [...] past year Drug use: Never FAMILY HISTORY Family History Problem Relation Name Age of Onset Graves' disease Mother SURGICAL HISTORY No past surgical history on file. REVIEW OF SYSTEMS Review of Systems: Review of Systems Constitutional: Negative. HENT: Negative. Eyes: Negative. Respiratory: Negative. Cardiovascular: Negative. Gastrointestinal: Negative. Genitourinary: Negative. Musculoskeletal: Negative. Skin: Negative. Neurological: Negative. All other systems reviewed and are negative. Hematological: Negative. Endocrine: Negative. Allergic/Immunologic: Negative. OBJECTIVE Objective: Physical Exam Constitutional: Appearance: Normal appearance. She is well-developed. Cardiovascular: Rate and Rhythm: Normal rate and [...] nursing note reviewed. Exam conducted with a technical proposal writer present. Vitals: Estimated body mass index is 33.75 kg/m as calculated from the following: Height as of 09/08/22: 5' 7 . Weight as of this encounter: 215 lb 8 oz. BP: 110/70 Patient's last menstrual period was 04/10/2024. ASSESSMENT & PLAN ICD-10-CM 1. Encounter for follow-up ultrasound of anatomy ([facility]) Z36.2 US OB limited 1+ fetuses 2. Diabetes mellitus screening Z13.1 CBC Glucose tolerance, 1 hour CBC Glucose tolerance, 1 hour 3. Second trimester ([facility]) Z34.92 US OB limited 1+ fetuses 4. 24 weeks gestation of ([facility]) Z3A.24 US OB limited 1+ fetuses CANCELED: POCT urinalysis dipstick manually resulted Return OB: Patient presents today for a routine obstetrics appointment. Patient is currently 24w2d . Patient states she is doing well but has complaints of being tired due to current . Patient has verbalizes frequent movement. labor precautions was discussed/given and patient was instructed to perform kick counts three times a day. Orders Placed This Encounter Procedures US OB limited 1+ fetuses CBC Glucose tolerance, 1 hour Follow Up: Patient is to return to office in 2 week for routine OB appointment. Documented by Apryl Redman NP on behalf of: Jesus Valencia DO documented in this encounter [facility] 08-30-2024 History of Presen t illness Narrative Reason for Appointment: Patient ID: Lakeisha Bell is a 28 y.o. female who presents for Routine Visit Patient presents today for Return OB appointment. MEDICATIONS No current outpatient medications ALLERGIES No [...] past year Drug use: Never FAMILY HISTORY Family History Problem Relation Name Age of Onset Graves' disease Mother SURGICAL HISTORY No past surgical history on file. REVIEW OF SYSTEMS Review of Systems: Review of Systems Constitutional: Negative. HENT: Negative. Eyes: Negative. Respiratory: Negative. Cardiovascular: Negative. Gastrointestinal: Negative. Genitourinary: Negative. Musculoskeletal: Negative. Skin: Negative. Neurological: Negative. All other systems reviewed and are negative. Hematological: Negative. Endocrine: Negative. Allergic/Immunologic: Negative. OBJECTIVE Objective: Physical Exam Constitutional: Appearance: Normal appearance. She is well-developed. Cardiovascular: Rate and Rhythm: Normal rate and [...] nursing note reviewed. Exam conducted with a technical proposal writer present. Vitals: Estimated body mass index is 32.19 kg/m as calculated from the following: Height as of 09/08/22: 5' 7 . Weight as of this encounter: 205 lb 8 oz. BP: 118/72 Patient's last menstrual period was 04/10/2024. ASSESSMENT & PLAN ICD-10-CM 1. Second trimester Z34.92 POCT urinalysis dipstick manually resulted 2. 20 weeks gestation of Z3A.20 Patient presents today for a routine obstetrics appointment. Patient is currently 20w2d with a Estimated Date of Delivery: 01/15/25. Pt jesus anatomy scan prior to appt, will notify after results are read. Pt to return in 4 weeks for scheduled Ob appt. Documented by Dominique Yeboah LPN on behalf of: Jesus Valencia DO documented in this encounter [facility] 08-02-2024 History of Presen t illness Narrative Reason for Appointment: Patient ID: Lakeisha Bell is a 28 y.o. female who presents for Routine Visit Patient presents today for STD Check. and Return OB appointment. MEDICATIONS No current outpatient medications ALLERGIES No [...] past year Drug use: Never FAMILY HISTORY Family History Problem Relation Name Age of Onset Graves' disease Mother SURGICAL HISTORY No past surgical history on file. REVIEW OF SYSTEMS Review of Systems: Review of Systems Constitutional: Negative. HENT: Negative. Eyes: Negative. Respiratory: Negative. Cardiovascular: Negative. Gastrointestinal: Negative. Genitourinary: Negative. Musculoskeletal: Negative. Skin: Negative. Neurological: Negative. All other systems reviewed and are negative. Hematological: Negative. Endocrine: Negative. Allergic/Immunologic: Negative. OBJECTIVE Objective: Physical Exam Constitutional: Appearance: Normal appearance. She is well-developed. Genitourinary: Right Adnexa: not tender and no mass present. Left Adnexa: not tender and no mass present. No cervical discharge. Breasts: Breasts are soft. Right: Normal. Left: Normal. HENT: Head: Normocephalic. Nose: Nose normal. Mouth/Throat: Mouth: Mucous membranes are moist. Cardiovascular: Rate and Rhythm: Normal rate and regular rhythm. Pulmonary: Effort: Pulmonary effort is normal. Breath sounds: Normal breath sounds. Abdominal: General: Bowel sounds are normal. There is no distension. Palpations: Abdomen is soft. Tenderness: There is no abdominal tenderness. There is no guarding or rebound. Musculoskeletal: General: No swelling. Normal range of motion. Cervical back: Normal range of motion. Right lower leg: No edema. Left lower leg: No edema. Neurological: General: No focal deficit present. Mental Status: She is alert and oriented to person, place, and time. Skin: General: Skin is warm and dry. Psychiatric: Mood and Affect: Mood normal. Behavior: Behavior normal. Vitals and nursing note reviewed. Exam conducted with a technical proposal writer present. Vitals: Estimated body mass index is 31.64 kg/m as calculated from the following: Height as of 09/08/22: 5' 7 . Weight as of this encounter: 202 lb. BP: 110/70 Patient's last menstrual period was 04/10/2024. ASSESSMENT & PLAN ICD-10-CM 1. Exposure to STD Z20.2 SURESWAB(R) ADVANCED VAGINITIS PLUS, TMA CHLAMYDIA TRACHOMATIS (GENITO/STI) Neisseria gonorrhea DNA probe, direct 2. Second trimester Z34.92 POCT urinalysis dipstick manually resulted 3. 16 weeks gestation of Z3A.16 4. Screening, , for anatomic survey Z36.89 US OB 14+ weeks anatomy scan 5. Need for maternal serum alpha-protein (MSAFP) screening Z36.1 Alpha fetoprotein, maternal Alpha fetoprotein, maternal Return OB/Annual Exam: Patient presents today for a CX exam/routine obstetrics appointment. Patient had her annual on 04/25/2024 done not due until next year. Patient is currently 16w2d . Patient is doing well and states she has no complaints. Cultures was obtained without difficulty and patient was given msAFP/Anatomy US order to have obtained. Orders Placed This Encounter Procedures US OB 14+ weeks anatomy scan CHLAMYDIA TRACHOMATIS (GENITO/STI) Neisseria gonorrhea DNA probe, direct Alpha fetoprotein, maternal POCT urinalysis dipstick manually resulted Follow Up: Patient is to return to our office in 4 weeks for routine OB appointment Documented by Suri Mccall MA on behalf of: Apryl Redman, MSN, [employer] documented in this encounter [facility] 07-05-2024 History of Presen t illness Narrative Reason for Appointment: Patient ID: Lakeisha Bell is a 28 y.o. female who presents for Routine Visit Patient presents today for Return OB appointment. MEDICATIONS No current outpatient medications ALLERGIES No [...] past year Drug use: Never FAMILY HISTORY Family History Problem Relation Name Age of Onset Graves' disease Mother SURGICAL HISTORY No past surgical history on file. REVIEW OF SYSTEMS Review of Systems: Review of Systems Constitutional: Negative. HENT: Negative. Eyes: Negative. Respiratory: Negative. Cardiovascular: Negative. Gastrointestinal: Negative. Genitourinary: Negative. Musculoskeletal: Negative. Skin: Negative. Neurological: Negative. All other systems reviewed and are negative. Hematological: Negative. Endocrine: Negative. Allergic/Immunologic: Negative. OBJECTIVE Objective: Physical Exam Constitutional: Appearance: Normal appearance. She is well-developed. Cardiovascular: Rate and Rhythm: Normal rate and [...] nursing note reviewed. Exam conducted with a technical proposal writer present. Vitals: Estimated body mass index is 30.23 kg/m as calculated from the following: Height as of 09/08/22: 5' 7 . Weight as of this encounter: 193 lb. BP: 108/68 Patient's last menstrual period was 04/10/2024. ASSESSMENT & PLAN ICD-10-CM 1. First trimester Z34.91 POCT urinalysis dipstick manually resulted 2. 12 weeks gestation of Z3A.12 New OB: Patient presents today for 1st time obstetrics appointment with provider. Patient is currently 12w2d . Patients history has been reviewed in great detail including any potential risks. Patient stated she currently has no complaints. Expectations throughout regarding labs, ultrasounds, and appointments have been discussed with the patient in detail. It was reiterated that the patient is to drink 6-8 glasses of water a day, eat 6 small meals a day, do not consume raw or undercooked meat, and stay away from [facility]. Patient has been consulted regarding any further do's and don'ts of . Patient voiced understanding and all questions and concerns were answered. Orders Placed This Encounter Procedures POCT urinalysis dipstick manually resulted Follow Up: Patient is to return in 4 weeks for routine OB appointment. Documented by Dominique Yeboah LPN on behalf of: Jesus Valencia DO documented in this encounter [facility] 06-08-2024 History of Presen t illness Narrative [...] calculated from the following: Height as of 23: 5' 7 . Weight as of this [...] or undercooked meat, and stay away from [facility]. Patient has also been advised to not change litter boxes and eat 6 small meals a day. Patient has been consulted regarding the do's and don'ts of . Patient was given labs and all questions and concerns were answered. [place] ordered and patient aware to have this [...] Maty Sanchez LPN documented in this encounter [facility] 04-25-2024 History of Presen t illness Narrative Reason for Appointment: Patient ID: Lakeisha Bell is a 28 y.o. female who presents for Well Women Visit Patient presents today for Annual [...] nursing note reviewed. Exam conducted with a technical proposal writer present. Vitals: Estimated body mass index is [...] by Dominique Yeboah LPN on behalf of: Jesus Valencia DO documented in this encounter [facility] 01-28-2024 History of Presen t illness Narrative [...] organism See 1 documented in this encounter [facility] 05-13-2023 History of Presen t illness Narrative [...] of SHAD Thayer documented in this encounter [facility] 01-29-2023 Evaluation note Encounter Date Diagnosis Assessment Notes Jan, Chronic sinusitis, unspecified (ICD-10 - J32.9) Finish antibiotics. Stay hydrated. Discussed GI effects w Augmentin. Jan, Other specified bacterial agents as the cause of diseases classified elsewhere (ICD-10 - B96.89) Jan, Other Discussed wellness needs and overall care w future treatment options. [facility] Other 07-25-2022 Evaluation note* Encounter Date Diagnosis [...] further questions at conclusion of office visit. [facility] Other 01-01-2022 History general Narrative - Reported* Type Description Date Medical History Cellulitis as a child Surgical History hand surgery 2003 Hospitalization History childbirth 03/2021 [facility] Other 04-14-2021 NotePatient Education Materials Follows: Pilonidal [...] these instructions at home: Medicines ? Take halo-mdf-cpkvagg and prescription medicines only as told by [...] fried or sweet foods. ? Take an gnhe-lsk-ibdxiyq or prescription medicine for constipation. ? You will need to have a caregiver help you manage wound care and dressing changes. Your caregivershould: ? Wash his or her hands with soap and water before changing your dressing. If soap and water are not available, your caregiver should use hand plunket nurse. ? Check your wound every day for [...] Document Revised: 01/05/2019 Docum (more content not included)...[facility] InformationNort [employer] Other Evaluation note* Diagnosis Weight gain Other symptoms concerning nutrition, metabolism, and development Encounter for weight management documented in this encounter [facility] HealthcareEvaluation noteNo assessment information availableUniversity [facility]als [facility] Work Phone: Evaluation note* Diagnosis Acute non-recurrent maxillary sinusitis- Primary Acute cough Acute bronchitis, unspecified organism History of candidal vulvovaginitis documented in this encounter [facility] HealthcareEvaluation note* Diagnosis Well woman exam with routine gynecological exam Routine gynecological examination documented in this encounter [facility] HealthcareEvaluation note* Diagnosis Missed menses , unspecified gestational age Encounter for supervision of normal first in first trimester documented in this encounter [facility]* Diagnosis First trimester state, incidental 12 weeks gestation of documented in this encounter [facility] note* Diagnosis Exposure to STD Second trimester state, incidental 16 weeks gestation of Screening, , for anatomic survey Encounter for anatomic survey Need for maternal serum alpha-protein (MSAFP) screening documented in this encounter [facility] HealthcareEvaluation note* Diagnosis Second trimester state, incidental 20 weeks gestation of documented in this encounter [facility] HealthcareEvaluation note* Diagnosis Encounter for follow-up ultrasound of anatomy ([facility])- Primary Diabetes mellitus screening Screening for diabetes mellitus Second trimester ([facility]) state, incidental 24 weeks gestation of ([facility]) documented in this encounter [facility] Healthcare Summary Purpose Family History No Family [...] section and content) DATE CREATED AUTHOR 07/21/2020 [facility] DATE CREATED AUTHOR AUTHOR'S ORGANIZ ATION 07/31/2022 [facility] DATE CREATED AUTHOR AUTHOR'S ORGANIZ ATION 10/13/2024 [facility] dical Specialists EPIC REASON FOR VISIT (unrecogniz ed section and content) Reason Comments Weight Management Adipex #6 Reason Comments Well Women Visit Reason Comments Amenorrhea Reason Comments Routine Visit Care Teams (unrecognized sec tion and content) Health And Wellness Director Relationship Specialty Start Date End Date Cielo Boston, DO [address] [place] [phone] PCP - General Family Medicine 09/08/22 Team Status: Active Member Role Status Dates Perri Carmona MD Primary Care Provider Active Team Status: Inactive Member Role Status Dates Perri Carmona MD Primary Care Provide r, Attending Provider Active Start: July 22, 2023 End: July 22, 2023 Health And Wellness Director Relationship Specialty Start Date End Date Cielo Boston, DO [address] [place] [address] PCP - General Family Medicine 09/08/22 Team Status: Inactive Member Role Status Dates Perri Carmona MD Primary Care Provide r, Attending Provider Active Start: April 20, 2024 End: April 20, 2024 Health And Wellness Director Relationship Specialty Start Date End Date Cielo Boston, DO [address] [place] [address] PCP - General Family Medicine 09/08/22 Health And Wellness Director Relationship Specialty Start Date End Date Cielo Boston, DO [address] [place] [phone] PCP - General Family Medicine 09/08/22 Health And Wellness Director Relationship Specialty Start Date End Date Cielo Boston, DO [address] [place] [address] PCP - General Family Medicine 09/08/22 Health And Wellness Director Relationship Specialty Start Date End Date Cielo Boston, DO [address] [place] [address] PCP - General Family Medicine 09/08/22 Health And Wellness Director Relationship Specialty Start Date End Date Cielo Boston DO [address] [place] [address] PCP - General Family Medicine 09/08/22 Health And Wellness Director Relationship Specialty Start Date End Date Cielo Boston DO [address] [facility] [place] [address] PCP - General Family Medicine 09/08/22 Health And Wellness Director Relationship Specialty Start Date End Date Cielo Boston DO PCP - General Family Medicine 09/08/22 Health And Wellness Director Relationship Specialty Start Date End Date Cielo Boston DO PCP - General Family Medicine 09/08/22 Health And Wellness Director Relationship Specialty Start Date End Date Cielo Boston DO PCP - General Family Medicine 09/08/22 Health And Wellness Director Relationship Specialty Start Date End Date Cielo Boston DO PCP - General Family Medicine 09/08/22 Health And Wellness Director Relationship Specialty Start Date End Date Cielo Boston DO [address] [place] [address] PCP - General Family Medicine 09/08/22 Goals [...] BE BASED ON THE PRIMARY CLINICAL RECORDS. [facility]. provides no warranty or guarantee of the accuracy or completeness of information in this document.
--- OUTSIDE RECORDS SUMMARY | 2024-10-17 07:27 | XMS_ITS | Clinical Summary ---
Author Organization [facility] Address [address] [place] [address] Care Team Providers Care Material Reclaimer Name Role Phone Martelldillanmaria luisa Chanelaristides JUAREZ Primary Care Provider [phone] Allergies No known active allergies Medications No known medications Encounters Date Type Department Care Team Description 10/16/2024 Travel 10/10/2024 8:00 AM EDT Ancillary Procedure [facility] [place] [address] 10/09/2024 Travel 10/04/2024 Travel 09/27/2024 2:50 PM EDT Routine [facility] [place] [address] Jesus Valencia DO Encounter for follow-up ultrasound of anatomy ([facility]) (Primary Dx); Diabetes mellitus screening; Second trimester ([facility]); 24 weeks gestation of ([facility]) 09/27/2024 Bamboo flowsheet [facility] OB [facility] [place] [address] Jesus Valencia DO 09/20/2024 Travel 08/30/2024 2:10 PM EDT Routine [facility] [place] [address] Jesus Valencia DO Second trimester ([facility]); 20 weeks gestation of ([facility]) 08/30/2024 1:00 PM EDT Ancillary Procedure [facility] OB [facility] [place] [address] Screening, , for anatomic survey ([facility]) 08/25/2024 Travel 08/04/[address] [facility] [address] [place] [address] Reina Oneill PA 08/02/2024 1:30 PM EDT Routine [facility] [address] [place] [address] Reina Oneill PA Exposure to STD; Second trimester ([facility]); 16 weeks gestation of ([facility]); Screening, , for anatomic survey ([facility]); Need for maternal serum alpha-protein (MSAFP) screening ([facility]) 08/02/2024 External Result Encounter [facility] External Department Unsolicited Reina Oneill PA 08/02/2024 Bamboo flowsheet [facility] [address] [place] [address] Reina Oneill PA 07/31/2024 Travel from Last 3 Months Family History Medical History Relation Name Comments Graves' disease Mother Relation Name Status Comments Daughter 1 Alive Daughter 2 Alive Father Alive Mother Alive Social History Tobacco Use Types Packs/Day Years Used Date Smoking Tobacco: Never Smokeless Tobacco: Never Tobacco Cessation:Counseling Given: Not Answered Alcohol Use Standard Drinks/Week Comments Yes 0 [...] Orientation Straight 09/07/2022 12 :08 PM EDT Last Filed Vital Signs Vital Sign Reading Time Taken Comments Blood Pressure 110/70 09/27/2024 3:06 PM EDT Pulse 79 01/28/2024 12:33 PM EDT Temperature 36.1 C (97 F) 01/28/2024 12:33 PM EDT Respiratory Rate - - Oxygen Saturation 99% 01/28/2024 12:33 PM EDT Inhaled Oxygen Concentration - - Weight 97.8 kg (215 lb 8 oz) 09/27/2024 3:06 PM EDT Height 170.2 cm (5' 7 ) 09/08/2022 11:08 AM EDT Body Mass Index 33.75 09/08/2022 11:08 AM EDT Plan of Treatment Upcoming Encounters Date Type Department Care Team (Late st Contact Info) Description 10/19/2024 9:50 AM EDT Routine [facility] [address] [address] Jesus Valencia, DO [address] [place] [address] Goals Goal Patient Goal Type Associated Problems Recent Progress Patient-Stated? Author Reminders Care Plan OB Reminders No Open Scheduling, Background Procedures Procedure Name Priority Date/Time Associated Diagnosis Comments US OB LIMITED 1+ FETUSES Routine 10/10/2024 8:39 AM EDT Second trimester ([facility]) 24 weeks gestation of ([facility]) Encounter for follow-up ultrasound of anatomy ([facility]) POCT URINALYSIS DIPSTICK Routine 08/30/2024 2:29 PM EDT Second trimester ([facility]) US OB 14+ WEEKS ANATOMY SCAN Routine 08/30/2024 2:13 PM EDT Screening, , for anatomic survey ([facility]) RECURRENT VAGINITIS (HTRX) Routine 08/02/2024 4:28 PM EDT POCT URINALYSIS DIPSTICK Routine 08/02/2024 2:14 PM EDT Second trimester ([facility]) from Last 3 Months Results * US OB limited 1+ fetuses [...] BY: ELECTRONICALLY SIGNED BY: Sarabjit Frias MD Ashley Redman BURNER TECHNICIAN IMG OB US PROCEDURES Final Re sult * POCT urinalysis dipstick manually resulted (08/30/2024 2:29 PM EDT) Only the most recent of2 resultswithin the time period is included. Color, UA Yellow Clarity, UA Clear Glucose, UA Negative Negative - 2000(110) ++++ mg/dL Bilirubin, UA Negative Negative - 4(70) +++ mg/dL Ketones, UA Negative Negative - 160(16) ++++ mg/dL Spec Grav, UA 1.025 1 - 1.03 Blood, UA Negative Negative - 50 Cassius/mcL pH, UA 6.5 5 - 9 Protein, UA Negative Negative - 2000(20) ++++ mg/dL Urobilinogen, UA 0.2 0.2 - 12 mg/dL Leukocytes, UA Negative Negative - 500+++ Shane/mcL Nitrite, UA Negative Negative - Positive Urine 08/30/2024 2:29 PM EDT Jesus Valencia DO POINT OF CARE TEST ENTER/EDIT OR DERABLES Final Result * US OB 14+ weeks anatomy scan (08/30/2024 2:13 PM EDT) Anatomical Region Laterality Modality Body Ultrasound 08/31/2024 8:55 AM EDT Narrative 08/31/2024 8:55 AM EDT EXAM: US OB 14+ WEEKS ANATOMY SCAN [...] II, MD, PHD at 31-Aug-2024 08:53:46 AM [facility] Procedure Note Valeria Suero MD - 08/31/2024 EXAM: US OB 14+ WEEKS ANATOMY SCAN HISTORY: anatomy. COMPARISON: Ob ultrasound 06/08/2024. TECHNIQUE: Two-dimensional transabdominal grayscale ultrasound imaging ofthe pelvis was performed. FINDINGS: Gestation: Single Presentation: Cephalic Cardiac Activity: 148 beats per minute Placental Location: Anterior with no sonographic abnormalitiesidentified. Distance from Placental Tip to Cervix: 6.0 [...] is 20 weeks 0 days (+/- 10 daysgestation). Estimated Weight: 357 grams, +/- 53 grams [...] gestation 20 weeks, 2 days by LMP. Today'sultrasound measurements correlate with a gestational age of 20 weeks 0days. Estimated weight is 357 grams, +/- 53 grams ( 0 lb 13 oz)which correlates to 56 %. CARY is 01/17/2025. 2. Unremarkable anatomy with limited visualization of thefour-chamber heart and outflow tracts. A short-term follow-up ultrasoundis recommended. Interpreted by: Electronically signed by VALERIA SUERO II, MD, PHD [id number] 08:53:46 AM [facility] Reina KULKARNI IMG OB US PROCEDURES Final Resul t * (ABNORMAL) RECURRENT VAGINITIS (HTRX) (08/02/2024 4:28 PM EDT) [facility] ATOPOBIUM VAGINAE 0.000 19.961 - 24.689 ppm 08/04/2024 6:35 AM EDT [facility] ATOPOBIUM VAGINAE Not Detected 19.961 - 24.689 ppm 08/04/2024 6:35 AM EDT [facility] BVAB 2,3 (BACTERIAL VAGINOSIS ASSOCIATED BACTERIA 2, 3); MOBILUNCUS SPP 26.490(A) 19.961 - 24.689 ppm 08/04/2024 6:35 AM EDT [facility] BVAB 2,3 (BACTERIAL VAGINOSIS ASSOCIATED BACTERIA 2, 3); MOBILUNCUS SPP Detected(A) 19.961 - 24.689 ppm 08/04/2024 6:35 AM EDT [facility] JAS ALBICANS, PARAPSILOSIS, TROPICALIS 0.000 19.961 - 30.770 ppm 08/04/2024 6:35 AM EDT [facility] JAS ALBICANS, PARAPSILOSIS, TROPICALIS Not Detected 19.961 - 30.770 ppm 08/04/2024 6:35 AM EDT [facility] JAS GLABRATA 0.000 23.000 - 32.138 ppm 08/04/2024 6:35 AM EDT [facility] JAS GLABRATA Not Detected 23.000 - 32.138 ppm 08/04/2024 6:35 AM EDT [facility] JAS KRUSEI 0.000 23.000 - 32.271 ppm 08/04/2024 6:35 AM EDT [facility] JAS KRUSEI Not Detected 23.000 - 32.271 ppm 08/04/2024 6:35 AM EDT [facility] CHLAMYDIA TRACHOMATIS 0.000 23.000 - 31.467 ppm 08/04/2024 6:35 AM EDT [facility] CHLAMYDIA TRACHOMATIS Not Detected 23.000 - 31.467 ppm 08/04/2024 6:35 AM EDT [facility] GARDNERELLA VAGINALIS 0.000 19.961 - 24.689 ppm 08/04/2024 6:35 AM EDT [facility] GARDNERELLA VAGINALIS Not Detected 19.961 - 24.689 ppm 08/04/2024 6:35 AM EDT [facility] MEGASPHAERA (TYPES 1, 2) 0.000 19.961 - 24.689 ppm 08/04/2024 6:35 AM EDT [facility] MEGASPHAERA (TYPES 1, 2) Not Detected 19.961 - 24.689 ppm 08/04/2024 6:35 AM EDT [facility] NEISSERIA GONORRHOEAE 0.000 23.000 - 32.117 ppm 08/04/2024 6:35 AM EDT [facility] NEISSERIA GONORRHOEAE Not Detected 23.000 - 32.117 ppm 08/04/2024 6:35 AM EDT [facility] TRICHOMONAS VAGINALIS 0.000 23.000 - 32.119 ppm 08/04/2024 6:35 AM EDT [facility] TRICHOMONAS VAGINALIS Not Detected 23.000 - 32.119 ppm 08/04/2024 6:35 AM EDT [facility] MYCOPLASMA GENITALIUM 0.000 19.961 - 24.689 ppm 08/04/2024 6:35 AM EDT [facility] MYCOPLASMA GENITALIUM Not Detected 19.961 - 24.689 ppm 08/04/2024 6:35 AM EDT [facility] Tissue 08/02/2024 4:28 PM EDT 08/04/2024 1:47 AM EDT Reina KULKARNI LAB BLOOD ORDERABLES Final Resul t [facility] [place] [address] from Last 3 Months Additional Health Concerns Active Problems Noted Date Diagnosed Date OB Reminders 06/13/2024 Insurance [employer] Care Teams Material Reclaimer Relationship Specialty Start Date End Date Chanel Hilton DO [address] [facility] [place] [address] PCP - General Family Medicine 09/08/22
--- OUTSIDE RECORDS SUMMARY | 2024-10-17 07:27 | XMS_ITS ---
Author Organization [facility] Source Produ ction (ClinicalSummary Clone) Address Unknown Care Team Providers Care Sheet Metal Work Furnace Installer Name Role Phone Unavailable Primary Care Physician Unavailab le Results * [UNITY] ANEUPLOIDY NIPT Performed by: Blued Component Value Range Date Fraction 7.5% 06/18/2024 03 :06 pm UTC Rh(D) NIPT RhD DETECTED 06/18/2024 03:0 6 pm UTC Sex Chromosome Aneuploidy NOT DETECTED 03:06 pm UTC Monosomy X LOW RISK <1 in 10,000 2024 03:06 pm UTC Trisomy 13 LOW RISK <1 in 10,000 2024 03:06 pm UTC Trisomy 18 LOW RISK <1 in 10,000 2024 03:06 pm UTC Trisomy 21 LOW RISK <1 in 10,000 2024 03:06 pm UTC Sex MALE 06/18/2024 03:0 6 pm UTC Gestation RODRIGUEZ 06/19/19 25 03:06 pm UTC For detailed report, see PDF See PDF 06/18/2024 03:06 pm UTC 06/18/2024 03:0 6 pm UTC Social History Observation Value Start Date End Date
--- OUTSIDE RECORDS SUMMARY | 2024-10-17 07:27 | XMS_ITS | Encounter Summary ---
Author Organization [facility] Address [address] [place] [address] Care Team Providers Care Red Leader Name Role Phone Chanel Hilton DO Primary Care Provider [phone] Encounter Details Date Type Department Care Team (Late st Contact Info) Description 09/06/2022 Abstract [facility] OB [address] [facility] [place] [address] Reina Oneill PA [address] [place] [address] [address] [place], [place] [address] Social History Tobacco Use Types Packs/Day Years Used Date Smoking Tobacco: Never Tobacco Cessation:Counseling Given: Not Answered Alcohol Use Standard Drinks/Week Comments Yes 0 (1 standard drink = 0.6 oz pure alcohol) drinks less than monthly in the past year Comments Unknown Sex and Gender Information Value Date Recorded Sex Assigned at Female 09/07/2022 12:08 PM EDT Legal Sex Female 7:34 PM EDT Gender Identity Female 09/07/2022 12:08 PM EDT Sexual Orientation Straight 09/07/2022 12 :08 PM EDT COVID-19 Exposure Response Date Recorded In the last 10 days, have yo u been in contact with someone who was confirmed or suspected to have Coronavirus/COVID-19? No / Unsure 09/07/2022 12:15 PM EDT documented as of this encounter Plan of Treatment Upcoming Encounters Date Type Department Care Team (Late st Contact Info) Description 10/19/2024 9:50 AM EDT Routine [facility] OB [address] [facility] [place] [address] Jesus Valencia DO [address] [facility] [place] [address] documented as of this encounter Visit Diagnoses Not on filedocumented in this encounter Care Teams Red Leader Relationship Specialty Start Date End Date Chanel Hilton DO [address] [facility] [place] [phone] PCP - General Family Medicine 09/08/22 documented as of this encounter
--- OUTSIDE RECORDS SUMMARY | 2024-10-17 07:27 | XMS_ITS | Encounter Summary ---
Author Organization [facility] Address [address] [place] [address] Care Team Providers Care Barge Engineer Name Role Phone Chanel Hilton DO Primary Care Provider [phone] Encounter Details Date Type Department Care Team (Late st Contact Info) Description 05/08/2024 Orders Only [facility] OB [address] [place] [phone] Maty Sanchez LPN [address] [place] [address] [place] [address] Social History Tobacco Use Types Packs/Day Years [...] of Binge Drinking Not on file 02/26 Comments No Sex and Gender Information Value Date Recorded [...] AM EDT Routine [facility] [address] [place] [address] Jesus Valencia DO [address] [place] [address] [place] [address] documented as of this encounter Procedures Procedure Name Priority Date/Time Associated Diagnosis Comments PAP SMEAR Routine 04/25/2024 12:00 AM EST documented in this encounter Results * Pap Smear (04/25/2024 12:00 AM EST) Swab Cervical swab / Unknown us Erik Nurse [facility] LAB CYTOLOGY ORDERABLES Final Result EXTERNAL LAB documented in this encounter Visit Diagnoses Not on filedocumented in this encounter Care Teams Barge Engineer Relationship Specialty Start Date End Date Chanel Hilton DO [address] [facility] [place] [address] PCP - General Family Medicine 09/08/22 documented as of this encounter
--- OUTSIDE RECORDS SUMMARY | 2024-10-17 07:27 | XMS_ITS | Encounter Summary ---
Author Organization [facility] Address [address] [place] [address] Care Team Providers Care Golf Course Assistant Name Role Phone Chanel Hilton Primary Care Provider [phone] Encounter Details Date Type Department Care Team (Late st Contact Info) Description 06/08/2024 Abstract [facility] [address] [place] [address] Jesus Valencia [address] [place], [place] [address] Social History Tobacco Use Types Packs/Day Years [...] AM EDT Routine [facility] [address] [facility] [address] [place] [address] Jesus Valencia DO [address] [facility] [place] [address] documented as of this encounter Visit Diagnoses Not on filedocumented in this encounter Care Teams Golf Course Assistant Relationship Specialty Start Date End Date Chanel Hilton DO [address] [facility] [place] [address] PCP - General Family Medicine 09/08/22 documented as of this encounter
--- OUTSIDE RECORDS SUMMARY | 2024-10-17 07:27 | XMS_ITS | Encounter Summary ---
Author Organization [facility] Address [address] [place] [address] Care Team Providers Care Supply Chain Vice President Name Role Phone Chanel Hilton Primary Care Provider [phone] Encounter Details Date Type Department Care Team (Late st Contact Info) Description 06/21/2024 Abstract [facility] [address] [place] [address] Jesus Valencia [address] [place], [place] [address] Social History Tobacco Use Types Packs/Day Years [...] AM EDT Routine [facility] [address] [facility] [place] [phone] Jesus Valencia DO [address] [facility] [place] [address] documented as of this encounter Goals Goal Patient Goal Type Associated Problems Recent Progress Patient-Stated? Author Reminders Care Plan OB Reminders No Open Scheduling, Background documented as of this encounter Visit Diagnoses Not on filedocumented in this encounter Additional Health Concerns Active Problems Noted Date Diagnosed Date OB Reminders 06/13/2024 documented as of this encounter Care Teams Supply Chain Vice President Relationship Specialty Start Date End Date Chanel Hilton DO [address] [facility] [place] [address] PCP - General Family Medicine 09/08/22 documented as of this encounter
[2024-10-17 09:00] LABS: Glucose 1 Hour 104 mg/dL (<130)
[2024-10-17 09:15] LABS: Hematocrit 36.2 % (36.0-48.0); Hemoglobin 12.8 g/dL (12.0-16.0); Immature Granulocytes Abs Auto 0.11 10^3/uL (0.00-0.03); Immature Granulocytes Pct Auto 0.9 % (0.0-0.5); Lymphocytes Absolute Auto 1.7 10^3/uL (1.2-3.8); Mean Corpuscular HGB Conc 35.4 g/dL (29.9-35.2); Mean Corpuscular Hemoglobin 33.4 pg (26.7-34.0); Mean Corpuscular Volume 94.5 fL (81.0-99.0); Platelet Count 177 10^3/uL (150-450); Red Blood Count 3.83 10^6/uL (4.20-5.40); White Blood Count 12.0 10^3/uL (4.0-11.0)
== END 2024-10-17 07:25 | disposition home or self-care (01) ==
LOC: LAB 07:25
PROVIDERS: PCP Family Medicine; Visit Provider Obstetrics & Gynecology
DX: Z13.1 Encounter for screening for diabetes mellitus (principal)
CPT/HCPCS: 36415; 82950; 85025

== ENCOUNTER 2024-10-26 07:31 | Outpatient (RCR) | payer OTHER, SELFPAY ==
[2024-10-26 11:50] VITALS: BP 120/78; PULSE 106; TEMP 36.6; O2SAT 98
[2024-10-26] MEDS: RHO(D) IMMUNE GLOBULIN 1,500 UNIT SYRINGE 1500 UNIT IM (11:56)
== END 2024-10-26 17:06 | disposition home or self-care (01) ==
LOC: LAB 07:31
PROVIDERS: PCP Family Medicine; Visit Provider Obstetrics & Gynecology
DX: Z51.81 Encounter for therapeutic drug level monitoring (principal); Z67.91 Unspecified blood type, Rh negative
CPT/HCPCS: 36415; 86850; 86900; 86901; 96372; J2791

== ENCOUNTER 2024-11-06 13:52 | Outpatient (OUT) | payer OTHER, SELFPAY ==
--- NOTE | 2024-11-06 13:59 | US_ITS ---
[address] [address] Patient Name: WILL BELL MRN: [id number] date: 1995 Sex: F Assigned Patient Location: Current Patient Location: Accession/Order Number: [id number] Exam Date: 11/06/2024 14:56 Report Date: 11/06/2024 14:59 At the request of: AZEEM FARMER DO Procedure: US OB cervical length Cervical length ultrasound. DONG ultrasound. Reason for exam: Vaginal spotting. COMPARISON: None. TECHNIQUE: Transabdominal imaging of the gravid uterus was obtained. FINDINGS: DONG is normal and 19.9 cm. Cervical length is 5.5 cm without evidence of funneling. heart rate 152 bpm. US/US OB cervical length IMPRESSION: Normal DONG. Normal cervical length. Impression dictated by: Sarabjit Whipple Jr., D.O. 11/06/2024 2:59 PM Dictation Location: [email or web address] Electronically authenticated by: [id number] Date: 11/06/2024 14:59
--- NOTE | 2024-11-06 13:59 | US_ITS ---
[address] [address] Patient Name: WILL BELL MRN: [id number] date: 1995 Sex: F Assigned Patient Location: US Current Patient Location: US Accession/Order Number: [id number] Exam Date: 11/06/2024 14:56 Report Date: 11/06/2024 14:59 At the request of: AZEEM FARMER DO Procedure: US OB cervical length Cervical length ultrasound. DONG ultrasound. Reason for exam: Vaginal spotting. COMPARISON: None. TECHNIQUE: Transabdominal imaging of the gravid uterus was obtained. FINDINGS: DONG is normal and 19.9 cm. Cervical length is 5.5 cm without evidence of funneling. heart rate 152 bpm. US/US OB amniotic fluid vol IMPRESSION: Normal DONG. Normal cervical length. Impression dictated by: Sarabjit Whipple Jr., D.O. 11/06/2024 2:59 PM Dictation Location: [facility] Electronically authenticated by: [id number] Y Date: 11/06/2024 14:59
== END 2024-11-06 13:53 | disposition home or self-care (01) ==
LOC: US 13:52
PROVIDERS: PCP Family Medicine; Visit Provider Obstetrics & Gynecology
DX: O28.8 Other abnormal findings on antenatal screening of mother (principal); O26.859 Spotting complicating pregnancy, unspecified trimester; N93.9 Abnormal uterine and vaginal bleeding, unspecified
CPT/HCPCS: 76815; 76817

== ENCOUNTER 2024-12-19 19:12 | Outpatient (REF) | payer OTHER, SELFPAY ==
[2024-12-22 15:08] LABS: Strep Gp B NAA+Rflx Negative (Negative)
== END 2024-12-19 19:13 | disposition home or self-care (01) ==
LOC: LAB 19:12
PROVIDERS: PCP Family Medicine; Visit Provider Obstetrics & Gynecology
DX: Z34.93 Encounter for supervision of normal pregnancy, unspecified, third trimester (principal); Z3A.36 36 weeks gestation of pregnancy
CPT/HCPCS: 36415

== ENCOUNTER 2025-01-17 05:06 | Inpatient (IN) | payer OTHER, SELFPAY ==
--- OUTSIDE RECORDS SUMMARY | 2025-01-09 14:00 | XMS_ITS | Encounter Summary ---
Author Organization [facility] Address [address] [place] [address] Care Team Providers Care Oil Distributor Tender Name Role Phone Yobani Chanelaristides JUAREZ Primary Care Provider [phone] Reason for Visit * ReasonCommentsRoutine Visit Encounter Details DateTypeDepartmentCare Team (Latest Contact Info)Dwpcxxhesbp70/14/2025 2:00 PM EDTRoutine [facility] [address] [place] [phone] Jesus Valencia DO [address] [place], [place] [id number] Third trimester ([facility]); 39 weeks gestation of ([facility]) Social History Tobacco UseTypesPacks/DayYears UsedDateSmoking Tobacco: NeverSmokeless Tobacco: NeverAlcohol UseStandard Drinks/WeekCommentsYes0 (1 standard drink = 0.6 oz pure alcohol)drinks less than monthly in the past yearAUDIT-CAnswerDate RecordedQ1: How often do you have a drink containing alcohol?Monthly or less03/12/2023 Average Number of DrinksNot on file03/12/2023Frequency of Binge DrinkingNot on file03/12/2023Estimated Date of VzxqeniuKdgrssduWio94/20/2025Based on last menstrual period of 04/10/2024Sex and Gender InformationValueDate Recorded Sex Assigned at LhufzOquksu18/12/2023 12:08 PM EDTLegal NupKynvau39/15/2023 7:34 PM EDTGender YnnwthizHsmllt04/12/2023 12:08 PM EDTSexual OrientationStraight 09/07/2022 12:08 PM EDTdocumented as of this encounter Last Filed Vital Signs Vital SignReadingTime TakenCommentsBlood Ypspeylc512/8210 2:10 PM EDT Pulse--Temperature--Respiratory Rate--Oxygen Saturation--Inhaled Oxygen Concentration--Olzgzc746 kg (237 lb)01/09/2025 2:10 PM EDTHeight--Body Mass Index37.12009/08/2022 11:08 AM EDTdocumented in this encounter Progress Notes * Dominique Yeboah, MANAGER SURGICAL - 01/09/2025 2:00 PM EDT Reason for Appointment: Patient ID: Lakeisha Riddle is a 29 y.o. female who presents for Routine Visit Patient presents today for Return OB appointment. MEDICATIONS No current outpatient medications ALLERGIES Allergies[1] PROBLEMS Active Ambulatory Problems Diagnosis Date Noted No Active Ambulatory Problems Resolved Ambulatory Problems Diagnosis Date Noted No Resolved Ambulatory Problems Past Medical History: Diagnosis Date COVID 04/09/2021 Metatarsus adductus of left foot HISTORY PAST MEDICAL HISTORY SOCIAL HISTORY Medical History[2] Social History Tobacco Use Smoking status: Never Smokeless tobacco: Never Vaping Use Vaping status: Never Used Substance Use Topics Alcohol use: Yes Comment: drinks less than monthly in the past year Drug use: Never FAMILY HISTORY Family History[3] SURGICAL HISTORY Surgical History[4] REVIEW OF SYSTEMS Review of Systems: Review of Systems Constitutional: Negative. HENT: Negative. Eyes: Negative. Respiratory: Negative. Cardiovascular: Negative. Gastrointestinal: Negative. Genitourinary: Negative. Musculoskeletal: Negative. Skin: Negative. Neurological: Negative. All other systems reviewed and are negative. Hematological: Negative. Endocrine: Negative. Allergic/Immunologic: Negative. OBJECTIVE Objective: Physical Exam Constitutional: Appearance: Normal appearance. She is well-developed. Genitourinary: Vulva normal. Cardiovascular: Rate and Rhythm: Normal rate and [...] nursing note reviewed. Exam conducted with a pulp refiner operator present. Vitals: Estimated body mass index is 37.12 kg/m?? as calculated from the following: Height as of 09/08/22: 5' 7 . Weight as of this encounter: 237 lb. BP: 120/82 Patient's last menstrual period was 04/10/2024. ASSESSMENT & PLAN ICD-10-CM 1. Third trimester ([facility]) Z34.93 POCT urinalysis dipstick manually resulted 2. 39 weeks gestation of ([facility]) Z3A.39 Return OB: Patient presents today for a routine obstetrics appointment. Patient is currently 39w1d . Patient states she is doing well but has complaints of being tired due to current . Patient has verbalizes frequent movement. labor precautions was discussed/given and patient was instructed to perform kick counts three times a day. Orders Placed This Encounter Procedures POCT urinalysis dipstick manually resulted Follow Up: Patient is to return to office in 1 week for routine OB appointment. Documented by Dominique Yeboah LPN on behalf of: Jesus Valencia DO [1] No Known Allergies [2] Past Medical History: Diagnosis Date COVID 04/09/2021 COVID Positive Non Immunized Metatarsus adductus of left foot [3] Family History Problem Relation Name Age of Onset Graves' disease Mother [4] No past surgical history on file. documented in this encounter Plan of Treatment DateTypeDepartmentCare Team (Latest Contact Info)Qzvesliwacf13/03/2025 9:30 AM ESTPostpartum Visit [facility] [address] [place] [phone] Reina Oneill PA [address] [place] [address] documented as of this encounter Goals GoalPatient Goal TypeAssociated ProblemsRecent ProgressPatient-Stated?Author Reminders Care PlanOB RemindersNoOpen Scheduling, Backgrounddocumented as of this encounter Procedures Procedure NamePriorityDate/TimeAssociated DiagnosisCommentsPOCT URINALYSIS MGQXOFTAZvbeatt00/14/2025 2:16 PM EDT Third trimester ([facility]) documented in this encounter Results * POCT urinalysis dipstick manually resulted (01/09/2025 2:16 PM EDT)Component ValueRef RangeTest MethodAnalysis TimePerformed AtPathologist SignatureColor, UAYellowClarity, UAClearGlucose, UANegativeNegative - 2000(110) ++++ mg/dL Bilirubin, UANegativeNegative - 4(70) +++ mg/dLKetones, UANegativeNegative - 160(16) ++++ mg/dLSpec Grav, UA1.0151 - 1.03Blood, UANegativeNegative - 50 Cassius/mcLpH, UA6.05 - 9Protein, UANegativeNegative - 2000(20) ++++ mg/dL Urobilinogen, UA0.20.2 - 12 mg/dLLeukocytes, UANegativeNegative - 500+++ Shane/mcLNitrite, UANegativeNegative - PositiveSpecimen (Source)Anatomical Location / LateralityCollection Method / VolumeCollection TimeReceived Time Urine01/09/2025 2:16 PM EDT Narrative Authorizing ProviderResult TypeResult StatusCorey Erik DOPOINT OF CARE TEST ENTER/EDIT ORDERABLESFinal Result documented in this encounter Visit Diagnoses Diagnosis Third trimester ([facility]) state, incidental 39 weeks gestation of ([facility]) documented in this encounter Additional Health Concerns Active ProblemsNoted DateDiagnosed DateOB Pxcljcziw93/18/2025 documented as of this encounter Care Teams Team MemberRelationshipSpecialtyStart DateEnd Date Chanel Hilton DO [address] [facility] [place] [address] PCP - GeneralFaboston [facility] for incur[facility] Medicine09/08/22documented as of this encounter
--- OUTSIDE RECORDS SUMMARY | 2025-01-15 13:10 | XMS_ITS | Encounter Summary ---
Author Organization [facility] Address [address] [place] [address] Care Team Providers Care Tabulating Machine Mechanic Name Role Phone Yobani Chanelaristides JUAREZ Primary Care Provider [phone] Reason for Visit * ReasonCommentsRoutine Visit Encounter Details DateTypeDepartmentCare Team (Latest Contact Info)Nhwgjxwgbmr72/20/2025 1:10 PM EDTRoutine [facility] [address] [place] [phone] Jesus Valencia DO [address] [place], [place] [phone] 40 weeks gestation of ([facility]); Third trimester ([facility]); Excessive growth affecting management of in third trimester, single or unspecified fetus ([facility]) Social History Tobacco UseTypesPacks/DayYears UsedDateSmoking Tobacco: NeverSmokeless Tobacco: NeverAlcohol UseStandard Drinks/WeekCommentsYes0 (1 standard drink = 0.6 oz pure alcohol)drinks less than monthly in the past yearAUDIT-CAnswerDate RecordedQ1: How often do you have a drink containing alcohol?Monthly or less03/12/2023 Average Number of DrinksNot on file03/12/2023Frequency of Binge DrinkingNot on file03/12/2023Estimated Date of TqpipscoGhmtwkgiFre00/20/2025Based on last menstrual period of 04/10/2024Sex and Gender InformationValueDate Recorded Sex Assigned at QmiwlGbbemf02/12/2023 12:08 PM EDTLegal WxeOdyhud69/15/2023 7:34 PM EDTGender KdshkdufNstoad94/12/2023 12:08 PM EDTSexual OrientationStraight 09/07/2022 12:08 PM EDTdocumented as of this encounter Last Filed Vital Signs Vital SignReadingTime TakenCommentsBlood Svshrmoi773/7001/15/2025 1:20 PM EDT Pulse--Temperature--Respiratory Rate--Oxygen Saturation--Inhaled Oxygen Concentration--Clkoej973 kg (234 lb 6.4 oz)01/15/2025 1:20 PM EDTHeight--Body Mass Index36.71009/08/2022 11:08 AM EDTdocumented in this encounter Progress Notes * Ashley Redman NP - 01/15/2025 1:10 PM EDT Reason for Appointment: Patient ID: [...] nursing note reviewed. Exam conducted with a wall washer present. Vitals: Estimated body mass index is 36.71 kg/m?? as calculated from the following: Height as of 09/08/22: 5' 7 . Weight as of this encounter: 234 lb 6.4 oz. BP: 120/70 Patient's last menstrual period was 04/10/2024. Assessment/Plan ICD-10-CM 1. 40 weeks gestation of ([facility]) Z3A.40 POCT urinalysis dipstick manually resulted 2. Third trimester ([facility]) Z34.93 POCT urinalysis dipstick manually resulted 3. Excessive growth affecting management of in third trimester, single or unspecified fetus ([facility]) O36.63X0 POCT urinalysis dipstick manually resulted Return OB: Patient presents today for a routine obstetrics appointment. Patient is currently 40w0d . Patient states she is doing well [...] week for routine OB appointment. 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 No pertinent surgical history. documented in this encounter Plan of Treatment DateTypeDepartmentCare Team (Latest Contact Info)Knwohonsunc57/03/2025 9:30 AM ESTPostpartum Visit [facility] [address] [place] [address] Reina Oneill PA [address] [place] [address] documented as of this encounter Goals GoalPatient Goal TypeAssociated ProblemsRecent ProgressPatient-Stated?Author Reminders Care PlanOB RemindersNoOpen Scheduling, Backgrounddocumented as of this encounter Procedures Procedure NamePriorityDate/TimeAssociated DiagnosisCommentsPOCT URINALYSIS QKOFDSBMFzyulsp60/20/2025 1:25 PM EDT 40 weeks gestation of ([facility]) Third trimester ([facility]) Excessive growth affecting management of in third trimester, single or unspecified fetus ([facility]) documented in this encounter Results * POCT urinalysis dipstick manually resulted (01/15/2025 1:25 PM EDT)Component ValueRef RangeTest MethodAnalysis TimePerformed AtPathologist SignatureColor, UAYellowClarity, UAClearGlucose, UANegativeNegative - 2000(110) ++++ mg/dL Bilirubin, UANegativeNegative - 4(70) +++ mg/dLKetones, UANegativeNegative - 160(16) ++++ mg/dLSpec Grav, UA1.0151 - 1.03Blood, UANegativeNegative - 50 Cassius/mcLpH, UA6.05 - 9Protein, UANegativeNegative - 2000(20) ++++ mg/dL Urobilinogen, UA1.00.2 - 12 mg/dLLeukocytes, UANegativeNegative - 500+++ Shane/mcLNitrite, UANegativeNegative - PositiveSpecimen (Source)Anatomical Location / LateralityCollection Method / VolumeCollection TimeReceived Time Urine01/15/2025 1:25 PM EDT Narrative Authorizing ProviderResult TypeResult StatusCorey Erik DOPOINT OF CARE TEST ENTER/EDIT ORDERABLESFinal Result documented in this encounter Visit Diagnoses Diagnosis 40 weeks gestation of ([facility]) Third trimester ([facility]) state, incidental Excessive growth affecting management of in third trimester, single or unspecified fetus ([facility]) documented in this encounter Additional Health Concerns Active ProblemsNoted DateDiagnosed DateOB Ibqteazpb17/18/2025 documented as of this encounter Care Teams Team MemberRelationshipSpecialtyStart DateEnd Date Chanel Hiltno DO [address] [place] [address] PCP - GeneralFamily Medicine09/08/22documented as of this encounter
[2025-01-17] VITALS (28 sets, daily range): BP systolic 92–137; BP diastolic 52–99; PULSE 64–129; TEMP 36.2–36.6
--- OUTSIDE RECORDS SUMMARY | 2025-01-17 05:10 | XMS_ITS | CCD ---
Author Organization [facility] Care Team Providers Care Saw Filer Name Role Phone Schwerer, Cielo Unavailable Fitt [...] ., DR GANN Procedure Practitioner Unavail able MAI ., REINA Attending Unavailable Farzana Leon Consulting Unavailable REQUEST, NONE LISTED Primary Care Unavaila ble MAI ., REINA Admitting Unavailable MAI ., REINA Consulting Unavailable WEST, DR MIMI Contreras Consulting Unavailable ERIK ., [...] DR NONE LISTED Primary Care Unavaila ble DOWNS, DR MIMI Contreras Consulting Unavailable ERIK ., DR GANN Consulting Unavailable ERIK ., DR GANN Attending Unavailable ERIK ., DR GANN Consulting Unavailable REQUEST, DR NONE LISTED Primary Care Unavaila ble ERIK ., DR GANN Admitting Unavailable ERIK ., DR GANN Admitting Unavailable ERIK ., DR GANN Attending Unavailable ERIK ., DR GANN Consulting Unavailable REQUEST, DR NONE LISTED Primary Care Unavaila ble Carmona, Perri Unavailable [facility], [facility] Primary Care Provider [facility], [facility] Primary Care Provider [facility], [facility] Primary Care Provider [facility], [facility] Primary Care Provider JESUS VALENCIA Attending Unavailable ERIK, JESUS Attending Unavailable MAI, REINA Attending Unavailable MAI, REINA Referring Unavailable ERIK, JESUS Attending Unavailable ERIK, JESUS Attending Unavailable FEROZ, APRYL Referring Unavailable ERIK, JESUS Attending Unavailable EIRK, JESUS Attending Unavailable MAI, REINA Attending Unavailable MAI, REINA Referring Unavailable ERIK, JESUS Attending Unavailable YOLIE FLETCHER Attending Unavailable JESUS VALENCIA Attending Unavailable JESUS VALENCIA Attending Unavailable APRYL REDMAN Attending Unavailable REINA ONEILL Referring Unavailable APRYL REDMAN Attending Unavailable JESUS VALNECIA Attending Unavailable JESUS VALENCIA Attending Unavailable Medications Current Medications MedicationDrug Class(es)DatesSig (Normalized)Sig (Original)amoxicillin 875 mg / clavulanate 125 mg oral tablet (1 source)Penicillin-class AntibacterialAmoxicillin-Pot Clavulanate 875-125 MG 1 tablet BID for 10 days Activebenzonatate 200 mg oral capsule (2 sources)Non-narcotic AntitussiveStart: 01-28-2024 End: 78-56-8585kusm 1 capsule by mouth three times daily as needed for cough benzonatate (Tessalon) 200 MG capsule Indications: Acute cough Take 1 capsule (200 mg) by mouth 3 (three) times a day as needed for cough for up to 7 days Do not crush or chew. 21 capsule 01/28/2024 02/04/2024 Activedoxycycline monohydrate 100 mg oral tablet (2 sources)Tetracycline-class DrugStart: 01-28-2024 End: 93-80-7223mkku 1 tablet by mouth oncedoxycycline (Adoxa) 100 MG tablet Indications: Acute cough Take 1 tablet (100 mg) by mouth every 12(twelve) hours for 10 days Take with a full glass of water and do not lie down for at least 30 minutes after, avoid sun exposure 20 tablet 01/28/2024 02/07/2024 Active Completed/Discontinued Medications MedicationDrug Class(es)DatesSig (Normalized)Sig (Original)[id number] 200 actuat albuterol 0.09 mg/actuat metered dose inhaler (5 sources)beta2-Adrenergic AgonistStart: 01-28-2024 End: 71-85-5855ouat 2 puff(s) by inhalation every four hoursalbuterol HFA (ProAir HFA) 90 mcg/act inhaler Indications: Acute cough Inhale 2 puffs every 4 (four) hours if needed (cough) 8.5 g 01/28/2024 04/25/2024 Discontinued azithromycin 250 mg oral tablet (5 sources)Macrolide AntimicrobialStart: 11-14-2024 End: 80-61-2079gsmnivqgdjxw (Zithromax Z-Victor Hugo) 250 MG tablet Indications: Sinusitis, unspecified chronicity, unspecified location As directed 6 tablet 11/14/2024 11/28/2024 Discontinued (Therapy completed)ethinyl estradiol 0.035 mg / norethindrone acetate 1 mg oral tablet (7 sources)EstrogenStart: 02-15-2023 End: 31-99-6471clnm 1 tablet by mouth in the morningNylia 1/35 1-35 MG-MCG tablet Indications: Encounter for initial prescription of contraceptive pills TAKE 1 TABLET BY MOUTH IN THE MORNING. 28 tablet 11 01/19/2024 04/25/2024 Discontinuedfluconazole 150 mg oral tablet (3 sources)Azole AntifungalStart: 01-28-2024 End: 13-33-1099vpexbothoxp (Diflucan) 150 MG tablet Indications: History of candidal vulvovaginitis Take 1 tablet (150 mg) by mouth Daily for 2 doses 1 dose and repeat second dose in 3 days. 2 tablet 01/28/2024 01/30/2024 ExpiredStart: 10-26-2023 End: 68-18-9636Efuhgvxysdg 150 mg tablet Discontinued 150 MG PO Q3D 2 October 25, 2023 11:00pm April 20, 2024 9:23ammetFORMIN hydrochloride 500 mg oral tablet (10 sources)BiguanideStart: 11-24-2022 End: 42-31-4029qfum 1 tablet by mouth at mealtimemetFORMIN (Glucophage) 500 MG tablet Indications: Abnormal weight gain TAKE 1 TABLET (500 MG) BY MOUTH IN THE MORNING. TAKE WITH MEALS. 30 tablet 6 01/19/2024 04/25/2024 Discontinued metroNIDAZOLE 500 mg oral tablet (5 sources)Nitroimidazole AntimicrobialStart: 11-08-2024 End: 45-21-2241kijs 1 tablet by mouth in the morningmetroNIDAZOLE (Flagyl) 500 MG tablet Indications: BV (bacterial vaginosis) Take 1 tablet (500 mg) by mouth in the morning and 1 tablet (500 mg) before bedtime. Do all this for 7 days. Do not drink alcohol while taking this medication. 14 tablet 11/08/2024 11/28/2024 Discontinued (Therapy completed)phentermine hydrochloride 37.5 mg oral tablet (17 sources)Sympathomimetic Amine AnorecticStart: 04-15-2023 End: 18-29-6352nyzi 1 tablet by mouth before mealtimephentermine (Adipex-P) 37.5 MG tablet Indications: Encounter for weight management Take 1 tablet (37.5 mg) by mouth in the morning. Take before meals. 90 tablet 05/13/2023 04/25/2024 DiscontinuedAdipex-P Active Problems Active Problems Problem ClassificationProblemDateDocumented DateEpisodic/ChronicAcute bronchitis (2 sources)Acute bronchitis; Translations: [Acute bronchitis, unspecified] 16-58-9120VysummilNlmugwbnkboigd/social admission (2 sources)Patient encounter status; Translations: [Persons encountering health services in other specified circumstances]11-99-0295GdkwcmbgLmnhszynt infection; unspecified site (1 source)Other specified bacterial agents as the cause of diseases classified elsewhereEpisodicEarly or threatened labor (4 sources)False labor at or after 37 completed weeks of gestation; Translations: [FALSE LABOR AT/AFTR 37 CMPLWK GEST]Onset: 82-19-0100MtushdmqEecjl and electrolyte disorders (1 source)Dehydration; Translations: [DEHYDRATION]Onset: 87-23-4282Vrnhmbqs Immunizations and screening for infectious disease (4 sources)Encounter for screening for human papillomavirus (HPV); Translations: [Contact with and (suspected)exposure to infections with a predominantly sexual mode of transmission]Onset: [id number] disorders (5 sources)Irregular menstruation, unspecified; Translations: [Missed period] Onset: 80-57-5004EydxrecTcawzg and vomiting (1 source)Nausea with vomiting, unspecified; Translations: [NAUSEA WITH VOMITING UNSPECIFIED]Onset: 99-95-1951LnhsfmzeCW-related trauma to perineum and vulva (1 source)First degree perineal laceration during delivery; Translations: [FIRST DEG PERINEAL LAC DUR DELIV]Onset: 84-90-3239SiinskiqQcayo complications of (5 sources)Other specified related conditions, third trimester; Translations: [OTH SPEC PREG RELATEDCOND TRI]Onset: 64-86-8780WufqppvxLebfw complications of (4 sources)Maternal care for excessive growth, third trimester, not applicable or unspecified; Translations: [MAT CARE EXCSS FTL GRTH 3RD TRI UNS] Onset: 76-64-1212OnprepaaCoxfv complications of (2 sources) size does not accord with dates; Translations: [Uterine size- date discrepancy, first trimester]01-64-3658PvpzctenEabqv complications of (6 sources)Excessive growth affecting management of mother; Translations: [Maternal care for excessive growth, third trimester, not applicable or unspecified]03-87-7681RdilczquGcgua ear and sense organ disorders (1 source)Impacted cerumen; Translations: [Impacted cerumen, bilateral] 83-82-3015ChcyhirrZtzcw infections; including parasitic (2 sources)History of gynecological disorder; Translations: [Personal history of other infectious and parasitic diseases]88-76-0652PtitjynjKjigz lower respiratory disease (2 sources)Cough; Translations: [Acute cough]42-86-1623NjyigcvxGyyxh nutritional; endocrine; and metabolic disorders (2 sources)Weight gain; Translations: [Abnormal weight gain]71-46-1947Bugmxcjl Other and delivery including normal (20 sources)Single live ; Translations: [Encounter for supervision of normal , unspecified, thirdtrimester]Onset: 41-42-1801JiezhhamTivem screening for suspected conditions (not mental disorders or infectious disease) (13 sources)Encounter for screening for malignant neoplasm of cervix; Translations: [Encounter for screening for diabetes mellitus]Onset: 12-29-2021 EpisodicOther upper respiratory infections (2 sources)Bacterial sinusitis; Translations: [Chronic sinusitis, unspecified] ChronicOther upper respiratory infections (2 sources)Acute maxillary sinusitis; Translations: [Acute maxillary sinusitis, unspecified]72-53-1680OmorxcinUvdiqfkw codes; unclassified (1 source)40 weeks gestation of ; Translations: [40 WEEKS GESTATION OF ]Onset: 31-06-5221ScrzfowhJodfckjy codes; unclassified (1 source)Type A blood, Rh negative; Translations: [TYPE A BLOOD RH NEGATIVE] Onset: 14-83-2208AxvrfhrrSxovwdod codes; unclassified (1 source)38 weeks gestation of ; Translations: [38 WEEKS GESTATION OF ]Onset: 63-33-4103RamvzziuPmrwrnqh codes; unclassified (1 source)34 weeks gestation of ; Translations: [34 WEEKS GESTATION OF ]Onset: 52-96-4777FrbndqmmNhkgvhaz codes; unclassified (1 source)30 weeks gestation of ; Translations: [30 WEEKS GESTATION OF ]Onset: 80-50-7146ErjqloulQvhkdtqe codes; unclassified (1 source)Unspecified blood type, Rh negative; Translations: [UNSPECIFIED BLOOD TYPE RH NEGATIVE]Onset: 94-19-3336MvfjbxwlZqfelupg codes; unclassified (1 source)28 weeks gestation of ; Translations: [28 WEEKS GESTATION OF ]Onset: 70-34-2030UqojnblgZnwogufb codes; unclassified (2 sources)Gestation period, 12 weeks; Translations: [12 weeks gestation of ]18-16-0510GhzopspmFgiksbjz codes; unclassified (2 sources)Gestation period, 16 weeks; Translations: [16 weeks gestation of ]08-79-1041TikwfiygDeexziir codes; unclassified (2 sources)Gestation period, 20 weeks; Translations: [20 weeks gestation of ]29-36-6846HhxzfzpmKifsntiw codes; unclassified (2 sources)Gestation period, 24 weeks; Translations: [24 weeks gestation of ]99-10-1597ZsllrcdaMmyloznk codes; unclassified (2 sources)Gestation period, 27 weeks; Translations: [27 weeks gestation of ]76-36-8909IokfolcdHnvxaghq codes; unclassified (2 sources)Gestation period, 29 weeks; Translations: [29 weeks gestation of ]27-16-8530NttpjfclPuvekexj codes; unclassified (2 sources)Gestation period, 31 weeks; Translations: [31 weeks gestation of ]32-79-8159WjqabsteBexfosmm codes; unclassified (2 sources)Gestation period, 33 weeks; Translations: [33 weeks gestation of ]55-80-0214VuqeuyyzIbkeyzrn codes; unclassified (2 sources)Gestation period, 35 weeks; Translations: [35 weeks gestation of ]29-68-9479NkjmmlpvSzoyfllw codes; unclassified (2 sources)Gestation period, 36 weeks; Translations: [36 weeks gestation of ]74-78-2361CyrelzbuPkdkmeei codes; unclassified (2 sources)Gestation period, 37 weeks; Translations: [37 weeks gestation of ]76-48-0556RtxmthtuPlsgwvke codes; unclassified (2 sources)Gestation period, 38 weeks; Translations: [38 weeks gestation of ]59-68-7230NrbsjjlzYqkqvlaa codes; unclassified (2 sources)Gestation period, 39 weeks; Translations: [39 weeks gestation of ]95-11-8704XiuslabeNqqpqmkq codes; unclassified (2 sources)Gestation period, 40 weeks; Translations: [40 weeks gestation of ]91-15-6815SqzjnskxErwqgqfbjvye (20 sources)OB RemindersOnset: 828071-49-9299 Past or Other Problems Problem ClassificationProblemDateDocumented DateEpisodic/ChronicOther ear and sense organ disorders (1 source)Impacted cerumen, bilateralOnset: 10-20-2021 Resolved: 08-72-4588JptroyffWfccv female genital disorders (1 source)Other specified noninflammatory disorders of vagina; Translations: [OTH SPEC NONINFLAMMATORY D/O VAGINA]Onset: 64-96-2003EmejeoviQojim nutritional; endocrine; and metabolic disorders (2 sources)Abnormal weight gain; Translations: [ABNORMAL WEIGHT GAIN]Onset: 10-20-2021 Resolved: 97-83-4306GqbzyuuuNvxogcunzcmi (4 sources)Plastic surgery; Translations: [Plastic surgery, other] Results Test NameValueInterpretationReference RangeFacilityUrinalysis macro (dipstick) panel (U)on 81-65-7749Lrefbzhod, UANegativeNegative - 4(70) +++ mg/dLNOMS HealthcareBlood, UANegativeNegative - 50 Cassius/mcLNOMS HealthcareClarity, UAClear NOMS HealthcareColor, UAYellowNOMS HealthcareGlucose, UANegativeNegative - 1999(110) ++++ mg/dLNOMS HealthcareInterpretation and review of laboratory resultsNormalNOMS HealthcareKetones, UANegativeNegative - 160(16) ++++ mg/dLNOMS HealthcareLeukocytes, UANegativeNegative - 500+++ Shane/mcLNOMS HealthcareNitrite, UANegativeNegative - PositiveNOMS HealthcarepH, UA6.05 - 9N[facility] Healthcare Protein, UANegativeNegative - 2000(20) ++++ mg/dLNOMS HealthcareSpec Grav, UA 1.0151 - 1.03NOMS HealthcareUrobilinogen, UA1.00.2 - 12 mg/dLNOMS HealthcareNOMS HealthcareUrinalysis macro (dipstick) panel (U)on 50-11-4824Kqgmbrvco, UA NegativeNegative - 4(70) +++ mg/dLNOMS HealthcareBlood, UANegativeNegative - 50 Cassius/mcLNOMS HealthcareClarity, UAClearNOMS HealthcareColor, UAYellowNOMS HealthcareGlucose, UANegativeNegative - 1999(110) ++++ mg/dLNOMS Healthcare Interpretation and review of laboratory resultsNormalNOMS HealthcareKetones, UA NegativeNegative - 160(16) ++++ mg/dLNOMS HealthcareLeukocytes, UANegative Negative - 500+++ Shane/mcLNOMS HealthcareNitrite, UANegativeNegative - Positive NOMS HealthcarepH, UA6.05 - 9NOMS HealthcareProtein, UANegativeNegative - 1999(20) ++++ mg/dLNOMS HealthcareSpec Grav, UA1.0151 - 1.03N[facility] Healthcare Urobilinogen, UA0.20.2 - 12 mg/dLNOMS HealthcareNOMS HealthcareUrinalysis macro (dipstick) panel (U)on 49-90-4379Nenkojdqs, UANegativeNegative - 4(70) +++ mg/dL NOMS HealthcareBlood, UANegativeNegative - 50 Cassius/mcLNOMS HealthcareClarity, UA ClearNOMS HealthcareColor, UAYellowNOMS HealthcareGlucose, UANegativeNegative - 1999(110) ++++ mg/dLNONE HealthcareInterpretation and review of laboratory resultsAbnormalNONE HealthcareKetones, UANegativeNegative - 160(16) ++++ mg/dL NOMS HealthcareLeukocytes, UAPositiveNegative - 500+++ Shane/mcLNONE Healthcare Nitrite, UANegativeNegative - PositiveNOMS HealthcarepH, UA65 - 9[facility] Protein, UANegativeNegative - 1999(20) ++++ mg/dLNONE HealthcareSpec Grav, UA 1.0151 - 1.03NOMS HealthcareUrobilinogen, UA1.00.2 - 12 mg/dLNONE HealthcareNOMS HealthcareUS OB FOLLOW UP TRANSABDOMINAL APPROACHon 14-76-0466TY OB FOLLOW UP TRANSABDOMINAL APPROACHFINDINGS: Comparison made with prior exam November 28, 2024. A single, live intrauterine is present with normal cardiac rate of 144 beats per minute. Normal activity and amniotic fluid volume. Amniotic fluid index is 19 cm. Morphology is grossly normal. The current sonographic age is 37 weeks and 6 days, based on the following measurements: BPD 9.0 cm (36 weeks, 3 days) Head Circumference 33.7 cm (38 weeks, 5 days) Abdominal Circumference 34.3 cm (38 weeks, 2 days) Femur Length 7.5 cm (38 weeks, 1 day) Presentation Cephalic Weight (g) by Percentile 81.9 % * These measurements result in an estimated date of delivery of January 09, 2025. The current estimated weight is 3379 grams (7 pounds, 7 ounces). IMPRESSION: 1. Single, live intrauterine , current sonographic age of 37 weeks and 6 days, with an estimated date of delivery of January 09, 2025 (prior CARY January 06, 2025). 2. Current weight by percentile 81.9% (prior 61.4%) 3. DONG 19 cm (prior 17) * Estimated Weight (g) by Percentile is based upon an accurate estimated age based on last menstrual period. TRANSCRIBED BY: ELECTRONICALLY SIGNED BY: Issac ShaikhalNot AvailableComment on above:Order Comment: US OB SCAN FOR GROWTH Estimated Date of Delivery: 01/15/25 Gestational Age as of 12/19/2024: 11f2qWggekqphns macro (dipstick) panel (U)on 11-73-2344Vysxxwosh, UANegativeNegative - 4(70) +++ mg/dLNOMS HealthcareBlood, UANegativeNegative - 50 Cassius/mcLNOMS HealthcareClarity, UAClearNOMS Healthcare Color, UAYellowNOMS HealthcareGlucose, UANegativeNegative - 2000(110) ++++ mg/dL NOMS HealthcareInterpretation and review of laboratory resultsNormalNOMS HealthcareKetones, UANegativeNegative - 160(16) ++++ mg/dLNOMS Healthcare Leukocytes, UANegativeNegative - 500+++ Shane/mcLNOMS HealthcareNitrite, UA NegativeNegative - PositiveNOMS HealthcarepH, UA65 - 9NOMS HealthcareProtein, UA NegativeNegative - 2000(20) ++++ mg/dLNOMS HealthcareSpec Grav, UA1.021 - 1.03 NOMS HealthcareUrobilinogen, UA1.00.2 - 12 mg/dLNOMS HealthcareNOMS Healthcare STREP GP B CJ+RFLXon 43-62-2910CWSXV GP B CJ+RFLXNegativeNegativeNOMS HealthcareComment on above:Centers for Disease Control and Prevention (CDC) and [place] Congress of Obstetricians and Gynecologists (ACOG) guidelines for prevention of group B streptococcal (GBS) disease specify co-collection of a vaginal and rectal swab specimen to maximize sensitivity of GBS detection. Per the CDC and ACOG, swabbing both the lower vagina and rectum substantially increases the yield of detection compared with sampling the vagina alone. Penicillin G, ampicillin, or cefazolin are indicated for intrapartum prophylaxis of GBS colonization. Reflex susceptibility testing should be performed prior to use of clindamycin only on GBS isolates from penicillin- allergic women who are considered a high risk for anaphylaxis. Treatment with vancomycin without additional testing is warranted if resistance to clindamycin is noted. Performed at: [address] [id number] Journeyman Mechanic: Red Enrique PhD, Phone: [phone] [facility] HealthcareUrinalysis macro (dipstick) panel (U)on 12-19-2024 Bilirubin, UANegativeNegative - 4(70) +++ mg/dLNOMS HealthcareBlood, UAPositive Negative - 50 Cassius/mcLNOMS HealthcareClarity, UAClearNOMS HealthcareColor, UA YellowNOMS HealthcareGlucose, UANegativeNegative - 2000(110) ++++ mg/dLNOMS HealthcareInterpretation and review of laboratory resultsAbnormalNOMS Healthcare Ketones, UANegativeNegative - 160(16) ++++ mg/dLNOMS HealthcareLeukocytes, UA NegativeNegative - 500+++ Shane/mcLNOMS HealthcareNitrite, UANegativeNegative - PositiveNOMS HealthcarepH, UA65 - 9NOMS HealthcareProtein, UANegativeNegative - 2000(20) ++++ mg/dLNOMS HealthcareSpec Grav, UA1.0151 - 1.03N[facility] Urobilinogen, UA0.20.2 - 12 mg/dLNOMS HealthcareNOMS HealthcareUrinalysis macro (dipstick) panel (U)on 32-26-6713Vtycqrgio, UANegativeNegative - 4(70) +++ mg/dL NOM[facility] HealthcareBlood, UANegativeNegative - 50 Cassius/mcLNOMS HealthcareClarity, UA ClearNOMS HealthcareColor, UAYellowNOMS HealthcareGlucose, UANegativeNegative - 2000(110) ++++ mg/dLNOMS HealthcareInterpretation and review of laboratory resultsNormalNOMS HealthcareKetones, UANegativeNegative - 160(16) ++++ mg/dLNOMS HealthcareLeukocytes, UANegativeNegative - 500+++ Shane/mcLNOMS HealthcareNitrite, UANegativeNegative - PositiveNOMS HealthcarepH, UA65 - 9NOMS HealthcareProtein, UANegativeNegative - 2000(20) ++++ mg/dLNOMS HealthcareSpec Grav, UA1.011 - 1.03 NOMS HealthcareUrobilinogen, UA1.00.2 - 12 mg/dLNOMS HealthcareNOMS HealthcareUS OB FOLLOW UP TRANSABDOMINAL APPROACHon 61-35-9989KH OB FOLLOW UP TRANSABDOMINAL APPROACHFINDINGS: A single, live intrauterine is present with normal cardiac rate of 138 beats per minute. Normal activity and amniotic fluid volume. Amniotic fluid index is 17.0 cm. Morphology is grossly normal. The cervix is not clearly seen. The current sonographic age is 34 weeks and 3 days, based on the following measurements: BPD 8.4 cm (33 weeks, 5 days) Head Circumference 32.3cm (36 weeks, 4 days) Abdominal Circumference 29.2cm (33 weeks, 1days) Femur Length 6.6cm ( 34weeks, 0 days) Presentation Breech Weight (g) by Percentile 61.7% * These measurements result in an estimated date of delivery of January 06, 2025. The current estimated weight is 2273 grams (5 pound, 0 ounces). IMPRESSION: 1. Single, live intrauterine , current sonographic age of 34 weeks and 3 days, with an estimated date of delivery of January 06, 2025. 2. Comparison made with August 30, 2024 estimated deliver at that time was January 17, 2025 and weight by percentile was 56% * Estimated Weight (g) by Percentile is based upon an accurate estimated age based on last menstrual period. TRANSCRIBED BY: ELECTRONICALLY SIGNED BY: Rah Shaikh AvailableComment on above:Order Comment: US OB SCAN FOR GROWTH Estimated Date of Delivery: 01/15/25 Gestational Age as of 11/15/2024: 17c6sExbedwequd macro (dipstick) panel (U)on 88-28-1229Oibhyqfhn, UANegativeNegative - 4(70) +++ mg/dLNOMS HealthcareBlood, UANegativeNegative - 50 Cassius/mcLNOMS HealthcareClarity, UAClearNOMS Healthcare Color, UAYellowNOMS HealthcareGlucose, UANegativeNegative - 2000(110) ++++ mg/dL NOMS HealthcareInterpretation and review of laboratory resultsAbnormalNOMS HealthcareKetones, UANegativeNegative - 160(16) ++++ mg/dLNOMS Healthcare Leukocytes, UA2+Negative - 500+++ Shane/mcLNOMS HealthcareNitrite, UANegative Negative - PositiveNOMS HealthcarepH, UA65 - 9NOMS HealthcareProtein, UANegative Negative - 2000(20) ++++ mg/dLNOMS HealthcareSpec Grav, UA1.011 - 1.03NOMS HealthcareUrobilinogen, UA1.00.2 - 12 mg/dLNONE HealthcareNOMS Healthcare Urinalysis macro (dipstick) panel (U)on 61-44-5243Mfxhhljqh, UANegativeNegative - 4(70) +++ mg/dLNOMS HealthcareBlood, UANegativeNegative - 50 Cassius/mcLNOMS HealthcareClarity, UAClearNOMS HealthcareColor, UAYellowNOMS HealthcareGlucose, UANegativeNegative - 2000(110) ++++ mg/dLNOMS HealthcareInterpretation and review of laboratory resultsNormalNOMS HealthcareKetones, UANegativeNegative - 160(16) ++++ mg/dLNOMS HealthcareLeukocytes, UANegativeNegative - 500+++ Shane/mcL NOMS HealthcareNitrite, UANegativeNegative - PositiveNOMS HealthcarepH, UA6.55 - 9NOMS HealthcareProtein, UANegativeNegative - 2000(20) ++++ mg/dLNOMS Healthcare Spec Grav, UA1.011 - 1.03NOMS HealthcareUrobilinogen, UA1.00.2 - 12 mg/dLNOMS HealthcareNOMS HealthcareNo Panel Informationon 51-83-4834Sekbgjcfw Study observation (narrative)NOMS HealthcareUS AMNIOTIC FLUID VOLUMEon 09-18-9498[place] [address] Ultrasound Report Signed Patient: LAKEISHA RIDDLE MR#: [id number] : 1995 Acct:[id number] Age/Sex: 28 / F ADM Date: 11/06/24 Loc: US Attending Dr: Jesus Valencia D.O. Ordering Physician: Jesus Valencia D.O. Date of Service: 11/06/24 Procedure(s): US OB amniotic fluid vol Accession Number(s): [id number] cc: Perri Carmona M.D.; Jesus Valencia D.O. The [address] [address] Patient Name: LAKEISHA RIDDLE MRN: [id number] date: 1995 Sex: F Assigned Patient Location: US Current Patient Location: US Accession/Order Number: [id number] Exam Date: 11/06/2024 14:56 Report Date: 11/06/2024 14:59 At the request of: JESUS VALENCIA DO Procedure: US OB cervical length Cervical length ultrasound. DONG ultrasound. Reason for exam: Vaginal spotting. COMPARISON: None. TECHNIQUE: Transabdominal imaging of the gravid uterus was obtained. FINDINGS: DONG is normal and 19.9 cm. Cervical length is 5.5 cm without evidence of funneling. heart rate 152 bpm. US/US OB amniotic fluid vol IMPRESSION: Normal DONG. Normal cervical length. Impression dictated by: Sarabjit Whipple Jr., D.O. 11/06/2024 2:59 PM Dictation Location: [place] [address] Electronically authenticated by: [id number] Y Date: 11/06/2024 14:59 Dictated By: Sarabjit Whipple M.D. Signed By: 11/06/24 1502 DD/ 1459 TD/TT: Head Bookkeeper:TBHRadiology, Radiologist, MD - 11/06/2024 [place] [address] Ultrasound Report Signed Patient: LAKEISHA RIDDLE MR#: [id number] : 1995 Acct:[id number] Age/Sex: 28 / F ADM Date: 11/06/24 Loc: US Attending Dr: Jesus Valencia D.O. Ordering Physician: Jesus Valencia D.O. Date of Service: 11/06/24 Procedure(s): US OB amniotic fluid vol Accession Number(s): [id number] cc: Perri Carmona M.D.; Jesus Valencia D.O. The [address] [address] Patient Name: LAKEISHA RIDDLE MRN: [id number] date: 1995 Sex: F Assigned Patient Location: US Current Patient Location: US Accession/Order Number: [id number] Exam Date: 11/06/2024 14:56 Report Date: 11/06/2024 14:59 At the request of: JESUS VALENCIA DO Procedure: US OB cervical length Cervical length ultrasound. DONG ultrasound. Reason for exam: Vaginal spotting. COMPARISON: None. TECHNIQUE: Transabdominal imaging of the gravid uterus was obtained. FINDINGS: DONG is normal and 19.9 cm. Cervical length is 5.5 cm without evidence of funneling. heart rate 152 bpm. US/US OB amniotic fluid vol IMPRESSION: Normal DONG. Normal cervical length. Impression dictated by: Sarabjit Whipple Jr., D.O. 11/06/2024 2:59 PM Dictation Location: [place] [address] Electronically authenticated by: [id number] Y Date: 11/06/2024 14:59 Dictated By: Sarabjit Whipple M.D. Signed By: 11/06/24 1502 DD/ 1459 TD/TT: Head Bookkeeper: XIOMARA Hicks AMNIOTIC FLUID VOLUMEOrdered By: Radiologist Radiology on 21-38-9022UPPL [employer] Work Phone: US OB CERVICAL LENGTHon 20-36-[place] [address] Ultrasound Report Signed Patient: LAKEISHA RIDDLE MR#: [id number] : 1995 Acct:[id number] Age/Sex: 28 / F ADM Date: 11/06/24 Loc: US Attending Dr: Jesus Valencia D.O. Ordering Physician: Jesus Valencia D.O. Date of Service: 11/06/24 Procedure(s): US OB cervical length Accession Number(s): [id number] cc: Perri Carmona M.D.; Jesus Valencia D.O. The [address] [address] Patient Name: LAKEISHA RIDDLE MRN: [id number] date: 1995 Sex: F Assigned Patient Location: US Current Patient Location: US Accession/Order Number: [id number] Exam Date: 11/06/2024 14:56 Report Date: 11/06/2024 14:59 At the request of: JESUS VALENCIA DO Procedure: US OB cervical length Cervical length ultrasound. DONG ultrasound. Reason for exam: Vaginal spotting. COMPARISON: None. TECHNIQUE: Transabdominal imaging of the gravid uterus was obtained. FINDINGS: DONG is normal and 19.9 cm. Cervical length is 5.5 cm without evidence of funneling. heart rate 152 bpm. US/US OB cervical length IMPRESSION: Normal DONG. Normal cervical length. Impression dictated by: Sarabjit Whipple Jr., D.O. 11/06/2024 2:59 PM Dictation Location: [place] [address] Electronically authenticated by: [id number] Y Date: 11/06/2024 14:59 Dictated By: Sarabjit Whipple M.D. Signed By: 11/06/24 1501 DD/ 1459 TD/TT: Head Bookkeeper:GEORGEHRadiology, Radiologist, - 11/06/2024 [place] [address] Ultrasound Report Signed Patient: LAKEISHA RIDDLE MR#: [id number] : 1995 Acct:[id number] Age/Sex: 28 / F ADM Date: 11/06/24 Loc: US Attending Dr: Jesus Valencia D.O. Ordering Physician: Jesus Valencia D.O. Date of Service: 11/06/24 Procedure(s): US OB cervical length Accession Number(s): [id number] cc: Perri Carmona M.D.; Jesus Valencia D.O. The [place] [address] Patient Name: LAKEISHA RIDDLE MRN: [id number] date: 1995 Sex: F Assigned Patient Location: Current Patient Location: Accession/Order Number: [id number] Exam Date: 11/06/2024 14:56 Report Date: 11/06/2024 14:59 At the request of: JESUS VALENCIA DO Procedure: US OB cervical length Cervical length ultrasound. DONG ultrasound. Reason for exam: Vaginal spotting. COMPARISON: None. TECHNIQUE: Transabdominal imaging of the gravid uterus was obtained. FINDINGS: DONG is normal and 19.9 cm. Cervical length is 5.5 cm without evidence of funneling. heart rate 152 bpm. US/US OB cervical length IMPRESSION: Normal DONG. Normal cervical length. Impression dictated by: Sarabjit Whipple Jr., D.O. 11/06/2024 2:59 PM Dictation Location: [facility] Electronically authenticated by: [id number] Y Date: 11/06/2024 14:59 Dictated By: Sarabjit Whipple M.D. Signed By: 11/06/24 1505 DD/ 1459 TD/TT: Head Bookkeeper: XIOMARA Hicks OB CERVICAL LENGTHOrdered By: Radiologist Radiology on 34-52-2649[facility] Work Phone: Urinalysis macro (dipstick) panel (U)on 11-01-2024 Bilirubin, UANegativeNegative - 4(70) +++ mg/dLNOMS HealthcareBlood, UANegative Negative - 50 Cassius/mcLNOMS HealthcareClarity, UAClearNOMS HealthcareColor, UA YellowNOMS HealthcareGlucose, UANegativeNegative - 2000(110) ++++ mg/dLNOMS HealthcareInterpretation and review of laboratory resultsAbnormalNONE Healthcare Ketones, UANegativeNegative - 160(16) ++++ mg/dLNOMS HealthcareLeukocytes, UA PositiveNegative - 500+++ Shane/mcLNOMS HealthcareComment on above:2+Nitrite, UA NegativeNegative - PositiveNOMS HealthcarepH, UA65 - 9NOMS HealthcareProtein, UA NegativeNegative - 2000(20) ++++ mg/dLNOMS HealthcareSpec Grav, UA1.0151 - 1.03 NOMS HealthcareUrobilinogen, UA1.00.2 - 12 mg/dLNOMS HealthcareNOMS Healthcare Urinalysis macro (dipstick) panel (U)on 12-73-5778Wbajxburq, UANegativeNegative - 4(70) +++ mg/dLNOMS HealthcareBlood, UANegativeNegative - 50 Cassius/mcLNOMS HealthcareClarity, UAClearNONE HealthcareColor, UAYellowNONE HealthcareGlucose, UANegativeNegative - 2000(110) ++++ mg/dLNONE HealthcareInterpretation and review of laboratory resultsNormalNONE HealthcareKetones, UANegativeNegative - 160(16) ++++ mg/dLNONE HealthcareLeukocytes, UANegativeNegative - 500+++ Shane/mcL NOMS HealthcareNitrite, UANegativeNegative - PositiveNOMS HealthcarepH, UA5.55 - 9NOMS HealthcareProtein, UANegativeNegative - 2000(20) ++++ mg/dLNONE Healthcare Spec Grav, UA1.021 - 1.03NONE HealthcareUrobilinogen, UA1.00.2 - 12 mg/dLNONE HealthcareNONE HealthcareALL CBC WITH AUTO DIFFon 48-26-0205TVTDQUHRD ABSOLUTE HQGT3LYLQ HealthcareBasophils/100 WBC (Bld)0.2 %0.2 - 2.0 %NOMS Healthcare Eosinophils/100 WBC (Bld)0.7 %Low0.9 - 7.0 %NOMPerry County Memorial HospitalErythrocyte distribution width (RBC) [Ratio]13 %11.0 - 15.0 %NOMS HealthcareHematocrit (Bld) [Volume fraction]36.2 %36.0 - 48.0 %NOMPerry County Memorial HospitalHemoglobin (Bld) [Mass/Vol] 12.8 g/dL12.0 - 16.0 g/dLNOLee's Summit HospitalIMMATURE GRANULOCYTES ABS AUTO0.11High NOMS [facility] Charles HospitalImmature granulocytes/100 WBC (Bld)0.9 %High0.0 - 0.5 %NOM HealthcareInterpretation and review of laboratory resultsAbnormalSaint Mary's Health Center LYMPHOCYTES ABSOLUTE AUTO1.7NOLee's Summit HospitalLymphocytes/100 WBC (Bld)14.4 %Low 20.5 - 60.0 %[facility] HospitalH (RBC) [Entitic mass]33.4 pg26.7 - 34.0 pgI-70 Community HospitalHC (RBC) [Mass/Vol]35.4 g/uOKkmy34.9 - 35.2 g/dLI-70 Community HospitalV (RBC) [Entitic vol]94.5 fL81.0 - 99.0 fLNONE HealthcareMONOCYTES ABSOLUTE AUTO 0.4NOMS HealthcareMonocytes/100 WBC (Bld)3.7 %1.7 - 12.0 %[facility] NEUTROPHILS ABSOLUTE AUTO9.6HighNOMS HealthcareNeutrophils/100 WBC (Bld)80.1 % High43.0 - 75.0 %NOMS HealthcarePlatelet mean volume (Bld) [Entitic vol]10.3 fL 9.5 - 13.5 fLNONE HealthcareTBH EO #0.1NOMS HealthcareTBH SPD510XKEW Healthcare TBH RBC3.83LowNOMS HealthcareTBH FQZ34ZcuzTYWP HealthcareCLINISYNCNOMS HealthcareUS OB LIMITED 1+ FETUSESon 83-70-0362WL OB LIMITED 1+ FETUSESFINDINGS: Single viable intrauterine with cephalic presentation and normal cardiac activity of 133 bpm. Current exam demonstrates an adequate 4 chamber heart view with normal outflow tracts. IMPRESSION: Normal cardiac anatomy and outflow tracts, appropriate for this gestational age TRANSCRIBED BY: ELECTRONICALLY SIGNED BY: Alondra ShaikhNot AvailableComment on above:Order Comment: US OB INCOMPLETE ANATOMY Estimated Date of Delivery: 01/15/25 Gestational Age as of 09/27/2024: 62v8vDX OB 14+ WEEKS ANATOMY SCANon 82-45-4407QY OB 14+ WEEKS ANATOMY SCANEXAM: US OB 14+ WEEKS ANATOMY SCAN HISTORY: [...] II, MD, PHD at 31-Aug-2024 08:53:46 AM [facility]eleradiologyNormalNot AvailableComment on above:Order Comment: US OB ANATOMY SINGLE W US OB CERVICAL LENGTH Estimated Date of Delivery: 01/15/25 Gestational Age as of 08/02/2024: 05s2oFrpflrxgrc macro (dipstick) panel (U)on 44-25-3887Jvemgubvp, UANegativeNegative - 4(70) +++ mg/dLNOMS HealthcareBlood, UANegativeNegative - 50 Cassius/mcLNOMS HealthcareClarity, UAClearNOMS Healthcare Color, UAYellowNOMS HealthcareGlucose, UANegativeNegative - 2000(110) ++++ mg/dL NOMS HealthcareInterpretation and review of laboratory resultsNormalNOMS HealthcareKetones, UANegativeNegative - 160(16) ++++ mg/dLNOMS Healthcare Leukocytes, UANegativeNegative - 500+++ Shane/mcLNOMS HealthcareNitrite, UA NegativeNegative - PositiveNOMS HealthcarepH, UA6.55 - 9NOMS HealthcareProtein, UANegativeNegative - 1999(20) ++++ mg/dLNOMS HealthcareSpec Grav, UA1.0251 - 1.03NOMS HealthcareUrobilinogen, UA0.20.2 - 12 mg/dLNOMS HealthcareNOMS HealthcareRECURRENT VAGINITIS (HTRX)on 34-39-0657WAATPPMVG UYLBDMN2CLZE HealthcareATOPOBIUM VAGINAENot detectedNOMS HealthcareBVAB 2,3 (BACTERIAL VAGINOSIS ASSOCIATED BACTERIA 2, 3); MOBILUNCUS SPP26.49AbnormalNOMS Healthcare BVAB 2,3 (BACTERIAL VAGINOSIS ASSOCIATED BACTERIA 2, 3); MOBILUNCUS SPPDetected AbnormalNOMS HealthcareCANDIDA ALBICANS, PARAPSILOSIS, NHQBMJREKT0UUUM HealthcareCANDIDA ALBICANS, PARAPSILOSIS, TROPICALISNot detectedNOMS Healthcare JAS SWLQBDEF6WZQY HealthcareCANDIDA GLABRATANot detectedNOMS Healthcare JAS JHVFRI6MENT HealthcareCANDIDA KRUSEINot detectedNOMS HealthcareCHLAMYDIA PLQRRFHYFFD6KSTD HealthcareCHLAMYDIA TRACHOMATISNot detectedNOMS Healthcare GARDNERELLA CVIXQUDTE5URER HealthcareGARDNERELLA VAGINALISNot detectedNOMS HealthcareInterpretation and review of laboratory resultsAbnormalNOMS Healthcare MEGASPHAERA (TYPES 1, 2)0NOMS HealthcareMEGASPHAERA (TYPES 1, 2)Not detectedNOMS HealthcareMYCOPLASMA CJVBOSQFBJ9EUPZ HealthcareMYCOPLASMA GENITALIUMNot detected NOMS HealthcareNEISSERIA QZDNDELPZKU4JCLA HealthcareNEISSERIA GONORRHOEAENot detectedNOMS HealthcareTRICHOMONAS BHOLSWYQE7KNQQ HealthcareTRICHOMONAS VAGINALISNot detectedNOMS HealthcareNOMS HealthcareUrinalysis macro (dipstick) panel (U)on 44-21-9608Njjzcrfhd, UANegativeNegative - 4(70) +++ mg/dLNOMS HealthcareBlood, UANegativeNegative - 50 Cassius/mcLNOMS HealthcareClarity, UAClear NOMS HealthcareColor, UAYellowNOMS HealthcareGlucose, UANegativeNegative - 2000(110) ++++ mg/dLNOMS HealthcareInterpretation and review of laboratory resultsNormalNOMS HealthcareKetones, UANegativeNegative - 160(16) ++++ mg/dLNOMS HealthcareLeukocytes, UANegativeNegative - 500+++ Shane/mcLNOMS HealthcareNitrite, UANegativeNegative - PositiveNOMS HealthcarepH, UA6.55 - 9NOMS Healthcare Protein, UANegativeNegative - 2000(20) ++++ mg/dLNOMS HealthcareSpec Grav, UA 1.021 - 1.03NOMS HealthcareUrobilinogen, UA0.20.2 - 12 mg/dLNOMS HealthcareNOMS HealthcareUrinalysis macro (dipstick) panel (U)on 15-36-0931Azlwbkbll, UA NegativeNegative - 4(70) +++ mg/dLNOMS HealthcareBlood, UANegativeNegative - 50 Cassius/mcLNOMS HealthcareClarity, UAClearNOMS HealthcareColor, UAYellowNOMS HealthcareGlucose, UANegativeNegative - 2000(110) ++++ mg/dLNOMS Healthcare Interpretation and review of laboratory resultsNormalNONE HealthcareKetones, UA NegativeNegative - 160(16) ++++ mg/dLNONE HealthcareLeukocytes, UANegative Negative - 500+++ Shane/mcLNOMS HealthcareNitrite, UANegativeNegative - Positive NOMS HealthcarepH, UA65 - 9NOMS HealthcareProtein, UANegativeNegative - 2000(20) ++++ mg/dLNOMS HealthcareSpec Grav, UA1.0151 - 1.03NOMS HealthcareUrobilinogen, UA0.20.2 - 12 mg/dLNOMS HealthcareNOMS HealthcareHCG ( test) Ql (U)on 17-58-0114Zdsccnxbjrommj and review of laboratory resultsAbnormalSaint Mary's Health Center Preg Test, UrPositiveNegativeNOMS HealthcareNONE HealthcareUS OB TRANSVAGINALon 04-74-5866HG OB TRANSVAGINALEXAM: US OB TRANSVAGINAL HISTORY: Dating. COMPARISON: None available. TECHNIQUE: Two-dimensional transabdominal grayscale ultrasound imaging of the pelvis was performed.Color Doppler evaluation of the ovaries was also [...] II, MD, PHD at 11-Jun-2024 07:44:53 AM [facility] TeleradiologyNormalNot AvailableComment on above:Order Comment: US OB TRANSVAGINAL No LMP recorded.Urinalysis macro (dipstick) panel (U)on 91-13-1684Jvftczbke, UA NegativeNegative - 4(70) +++ mg/dLNOMS HealthcareBlood, UANegativeNegative - 50 Cassius/mcLNOMS HealthcareClarity, UAClearNOMS HealthcareColor, UAYellowNOMS HealthcareGlucose, UANegativeNegative - 2000(110) ++++ mg/dLNOMS Healthcare Interpretation and review of laboratory resultsNormalNOMS HealthcareKetones, UA NegativeNegative - 160(16) ++++ mg/dLNOMS HealthcareLeukocytes, UANegative Negative - 500+++ Shane/mcLNOMS HealthcareNitrite, UANegativeNegative - Positive NOMS HealthcarepH, UA65 - 9NOMS HealthcareProtein, UANegativeNegative - 2000(20) ++++ mg/dLNOMS HealthcareSpec Grav, UA1.0251 - 1.03NOMS HealthcareUrobilinogen, UA0.20.2 - 12 mg/dLNOMS HealthcareNOMS HealthcareTBH PREG QUANT HCGon 05-17-2024 HCG VURYZTFSIMVZ8624fIC/mLNOMS HealthcareComment on above:5-50 0.2-1 WEEK 50-500 1-2 WEEKS 100-5,000 2-3 WEEKS 500-10,000 3-4 WEEKS 1,000-50,000 4-5 WEEKS 10,000-100,000 5-6 WEEKS 15,000-200,000 6-8 WEEKS 10,000-100,000 2-3 MONTHS [facility] HospitalTBH PREG QUANT HCGon 62-10-2665VKK VPIJRMTLFJAZ083cJM/mL [facility] CenterComment on above:5-50 0.2-1 WEEK 50-500 1-2 WEEKS 100-5,000 2-3 WEEKS 500-10,000 3-4 WEEKS 1,000-50,000 4-5 WEEKS 10,000-100,000 5-6 WEEKS 15,000-200,000 6-8 WEEKS 10,000-100,000 2-3 MONTHS [facility] HospitalIGP,APTIMA HPV,AGE GDLNon 99-18-1197NVL GDLN ACOG TESTINGNote.[facility] Health CenterComment on above:TESTS RESULT FLAG UNITS REF RANGE LAB Clinician Provided Cytology Information Source.............Cervix;Endocervix No. of containers..01 ThinPrep Vial Age Algo ACOG Tiffanie... -26 04 FLAG LEGEND: L-Low Normal,H-High Normal,LL-Alert Low,HH-Alert High <-Panic Low,>-Panic High,A-Abnormal,AA-Critical Abnormal Performed at: 01 =G [facility] [place] [address] Hetal Estrella MD, IGP, RFX APTIMA HPV ASCUNote.NOMS HealthcareComment on above:TESTS RESULT FLAG UNITS REF RANGE LAB DIAGNOSIS: 02 NEGATIVE FOR INTRAEPITHELIAL LESION OR MALIGNANCY. Specimen adequacy: 02 Satisfactory for evaluation. No endocervical component is identified. Performed by: 02 Mary Polanco, Dra[employer] Engineering . 02 Note: Note 02 The Pap [...] Low,>-Panic High,A-Abnormal,AA-Critical Abnormal Performed at: [address] [address] Hetal Estrella MD, Performed at: =G - [facility] [id number] Journeyman Mechanic: Hetal Estrella MD, Phone: [phone] Performed at: - [facility] [id number] Journeyman Mechanic: Hetal Estrella MD, Phone: [phone] BRUSH-SPATULA CERVIX ENDOCERVIX [facility] AUTO DIFFon 62-60-0360HBMV #0.0 103/ulNormal0.0-0.1 The [facility] Memorial HospitalComment on above:Performed By: #### CBC ####[facility] [address] [place], [place] [address]Dr.Yilan Titus Basophils/100 WBC (Bld)0.2 %Normal0.2-2.0The [facility] HospitalComment on above: Performed By: #### CBC ####[facility] Dghcpgr[address] [place], [place] [address]Dr.Yilan ChangEO #0.1 103/ulNormal0.0-0.7The [facility] HospitalComment on above:Performed By: #### CBC ####[facility] [address] [place], [place] [address]Dr.Yilan ChangEosinophils/100 WBC (Bld)0.5 %Critically low0.9-7.0The [facility] HospitalComkalkaska memorial health center on above: Performed By: #### CBC ####[facility] [address] [place], [place] [address]Dr.Yilan ChangErythrocyte distribution width (RBC) [Ratio]13.4 %Xopebg30.0-15.0The [facility] HospitalComment on above:Performed By: #### CBC ####[facility] Qvrsse[address] [place], [place] [address]Dr.Yilan ChangHematocrit (Bld) [Volume fraction]33.8 %Critically low 36.0-48.0The [facility] HospitalComment on above:Performed By: #### CBC ####[facility] [address] [place], [place] [address]Dr. Yilan ChangHemoglobin (Bld) [Mass/Vol]11.3 g/dLCritically low12.0-16.0The [facility] HospitalComment on above:Performed By: #### CBC ####[facility] [address] [place] [address]Dr.Bee TitusIG #0.05 10e3/ulCritically high0.00-0.03The [facility] HospitalComment on above:Performed By: #### CBC ####[facility] [address] [place] [address]Dr.Bee TitusIG %0.4 %Normal0.0-0.5The [facility] HospitalComment on above: Performed By: #### CBC ####[facility] [address] [place] [address]Dr.Bee HardwickMPH #2.1 103/ulNormal1.2-3.8The [facility] HospitalComment on above:Performed By: #### CBC ####[facility] Z[address] [place], [place] [address]Dr.Bee Hardwickhocytes/100 WBC (Bld)15.9 %Critically low20.5-60.0The [facility] HospitalComment on above: Performed By: #### CBC ####[facility] [address] [place], [place] [address]Dr.Bee TitusMANUAL DIFF REQNONormalThe [facility] HospitalComment on above:Performed By: #### CBC ####[facility] [address] [place] [address]Dr.Bee TitusE.J. NO[facility] (RBC) [Entitic mass]30.1 oxTiwywr85.7-34.0The [facility] HospitalComment on above: Performed By: #### CBC ####[facility] Avq[address] [place], [place] [address]Dr.Bee TitusHC (RBC) [Mass/Vol]33.4 g/dLNormal 29.9-35.2The [facility] HospitalComment on above:Performed By: #### CBC ####[facility] [address]pfdsycdgb[address] [place], [place] [address]Dr. Bee TitusV (RBC) [Entitic vol]90.1 aBDzvwes33.0-99.0[facility] Comment on above:Performed By: #### CBC ####[facility] Istnfrtdzu[address] [place], [place] [address]Dr.Bee TitusMONO #0.7 103/ulNormal0.3-0.8 [facility] [facility] HospitalComment on above:Performed By: #### CBC ####[facility] Boysfrbhyg[address] [place], [place] [address]Dr.Bee Titus Monocytes/100 WBC (Bld)5.4 %Normal1.7-12.0The [facility] Memorial HospitalComment on above: Performed By: #### CBC ####[facility] Hexxhkouzt[address] [place], [place] [address]Dr.Bee TitusNEUT #10.2 103/ulCritically high1.4-6.5 The [facility] HospitalComment on above:Performed By: #### CBC ####[facility] [address]rtqfvje[address] [place], [place] [address]Dr.Bee Titus Neutrophils/100 WBC (Bld)77.6 %Critically high43.0-75.0The [facility] Comment on above:Performed By: #### CBC ####[facility] Oagtywjf[address] [place], [place] [address]Dr.Bee TitusPlatelet mean volume (Bld) [Entitic vol]10.6 fLNormal9.5-13.5The [facility] HospitalComment on above: Performed By: #### CBC ####[facility] [address] [place], [place] [address]Dr.Bee LhawxKNA551 103/qxPvtndf654-676Cfg [facility] HospitalComment on above:Performed By: #### CBC ####[facility] B[address]fsaobeb[address] [place], [place] [address]Dr.Leigh Annpee TachoRBC3.75 106/ul Critically low4.20-5.40The [facility] HospitalComment on above:Performed By: #### CBC ####[facility] Yetlxriylp[address] [place], [place] [address]Dr. Leigh Annlan NpxncLFH31.1 103/ulCritically high4.0-11.0The [facility] Hospitalment on above:Performed By: #### CBC ####[facility] [address] [place] [address]Dr.Yilan TitusFETAL SCREENon 61-44-5203CTEEU SCREEN NegativeNormalThVan Wert County HospitalComment on above:Performed By: #### FETSCRN ####[facility] [address] [place] [address]Dr. Bee TitusCBC AUTO DIFFon 98-67-2979CNCB #0.0 103/ulNormal0.0-0.1The [facility] Hospitalment on above:Performed By: #### CBC #### [facility] [address] [place] [address] [address] Bee TitusBasophils/100 WBC (Bld)0.3 %Normal0.2-2.0[facility] Comment on above:Performed By: #### CBC #### [facility] [address] [place] [address] [address] Bee Diehl #0.1 103/ulNormal0.0-0.7The [facility] on above: Performed By: #### CBC #### [facility] [address] [place] [address] Dr. Bee Gambinoosinophils/100 WBC (Bld)0.7 %Critically low0.9-7.0The [facility] on above:Performed By: #### CBC #### [facility] [address] [place] [address] [address] Bee Gambinorythrocyte distribution width (RBC) [Ratio]13.2 %Ffsdwx57.0-15.0 The [facility] Hospitalment on above:Performed By: #### CBC #### [facility] [address] [place] [address] [address] Bee TitusHematocrit (Bld) [Volume fraction]35.8 %Critically low36.0-48.0 The [facility] HospitalComment on above:Performed By: #### CBC #### [facility] [address] [place] [address] [address] Bee TitusHemoglobin (Bld) [Mass/Vol]12.1 g/vURqovwt62.0-16.0The [facility] HospitalComment on above:Performed By: #### CBC #### [facility] [address] [place] [address] [address] Bee Marin #0.06 10e3/ulCritically high0.00-0.03The [facility] Comment on above:Performed By: #### CBC #### [facility] [address] [place] [address] Dr. Bee Marin %0.5 %Normal0.0-0.5The [facility] HospitalComment on above: Performed By: #### CBC #### [facility] [address] [place] [address] Dr. Bee Black #2.2 103/ulNormal1.2-3.8The [facility] HospitalComment on above:Performed By: #### CBC #### [facility] [address] [place] [address] Dr. Bee Elamhocytes/100 WBC (Bld)17.9 %Critically low20.5-60.0The [facility] HospitalComment on above:Performed By: #### CBC #### [facility] [address] [place] [address] Dr. Bee TalleyUAL DIFF REQNONormalThe [facility] HospitalComment on above: Performed By: #### CBC #### [facility] [address] [place] [address] Dr. Bee Alex (RBC) [Entitic mass]29.4 dzZobcrq91.7-34.0The [facility] HospitalComment on above:Performed By: #### CBC #### [facility] [address] [place] [address] Dr. Bee Alex (RBC) [Mass/Vol]33.8 g/bVYpbwko80.9-35.2The [facility] HospitalComment on above:Performed By: #### CBC #### [facility] [address] [address] [address] Bee AlexV (RBC) [Entitic vol]87.1 wJHzswli24.0-99.0The [facility] HospitalComment on above:Performed By: #### CBC #### [facility] [facility] [address] [place] [address] Dr. Bee Wolfe #0.6 103/ulNormal0.3-0.8The [facility] HospitalComment on above:Performed By: #### CBC #### [facility] [address] [place] [address] Dr. Bee Catherineocytes/100 WBC (Bld)5.0 %Normal1.7-12.0The [facility] Comment on above:Performed By: #### CBC #### [facility] [address] [place] [address] Dr. Bee Verduzco #9.1 103/ulCritically high1.4-6.5The [facility] Comment on above:Performed By: #### CBC #### [facility] [address] [place] [address] Dr. Bee Schaeferutrophils/100 WBC (Bld)75.6 %Critically high43.0-75.0The [facility] HospitalComment on above:Performed By: #### CBC #### [facility] [address] [place] [address] Dr. Bee Fergusonlet mean volume (Bld) [Entitic vol]11.1 fLNormal9.5-13.5The [facility] HospitalComment on above:Performed By: #### CBC #### [facility] [address] [place] [address] Dr. Bee TitusPLT249 103/nqJltold709-817Ceq [facility] HospitalComment on above: Performed By: #### CBC #### [facility] [address] [place] [address] Dr. Bee TitusRBC4.11 106/ulCritically low4.20-5.40The [facility] HospitalComment on above:Performed By: #### CBC #### [facility] [address] [address] [address] Bee TitusWBC12.0 103/ulCritically high4.0-11.0[facility] HospitalComment on above:Performed By: #### CBC #### [facility] [address] [address] [address] Bee TitusDRUG SCREEN RAPID (URINE)on [id number]Y St. [facility] HospitalComment on above:Performed By: #### DRUGRPD ####[facility] [address] [address]Dr. Bee TitusBAR NegativeNormalNEGATIVESt. Francis HospitalComment on above:Performed By: #### DRUGRPD ####[facility] [address] [address]Dr. Bee TitusBUPNegativeNormalNEGATIVESt. Francis HospitalComment on above:Performed By: #### DRUGRPD ####[facility] [address] [address]Dr. Bee TitusBZONegativeNormalNEGATIVESt. Francis HospitalComment on above:Performed By: #### DRUGRPD ####[facility] [address] [address]Dr. Bee TitusCOCNegative NormalNEGATIVESt. Francis HospitalComment on above:Performed By: #### DRUGRPD ####[facility] [address] [address]Dr. Bee TitusCUT-OFFSSEE Pomerene HospitalComment on above:Result Comment: AMP (Amphetamine): 500ng/mL, BAR (Barbituates): 200 ng/mL, BZO (Benzodiazepines): 150 ng/mL, BUP (Buprenorphine): 10 ng/mL, LORRI (Cocaine): 150 ng/mL, mAMP (Methamphetamine): 500 ng/mL, MTD (Methadone): 200 ng/mL, OPI (Opiates): 100 ng/mL, OXY (Oxycodone): 100 ng/mL, PCP (Phencyclidine): 25 ng/mL, PPX (Propoxyphene): 300 ng/mL, THC (Cannabinoids): 50 ng/mL, TCA (Trycyclic Antidepressants): 300 ng/mLPerformed By: #### DRUGRPD ####[facility] [address] [place], [place] [address]Dr. Yilan ChangDRUG CUT HEADERDRUG CLASS TEST SYSTEM CUT-OFF CONCENTRATIONS ARE FOLLOWS:NormalThe Mobile HospitalComment on above:Performed By: #### DRUGRPD ####[facility] [address] [place], [place] [address]Dr. Yilan ChangmAMP NegativeNormalNEGATIVETrihealth HospitalComment on above:Performed By: #### DRUGRPD ####[facility] [address] [place], [place] [address]Dr. Yilan ChangMTDNegativeNormalNEGATIVETrihealth HospitalComment on above:Performed By: #### DRUGRPD ####[facility] [address] [place], [place] [address]Dr. Yilan ChangOPINegativeNormalNEGATIVETrihealth HospitalComment on above:Performed By: #### DRUGRPD ####[facility] [address] [place], [place] [address]Dr. Yilan ChangOXYNegative NormalNEGATIVETrihealth HospitalComment on above:Performed By: #### DRUGRPD ####[facility] [address] [place], [place] [address]Dr. Yilan ChangPCPNegativeNormalNEGATIVETrihealth HospitalComment on above: Performed By: #### DRUGRPD ####[facility] [address] [place], [place] [address]Dr. Yilan ChangPPXNegativeNormalNEGATIVETrihealth HospitalComment on above:Performed By: #### DRUGRPD ####[facility] [address] [place], [place] [address]Dr. Yilan ChangTCANegative NormalNEGATIVETrihealth HospitalComment on above:Performed By: #### DRUGRPD ####[facility] [address] [address]Dr. Bee TitusTHCNegativeNormalNEGATIVEThe [facility] HospitalComment on above: Performed By: #### DRUGRPD ####[facility] [address] [address]Dr. Bee ChangTYPE AND SCREENon [id number] AND SCREENAntibody Screen POSITIVE Blood Bank Notes PROBABLE ANTI-D DUE TO RHIG ADMIN. @28WEEKS, FURTHER WORKUP AT PHYSICIAN Blood Bank Notes REQUEST ABO Rh Typing A Rh NegativeNormalThe [facility] HospitalComment on above:Performed By: #### TNS ####[facility] [address] [address]Dr.Bee ChangAMNISUREon [id number]AxypugDMORERPQZex [facility] HospitalComment on above:Performed By: #### AMNI ####[facility] [address] [address]Dr. Bee TitusBUNon 52-07-2923Dsqe nitrogen [Mass/Vol]8.0 mg/dLNormal7.0-18.0[facility] Comment on above:Performed By: #### CANDE KIMIND #### [facility] [address] [address] [address] Bee Loera AUTO DIFFon [id number] #0.0 103/ulNormal0.0-0.1The [facility] HospitalComment on above:Performed By: #### CANDE KIMIND #### [facility] [address] [address] [address] Bee Fabiansophils/100 WBC (Bld)0.3 %Normal0.2-2.0The [facility] Comment on above:Performed By: #### CANDE KIMIND #### [facility] [address] [address] [address] Bee Diehl #0.1 103/ulNormal0.0-0.7The [facility] HospitalComment on above: Performed By: #### CANDE KIMIND #### [facility] [address] [place] [address] Dr. Bee Gambinoosinophils/100 WBC (Bld)0.4 %Critically low0.9-7.0The [facility] HospitalComment on above:Performed By: #### YANNA KIMCSIND #### [facility] [address] [place] [address] Dr. Bee Gambinorythrocyte distribution width (RBC) [Ratio]13.6 %Bzhsst39.0-15.0 The [facility] HospitalComment on above:Performed By: #### JUDY CSIND #### [facility] [address] [place] [address] Dr. Bee TitusHematocrit (Bld) [Volume fraction]32.8 %Critically low36.0-48.0 The [facility] HospitalComment on above:Performed By: #### CANDE KIMIND #### [facility] [address] [place] [address] Dr. Bee TitusHemoglobin (Bld) [Mass/Vol]11.2 g/dLCritically low12.0-16.0The [facility] HospitalComment on above:Performed By: #### CANDE KIMIND #### [facility] [address] [place] [address] Dr. Bee Marin #0.05 10e3/ulCritically high0.00-0.03The [facility] Comment on above:Performed By: #### CANDE KIMIND #### [facility] [address] [place] [address] Dr. eBe Marin %0.4 %Normal0.0-0.5The [facility] HospitalComment on above: Performed By: #### CANDE KIMIND #### [facility] [address] [place] [address] Dr. Bee Black #2.0 103/ulNormal1.2-3.8The [facility] HospitalComment on above:Performed By: #### UMICRO, UACSIND #### [facility] [address] [address] [address] Bee Hardwickmphocytes/100 WBC (Bld)16.3 %Critically low20.5-60.0The [facility] HospitalComment on above:Performed By: #### JUDY UACSIND #### [facility] [address] [place] [address] Dr. Bee TalleyUAL DIFF REQNONormalThe [facility] HospitalComment on above: Performed By: #### JUDY UACSIND #### [facility] [address] [place] [address] Dr. Bee Alex (RBC) [Entitic mass]30.4 soFfunyf10.7-34.0The [facility] HospitalComment on above:Performed By: #### JUDY UACSIND #### [facility] [address] [place] [address] Dr. Bee Alex (RBC) [Mass/Vol]34.1 g/zOKqubdx00.9-35.2The [facility] HospitalComment on above:Performed By: #### JUDY UACSIND #### [facility] [address] [place] [address] Dr. Bee Samaniego (RBC) [Entitic vol]88.9 gTMlfrrv29.0-99.0The [facility] HospitalComment on above:Performed By: #### JUDY UACSIND #### [facility] [address] [place] [address] Dr. Bee Wolfe #0.6 103/ulNormal0.3-0.8The [facility] HospitalComment on above:Performed By: #### JUDY UACSIND #### [facility] [address] [place] [address] Dr. Bee Catherineocytes/100 WBC (Bld)5.1 %Normal1.7-12.0The [facility] Comment on above:Performed By: #### JUDY UACSIND #### [facility] [address] [place], [place] [address] Dr. Bee Verduzco #9.3 103/ulCritically high1.4-6.5The [facility] Comment on above:Performed By: #### JUDY CSIND #### [facility] [address] [place] [address] Dr. Bee Schaeferutrophils/100 WBC (Bld)77.5 %Critically high43.0-75.0The [facility] HospitalComment on above:Performed By: #### JUDY CSIND #### [facility] [address] [address] [address] Bee Fergusonlet mean volume (Bld) [Entitic vol]10.4 fLNormal9.5-13.5The [facility] HospitalComment on above:Performed By: #### JUDY CSIND #### [facility] [address] [place] [address] Dr. Bee TitusPLT193 103/xiMzzttq052-852Wed Mobile HospitalComment on above: Performed By: #### JUDY [facility]RI[facility]INC[facility] PHYSICIANS MEDICAL CENTERIND #### [facility] [address] [place] [address] Dr. Bee TitusRBC3.69 106/ulCritically low4.20-5.40The [facility] HospitalComment on above:Performed By: #### JUDY CSIND #### [facility] [address] [place] [address] Dr. Bee TitusWBC12.0 103/ulCritically high4.0-11.0The [facility] HospitalComment on above:Performed By: #### JUDY CSIND #### [facility] [address] [place] [address] Dr. Bee Sandy 65-51-9495Gmughbcelb [Mass/Vol]0.83 mg/dLNormal 0.55-1.02The [facility] HospitalComment on above:Performed By: #### CREA #### [facility] [address] [place] [address] Dr. Bee GambinoGFR-AF TONGAN>60Normal>=60Trihealth HospitalComment on above:Result Comment: Previously reported as: (blank) On 07/14/2022 10:27 By [email or web address] By: #### CREA #### [facility] [address] [place] [address] Dr. Bee GambinoGFR-NON AF TONGAN>60Normal>=60[facility] HospitalComment on above:Result Comment: Previously reported as: (blank) On 07/14/2022 10:27 By [id number] By: #### CREA #### [facility] [address] [place] [address] Dr. Bee Reddy (CLEAN/CATCH) CROP GRAIN OR LIVESTOCK FARM MANAGER/MICRO IF IND.on 75-49-0477Erjentpih Ql (U) NegativeNormalNEGATIVESt. Francis HospitalComment on above:Performed By: #### JUDY UACSIND #### [facility] [address] [place] [address] Dr. Bee TitusClarity (U)CLEARNormalCLEARSt. Francis HospitalComment on above: Performed By: #### JUDY UACSIND #### [facility] [address] [place] [address] Dr. Bee Jacinto (U)YELLOWNormalYELLOWSt. Francis HospitalComment on above: Performed By: #### JUDY UACSIND #### [facility] [address] [address] [address] Bee TitusGlucose Ql (U)NegativeNormalNEGATIVESt. Francis HospitalComment on above:Performed By: #### UMTEQUILA UACSIND #### [facility] [address] [address] [address] Bee TitusHemoglobin Ql (U)LARGEAbnormalNEGWood County Hospital Comment on above:Performed By: #### UMICRO, UACSIND #### [facility] [address] [address] [address] Bee TitusKetones Ql (U)15 mg/dlAbnormalNEGWood County Hospital Comment on above:Performed By: #### JUDY UACSIND #### [facility] [address] [address] [address] Bee TitusLEUKOCYTESNegativeNormalNEGATIVESt. Francis HospitalComment on above:Performed By: #### JUDY UACSIND #### [facility] [address] [address] [address] Bee Newmantrite Ql (U)NegativeNormalNEGATIVEThe [facility] HospitalComment on above:Performed By: #### JUDY UACSIND #### [facility] [address] [address] [address] Bee Abdalla (U)5.5 [pH]Normal5-9The [facility] HospitalComment on above: Performed By: #### JUDY UACSIND #### [facility] [address] [address] [address] Bee TitusSPEC GRAVITY>=1.452Ktdfxehp2.005-<=1.025The [facility] Comment on above:Performed By: #### JUDY UACSIND #### [facility] [address] [address] [address] Bee Reddy QFXKRRK70 mg/dlAbnormalNEGATIVE/ TRACEThe [facility] Comment on above:Performed By: #### JUDY UACSIND #### [facility] [address] [address] [address] Bee TitusUR MICRO INDINDICATEDNormalThe [facility] HospitalComment on above: Performed By: #### JUDY UACSIND #### [facility] [address] [address] [address] Bee Mathew Qn (U)0.2 {Rama'U}/dLNormal0.2 - 1.0The [facility] HospitalComment on above:Performed By: #### JUDY UACSIND #### [facility] [address] [address] [address] Bee Art MICROSCOPIC ONLYon [id number] SEENNormalNONE SEENSt. Francis HospitalComment on above:Performed By: #### JUDY UACSIND #### [facility] [address] [address] [address] Bee Stovall identified Cx Nom (U)NOT INDICATEDNormalThVan Wert County HospitalComment on above:Performed By: #### JUDY UACSIND #### [facility] [address] [address] [address] Bee Pyle SEENNormalNONE SEENSt. Francis HospitalComment on above:Performed By: #### JUDY UACSIND #### [facility] [address] [place] [address] Dr. Bee Liraystals LM Nom (Urine sed)NONE SEENNormalNONE SEENSt. Francis HospitalComkalkaska memorial health center on above:Performed By: #### JUDY UACSIND #### [facility] [address] [address] [address] Gamboa ChangEpithelial cells LM Ql (Urine sed)FEWAbnormalNONE SEEN /RAREThe [facility] HospitalComment on above:Performed By: #### JUDY UACSIND #### [facility] [address] [place] [address] Dr. Bee PlattMODERATEAbnormalNONE SEENSt. Francis HospitalComkalkaska memorial health center on above:Performed By: #### JUDY UACSIND #### [facility] [address] [place] [address] Dr. Bee KnightPqimhQPO85-38Upagidfx2-7Uej [facility] HospitalComment on above: Performed By: #### JUDY UACSIND #### [facility] [address] [place] [address] Dr. Bee HendricksonBCNONE SEENNormalNONE SEENSt. Francis HospitalComkalkaska memorial health center on above: Performed By: #### JUDY UACSIND #### [facility] [address] [place] [address] Dr. Bee Bell KIDNEYS BLADDERon [id number] KIDNEYS BLADDEREXAM: US KIDNEYS BLADDER HISTORY: pain COMPARISON: None. [...] Electronically authenticated by: SCARLET OROZCO Date: 2022-07-14 11:26[facility] PREG GROWTHon [id number] PREG GROWTHEXAMINATION: US PREG GROWTH HISTORY: High weight infant [...] Electronically authenticated by: MIMI RICHEY Date: 2022-07-13 18:08NormalThe Mobile HospitalGROUP B STREP CULTUREon 07-02-2022S. agalactiae Ag Ql (Unsp spec)Culture Observations: NEGATIVE FOR GROUP B STREPTOCOCCUS.NormalThe [facility] HospitalComment on above: Performed By: #### GBSCX #### [facility] [address] [place] [address] Dr. Bee Bell PREG GROWTHon 65-26-4553MG PREG GROWTHEXAMINATION: US PREG GROWTH HISTORY: High weight COMPARISON: [...] growth detailed above. Electronically authenticated by: FARZANA LEON Date: 2022-06-16 13:49NormSumma Health Barberton Campuse [facility] HospitalUS PREG GROWTHon [id number] PREG GROWTHEXAMINATION: US PREG GROWTH HISTORY: Large for gestation [...] at 92nd percentile. Electronically authenticated by: FARZANA LEON Date: 2022-05-19 15:21NormalThe [facility] HospitalAMYLASEon [id number] [Catalytic activity/Vol]49 U/L Uhjoxd43-432Psj [facility] HospitalComment on above:Performed By: #### REINA, CMP, LIPA ####[facility] [address] [address]Dr. Bee Loera AUTO DIFFon [id number] #0.0 103/ulNormal0.0-0.1The [facility] HospitalComment on above:Performed By: #### JUDY CHRISTIANOIND #### [facility] [address] [address] [address] Bee TitusBasophils/100 WBC (Bld)0.2 %Normal0.2-2.0The [facility] Comment on above:Performed By: #### YANNA KIMCSIND #### [facility] [address] [address] [address] Bee Diehl #0.0 103/ulNormal0.0-0.7The [facility] HospitalComment on above: Performed By: #### JUDY UACSIND #### [facility] [address] [address] [address] Bee Gambinoosinophils/100 WBC (Bld)0.1 %Critically low0.9-7.0The [facility] HospitalComment on above:Performed By: #### JUDY UACSIND #### [facility] [address] [address] [address] Bee Gambinorythrocyte distribution width (RBC) [Ratio]12.9 %Pcempy09.0-15.0 The [facility] HospitalComment on above:Performed By: #### YANNA KIMCSIND #### [facility] [address] [place] [address] Dr. Bee TitusHematocrit (Bld) [Volume fraction]35.7 %Critically low36.0-48.0 The [facility] HospitalComment on above:Performed By: #### JUDY UACSIND #### [facility] [address] [place] [address] Dr. Bee TitusHemoglobin (Bld) [Mass/Vol]12.6 g/mXUpzdid24.0-16.0The [facility] HospitalComment on above:Performed By: #### JUDY UACSIND #### [facility] [address] [place] [address] Dr. Bee Marin #0.10 10e3/ulCritically high0.00-0.03The [facility] Comment on above:Performed By: #### YANNA KIMCSIND #### [facility] [address] [place] [address] Dr. Bee Marin %0.6 %Critically high0.0-0.5The [facility] HospitalComment on above:Performed By: #### YANNA KIMCSIND #### [facility] [address] [place] [address] Dr. Bee Black #0.4 103/ulCritically low1.2-3.8The [facility] Comment on above:Performed By: #### JUDY UACSIND #### [facility] [address] [place] [address] Dr. Bee Hardwickmphocytes/100 WBC (Bld)2.1 %Critically low20.5-60.0St. [facility] HospitalComment on above:Performed By: #### JUDY UACSIND #### [facility] [address] [place] [address] Dr. Bee TalleyUAL DIFF REQNONormalThe [facility] HospitalComment on above: Performed By: #### YANNA KIMCSIND #### [facility] [address] [place] [address] Dr. Bee Alex (RBC) [Entitic mass]31.7 qlPyoefn71.7-34.0The [facility] HospitalComment on above:Performed By: #### JUDY UACSIND #### [facility] [address] [place] [address] Dr. Bee Alex (RBC) [Mass/Vol]35.3 g/dLCritically high29.9-35.2The [facility] HospitalComment on above:Performed By: #### JUDY UACSIND #### [facility] [address] [place] [address] Dr. Bee Alex (RBC) [Entitic vol]89.9 cYMbevxg44.0-99.0The [facility] HospitalComment on above:Performed By: #### JUDY UACSIND #### [facility] [address] [place] [address] Dr. Bee Wolfe #0.4 103/ulNormal0.3-0.8The [facility] HospitalComment on above:Performed By: #### JUDY CSIND #### [facility] [address] [place] [address] Dr. Bee Catherineocytes/100 WBC (Bld)2.0 %Normal1.7-12.0[facility] Comment on above:Performed By: #### JUDY UACSIND #### [facility] [address] [place] [address] Dr. Bee Verduzco #17.2 103/ulCritically high1.4-6.5The [facility] Comment on above:Performed By: #### JUDY UACSIND #### [facility] [address] [place] [address] Dr. Bee Camposophils/100 WBC (Bld)95.0 %Critically high43.0-75.0The [facility] HospitalComment on above:Performed By: #### JUDY UACSIND #### [facility] [address] [place] [address] Dr. Bee Manzanares mean volume (Bld) [Entitic vol]9.8 fLNormal9.5-13.5The [facility] HospitalComment on above:Performed By: #### JUDY UACSIND #### [facility] [address] [address] [address] Bee TitusPLT164 103/qzTdrlxw421-908Oog [facility] HospitalComkalk[facility] on above: Performed By: #### JUDY UACSIND #### [facility] [address] [place] [address] Dr. Bee TitusRBC3.97 106/ulCritically low4.20-5.40The [facility] HospitalComkalk[facility] on above:Performed By: #### JUDY UACSIND #### [facility] [address] [place] [address] Dr. Bee TitusWBC18.1 103/ulCritically high4.0-11.0The [facility] on above:Performed By: #### JUDY UACSIND #### [facility] [address] [place] [address] Dr. Bee Mofftet URINE PROFILEon 05-73-8450Dvazkcsoq Ql (U)NegativeNormal NEGATIVEThe [facility] HospitalComkalk[facility] on above:Performed By: #### YANNA KIMCSIND #### [facility] [address] [place] [address] Dr. Bee Caceres (U)CLEARNormalCLEARThe [facility] HospitalComkalk[facility] on above: Performed By: #### JUDY UACSIND #### [facility] [address] [place] [address] Dr. Bee Jacinto (U)YELLOWNormalYELLOWSt. Francis HospitalComkalkaska memorial health center on above: Performed By: #### JUDY UACSIND #### [facility] [address] [place] [address] Dr. Bee Ravi micrscopic examination will be performed if indicated. NormalThe [facility] HospitalComment on above:Performed By: #### UMICRO, UACSIND #### [facility] [address] [address] [address] Bee TitusGlucose Ql (U)NegativeNormalNEGATIVESt. Francis HospitalComment on above:Performed By: #### JUDY UACSIND #### [facility] [address] [address] [address] Bee TitusHemoglobin Ql (U)TRACE-INTACTAbnormalNEGATIVEThe [facility] HospitalComment on above:Performed By: #### JUDY UACSIND #### [facility] [address] [address] [address] Bee Hustonones Ql (U)>=80AbnormalNEGATIVEThe [facility] HospitalComment on above:Performed By: #### JUDY UACSIND #### [facility] [address] [address] [address] Bee TitusLEUKOCYTESNegativeNormalNEGATIVEThe [facility] HospitalComment on above:Performed By: #### JUDY UACSIND #### [facility] [address] [address] [address] Bee Newmantrite Ql (U)NegativeNormalNEGATIVESt. Francis HospitalComment on above:Performed By: #### JUDY UACSIND #### [facility] [address] [address] [address] Bee TituspH (U)6.5 [pH]Normal5-9The [facility] HospitalComment on above: Performed By: #### JUDY UACSIND #### [facility] [address] [address] [address] Bee TitusSPEC GRAVITY1.813Yzdqdo4.005-<=1.025The [facility] HospitalComment on above:Performed By: #### JUDY UACSIND #### [facility] [address] [address] [address] Bee TitusUA PROTEINNegativeNormalNEGATIVE/ TRACEThe [facility] on above:Performed By: #### UMICRO, UACSIND #### [facility] [address] [address] [address] Bee Lockett MICRO INDINDICATEDNormalThe [facility] HospitalComment on above: Performed By: #### JUDY [facility] #### [facility] [address] [address] [address] Bee TitusUrobilino Qn (U)0.2 {Rama'U}/dLNormal0.2 - 1.0The [facility] HospitalComment on above:Performed By: #### JUDY [facility]IND #### [facility] [address] [address] [address] Bee TitusLIPASEon 31-91-8488Adethc [Catalytic activity/Vol]95.0 U/LNormal 73.0-393.0The [facility] HospitalComment on above:Performed By: #### REINA, CMP, LIPA ####[facility] [address] [address]Dr. Bee ChangPROF 14(COMP METB)on 75-79-3655Mgmkpek [Mass/Vol]2.9 g/dL Critically low3.4-5.0The [facility] HospitalComment on above:Performed By: #### REINA, CMP, LIPA ####[facility] [address] [address]Dr. Bee ChangAlbumin/Globulin [Mass ratio]0.8 {ratio}NormalThe [facility] HospitalComkalkaska memorial [facility] on above:Performed By: #### REINA, CMP, LIPA ####[facility] [address] [address]Dr. Bee ChangALP [Catalytic activity/Vol]85 U/IDrhrvn86-831Lht [facility] HospitalComment on above: Performed By: #### REINA, CMP, LIPA ####[facility] [address] [address]Dr. Bee ChangALT [Catalytic activity/Vol]17 U/L Ptkqar67-98Bca [facility] HospitalComment on above:Performed By: #### REINA, CMP, LIPA ####[facility] [address] [address]Dr. Yilan ChangAnion gap [Moles/Vol]15.6 mmol/LNormalThe [facility] Comment on above:Performed By: #### REINA, CMP, LIPA ####[facility] [address] [address]Dr. Yilan ChangAST [Catalytic activity/Vol]15 U/ZPvwthy12-82Jrt [facility] HospitalComment on above:Performed By: #### REINA, CMP, LIPA ####[facility] [address] [address]Dr. Yilan ChangBilirubin [Mass/Vol]0.5 mg/dLNormal 0.2-1.0The [facility] HospitalComment on above:Performed By: #### REINA, CMP, LIPA ####[facility] [address] [place], [place] [address]Dr. Yilan ChangCalcium [Mass/Vol]8.4 mg/dLCritically low8.5-10.1The [facility] HospitalComment on above:Performed By: #### REINA, CMP, LIPA ####[facility] [address] [place], [place] [address]Dr. Yilan ChangChloride [Moles/Vol]105 mmol/KWzuclt18-029Ggc [facility] HospitalComment on above:Performed By: #### REINA, CMP, LIPA ####[facility] [address] [address]Dr. Yilan ChangCO2 [Moles/Vol]22.3 mmol/LNormal 21.0-32.0The [facility] HospitalComment on above:Performed By: #### REINA, CMP, LIPA ####[facility] [address] [place], [place] [address]Dr. Yilan ChangCreatinine [Mass/Vol]0.61 mg/dLNormal0.55-1.02The [facility] Comment on above:Performed By: #### REINA, CMP, LIPA ####[facility] Dawmm[address] [place], [place] [address]Dr. Yilan ChangEGFR-AF TONGAN>60Normal>=60The [facility] HospitalComment on above:Performed By: #### REINA, CMP, LIPA ####[facility] [address] [address]Dr. Yilan ChangEGFR-NON AF TONGAN>60Normal>=60The [facility] Comment on above:Performed By: #### REINA, CMP, LIPA ####[facility] [address] [address]Dr. Yilan ChangGlobulin (S) [Mass/Vol]3.7 g/dLNormalThe [facility] HospitalComment on above:Performed By: #### REINA, CMP, LIPA ####[facility] [address] [place], [place] [address]Dr. Yilan ChangGlucose [Mass/Vol]112 mg/dLCritically juyu25-616Jig [facility] HospitalComment on above:Performed By: #### REINA, CMP, LIPA ####[facility] [address] [address]Dr. Yilan Titus Potassium [Moles/Vol]3.9 mmol/LNormal3.5-5.1The [facility] HospitalComment on above:Performed By: #### REINA, CMP, LIPA ####[facility] [address] [address]Dr. Yilan ChangProtein [Mass/Vol]6.6 g/dL Normal6.4-8.2The [facility] HospitalComment on above:Performed By: #### REINA, CMP, LIPA ####[facility] [address] [address]Dr. Yilan ChangSodium [Moles/Vol]139 mmol/JStckpt376-318Hyb [facility] HospitalComment on above:Performed By: #### REINA, CMP, LIPA ####[facility] [address] [address]Dr. Yilan ChangUrea nitrogen [Mass/Vol]10.0 mg/dLNormal7.0-18.0The [facility] HospitalComment on above: Performed By: #### REINA, CMP, LIPA ####[facility] [address] [address]Dr. Bee Figueroa nitrogen/Creatinine [Mass ratio] 16.4 mg/mgNoCleveland Clinic Marymount Hospitalment on above:Performed By: #### REINA, CMP, LIPA ####[facility] [address] [address]Dr. Bee JESSICA ONLYon 73-97-0900WUCKBLVZHUKM SEENNormal NONE SEENAultman Orrville Hospital on above:Performed By: #### JUDY UACSIND #### [facility] [address] [address] [address] Bee Stovall identified Cx Nom (U)NOT INDICATEDNoCleveland Clinic Euclid HospitalComkalkaska memorial health center on above:Performed By: #### JUDY UACSIND #### [facility] [address] [address] [address] Bee Pyle SEENNormalNONE SEENAultman Orrville Hospital on above:Performed By: #### JUDY UACSIND #### [facility] [address] [address] [address] Bee TitusCrystals LM Nom (Urine sed)NONE SEENNormalNONE SEENAultman Orrville Hospital on above:Performed By: #### JUDY UACSIND #### [facility] [address] [address] [address] Gamboa ChangEpithelial cells LM Ql (Urine sed)NONE SEENNormalNONE SEEN /RARE The [facility] HospitalComkalkaska memorial health center on above:Performed By: #### JUDY UACSIND #### [facility] [address] [address] [address] Bee MarquezUSHUBER SEENNormalNONE SEENAultman Orrville Hospital on above:Performed By: #### JUDY UACSIND #### [facility] [address] [address] [address] Bee TitusCgvniVTO8-0Qprlow7-4Wjs Mobile HospitalComment on above:Performed By: #### JUDY UACSIND #### [facility] [address] [place], [place] [address] Dr. Bee TitusWBCNONGhislaine SEENNormalNONE SEENThe [facility] HospitalComment on above: Performed By: #### JUDY UACSIND #### [facility] [address] [place], [place] [address] Dr. Bee TitusTYPE AND SCREENon 25-05-9431OKFP AND SCREENNegativeNormalThe [facility] HospitalComment on above:Performed By: #### TNS #### [facility] [address] [place], [place] [address] Dr. Bee TitusGLUCOSE - 1HRon 44-14-9797Nmxcvrq [Mass/Vol]136 mg/dLCritically qdlj96-737Brr [facility] HospitalComment on above:Performed By: #### GLU1HR ####[facility] [address] [place], [place] [address]Dr. Bee TitusUS PREG ANATOMY SINGLEon 39-66-9096ET PREG ANATOMY SINGLEEXAMINATION: US PREG ANATOMY SINGLE HISTORY: Gynecologic examination [...] Electronically authenticated by: MIMI RICHEY Date: 2022-03-10 07:17[facility] ACOG PANEL 2: 21 to 29on 03-03-2022..NormalSt. Francis HospitalComment on above:Performed By: #### [id number] ####[facility] [address] [place], [place] [address]Dr. Bee Schroeder Gdln ACOG Xtpwnah15-15FjokqfRsgCleveland Clinic Euclid HospitalComment on above:Performed By: #### [id number] ####[facility] [address] [place], [place] [address]Dr. Bee TitusDIAGNOSIS:CommentToledo HospitalComment on above:Result Comment: NEGATIVE FOR INTRAEPITHELIAL LESION OR MALIGNANCY. Performed By: #### [id number] ####[facility] [address] [place], [place] [address]Dr. Bee TitusMethodology:CommentToledo HospitalComment on above:Result Comment: This liquid based ThinPrep(R) pap test was screened with the use of an image guided system.Performed By: #### [id number] ####[facility] [address] [place], [place] [address]DrEric TitusNote:Comment [facility] HospitalComkalkaska memorial health center on above:Result Comment: The Pap smear is a screening test designed to aid in the detection of premalignant and malignant conditions of the uterine cervix. It is not a diagnostic procedure and should not be used as the sole means of detecting cervical cancer. Both false-positive and false-negative reports do occur. .Performed By: #### [id number] ####[facility] [address] [place], [place] [address]DrEric TitusPerformed by:CommentCleveland Clinic Avon Hospital on above:Result Comment: Sandra Land, [employer] Performed By: #### [id number] ####[facility] [address] [address]DrEric TitusReflex Criteria:CommentCleveland Clinic Avon Hospital on above:Result Comment: The HPV DNA reflex criteria were not met with this specimen result therefore, no HPV testing was performed. .Performed By: #### [id number] ####[facility] [address] [address]DrEric TitusSpecimen adequacy:CommentCleveland Clinic Avon Hospital on above:Result Comment: Satisfactory for evaluation. No endocervical component is identified.Performed By: #### [id number] ####[facility] [address]se[address] [place], [place] [address]DrEric Titus CHLAMYDIA/GONOCOCCUS CJ (SWAB/URINE/PAPon 48-87-4122Alstvasja trachomatis, CJ NegativeNormalNegativeSt. Francis HospitalComment on above:Performed By: #### CT/NGNA #### [facility] [address] [place] [address] Dr. Bee TitusNeisseria gonorrhoeae, NAANegativeNormalNegativeSt. Francis HospitalComment on above:Performed By: #### CT/NGNA #### [facility] [address] [place] [address] Dr. Bee TitusVAGINITIS/VAGINOSIS DNA PROBEon 17-45-6358Rnjcqgv speciesNegative NormalNegativeSt. Francis HospitalComment on above:Performed By: #### VAGINT ####[facility] [address]ets[address] [place], [place] [address]DrEric TitusGardnerella vaginalisNegativeNormalNegativeSt. [facility] Comment on above:Performed By: #### VAGINT ####[facility] [address] [place], [place] [address]DrEric TitusTrichomonas vaginalisNegative NormalNegativeSt. Francis HospitalComment on above:Performed By: #### VAGINT ####[facility] [address] [address]Dr. Bee Casas B SURFACE ANTIGEN SCREENon 73-31-1778WBtAj ScreenNegativeNormal NegativeThe [facility] HospitalComment on above:Performed By: #### JUDY UACSIND #### [facility] [address] [address] [address] Bee DialTIS C VIRUS AB W/ REFLEX QUANTon 72-06-6589PTL AB<0.1Normal 0.0-0.9The [facility] on above:Performed By: #### JUDY CSIND #### [facility] [address] [place] [address] Dr. Bee TitusInterpretation:CommentNormalThe [facility] on above:Result Comment: Negative Not infected with HCV, unless recent infection is suspected or other evidence exists to indicate HCV infection.Performed By: #### JUDY UACSIND #### [facility] [address] [place] [address] Dr. Bee Rodriugez 1 AND 2 WITH REFLEXon 54-02-2373HWJ Screen 4th Generation wRfxNon-ReactiveNormalNon ReactiveThe [facility] on above:Result Comment: HIV Negative HIV-1/HIV-2 antibodies and HIV-1 p24 antigen were NOT detected. There is no laboratory evidence of HIV infection.Performed By: #### [id number] ####[facility] [address] [address]Dr. Bee MerchantR QUANTon 95-57-9457Cpimd Plasma Reagin, QuantNon-ReactiveNormal NonRea<1:1The [facility] on above:Result Comment: Please Note: This test does not meet current guidelines for screening and diagnosis of syphilis. This test is intended for following treatment response in patients being treated for syphilis infection. To screen for syphilis infection, a reflex cascade that includes both RPR and a treponema-specific assay should be utilized, such as Treponema pallidum (Syphilis) Screening [place] (817938) or Rapid Plasma Reagin (RPR) Test With Reflex to Quantitative RPR and Confirmatory Treponema pallidum Antibodies (819207).Performed By: #### CANDE KIMIND #### [facility] [address] [place] [address] Dr. Bee Lala AB IGGon 17-30-0018Cstvwlw Antibodies, IgG2.83 index NormalImmune >0.99The [facility] HospitalComment on above:Result Comment: Non- immune <0.90 Equivocal 0.90 - 0.99 Immune >0.99Performed By: #### CANDE KIMIND #### [facility] [address] [place] [address] Dr. Bee Loera AUTO DIFFon 50-01-2637LUDL #0.0 103/ulNormal0.0-0.1The [facility] HospitalComment on above:Performed By: #### CBC ####[facility] [address] [address]Dr.Leigh Annlan ChangBasophils/100 WBC (Bld)0.3 %Normal0.2-2.0The [facility] HospitalComment on above:Performed By: #### CBC ####[facility] [address]axlsan[address] [place], [place] [address]Dr.Yilan ChangEO #0.1 103/ulNormal0.0-0.7The [facility] HospitalComment on above:Performed By: #### CBC ####[facility] [address] [address]Dr.Leigh Annlan ChangEosinophils/100 WBC (Bld)0.6 %Critically low0.9-7.0The [facility] HospitalComment on above:Performed By: #### CBC ####[facility] [address] [place], [place] [address]Dr. Leigh Annlan ChangErythrocyte distribution width (RBC) [Ratio]12.1 %Thyaet77.0-15.0The [facility] HospitalComment on above:Performed By: #### CBC ####[facility] [address] [place], [place] [address]Dr.Bee TitusHematocrit (Bld) [Volume fraction]37.5 %Agkrsm28.0-48.0The [facility] HospitalComment on above:Performed By: #### CBC ####[facility] [address] [address]Dr.Bee TitusHemoglobin (Bld) [Mass/Vol]13.3 g/dL Irxvjc54.0-16.0The [facility] HospitalComment on above:Performed By: #### CBC ####[facility] [address]irlpmuhzi[address] [place], [place] [address]Dr. Bee ChangIG #0.04 10e3/ulCritically high0.00-0.03The [facility] HospitalComment on above:Performed By: #### CBC ####[facility] [address]ne[address]wgc[address] [place], [place] [address]Dr.Bee ChangIG %0.4 %Normal0.0-0.5The [facility] HospitalComment on above:Performed By: #### CBC ####[facility] Pr[address]at[address] [place], [place] [address]Dr.Bee ChangLYMPH #1.7 103/ulNormal1.2-3.8The [facility] HospitalComment on above:Performed By: #### CBC ####[facility] [address]umlj[address] [place], [place] [address]Dr. Bee TitusLymphocytes/100 WBC (Bld)17.2 %Critically low20.5-60.0The [facility] HospitalComment on above:Performed By: #### CBC ####[facility] [address] [place], [place] [address]Dr.Bee TitusMANUAL DIFF REQ NONormalThe [facility] HospitalComment on above:Performed By: #### CBC ####[facility] [address]jmv[address] [place], [place] [address]Dr. Bee TitusMCH (RBC) [Entitic mass]32.0 yuScygfx69.7-34.0The [facility] Comment on above:Performed By: #### CBC ####[facility] [address] [place], [place] [address]Dr.Leigh Annpee TitusMCHC (RBC) [Mass/Vol]35.5 g/dL Critically high29.9-35.2The [facility] HospitalComment on above:Performed By: #### CBC ####[facility] Askmunlcst[address] [place], [place] [address]Dr.Leigh Annpee TitusMCV (RBC) [Entitic vol]90.1 fNYsmayt23.0-99.0The Mobile HospitalComment on above:Performed By: #### CBC ####[facility] [address]au[address] [place], [place] [address]Dr.Bee TitusMONO #0.5 103/ulNormal0.3-0.8The [facility] HospitalComment on above:Performed By: #### CBC ####[facility] [facility] [address] [place], [place] [address]Dr. Bee TitusMonocytes/100 WBC (Bld)4.8 %Normal1.7-12.0The [facility] Comment on above:Performed By: #### CBC ####[facility] Ygfhch[address] [place], [place] [address]Dr.Bee TitusNEUT #7.4 103/ulCritically high1.4-6.5The [facility] HospitalComment on above:Performed By: #### CBC ####[facility] Hmiqotxw[address] [place], [place] [address]Dr. Bee TitusNeutrophils/100 WBC (Bld)76.7 %Critically high43.0-75.0The [facility] HospitalComment on above:Performed By: #### CBC ####[facility] Kd[address]qlq[address] [place], [place] [address]Dr.Bee TitusPlatelet mean volume (Bld) [Entitic vol]10.2 fLNormal9.5-13.5The [facility] HospitalComment on above:Performed By: #### CBC ####[facility] B[address]ws[address] [place], [place] [address]Dr.Bee YbhkkSXY422 103/sxOdblzo239-264Xbc Mobile HospitalComment on above:Performed By: #### CBC ####[facility] [address] [address]DrBartolo TitusRBC4.16 106/ul Critically low4.20-5.40The [facility] on above:Performed By: #### CBC ####[facility] [address] [address]Dr. Bee TitusWBC9.7 103/ulNormal4.0-11.0The [facility] Hospitalment on above: Performed By: #### CBC ####[facility] [address] [address]DrBartolo TitusCULTURE URINEon [id number] URINE Culture Observations: LIGHT GROWTH OF MIXED GENITAL SUMA. NO POTENTIAL PATHOGENS SEEN.NormalThe [facility] Hospitalment on above:Performed By: #### URCX ####[facility] [address] [address]DrEric Titus GLYCOHEMOGLOBIN A1Con 56-43-4500AZC RECOMMENDATIONSEE BELOWToledo HospitalComkalkaska memorial health center on above:Result Comment: ADA RECOMMENDED LIMIT 4.0 - 6.0 ADA THERAPEUTIC TARGET < 7.0 ACTION SUGGESTED > 7.0Performed By: #### YANNA KIMCSIND #### [facility] Laboratory [address] [address] [address] Bee TitusGlucose [Mass/Vol]88 mg/dLNoTrumbull Regional Medical Center on above:Performed By: #### YANNA KIMCSIND #### [facility] [address] [address] [address] Bee TitusHbA1c (Bld) [Mass fraction]4.7 %Normal4.5-6.2The [facility] on above:Performed By: #### JUDY UACSIND #### [facility] [address] [address] [address] Bee TitusTYPE AND SCREENon [id number] AND SCREENNegativeC[facility] on above:Performed By: #### TNS #### [facility] [address] [address] [address] Bee Bell PREG TVon [id number] PREG TVEXAMINATION: US PREG TV HISTORY: Missed period COMPARISON: [...] live intrauterine . Electronically authenticated by: FARZANA LEON Date: 2021-12-05 16:58[facility] CenterG-BETA SUBUNIT QUANTon [id number],Beta Subunit,Qnt,Serum 105 mIU/mLNormalSt. Francis HospitalComment on above:Result Comment: Female (Non-) 0 - 5 (Postmenopausal) 0 - 8 . Female () Weeks of Gestation 3 6 - 71 4 10 - 750 5 217 - 7138 6 158 - 69771 7 9741 -801216 8 39788 -508593 9 03461 -583305 10 63865 038815 12 46082 -586782 14 71691 - 12870 15 33920 - 09236 16 7817 - 80613 17 2099 - 10033 18 3746 - 78466 [place] ECLIA methodologyPerformed By: #### UMICRO, UAIND #### [facility] [address] [address] [address] Bee Yusuf-BETA SUBUNIT QUANTon 59-96-5284bBZ,Beta Subunit,Qnt,Serum41 mIU/mLNormalSt. Francis HospitalComment on above:Result Comment: Female (Non- ) 0 - 5 (Postmenopausal) 0 - 8 . Female () Weeks of Gestation 3 6 - 71 4 10 - 750 5 217 - 7138 6 158 - 27871 7 5111 -300653 8 88128 -285417 9 65635 -616240 10 10285 -134806 12 54391 -380967 14 62143 - 01909 15 10956 - 09426 16 9798 - 15314 17 8729 - 20614 18 0778 - 51506 [place] ECLIA methodologyPerformed By: #### HCGSUB ####[facility] [address] [address]Dr. Yilan ChangCBC AUTO DIFF on 70-65-0955RMLY #0.0 103/ulNormal0.0-0.1The [facility] HospitalComment on above: Performed By: #### CBC ####[facility] K[address] [place], [place] [address]Dr.Yilan ChangBasophils/100 WBC (Bld)0.7 %Normal 0.2-2.0The [facility] HospitalComment on above:Performed By: #### CBC ####[facility] Apojacvtic[address] [place], [place] [address]Dr.Yilan ChangEO # 0.2 103/ulNormal0.0-0.7The [facility] HospitalComment on above:Performed By: #### CBC ####[facility] Npuoaugcz[address] [place], [place] [address]Dr. Yilan ChangEosinophils/100 WBC (Bld)2.7 %Normal0.9-7.0The [facility] Comment on above:Performed By: #### CBC ####[facility] Fvbatbvg[address] [place], [place] [address]Dr.Bee ChangErythrocyte distribution width (RBC) [Ratio]12.2 %Hjthfo76.0-15.0The [facility] HospitalComment on above: Performed By: #### CBC ####[facility] Peybiwsjkn[address] [place], [place] [address]Dr.Bee ChangHematocrit (Bld) [Volume fraction]40.4 % Kdxtom62.0-48.0The [facility] HospitalComment on above:Performed By: #### CBC ####[facility] [address]qqsgt[address] [place], [place] [address]Dr. Yilan ChangHemoglobin (Bld) [Mass/Vol]14.0 g/xPGaeuov69.0-16.0St. Francis HospitalComment on above:Performed By: #### CBC ####[facility] Ixqtnprzve[address] [place], [place] [address]Dr.Bee TitusIG #0.01 10e3/ulNormal0.00-0.03The [facility] HospitalComment on above:Performed By: #### CBC ####[facility] Zjgbphakdr[address] [place], [place] [address]Dr. Bee TitusIG %0.2 %Normal0.0-0.5The [facility] HospitalComment on above:Performed By: #### CBC ####[facility] Dyywpommpd[address] [place], [place] [address]Dr.Bee TachoLYMPH #1.8 103/ulNormal1.2-3.8The [facility] Comment on above:Performed By: #### CBC ####[facility] Cxbhhsejjq[address] [place], [place] [address]Dr.Bee TachoLymphocytes/100 WBC (Bld)30.1 %Gjrjxp26.5-60.0The [facility] HospitalComment on above:Performed By: #### CBC ####[facility] Hxlhowomos[address] [place], [place] [address]Dr. Bee TachoMANUAL DIFF REQNONormalThe [facility] HospitalComment on above: Performed By: #### CBC ####[facility] Wntaiytsuc[address] [place], [place] [address]Dr.Bee TitusE.J. NOBLE [facility] (RBC) [Entitic mass]31.2 pgNormal 26.7-34.0St. Francis HospitalComment on above:Performed By: #### CBC ####[facility] Dejzorirsw[address] [place], [place] [address]Dr. Bee TitusNEWYORK-PRES[facility] (RBC) [Mass/Vol]34.7 g/qGPlcewm83.9-35.2[facility] Comment on above:Performed By: #### CBC ####[facility] Orgdqcvqvv[address] [place], [place] [address]Dr.Bee TitusMCV (RBC) [Entitic vol]90.0 fL Lsasez40.0-99.0The [facility] Hospitalment on above:Performed By: #### CBC ####[facility] Zfsvwngbse[address] [place], [place] [address]Dr. Bee TitusMONO #0.4 103/ulNormal0.3-0.8The [facility] HospitalComment on above: Performed By: #### CBC ####[facility] Kfpwqdlraf[address] [place], [place] [address]Dr.Bee ChangMonocytes/100 WBC (Bld)7.0 %Normal 1.7-12.0The [facility] HospitalComment on above:Performed By: #### CBC ####[facility] Zmeyireedy[address] [place], [place] [address]Dr. Bee TitusNEUT #3.5 103/ulNormal1.4-6.5The [facility] HospitalComment on above: Performed By: #### CBC ####[facility] Kkyptzfsus[address] [place], [place] [address]Dr.Bee ChangNeutrophils/100 WBC (Bld)59.3 %Normal 43.0-75.0The [facility] HospitalComment on above:Performed By: #### CBC ####[facility] Gnzdidmami[address] [place], [place] [address]Dr. Bee TitusPlatelet mean volume (Bld) [Entitic vol]10.0 fLNormal9.5-13.5The [facility] HospitalComment on above:Performed By: #### CBC ####[facility] Xpdxpfioap[address] [place], [place] [address]Dr.Bee SmhxrJEG200 103/ul Wnjxkv240-449Rkq [facility] HospitalComkalkaska memorial health center on above:Performed By: #### CBC ####[facility] Vcvulhhoiu[address] [place], [place] [address]Dr. Bee ChangRBC4.49 106/ulNormal4.20-5.40The [facility] HospitalComment on above: Performed By: #### CBC ####[facility] [address] [address]Dr.Yilan TitusWBC5.9 103/ulNormal4.0-11.0The [facility] HospitalComment on above:Performed By: #### CBC ####[facility] [address] [address]Dr.Yilan TitusFREE T4on 07-25-2500Rkro T4 [Mass/Vol]0.91 ng/dLNormal0.76-1.46The [facility] Comment on above:Performed By: #### JUDY CSIND #### [facility] Laboratory [address] [address] [address] Bee TitusLIPID PROFILEon 34-20-6619AASK-HDL RATIO NORMSEE BELOWToledo HospitalComment on above:Result Comment: 3.3 - 4.4 LOW RISK 4.4 - 7.1 AVERAGE RISK 7.1 - 11.0 MODERATE RISK >11.0 HIGH RISKPerformed By: #### CANDE KIMIND #### [facility] [address] [address] [address] Bee Kunzesterol [Mass/Vol]191 mg/dLNormal<=200The [facility] Comment on above:Performed By: #### JUDY UACSIND #### [facility] [address] [address] [address] Bee TitusCholesterol in HDL [Mass/Vol]77 mg/dLCritically ixrp17-23Cyg [facility] HospitalComment on above:Performed By: #### JUDY UACSIND #### [facility] [address] [address] [address] Bee Kunzesterol in LDL [Mass/Vol]103.2 mg/dLToledo HospitalComment on above:Performed By: #### JUDY UACSIND #### [facility] [address] [address] [address] Bee Avelar.total/Cholesterol in HDL [Mass ratio]2.5 {ratio} NormalThe [facility] HospitalComment on above:Performed By: #### JUDY UACSIND #### [facility] [address] [address] [address] Bee Ramirez NORMAL> or = 60 mg/dl - LOW CARDIOVASCULAR RISK <40 mg/dl - HIGH CARDIOVASCULAR RISKToledo HospitalComment on above:Performed By: #### JUDY UACSIND #### [facility] [address] [address] [address] Bee TitusLDL CALC NORMALSEE BELOWToledo HospitalComment on above:Result Comment: <100 mg/dl OPTIMAL 100 - 129 mg/dl NEAR OR ABOVE OPTIMAL 130 - 159 mg/dl BORDERLINE HIGH 160 - 189 mg/dl HIGH >190 mg/dl VERY HIGH Performed By: #### JUDY UACSIND #### [facility] [address] [address] [address] Bee TitusTriglyceride [Mass/Vol]54 mg/dLNormal<=150The [facility] Comment on above:Performed By: #### JUDY UACSIND #### [facility] [address] [place] [address] Dr. Bee TitusVLDL CALC10.8 mg/dLNoCleveland Clinic Euclid HospitalComment on above: Performed By: #### JUDY UACSIND #### [facility] [address] [place] [address] Dr. Bee TitusPROF 14(COMP METB)on 58-15-7056Ihprfzp [Mass/Vol]3.9 g/dLNormal 3.4-5.0The [facility] HospitalComment on above:Performed By: #### JUDY UACSIND #### [facility] [address] [place] [address] Dr. Bee TitusAlbumin/Globulin [Mass ratio]1.3 {ratio}NormalThe [facility] HospitalComment on above:Performed By: #### JUDY UACSIND #### [facility] [address] [place] [address] Dr. Bee MattaP [Catalytic activity/Vol]54 U/WAbiahb10-667Iav [facility] HospitalComment on above:Performed By: #### JUDY UACSIND #### [facility] [address] [place] [address] Dr. Bee Pina [Catalytic activity/Vol]38 U/QWwngoj32-97Vio [facility] HospitalComment on above:Performed By: #### JUDY UACSIND #### [facility] [address] [place] [address] Dr. Bee Newmanon gap [Moles/Vol]10.9 mmol/LNormalSt. Francis Hospital Comment on above:Performed By: #### JUDY UACSIND #### [facility] [address] [place] [address] Dr. Bee TitusAST [Catalytic activity/Vol]56 U/LCritically wjbu64-92Ttn [facility] HospitalComment on above:Performed By: #### JUDY UACSIND #### [facility] [address] [place] [address] Dr. Bee TitusBilirubin [Mass/Vol]0.4 mg/dLNormal0.2-1.0[facility] Comment on above:Performed By: #### JUDY UACSIND #### [facility] [address] [place] [address] Dr. Bee TitusCalcium [Mass/Vol]8.9 mg/dLNormal8.5-10.1[facility] Comment on above:Performed By: #### JUDY UACSIND #### [facility] [address] [place] [address] Dr. Bee TitusChloride [Moles/Vol]109 mmol/LCritically hejg53-646Aki [facility] HospitalComment on above:Performed By: #### JUDY UACSIND #### [facility] [address] [place] [address] Dr. Bee TitusCO2 [Moles/Vol]26.9 mmol/RKywwna35.0-32.0[facility] Comment on above:Performed By: #### JUDY UACSIND #### [facility] [address] [address] [address] Bee TitusCreatinine [Mass/Vol]0.84 mg/dLNormal0.55-1.02The [facility] HospitalComment on above:Performed By: #### JUDY UACSIND #### [facility] [address] [address] [address] Bee GambinoGFR-AF TONGAN>60Normal>=60The [facility] HospitalComment on above:Performed By: #### JUDY UACSIND #### [facility] [address] [address] [address] Bee GambinoGFR-NON AF TONGAN>60Normal>=60The [facility] HospitalComment on above:Performed By: #### JUDY UACSIND #### [facility] [address] [place] [address] Dr. Bee TitusGlobulin (S) [Mass/Vol]3.1 g/dLNormalThe [facility] HospitalComment on above:Performed By: #### JUDY UACSIND #### [facility] [address] [address] [address] Bee TitusGlucose [Mass/Vol]97 mg/hGLnivqu04-126ZfuSt. Francis Hospital Comment on above:Performed By: #### JUDY UACSIND #### [facility] [address] [address] [address] Bee TitusPotassium [Moles/Vol]3.8 mmol/LNormal3.5-5.1The [facility] Comment on above:Performed By: #### JUDY UACSIND #### [facility] [address] [address] [address] Bee TitusProtein [Mass/Vol]7.0 g/dLNormal6.4-8.2The [facility] Comment on above:Performed By: #### JUDY UACSIND #### [facility] [address] [place] [address] Dr. Yilan ChangSodium [Moles/Vol]143 mmol/UGaznzh002-038Frp [facility] Comment on above:Performed By: #### YOAV KIM #### [facility] [address] [place] [address] Dr. Bee TitusUrea nitrogen [Mass/Vol]11.0 mg/dLNormal7.0-18.0The [facility] HospitalComment on above:Performed By: #### CANDE KIMIND #### [facility] [address] [address] [address] Bee Figueroa nitrogen/Creatinine [Mass ratio]13.1 mg/mgNormalThe [facility] HospitalComment on above:Performed By: #### YOAV KIM #### [facility] [address] [place] [address] Dr. Bee Benedict 51-62-7312XAA2.495 uIU/mLNormal0.358-3.740The [facility] HospitalComment on above:Performed By: #### YOAV KIM #### [facility] [address] [place] [address] Dr. Bee Gonzalez Summaryon [id number] SummaryHTMLBase 64 [id number] biAv [file] b2x (more content not included)...[facility] CenterED Clinical Summaryon [id number] Clinical [facility] ? Urgent Care [address] [place] [address] Clinical Summary PERSON INFORMATION Name: LAKEISHA RIDDLE Age: 24 Years Sex: FEMALE : 1995 MRN: Acct#: Visit Reason: UC - Skin Problem: simple; SKIN PROBLEM ON BACK Arrival: 07/10/2020 15:22:15 Discharge: 07/10/2020 16:32:00 LOS: 000 01:10 Check In: 07/10/2020 15:22:15 Checkout: 07/10/2020 16:32:00 Address: [place] [address] PCP: FLOR VILLAGOMEZ MD PROVIDER INFORMATION Provider [...] removal With: Address: When: Braden Gildardojosé manuel Cornelius[address] [place] [address] [place] [address] St[facility] (1) , only if needed With: Address: When: Dalton Iselaandreapernell[address] [address] St[facility] (1) Comments: OR DIAGNOSIS: Pilonidal abscess Patient Understands: Yes - Patient/family/caregiver verbalizes understanding of instructions given Comment:[facility]ED Patient Summary [id number] Patient Summary [facility] ? Urgent Care [address] [place], [place] [id number] PATIENT DISCHARGE INSTRUCTIONS Patient Information Name: LAKEISHA RIDDLE Age: 24 Years Date of : 1995 [facility]: [id number] Reason For Visit: UC - Skin Problem: simple; SKIN PROBLEM ON BACK Arrival Time: 07/10/2020 15:22:15 Primary Care Physician: FLOR VILLAGOMEZ MD Attending Physician: Jhon Vigil Comment: Patient Education With: Address: When: Return to this practice Comments: 48 hours for packing removal With: Address: When: Braden Gildardojosé manuel [place] [address] [facility] (1) , only if needed With: Address: When: Jae Iselarhode [facility] hospitalaf[facility] [address] [place] [address] [facility] (1) Comments: OR Percutaneous Abscess Drain, [...] and water are not available, use hand screen operator. ? Change your dressing as told by [...] health care provider tellsyou to do that. ? Check your incision [...] hours after your procedure, or until your healthcare provider says that this is okay. ? Take jdix-gyz-nstqtye and prescription medicines only as told by [...] 07/30/2014 Document Revised: 02/25/2018 Document Reviewed: 02/04/2017 [employer] Patient Education ? 2019 Watch Over Me. Pilonidal Cyst Drainage, Care After This sheet gives you information about how to care f (more content not included)...[facility] CenterUrgent Care Note- Provideron 54-53-1403Lmddhm Care Note- ProviderPatient: LAKEISHA RIDDLE Age: 24 years Sex: FEMALE : 1995 [...] and to the right slightly. No fevers, chillsor malaise. No abdominal pain, nausea, vomiting or diarrhea/constipation. No other skin rashes or lesions. She [...] Bactrim. OTC Motrin as recommended, add PRN [place] for severe pain. I reviewed OARR's. I [...] and the patient voiced their understanding. Questions a nswered. Follow-up with their family doctor as directed, [...] complication. Impression and Plan Diagnosis Pilonidal abscess ([id number] L05.01, Discharge, Medical) Plan Condition: Stable. Disposition: Discharged: Time 07/10/2020 16:14:00, to home. Prescriptions: Launch prescriptions Pharmacy: [facility] 5 mg-325 mg oral tablet (Prescribe): 1 [...] plan, Regarding prescription, Patient indicated understanding of instructions.[facility] CenterUrge Care Recordon [id number] Care [facility] [address] [place] [address] PATIENT DISCHARGE INSTRUCTIONS Patient Information Name: LAKEISHA RIDDLE Age: 24 Years Date of : 1995 Reason For Visit: UC - Skin Problem: simple; SKIN PROBLEM ON BACK Arrival Time: 07/10/2020 15:22:15 Primary Care Physician: FLOR VILLAGOMEZ MD Attending Physician: Jhon Vigil Comment: Visit Diagnosis: Diagnoses This Visit Pilonidal abscess (L05.01) UC - Skin Problem: simple ([id number]) If you received any narcotics, sedation, or [...] removal With: Address: When: Braden Sandoval [address] [id number] [facility] () , only if needed With: Address: When: Jae Flores [address] [id number] [facility] () Comments: OR Medication Information: The exam and treatment you received today in the [facility] were for an urgent problem and are not intended as complete care. It is important for you to follow up with a doctor, nurse practitioner, or physician?s permit review assistant for ongoing care. If your symptoms [...] so we can reach you if necessary. [facility] has provided you with a complete list of medications post discharge. Please inform your primary special education teacher/provider of your visit and for further instruction on these medications. Any specific questions regarding your chronic medications and dosages should be discussed with your primary care physician(s) and/or pharmacist. New Medications [facility], [address] [place] [phone], [phone] acetaminophen-hydrocodone ([place] 5 mg-325 mg oral tablet) 1 tab(s) Oral Every 4 hours as needed forpain for 3 Days. Refills: 0. sulfamethoxazole-trimethoprim (Bactrim DS 800 mg-160 mg oral tablet) [...] and water are not available, use hand screen operator. ? Change your dressing as told by [...] health care provider tellsyou to do that. ? Check your incision area every day for signs of infection. Check for: (more content not included)...[facility] Vital Signs Date TimeVital SignValuePerforming NehoifwskLckkjkhj68-51-4322 13:20-0400Body mass index (BMI) [Ratio]36.71 kg/e2ZjonxEPV [employer] Work Phone: [phone])138-[address] [place], [place] [address]Jbflcdeear59-74-1058 13:20-0400Body evmwwz568.32 kgCorey [employer] Work Phone: [phone] [place], [place] [address]Fqpoxoeyty84-53-6344 13:20-0400Diastolic blood twrdelbl49 mm[Hg]Jesus Erik [employer] Work Phone: [phone] CenterUjmrkfsjzg94-38-4906 13:20-0400Systolic blood mm[Hg][employer] Work Phone: [phone] CenterMleyrruezu05-57-9425 14:10-0400Body mass index (BMI) [Ratio]37.12 kg/n2Xidla Erik DO Work Phone: [phone] [place], [place] [address]Wzhahmezdi84-69-3846 14:10-0400Body eopcvt670.5 kgCorey Erik [employer] Work Phone: [phone] [place], [place] [address]Odpmpdcthg06-48-9347 14:10-0400Diastolic blood vijecbnh97 mm[Hg]Jesus Erik [employer] Work Phone: [phone])687-[facility] CenterYmbrkhnurv45-17-6832 14:10-0400Systolic blood mm[Hg]Jesus Erik DO Work Phone: [phone])555-[address] [place], [place] [address]Xvoenkdhkt96-76-3250 13:26-0400Body mass index (BMI) [Ratio]37.24 kg/u2BgdlmmiqApryl Barrazaly [employer] Work Phone: 1(540)686-[address] [place] [address]-07-2025 13:26-0400Body efgvhz037.86 kgApryl Clearyerly [employer] Work Phone: [phone])959-[address] [place], [place] [address]Qmzijbemuj17-85-2479 13:26-0400Diastolic blood txliykrz03 mm[Hg]Apryl Feroz [employer] Work Phone: 1(689)979-[address] [place] [address]-07-2025 13:26-0400Systolic blood mqrhroka873 mm[Hg]Apryl Feroz [employer] Work Phone: [phone])[facility] [place], [place] [address]Ndkqcmmpzy48-41-9707 11:17-0400Body mass index (BMI) [Ratio]36.49 kg/n7Dzdtxekp Feroz [employer] Work Phone: 1(460)[facility] [place], [place] [address]Pslxioqqwg17-61-2375 11:17-0400Body moubsj464.69 kgKrplacido Clearyerly [employer] Work Phone: [phone])[facility] [place] [address]-29-2025 11:17-0400Diastolic blood avamhdku71 mm[Hg]Apryl Feroz [employer] Work Phone: 1(071)[facility] [place], [place] [address]Rxdczyvxtf75-59-3999 11:17-0400Systolic blood vxqhnxin550 mm[Hg]Apryl Feroz [employer] Work Phone: [phone])[facility] [place], [place] [address]Milkcgmulb33-02-0074 13:13-0400Body mass index (BMI) [Ratio]36.81 kg/c1Ynybw Erik DO Work Phone: 1(752)238-[address] [place] [address]-23-2025 13:13-0400Body .59 kgCorey Erik DO Work Phone: 1(279)[facility] [place] [address]-23-2025 13:13-0400Diastolic blood yphktvqa28 mm[Hg]Jesus Erik DO Work Phone: 1(152)760-[address] [place] [address]-23-2025 13:13-0400Systolic blood zzenbsak650 mm[Hg]Jesus Erik DO Work Phone: 1(590)327-[address] [place] [address]-16-2025 11:43-0400Body mass index (BMI) [Ratio]36.18 kg/a6Nxqmm Erik DO Work Phone: 1(775)502-[address] [place] [address]-16-2025 11:43-0400Body yrftus568.78 kgCorey Erik DO Work Phone: 1(340)[facility] [place] [address]-16-2025 11:43-0400Diastolic blood sxwdofjb75 mm[Hg]Jesus Erik DO Work Phone: 1(316)[facility] [place] [address]-16-2025 11:43-0400Systolic blood camyblrg384 mm[Hg]Jesus Erik DO Work Phone: 1(309)[facility] [place], [place] [address]Qqzkkpcggd33-47-7369 11:39-0400Body mass index (BMI) [Ratio]36.02 kg/x0Lyfne Erik DO Work Phone: 1)[facility] [place], [place] [address]Nfwvxstxva86-72-7586 11:39-0400Body .33 kgCorey Erik DO Work Phone: 1(625)[facility] [place], [place] [address]Egxaouojij59-87-3316 11:39-0400Diastolic blood pbvkesxo50 mm[Hg]Jesus Erik DO Work Phone: 1(309)057-[address] [place], [place] [address]Inohslswuw63-25-6480 11:39-0400Systolic blood txoeuosd084 mm[Hg]Jesus Erik DO Work Phone: 1(622)[facility] [place], [place] [address]Dymizcpzxo96-19-1838 09:31-0400Body mass index (BMI) [Ratio]35.52 kg/m2Reina KULKARNI Work Phone: [phone])[phone] [place], [place] [address]Pmjsknkpdo33-93-8078 09:31-0400Body oqrkir229.88 kgReina KULKARNI Work Phone: 1(805)742-[address] [place] [address]-20-2025 09:31-0400Diastolic blood awoexnnx04 mm[Hg]Reina KULKARNI Work Phone: 1(343)553-[address] [place] [address]-20-2025 09:31-0400Systolic blood gnhqbsiu304 mm[Hg]Reina KULKARNI Work Phone: [facility] CenterLulknuvymv47-45-0901 14:57-0400Body mass index (BMI) [Ratio]35.52 kg/a0Advjt Erik DO Work Phone: [facility] CenterNmedxyikkl84-69-4972 14:57-0400Body ellvbr999.88 kgCorey Erik DO Work Phone: 1(737)413-[address] [place], [place] [address]Prywyrlbvs24-32-1849 14:57-0400Diastolic blood qjkvoyra87 mm[Hg]Jesus Erik DO Work Phone: 1(542)641-[address] [place], [place] [address]Lwperkusyg67-95-7417 14:57-0400Systolic blood hctineny852 mm[Hg]Jesus Erik DO Work Phone: 1(512)745-[address] [place], [place] [address]Pjspciwdlg27-54-8753 10:12-0400Body mass index (BMI) [Ratio]35.21 kg/v8Vvjjj Erik DO Work Phone: 1(844)307-[address] [place], [place] [address]Cxooffcarz82-85-2445 10:12-0400Body zvubgg336.97 kgCorey Erik DO Work Phone: 1(864)087-[address] [place], [place] [address]Aavikxztbb05-51-1486 10:12-0400Diastolic blood witabfsr62 mm[Hg]Jesus Erik DO Work Phone: 1(092)008-[address] [place], [place] [address]Kxhjgvkuhj36-54-2905 10:12-0400Systolic blood mm[Hg]Jesus Erik DO Work Phone: 1(041)293-[address] [place], [place] [address]Cepcpsfrvt71-16-1892 15:06-0400Body mass index (BMI) [Ratio]33.75 kg/b8Idbcc Erik DO Work Phone: 1(780)097-[address] [place], [place] [address]Bcacflzmou22-36-2015 15:06-0400Body .75 kgCorey Erik DO Work Phone: 1(663)[facility] [place], [place] [address]Mzlvucqbnx81-54-4555 15:06-0400Diastolic blood nkdywbtq48 mm[Hg]Jesus Erik DO Work Phone: 1(792)992-[address] [place], [place] [address]Kdquxhehbe92-07-6326 15:06-0400Systolic blood onadolap904 mm[Hg]Jesus Erik DO Work Phone: [facility] CenterZkpfoszrng56-75-4901 14:24-0400Body mass index (BMI) [Ratio]32.19 kg/y1Muapj Erik DO Work Phone: [facility] CenterYpewcshazw32-83-8300 14:24-0400Body vibowf94.21 kgCorey Erik DO Work Phone: 1(402)102-[address] [place], [place] [address]Homsclwdwn42-83-1985 14:24-0400Diastolic blood rxwlizez44 mm[Hg]Jesus Erik DO Work Phone: 1(935)854-[facility] CenterLdrtrrvdyn65-15-8001 14:24-0400Systolic blood mm[Hg]Jesus Erik DO Work Phone: 1(899)755-[facility] CenterJrlkhyzpxk58-54-5941 14:14-0400Body mass index (BMI) [Ratio]31.64 kg/m2Amy Mai KULKAR[employer] Work Phone: 1(858)487-[address] [place], [place] [address]Okdtkajqop85-81-0848 14:14-0400Body iczgwf96.63 kgReina Mai KULKARNI Work Phone: 1(259)754-[facility] CenterEunzzmufgz09-42-0416 14:14-0400Diastolic blood agiqxbze10 mm[Hg]Reina KULKARNI Work Phone: [facility] CenterCecdgpczpn13-48-1456 14:14-0400Systolic blood mm[Hg]Reina KULKARNI Work Phone: 1(824)358-[address] [place], [place] [address]Qxewvviipk32-35-7992 13:59-0400Body mass index (BMI) [Ratio]30.23 kg/w9Jqdca Erik DO Work Phone: 1(717)657-[address] [place], [place] [address]Wbfgfjdvpv49-02-5618 13:59-0400Body qynnkx56.54 kgCorey Erik DO Work Phone: 1(530)939-[address] [place], [place] [address]Vgjvjkbpgm60-35-8603 13:59-0400Diastolic blood dzuvthlu13 mm[Hg]Jesus Erik DO Work Phone: 1(924)543-[address] [place], [place] [address]Ebykzvpwmg51-67-3575 13:59-0400Systolic blood igvmlrma684 mm[Hg]Jesus Erik DO Work Phone: [facility] CenterOmyjhzqcyr40-48-9774 14:18-0400Body mass index (BMI) [Ratio]29.48 kg/m2[facility]03-13-2025 14:18-0400Body zimtzf16.37 kgBoth[facility]03-13-2025 14:18-0400Diastolic blood lflpjdki18 mm[Hg][facility]03-13-2025 14:18-0400Systolic blood vgcwyehh210 mm[Hg][facility]01-28-2025 11:15-0500Body mass index (BMI) [Ratio]27.53 kg/m8Pjzzf Erik DO Work Phone: [facility] CenterMrnhxwugfi11-23-8668 11:15-0500Body vebuum98.74 kgDo[facility] Hospitaly Erik DO Work Phone: [facility] CenterYuvzunlstl05-75-1679 11:15-0500Diastolic blood ihhyqhse94 mm[Hg]Jesus Erik DO Work Phone: [facility] CenterHiiuowtdyy45-63-0738 11:15-0500Systolic blood bacfnskr721 mm[Hg]Jesus Erik DO Work Phone: [facility] CenterFhrkfptsxw17-22-5693 09:18-0500Body qxvpmo464.64 cmSy[facility] Center01-23-2025 09:18-0500Body mass index (BMI) [Ratio]28.5 kg/p7DhtxnqoeoSycamore Medical Center01-23-2025 09:18-0500Body ndagwb95.28 kgSycamore Medical Center01-23-2025 09:18-0500Diastolic blood qgseslyv95 mm[Hg][facility]01-23-2025 09:18-0500 Heart rate81 /minSycamore Medical Center01-23-2025 09:18-0500Systolic blood mm[Hg][facility]11-01-2024 12:33-0400 Body svrulbosiwy30 [degF]Yolie Fletcher NP Work Phone: [facility] CenterWyifezehsf51-29-1742 12:33-0400Diastolic blood rndghlji20 mm[Hg]Yolie Justine [employer] Work Phone: [facility] CenterIialtmlxkv24-35-8908 12:33-0400Heart rate79 /min Yolie Justine [employer] Work Phone: [facility] CenterCrhkduvwet03-50-4052 12:33-3073AnO6% (BldA) [Mass fraction]99 %Yolie Justine [employer] Work Phone: [facility] CenterAxscucqaba56-92-7081 12:33-0400Systolic blood nftpmaww340 mm[Hg]Yolie Justine [employer] Work Phone: [facility] CenterQqgytajqdk58-12-2487 10:01-0400Body dwkhuv177.64 cmSycamore Medical Center04-25-2024 10:01-0400Body mass index (BMI) [Ratio]27.4 kg/i1VhjnqlebdSycamore Medical Center04-25-2024 10:01-0400Body uofibydllzs12.5 [degF][facility]04-25-2024 10:01-0400Body yquzvh91.11 kgSycamore Medical Center04-25-2024 10:01-0400Diastolic blood ndjdmiqc66 mm[Hg][facility]04-25-2024 10:01-0400 Heart rate74 /minSycamore Medical Center04-25-2024 10:01-0400Systolic blood gjyfpcow945 mm[Hg][facility]02-15-2024 09:56-0500 Body mass index (BMI) [Ratio]27.41 kg/m2Reina KULKARNI Work Phone: [facility] CenterCdxbcxlvcu95-27-8350 09:56-0500Body .38 kgReina KULKARNI Work Phone: [facility] CenterVyqofwolpm37-73-3328 09:56-0500Diastolic blood ghncjoui18 mm[Hg]Reina KULKARNI Work Phone: [facility] CenterZrfbwjcorb44-04-8385 09:56-0500Systolic blood uvewzgmg018 mm[Hg]Reina KULKARNI Work Phone: noLee[facility] HospitalWqriezykkb60-56-6751 11:00-0400Body heightPerri Carmona Other [facility] [employer] Other 021951-22-0091 11:00-0400Body mass index (BMI) [Ratio]32.6 kg/c6JnljmnPerri Carmona Other [place] [employer] Other 11-03-2023 11:00-0400Body gaflaq86.63 kgPerri Carmona Other [facility] Other 355179-34-4584 11:00-0400Diastolic blood ilotclnd55 mm[Hg] Perri Mathew Other [facility] Other 188366-03-3546 11:00-0400Systolic blood cfveqlwx764 mm[Hg] Perri Mathew Other [employer] Other 07-25-2022 09:00-0400Body heightKaitlin Schwerer Other [employer] Other 07-25-2022 09:00-0400Body mass index (BMI) [Ratio] 35.26 kg/k2Kolfqrr Schwerer Other [employer] Other 07-25-2022 09:00-0400Body njzeeblzkoq01.2 [degF] Cielo Schwerer Other [employer] Other 07-25-2022 09:00-0400Body uwvxvc60.11 kgKaitlin Schwerer Other [employer] Other 07-25-2022 09:00-0400Diastolic blood ipxxxold66 mm[Hg] Cielo Mouraerer Other [place] [employer] Other 07-25-2022 09:00-3307QtM3% (BldA) [Mass fraction]99 % Cielo Mouraerer Other [place] [employer] Other 07-25-2022 09:00-0400Systolic blood ximgzegu320 mm[Hg] Cielo Mouraerer Other [facility] [employer] Other Encounters Encounter DateEncounter TypeCare ProviderFacilityStart: 01-15-2025 End: 78-45-2136Pjvfki flowsheetCorey Erik DO Work Phone: noMS Briana OBGYNStart: 01-15-2025 End: 36-91-6003Hjzyuu flowsheetCorey Erik DO Work Phone: NO Mobile OBGYNStart: 01-15-2025 End: 54-52-6350wbsuaztgybEKLOA FAZIONot AvailableStart: 01-15-2025 End: 83-78-6888Dgloiydb flow sheetCorey Erik DO Work Phone: NOMS Mobile OBGYNComment on above:40 weeks gestation of ([facility]); Third trimester ([facility]); Excessive growth affecting management of in third trimester, single or unspecified fetus ([facility])Start: 01-09-2025 End: 23-94-6281evwrhbugylRYLHF FAZIONot AvailableStart: 01-09-2025 End: 05-40-2942Aozvwt flowsheetCorey Erik DO Work Phone: noMS Mobile OBGYNStart: 01-09-2025 End: 78-61-3114Bryots flowsheetCorey Erik DO Work Phone: noMS Mobile OBGYNStart: 01-09-2025 End: 49-13-7080Uqjrbzeg flow sheetCorey Erik DO Work Phone: NOMS Mobile OBGYNComment on above:Third trimester ([facility]); 39 weeks gestation of ([facility])Start: 01-02-2025 End: 33-86-7854Xpalxg flowsheetKristina Feroz RED LEADER Work Phone: [facility] Mobile OBGYNStart: 01-02-2025 End: 35-21-1116Dlfgjq flowsheetKristina Feroz [employer]AD[employer] Work Phone: NOMS Briana OBGYNStart: 01-02-2025 End: 47-06-3440Hsfndpyc flow sheetKristina Feroz RED LEADER Work Phone: NOM[facility] Mobile OBGYNComment on above:38 weeks gestation of ([facility]); Third trimester ([facility]); Excessive growth affecting management of in third trimester, single or unspecified fetus ([facility])Start: 01-02-2025 End: 81-05-2978wqnvczbfzhNRWIHGLA EBERLYNot AvailableStart: 12-25-2024 End: 36-75-8014Kihxnw flowsheetKristina Feroz RED LEADER Work Phone: NOM[facility] Mobile OBGYNStart: 12-25-2024 End: 17-94-8538Cgjybk flowsheetKristina Feroz [employer] LEADER Work Phone: N[facility] Mobile OBGYNStart: 12-25-2024 End: 42-65-3733Rrlduecb flow sheetKristina Feroz [employer] Work Phone: NOMS Briana OBGYNComment on above:Third trimester ([facility]); 37 weeks gestation of ([facility])Start: 12-25-2024 End: 05-79-3324ofxpsbmdquGQR RAMEYNot AvailableStart: 12-19-2024 End: 46-46-5571Vxfeab flowsheetCorey Erik DO Work Phone: NOM[facility] Briana OBGYNStart: 12-19-2024 End: 12-35-3669Beoznq flowsheetCorey Erik DO Work Phone: NOMS Fraustoue OBGYNStart: 12-19-2024 End: 27-84-0737Fpmdxmmmv Result EncounterCorey Erik DO Work Phone: NOMS External Department UnsolicitedStart: 12-19-2024 End: 33-21-8167Bwaharko flow sheetCorey Erik DO Work Phone: NO Briana OBGYNComment on above:Excessive growth affecting management of in third trimester, single or unspecified fetus ([facility]) (Primary Dx); Third trimester ([facility]); 36 weeks gestation of ([facility])Start: 12-19-2024 End: 61-42-5039nhfklforwcCHAWT FAZIONot AvailableStart: 12-12-2024 End: 05-96-8436Lrupgz flowsheetCorey Erik DO Work Phone: NO Mobile OBGYNStart: 12-12-2024 End: 57-82-3520Eqxvyx flowsheetCorey Erik DO Work Phone: NOMS Gillis OBGYNStart: 12-12-2024 End: 68-60-5706Zecmvnjv flow sheetCorey Erik DO Work Phone: NOMS Fraustoue OBGYNComment on above:35 weeks gestation of ([facility]); Third trimester ([facility])Start: 12-12-2024 End: 48-24-5477foxfethacgEGTJZ FAZIONot AvailableStart: 11-28-2024 End: 75-25-4207Ieiqyhgd flow sheetCorey Erik DO Work Phone: NOMS Briana OBGYNComment on above:Third trimester ([facility]); 33 weeks gestation of ([facility])Start: 11-28-2024 End: 99-32-2042emeggnlfqpGCJMT FAZIONot AvailableStart: 11-15-2024 End: 23-09-5942Ikhekg flowshayReina KULKARNI Work Phone: NOM[facility] Briana OBGYNStart: 11-15-2024 End: 00-26-8506Ghhurd flowsheetReina Mai PA Work Phone: NOMS Briana OBGYNStart: 11-15-2024 End: 82-21-7304Rcjkxqsc flow sheetReina Oneill SHAD Work Phone: [phone] Briana OBGYNComment on above:Size of fetus inconsistent with dates in first trimester ([facility]) (Primary Dx); Third trimester ([facility]); 31 weeks gestation of ([facility])Start: 11-15-2024 End: 96-14-3065dtjcjstbmwZGL MAINot AvailableStart: 11-06-2024 End: 66-41-2595Vuugjvmvz Result EncounterCorey Erik DO Work Phone: NOMS External Department UnsolicitedStart: 11-06-2024 End: 73-73-1345Tihyzmuvd Result EncounterCorey Erik DO Work Phone: NOMS External Department UnsolicitedStart: 11-01-2024 End: 84-05-0566Viujmduv flow sheetCorey Erik DO Work Phone: NOM[facility] Mobile OBGYNComment on above:29 weeks gestation of ([facility]); Third trimester ([facility])Start: 11-01-2024 End: 72-27-7130kcrzjrfynvKVDRG FAZIONot AvailableStart: 11-01-2024 End: 12-90-2986Umjufd flowsheetCorey Erik DO Work Phone: N[facility] Mobile OBGYNStart: 11-01-2024 End: 26-22-4248Ocowkd flowsheetCorey Erik DO Work Phone: N[facility] Mobile OBGYNStart: 10-19-2024 End: 52-58-9611Klfbmr flowsheetCorey Erik DO Work Phone: NOMS BCP OBStart: 10-19-2024 End: 74-24-7446Gxdeoj flowsheetCorey Erik DO Work Phone: NOMS BCP OBStart: 10-19-2024 End: 19-21-9965Dwskdnnw flow sheetCorey Erik DO Work Phone: NOMS Briana OBGYNComment on above:Second trimester ([facility]); 27 weeks gestation of ([facility])Start: 10-19-2024 End: 99-36-8684aoedebrldtNSYFV FAZIONot AvailableStart: 10-17-2024 End: 36-89-6270Tehtgcslm Result EncounterCorey Erik DO Work Phone: NOMS External Department UnsolicitedStart: 10-17-2024 End: 51-96-1461Otqmyomdr Result EncounterCorey Erik DO Work Phone: NOWB External Department UnsolicitedStart: 10-10-2024 End: 85-55-3372znappnowjiUXRZSQKX EBERLYNot AvailableStart: 09-27-2024 End: 35-40-5015Kobtbtyt flow sheetCorey Erik DO Work Phone: NOYV BCP OBComment on above:Encounter for follow-up ultrasound of anatomy ([facility]) (Primary Dx); Diabetes mellitus screening; Second trimester ([facility]); 24 weeks gestation of ([facility])Start: 09-27-2024 End: 03-71-3076oethpgsuwvHVXVC FAZIONot AvailableStart: 09-27-2024 End: 84-81-1626Osjnie flowsheetCorey Erik DO Work Phone: NOMS BCP OBStart: 09-27-2024 End: 91-49-8346Stbvgj flowsheetCorey Erik DO Work Phone: NOMS BCP OBStart: 08-30-2024 End: 80-95-9308qtzpxngfxxXJROX FAZIONot AvailableStart: 08-30-2024 End: 72-71-3879Ycqmlutu flow sheetCorey Erik DO Work Phone: NOMS BCP OBComment on above:Second trimester ; 20 weeks gestation of pregnancyStart: 08-30-2024 End: 79-46-2105ulfqysmobfHXW Arnel AvailableStart: 08-02-2024 End: 06-23-9402Tsnpja frannieheetReina KULKARNI Work Phone: NOM[facility] BCP OBStart: 08-02-2024 End: 58-20-2415Qmewts flowsheetReina KULKARNI Work Phone: NOMS BCP OBStart: 08-02-2024 End: 03-48-9676Chgabspw Result EncounterReina KULKARNI Work Phone: NOMS External Department UnsolicitedStart: 08-02-2024 End: 41-81-8650Yafxzqmg flow Kojo KULKARNI Work Phone: NOMS BCP OBComment on above:Exposure to STD; Second trimester ; 16 weeks gestation of ; Screening, , for anatomic survey; Need for maternal serum alpha-protein (MSAFP) screeningStart: 08-02-2024 End: 26-47-9919qcowiwjcifWKR RAMEYNot AvailableStart: 07-05-2024 End: 59-27-4553Fzuyqc flowsheetCorey Erik DO Work Phone: NOM[facility] BCP OBStart: 07-05-2024 End: 15-39-0962Eirvkl flowsheetCorey Erik DO Work Phone: NOMS BCP OBStart: 07-05-2024 End: 26-44-6573Jormdnov flow sheetCorey Erik DO Work Phone: NOMS BCP OBComment on above:First trimester ; 12 weeks gestation of pregnancyStart: 07-05-2024 End: 66-82-0612usjzieezktBEQQX FAZIONot AvailableStart: 06-08-2024 End: 41-27-6266Nqgdmb outpatient visit 5 minutesNoms Bcp Ob Erik NurseNOMS BCP OBComment on above:GA: 1g8yDxjqo: 06-08-2024 End: 95-17-1198uznoudbdchWSDDY FAZIONot AvailableStart: 05-17-2024 End: 21-49-1236Lqgvgvrdm Result EncounterCorey Erik DO Work Phone: NOMS External Department UnsolicitedStart: 05-17-2024 End: 18-70-4740Icernnhya Result EncounterCorey Erik DO Work Phone: NOMS External Department UnsolicitedStart: 05-15-2024 End: 53-31-5348Wzhysiaqf Result EncounterCorey Erik DO Work Phone: NOMS External Department UnsolicitedStart: 05-15-2024 End: 21-46-9708Qyycaugim Result EncounterCorey Erik DO Work Phone: NOMS External Department UnsolicitedStart: 04-25-2024 End: 29-21-0299Myxpzx flowsheetCorey Erik DO Work Phone: NOMS BCP OBStart: 04-25-2024 End: 17-03-1991Vehkqs flowsheetCorey Erik DO Work Phone: NOM[facility] BCP OBStart: 04-25-2024 End: 22-64-9737Jnaelnkdy Result EncounterCorey Erik DO Work Phone: NOMS External Department UnsolicitedStart: 04-25-2024 End: 69-69-2327Atnuxou encounter procedureCorey Erik DO Work Phone: [facility] Work Phone: Start: 04-25-2024 End: 54-00-0501Uesieqal preventive med est patient 18-39 yrsCorey Erik DO Work Phone: [facility] OBComment on above:Well woman exam with routine gynecological examStart: 04-25-2024 End: 16-17-0655ffdnebydsjLFLYE FAZIONot AvailableStart: 04-20-2024 End: 34-74-7051adripoxlzfUworhitrySub[facility] Work Phone: Start: 04-20-2024 End: 05-55-3796Ebtjdvm [facility] Work Phone: Start: 01-28-2024 End: 67-62-7659oorblfmifaXYTIARB R LACONISNot AvailableStart: 01-28-2024 End: 94-88-8501Ugmojp outpatient visit 25 minutesYolie Fletcher RED LEADER Work Phone: noms SWS UCComment on above:Acute non-recurrent maxillary sinusitis (Primary Dx); Acute cough; Acute bronchitis, unspecified organism; History of candidal vulvovaginitisStart: 07-22-2023 End: 46-73-1770ilqcxksxigPokhcsqpvSuburban [facility] Work Phone: Start: 07-22-2023 End: 76-52-7730Pftdhqy encounter procedureC[facility] Work Phone: Start: 05-13-2023 End: 86-27-7645Dwscsw outpatient visit 15 minutesReina KULKARNI Work Phone: noms BCP OBComment on above:Weight gain; Encounter for weight managementStart: 01-29-2023 End: 10-32-5578dkhbyyjqdzFnebgo Braun Other [facility] [employer] Other Start: 65-99-2324Ikopcg outpatient new 30 minutes Perri Lee [facility]ontart: 07-27-2022 End: 72-31-8908Ukdcscpyno and management of inpatientDR NONE LISTED REQUEST Facility:Y3Vamks: 07-14-2022 End: 56-23-7132quxxoijydiCA NONE LISTED REQUESTFacility:G6Fjlvm: 07-13-2022 End: 89-01-5692ifmkmkvjpxZP MIMI RICHEYFacility:I7Wjshp: 07-02-2022 End: 78-80-0701hvvrrcwfvuXA JESUS VALENCIA .Facility:Z7Vycbv: 06-16-2022 End: 44-46-6035cdqmmszeveTB JESUS ERIK .Facility:Q0Vzbun: 05-19-2022 End: 24-15-9263urnmtgcglkCQH MAI .Facility:G2Lwhbg: 05-17-2022 End: 51-26-4341swbqsfruivXBRKB PARKERFacility:R9Befpr: 05-04-2022 End: 64-26-8355dhivyevnewEA JESUS ERIK .Facility:N7Hganl: 04-30-2022 End: 55-35-3504zwiqphtrraIB JESUS ERIK .Facility:Y5Rusxc: 03-09-2022 End: 98-29-8720rvdenlnmuvCE JESUS ERIK .Facility:N9Mauhp: 02-23-2022 End: 37-52-7539swottycoygRD JESUS ERIK .Facility:W2Rnpjm: 12-25-2021 End: 36-89-0276ciojjqemgnWR JESUS ERIK .Facility:M6Xsxnl: 12-05-2021 End: 13-49-2333zwraofohakLT JESUS ERIK .Facility:H0Hvrxb: 11-11-2021 End: 78-13-6065ktrslbdnzwSC JESUS ERIK .Facility:M7Unfee: 11-03-2021 End: 60-59-1789zxxrmpqeqsGvka Luz Other [employer] Other Start: 25-26-5213Rzxvgotha encounterDawfernando LoyaMagruder Memorial Hospital ClinicStart: 34-98-3427Byukgdzog for general adult medical examination without abnormal findingsKAITLIN SCHWERERTProtestant Hospitaltart: 10-23-2021 End: 25-46-8186obcwowbaopQBHUAWC SCHWERERFacility:J0Pujnr: 10-23-2021 End: 62-54-2742Hwcaqjcjm for general adult medical examination without abnormal findingsKAITLIN SCHWERERFacility:Z1Atdmh: 10-20-2021 End: 74-12-0797omlvtdvjsoPmksebw Schwerer Other [employer] Other Start: 32-06-6037Ntektniku for general adult medical examination without abnormal findingsCielo MouraNational Jewish Health Family Medicine [place]uskyStart: 61-99-7314Zojfkeb preventive medicine new pt age 18-39yrsKaiofe MouraMercy Health St. [facility] [place]kyStart: 10-14-2021 End: 73-34-3781evrtvykccnPdrtils Schwerer Other [facility] [employer] Other Start: 21-26-8871Lzpxtihlb encounterCielo Hilton [facility] Procedures DateProcedureProcedure DetailPerforming ClinicianStart: 84-23-6500Mmngp dip stick/tablet rgnt non-auto w/o micrscpCorey Erik DO Work Phone: Start: 37-40-1084Bfakx dip stick/tablet rgnt non-auto w/o micrscpCorey Erik DO Work Phone: Start: 85-95-5607Kbhdt dip stick/tablet rgnt non-auto w/o micrscpKristina Feroz RED LEADER Work Phone: Start: 35-03-4335Sdhnv dip stick/tablet rgnt non-auto w/o micrscpKristina Feroz RED LEADER Work Phone: Start: 72-62-8622Oqcbj dip stick/tablet rgnt non-auto w/o micrscpCorey Erik DO Work Phone: Start: 37-41-0832PXPFR GP B CJ+RFLXCorey Erik DO Work Phone: Start: 84-89-6288Fwzzw dip stick/tablet rgnt non-auto w/o micrscpCorey Erik DO Work Phone: Start: 49-53-0698Jzidv dip stick/tablet rgnt non-auto w/o micrscpCorey Erik DO Work Phone: Start: 95-35-1597Pjfqd dip stick/tablet rgnt non-auto w/o micrscpAmy Mai KULKARNI Work Phone: Start: 32-48-1156VJ AMNIOTIC FLUID VOLUMECorey Erik DO Work Phone: [phone]: 18-13-9595AU OB CERVICAL LENGTHCorey Erik DO Work Phone: [phone]: 07-69-9866Lgpjt dip stick/tablet rgnt non-auto w/o micrscpCorey Erik DO Work Phone: Start: 46-31-3054Nkisc dip stick/tablet rgnt non-auto w/o micrscpCorey Erik DO Work Phone: Start: 22-04-1845YTO CBC WITH AUTO DIFFCorey Erik DO Work Phone: Start: 20-06-1148Xxwke dip stick/tablet rgnt non-auto w/o micrscpCorey Erik DO Work Phone: Start: 61-12-0754IIMFSXIKS VAGINITIS (HTRX)Reina KULKARNI Work Phone: Start: 40-79-0105Rmkvb dip stick/tablet rgnt non-auto w/o micrscpAmy Mai KULKARNI Work Phone: Start: 36-58-7155Ivdjq dip stick/tablet rgnt non-auto w/o micrscpCorey Erik DO Work Phone: Start: 97-58-4429Vwjgp dip stick/tablet rgnt non-auto w/o micrscpCorey Erik DO Work Phone: Start: 21-63-7688EYN PREG QUANT HCGCorey Erik DO Work Phone: Start: 17-34-4381ACM PREG QUANT HCGCorey Erik DO Work Phone: Start: 19-71-1883VZA,APTIMA HPV,AGE GDLNCorey Erik DO Work Phone: Start: 23-02-8846Cbpxgmbg of Products of Conception, External ApproachDR JESUS VALENCIA .Start: 34-52-9626Hctijl Perineum Skin, External ApproachDR JESUS VALENCIA . Plan of Treatment DateCare ActivityDetailAuthorStart: 01-15-2025 End: 62-20-2759Sidqapc encounter ugcagdkgs37/20/2025 1:10 PM EDT Routine [facility] [address] [place], [id number] Jesus Valencia, DO [address] [place] [address] [facility] Mobile OBGYNStart: 01-09-2025 End: 72-04-8108Vdzaepa encounter hkihbemtj85/14/2025 2:00 PM EDT Routine [facility] [address] [place], [id number] Jesus Valencia, DO [address] [place] [address] [facility]BGYNStart: 01-02-2025 End: 39-96-4247Nkqepya encounter procedureNOMS Mobile OBGYNComment on above: ArrivedStart: 12-25-2024 End: 71-72-7069Wgaxwyggegyq / ancillary services vagboeknpt95/29/2025 11:30 AM EDT Ancillary Procedure [facility] [address] [place] [id number] [phone] [facility]ana OBGYNStart: 12-25-2024 End: 98-54-2144Zgvosvd encounter procedureNOMS Mobile OBGYNComment on above: ArrivedStart: 12-19-2024 End: 65-50-9569XROZHSK, GROUP B STREP WITH SUSCEPTIBLITYCULTURE, GROUP B STREP WITH SUSCEPTIBLITY Lab Routine Third trimester ([facility]) 36 weeks g estation of ([facility]) Expected: 12/19/2024, Expires: 12/19/2025[facility] Work Phone: comment on above:Expected: 12/19/2024, Expires: 12/19/2025Start: 12-19-2024 End: 08-03-3550RZ for pregnancyUS OB follow up transabdominal approach Imaging Routine Excessive growth affecting managementof in third trimester, single or unspecified fetus ([facility]) Expected: 12/19/2024, Expires: 04/20/2025NONE [employer] Work Phone: comment on above:Expected: 12/19/2024, Expires: 04/20/2025Start: 12-19-2024 End: 93-63-0877Xirdmjg encounter procedureNOMS Mobile OBGYNComment on above: ArrivedStart: 12-12-2024 End: 43-85-2990Lbedsya encounter procedureNOMS Mobile OBGYNComment on above: ArrivedStart: 11-15-2024 End: 70-02-8697CG for pregnancyUS OB follow up transabdominal approach Imaging Routine Size of fetus inconsistent with dates in first trimester ([facility]) Expected: 11/15/2024, Expires: 03/17/2025[facility] [employer] Work Phone: comment on above:Expected: 11/15/2024, Expires: 03/17/2025Start: 11-15-2024 End: 30-29-3599Glsbigl encounter procedureNOMS Mobile OBGYNComment on above: ArrivedStart: 11-01-2024 End: 32-95-6918Ygdlzex encounter procedureNOMS Briana OBGYNComment on above: ArrivedStart: 10-19-2024 End: 55-63-6519Urnailo encounter procedureNOMS BCP OBComment on above:Arrived Start: 10-04-2024 End: 00-79-5209Zfncbmsgrtuo / ancillary services aaebchwcij02/09/2025 10:00 AM EDT Ancillary Procedure [facility] [address] [place] [address] [address] [place], [place] [phone] [facility] BCP OBStart: 09-27-2024 End: 33-09-6901Eblkesh encounter procedureNOMS [facility] OBComment on above:Arrived Start: 09-27-2024 End: 56-35-5325NCA panel - Blood by Automated countCBC Lab Routine Diabetes mellitus screening Expected: 09/27/2024 (Approximate), Expires: 09/27/2025[facility] Work Phone: comment on above:Expected: 09/27/2024 (Approximate), Expires: 09/27/2025Start: 09-27-2024 End: 58-86-5902Fiyehyivvxd of glucose 1 hour after glucose challenge for glucose tolerance testGlucose tolerance, 1 hour Lab Routine Diabetes mellitus screening Expected: 09/27/2024 (Approximate), Expires: 09/27/2025NONE HealthcareComment on above:Expected: 09/27/2024 (Approximate), Expires: 09/27/2025Start: 09-27-2024 End: 47-85-6088VK for pregnancyUS OB limited 1+ fetuses Imaging Routine Second trimester ([facility]) 24 weeks gestation ofpregnancy ([facility]) Encounter for follow-up ultrasound of anatomy ([facility]) Expected: 09/27/2024, Expires: 12/28/2024[facility] Work Phone: comment on above:Expected: 09/27/2024, Expires: 12/28/2024Start: 08-30-2024 End: 96-29-0193Atkvdpz encounter gqfyobkow12/04/2025 2:10 PM EDT Routine [facility] [address] [place] [id number] Jesus Valencia, DO [address], [place] [id number] [facility] BCP OBStart: 08-30-2024 End: 34-28-4880Gpxadvjtmtvl / ancillary services zcjuecormz23/04/2025 1:00 PM EDT Ancillary Procedure [facility] [address] [place] [address] ZWWK BCP OBStart: 08-02-2024 End: 43-45-6959Pktsc fetoprotein, maternalAlpha fetoprotein, maternal Lab Routine Need for maternal serum alpha-protein (MSAFP) screening Expected: 08/02/2024 (Approximate), Expires: 09/02/2024N[facility] HealthcareComment on above: Expected: 08/02/2024 (Approximate), Expires: 09/02/2024Start: 08-02-2024 End: 77-54-2512OT for pregnancyUS OB 14+ weeks anatomy scan Imaging Routine Screening, , for anatomic survey Expected: 08/02/2024 (Approximate), Expires: 11/02/2024N[facility] HealthcareComment on above:Expected: 08/02/2024 (Approximate), Expires: 11/02/2024Start: 08-02-2024 End: 94-82-7216Vgsulvr encounter procedureNOMS BCP OBComment on above:Arrived Start: 07-05-2024 End: 30-56-1023Sswolip encounter procedureNOMS BCP OBComment on above:Arrived Start: 06-08-2024 End: 21-52-2291DIM/RhABO/Rh Lab Routine Missed menses , unspecified gestational age Expected: 06/08/2024 (Approximate), Expires: 06/08/2025NONE HealthcareComment on above:Expected: 06/08/2024 (Approximate), Expires: 06/08/2025Start: 06-08-2024 End: 56-50-6157Lvsdq type and Indirect antibody screen panel - BloodType and screen Lab Routine Missed menses , unspecified gestational age Expected: 06/08/2024 (Approximate), Expires: 06/08/2025[facility] Work Phone: comment on above:Expected: 06/08/2024 (Approximate), Expires: 06/08/2025Start: 06-08-2024 End: 11-18-8675Nesld of abuse panel - Urine by Screen methodRapid drug screen, urine Lab Routine , unspecified gestational age Encounter for supervision of normal first in first trimester Expected: 06/08/2024 (Approximate), Expires: 06/08/2025[facility] HealthcareComment on above:Expected: 06/08/2024 (Approximate), Expires: 06/08/2025Start: 04-25-2024 End: 65-71-4957Jnzwpqg encounter procedureNOFRANK R. [facility] OBComment on above:Arrived Bacteria identified in Urine by CultureUrine culture Microbiology Routine Missed menses Ordered: 06/08/2024[facility] HealthcareComment on above:Ordered: 06/08/2024 CBC W Auto Differential panel - BloodCBC and differential Lab Routine Missed menses , unspecified gestational age Ordered: 06/08/2024[facility] Healthcare Comment on above:Ordered: 06/08/2024HLAMYDIA TRACHOMATIS (GENITO/STI)CHLAMYDIA TRACHOMATIS (GENITO/STI) Lab Routine Exposure to STD Ordered: 08/02/2024[facility] HealthcareComment on above:Ordered: 08/02/2024ytology Cervical or vaginal smear or scraping studyPap Smear Pathology and Cytology Routine Well woman exam with routine gynecological exam Ordered: 04/25/2024[facility] Healthcare Work Phone: comment on above:Ordered: 04/25/2024Hemoglobin A1c/Hemoglobin.total in BloodHemoglobin A1c Lab Routine Missed menses , unspecified gestational age Ordered: 06/08/2024[facility] HealthcareComment on above: Ordered: 06/08/2024Hepatitis B virus surface Ag [Presence] in Serum or Plasma by ImmunoassayHepatitis B surface antigen Lab Routine Missed menses , unspecified gestational age Ordered: 06/08/2024[facility] HealthcareComment on above: Ordered: 06/08/2024Hepatitis C virus Ab [Presence] in Serum or Plasma by ImmunoassayHepatitis C antibody Lab Routine Missed menses , unspecified gestational age Ordered: 06/08/2024[facility] HealthcareComment on above:Ordered: 06/08/2024HIV-1/HIV-2 antigen/antibody combination immunoassayHIV-1 and HIV-2 antibodies Lab Routine Missed menses , unspecified gestational age Ordered: 06/08/2024[facility] HealthcareComment on above:Ordered: 06/08/2024Neisseria gonorrhoeae DNA [Presence] in Unspecified specimen by CJ with probe detection Neisseria gonorrhea DNA probe, direct Lab Routine Exposure to STD Ordered: 08/02/2024[facility] HealthcareComment on above:Ordered: 08/02/2024Reagin Ab [Presence] in Serum by RPRRPR Lab Routine Missed menses , unspecified gestational age Ordered: 06/08/2024[facility] HealthcareComment on above:Ordered: 06/08/2024Rubella antibody, IgGRubella antibody, IgG Lab Routine Missed menses , unspecified gestational age Ordered: 06/08/2024[facility] HealthcareComment on above:Ordered: 06/08/2024SURESWAB(R) ADVANCED VAGINITIS PLUS, TMASURESWAB(R) ADVANCED VAGINITIS PLUS, TMA Pathology and Cytology Routine Exposure to STD Ordered: 08/02/2024[facility] [employer] Work Phone: comment on above:Ordered: 08/02/2024 Payers DatePayer CategoryPayerPolicy [id number] Health InsuranceMEDICAL MUTUAL [id number] Health [id number] 84-80-2105[employer] HMO (unspecified)[id number] [id number] 2..840.1.245905.3.57[id number] 2.840.1.640037.3.579.2.85412-71-5098Pzghpad5121152 2.16.840.1.599233.3.579.[id number] 2.16.840.1.131617.3.579.2.64009-72-6107Zjzcarl0845962 2.16.840.1.735958.3.579.2.90815-25-9870Bxunmwg1506396 2.16.840.1.129304.3.579.2.86121-51-6998Gmfkaht2526204 2.16.840.1.774973.3.579.2.58146-63-5426Zxvpgkz1716774 2.16.840.1.562241.3.579.2.52222-32-2944Fkcyhfe8747857 2.16.840.1.637121.3.579.2.20713-15-1678Gcllvku6929247 2.16.840.1.137610.3.579.2.14360-51-8260Xqfyuhz0445972 2.16.840.1.247761.3.579.2.19545-84-0773Ktejfyd6396144 2.16.840.1.310635.3.579.2.50961-68-5828Hlaxviu7858701 2.16.840.1.763141.3.579.2.76494-41-3382Wramela4144506 2.16.840.1.097952.3.579.2.35735-90-4807Mtseslj5064386 2.16.840.1.319770.3.579.2.07247-16-8771Tmntywy38931980 2.16.840.1.766900.3.579.2.773272-97-1128Jvfpkza79930289 2.16.840.1.403009.3.57[id number] 2.16.840.1.252215.3.579.2.886736-00-8327Ffbswtr91934553 2.16.840.1.709388.3.579.2.949485-95-1399Fslhbsv02821830 2.16.840.1.452957.3.579.2.812442-75-3394Pjkzdxo69559141 2.16.840.1.769833.3.579.2.694374-68-2229Hurqkjy94526126 2.16.840.1.169126.3.579.2.779760-44-0602Qrnupcd94218648 2.16840.1.005225.3.579.2.079815-52-9359Kaunrcv11553728 2.16840.1.228241.3.579.2.242273-23-5193Mhtaigh01498152 2.16.840.1.651869.3.579.2.368806-95-0673Jdlsysc25711049 2.16.840.1.870774.3.579.2.924192-07-1257Lnwawxx60712940 2.16840.1.078598.3.579.2.433399-14-2052Nqohege82566153 2.16.840.1.421959.3.579.2.241684-30-1697Xpottlo55077679 2.16.840.1.520310.3.579.2.305099-50-6853Slonqhj72453792 2.16.840.1.427552.3.579.2.147394-67-8842Gwgmewy81368836 2.16.840.1.999680.3.579.2.360730-42-3612Zkxrdgs0015980 2.16.840.1.300990.3.579.2.282504-27-3285Lfrqyzj4500368 2.16.840.1.896537.3.579.2.808284-84-4206Ypwqpcs6086290 2.16.840.1.038397.3.579.2.813527-26-8373Fxpuuga5090023 2..840.1.710073.3.579.2.584298-43-9766Zunbrok6384076 2..840.1.688220.3.579.2.733771-91-8549Qoyvrdd6864107 2.0.1.208305.3.579.2.749518-52-8189Qtnvliy Health [id number] 82-43-5262Xplbfxp Health WwvqqohacS369298[id number] 2.0.1.666890.19 Social History DateTypeDetailFacilityUnknown if ever smokedNothe rehabilitation institute of [facility] [place] [employer] Other Start: 03-12-2023 End: 41-68-6852Lnj [facility]igned At [facility] HealthcareStart: 11-11-2022 End: 16-59-4034Bnlrsvg smoking status NHISNever smoked tobaccoNONE Healthcare Start: 55-78-9190Odchidq use and exposureSmokeless tobacco non-userNONE HealthcareStart: 05-13-2023 End: 38-30-9745Lvwxcwo intakeCurrent drinker of alcohol (finding)[facility] Healthcare Start: 03-12-2023 End: 02-80-9477Hatvijk of Social functionNOMS HealthcareHow often to you have a drink containing alcohol?Monthly or lessNONE HealthcareStart: 50-34-1671Gnobspi Number of DrinksNot on fileNONE HealthcareStart: 36-48-8065Hjfuhki Commentdrinks less than monthly in the past yearNONE HealthcareStart: 55-99-9338Nel [facility]igned At [facility] HospitalStart: 16-38-2195Amylgc identityIdentifies as female gender (finding)[facility] HealthcareStart: 36-69-9717Rixtul orientation Heterosexual (finding)[facility] HealthcareStart: 49-78-5891BowHwucyy (finding) [facility] Hospitaltart: 39-94-7924OefvoiphgIGKC Healthcare Goals DatePatient GoalDesired Activity/StatePersonal health goal Clinical Notes 07-10-2020 to 01-15-2025 Note Date & OrzuEqkzYksobxrn50-72-1518 History of Present illness Narrative* Apryl Redman, RED LEADER - 01/15/2025 1:10 PM EDT Reason for Appointment: Patient ID: Laekisha Riddle is a 29 y.o. female who [...] nursing note reviewed. Exam conducted with a school inspector present. Vitals: Estimated body mass index is 36.71 kg/m as calculated from the following: Height as of 09/08/22: 5' 7 . Weight as of this encounter: 234 lb 6.4 oz. BP: 120/70 Patient's last menstrual period was 04/10/2024. Assessment/Plan ICD-10-CM 1. 40 weeks gestation of ([facility]) Z3A.40 POCT urinalysis dipstick manually resulted 2. Third trimester ([facility]) Z34.93 POCT urinalysis dipstick manually resulted 3. Excessive growth affecting management of in third trimester, single or unspecified fetus ([facility]) O36.63X0 POCT urinalysis dipstick manually resulted Return [...] No pertinent surgical history. documented in this encounterSaint Mary's Health CenterDdiyzpsiwt95-02-0185 History of Present illness Narrative* Dominique Yeboah LPN - 01/09/2025 2:00 PM EDT Reason for [...] nursing note reviewed. Exam conducted with a school inspector present. Vitals: Estimated body mass index is 37.12 kg/m as calculated from the following: Height as of 09/08/22: 5' 7 . Weight as of this encounter: 237 lb. BP: 120/82 Patient's last menstrual period was 04/10/2024. ASSESSMENT & PLAN ICD-10-CM 1. Third trimester ([facility]) Z34.93 POCT urinalysis dipstick manually resulted 2. 39 weeks gestation of ([facility]) Z3A.39 Return OB: Patient presents today for [...] surgical history on file. documented in this encounterSaint Mary's Health CenterBukrageafi34-27-9778 History of Present illness Narrative* Maty Sanchez LPN - 01/02/2025 1:20 PM EDT Reason for Appointment: Patient ID: [...] of Onset Graves' disease Mother SURGICAL HISTORY History reviewed. No pertinent surgical history. REVIEW OF SYSTEMS Review of Systems: Review of Systems All other systems reviewed and are negative. OBJECTIVE Objective: Physical Exam Constitutional: Appearance: Normal [...] nursing note reviewed. Exam conducted with a school inspector present. Vitals: Estimated body mass index is 37.24 kg/m as calculated from the following: Height as of 23: 5' 7 . Weight as of this encounter: 237 lb 12.8 oz. BP: 120/72 Patient's last menstrual period was 04/10/2024. ASSESSMENT & PLAN ICD-10-CM 1. 38 weeks gestation of ([facility]) Z3A.38 POCT urinalysis dipstick manually resulted 2. Third trimester ([facility]) Z34.93 POCT urinalysis dipstick manually resulted 3. Excessive growth affecting management of in third trimester, single or unspecified fetus ([facility]) O36.63X0 Return OB: Patient presents today for a routine obstetrics appointment. Patient is currently 38w1d . Patient states she is doing well [...] week for routine OB appointment. Documented by Maty Sanchez LPN on behalf of: Apryl Redman NP documented in this encounterSaint Mary's Health CenterTzxpmcaqtp89-84-4557 History of Present illness Narrative* Aprly Redman NP - 12/25/2024 11:00 AM EDT Reason for Appointment: Patient ID: Lakeisha [...] nursing note reviewed. Exam conducted with a school inspector present. Vitals: Estimated body mass index is 36.49 kg/m as calculated from the following: Height as of 09/08/22: 5' 7 . Weight as of this encounter: 233 lb. BP: 120/76 Patient's last menstrual period was 04/10/2024. ASSESSMENT & PLAN ICD-10-CM 1. Third trimester ([facility]) Z34.93 POCT urinalysis dipstick manually resulted 2. 37 weeks gestation of ([facility]) Z3A.37 Return OB: Patient presents today for a routine obstetrics appointment. Patient is currently 37w0d . Patient states she is doing well [...] week for routine OB appointment. Documented by Suri Mccall MA on behalf of: Apryl Redman NP documented in this encounterSaint Mary's Health CenterEkjcvcufal43-71-1552 History of Present illness Narrative* Jesus Valencia DO - 12/19/2024 1:00 PM EDT Reason for Appointment: Patient ID: Lakeisha Riddle is a 29 y.o. female who presents for Routine Visit Patient presents today for Return OB appointment. Current Medications: currently has no medications in [...] in the past year Drug use: Never No past surgical history on file. No Known Allergies Review of Systems: Review of Systems Constitutional: [...] nursing note reviewed. Exam conducted with a school inspector present. Vitals: Estimated body mass index is 36.81 kg/m as calculated from the following: Height as of 09/08/22: 5' 7 . Weight as of this encounter: 235 lb. BP: 112/74 Patient's last menstrual period was 04/10/2024. Assessment/Plan Encounter Diagnosis: ICD-10-CM 1. Third trimester ([facility]) Z34.93 POCT urinalysis dipstick manually resulted CULTURE, GROUP B STREP WITH SUSCEPTIBLITY CULTURE, GROUP B STREP WITH SUSCEPTIBLITY CANCELED: CULTURE, GROUP B STREP WITH SUSCEPTIBLITY 2. 36 weeks gestation of ([facility]) Z3A.36 POCT urinalysis dipstick manually resulted CULTURE, GROUP B STREP WITH SUSCEPTIBLITY CULTURE, GROUP B STREP WITH SUSCEPTIBLITY CANCELED: CULTURE, GROUP B STREP WITH SUSCEPTIBLITY Return OB: Patient presents today for a routine obstetrics appointment. Patient is currently 36w1d . Patient states she is doing well but has complaints of being tired due to current . Patient has verbalizes frequent movement. labor precautions was discussed/given and patient was instructed to perform kick counts three times a day. Orders Placed This Encounter Procedures CULTURE, GROUP B STREP WITH SUSCEPTIBLITY POCT urinalysis dipstick manually resulted Follow Up: Patient is to return to office in 1 week for routine OB appointment. Documented by Jesus Valencia DO on behalf of: Jesus Valencia DO * SHAD Thayer - 12/19/2024 1:00 PM EDT Reason for Appointment: Patient ID: [...] Negative. Endocrine: Negative. Allergic/Immunologic: Negative. OBJECTIVE Objective: OBGyn Exam Vitals: Estimated body mass index is 36.81 kg/m as calculated from the following: Height as of 09/08/22: 5' 7 . Weight as of this encounter: 235 lb. BP: 112/74 Patient's last menstrual period was 04/10/2024. ASSESSMENT & PLAN ICD-10-CM 1. Third trimester ([facility]) Z34.93 POCT urinalysis dipstick manually resulted CULTURE, GROUP B STREP WITH SUSCEPTIBLITY CULTURE, GROUP B STREP WITH SUSCEPTIBLITY CANCELED: CULTURE, GROUP B STREP WITH SUSCEPTIBLITY 2. 36 weeks gestation of ([facility]) Z3A.36 POCT urinalysis dipstick manually resulted CULTURE, GROUP B STREP WITH SUSCEPTIBLITY CULTURE, GROUP B STREP WITH SUSCEPTIBLITY CANCELED: CULTURE, GROUP B STREP WITH SUSCEPTIBLITY Return OB: Patient presents today for a routine obstetrics appointment. Patient is currently 36w1d . Patient states she is doing well but has complaints of being tired due to current . Patient has verbalizes frequent movement. labor precautions was discussed/given and patient was instructed to perform kick counts three times a day. Orders Placed This Encounter Procedures US OB follow up transabdominal approach CULTURE, GROUP B STREP WITH SUSCEPTIBLITY POCT urinalysis dipstick manually resulted Follow Up: Patient is to return to office in 1 week for routine OB appointment. Documented by SHAD Thayer on behalf of: Jesus Valencia DO documented in this encounterSaint Mary's Health CenterPufnftrwdh49-86-0786 History of Present illness Narrative* Dominique Ybeoah LPN - 12/12/2024 11:20 AM EDT Reason for Appointment: Patient ID: Lakeisha [...] of Onset Graves' disease Mother SURGICAL HISTORY History reviewed. No pertinent surgical [...] nursing note reviewed. Exam conducted with a school inspector present. Vitals: Estimated body mass index is 36.18 kg/m as calculated from the following: Height as of 09/08/22: 5' 7 . Weight as of this encounter: 231 lb. BP: 100/70 Patient's last menstrual period was 04/10/2024. ASSESSMENT & PLAN ICD-10-CM 1. 35 weeks gestation of ([facility]) Z3A.35 POCT urinalysis dipstick manually resulted 2. Third trimester ([facility]) Z34.93 POCT urinalysis dipstick manually resulted Return OB: Patient presents today for a routine obstetrics appointment. Patient is currently 35w1d . Patient states she is doing well [...] of: Jesus Valencia DO documented in this encounterSaint Mary's Health CenterXafyppdlsm75-53-0836 History of Present illness Narrative* Dominique Yeboah LPN - 11/28/2024 11:30 AM EDT Reason for Appointment: Patient ID: Lakeisha Riddle is a 28 y.o. female who presents [...] of Onset Graves' disease Mother SURGICAL HISTORY History reviewed. No pertinent surgical [...] nursing note reviewed. Exam conducted with a school inspector present. Vitals: Estimated body mass index is 36.02 kg/m as calculated from the following: Height as of 09/08/22: 5' 7 . Weight as of this encounter: 230 lb. BP: 118/74 Patient's last menstrual period was 04/10/2024. ASSESSMENT & PLAN ICD-10-CM 1. Third trimester ([facility]) Z34.93 POCT urinalysis dipstick manually resulted 2. 33 weeks gestation of ([facility]) Z3A.33 Return OB: Patient presents today for a routine obstetrics appointment. Patient is currently 33w1d . Patient states she is doing well [...] of: Jesus Valencia DO documented in this encounterSaint Mary's Health [id number] History of Present illness Narrative* SHAD Thayer - 11/15/2024 9:20 AM EDT Reason for Appointment: Patient ID: Lakeisha Riddle is a 28 y.o. female who presents for Routine Visit Patient presents today for Return OB appointment. MEDICATIONS Current Outpatient Medications Medication Instructions azithromycin (Zithromax Z-Victor Hugo) 250 MG tablet As directed metroNIDAZOLE (FLAGYL) 500 mg, Oral, 2 times daily, Do not drink alcohol while taking this medication ALLERGIES No Known Allergies PROBLEMS Active Ambulatory [...] of Onset Graves' disease Mother SURGICAL HISTORY History reviewed. No pertinent surgical [...] Judgment normal. Vitals and nursing note reviewed. Vitals: Estimated body mass index is 35.52 kg/m as calculated from the following: Height as of 09/08/22: 5' 7 . Weight as of this encounter: 226 lb 12.8 oz. BP: 122/74 Patient's last menstrual period was 04/10/2024. ASSESSMENT & PLAN ICD-10-CM 1. Size of fetus inconsistent with dates in first trimester ([facility]) O26.841 US OB follow up transabdominal approach 2. Third trimester ([facility]) Z34.93 POCT urinalysis dipstick manually resulted 3. 31 weeks gestation of ([facility]) Z3A.31 POCT urinalysis dipstick manually resulted Return OB: Patient presents today for a routine obstetrics appointment. Patient is currently 31w2d . Patient states she is doing well but has complaints of being tired due to current . Patient has verbalizes frequent movement. labor precautions was discussed/given and patient was instructed to perform kick counts three times a day. Orders Placed This Encounter Procedures US OB follow up transabdominal approach POCT urinalysis dipstick manually resulted Follow Up: Patient is to return to office in 2 week for routine OB appointment. Documented by SHAD Thayer on behalf of: SHAD Thayer documented in this encounterSaint Mary's Health [id number] History of Present illness Narrative* Apryl Redman NP - 11/01/2024 2:30 PM EDT Reason for Appointment: Patient ID: Lakeisha Riddle is a 28 y.o. female who presents [...] of Onset Graves' disease Mother SURGICAL HISTORY History reviewed. No pertinent surgical [...] nursing note reviewed. Exam conducted with a school inspector present. Vitals: Estimated body mass index is 35.52 kg/m as calculated from the following: Height as of 09/08/22: 5' 7 . Weight as of this encounter: 226 lb 12.8 oz. BP: 126/80 Patient's last menstrual period was 04/10/2024. ASSESSMENT & PLAN ICD-10-CM 1. 29 weeks gestation of ([facility]) Z3A.29 POCT urinalysis dipstick manually resulted 2. Third trimester ([facility]) Z34.93 POCT urinalysis dipstick manually resulted Return OB: Patient presents today for a routine obstetrics appointment. Patient is currently 29w2d . Patient states she is doing well but has complaints of being tired due to current . Patient has verbalizes frequent movement. labor precautions was discussed/given and patient was instructed to perform kick counts three times a day. Orders Placed This Encounter Procedures POCT urinalysis dipstick manually resulted Follow Up: Patient reports a mild headache and coworkers with viral symptoms. She reports her symptoms of headache have improved. She is afebrile and well appearing. Should her symptoms worsen or she has concerns she should reach out to our office. Patient is to return to office in 2 week for routine OB appointment. Documented by Apryl Redman NP on behalf of: Jesus Valencia DO documented in this encounterSaint Mary's Health CenterWkmwxpwpic46-51-1416 History of Present illness Narrative* Palak Fisher, PAULA - 10/19/2024 9:50 AM EDT Reason for Appointment: Patient ID: Lakeisha Riddle is a 28 y.o. female who presents [...] of Onset Graves' disease Mother SURGICAL HISTORY History reviewed. No pertinent surgical [...] nursing note reviewed. Exam conducted with a school inspector present. Vitals: Estimated body mass index is 35.21 kg/m as calculated from the following: Height as of 09/08/22: 5' 7 . Weight as of this encounter: 224 lb 12.8 oz. BP: 112/68 Patient's last menstrual period was 04/10/2024. ASSESSMENT & PLAN ICD-10-CM 1. Second trimester ([facility]) Z34.92 POCT urinalysis dipstick manually resulted 2. 27 weeks gestation of ([facility]) Z3A.27 POCT urinalysis dipstick manually resulted Patient presents today for a routine obstetrics appointment. Patient is currently 27w3d with a Estimated Date of Delivery: 01/15/25. Patient has no complaints at this time. Cardiac anatomy cleared for fetus at last US on 10/10/24. Patient to return to clinic in 2 weeks. Documented by Palak Fisher LPN on behalf of: Jesus Valencia DO documented in this encounterSaint Mary's Health CenterWfqfdsybih21-09-5313 History of Present illness Narrative* Apryl Redman NP - 09/27/2024 2:50 PM EDT Reason for Appointment: Patient ID: Lakeisha Riddle is a 28 y.o. female who presents [...] nursing note reviewed. Exam conducted with a school inspector present. Vitals: Estimated body mass index is 33.75 kg/m as calculated from the following: Height as of 09/08/22: 5' 7 . Weight as of this encounter: 215 lb 8 oz. BP: 110/70 Patient's last menstrual period was 04/10/2024. ASSESSMENT & PLAN ICD-10-CM 1. Encounter for follow-up ultrasound of anatomy ([facility]) Z36.2 US OB limited 1+ fetuses 2. Diabetes mellitus screening Z13.1 CBC Glucose tolerance, 1 hour CBC Glucose tolerance, 1 hour 3. Second trimester ([facility]) Z34.92 US OB limited 1+ fetuses 4. 24 weeks gestation of ([facility]) Z3A.24 US OB limited 1+ fetuses CANCELED: [...] of: Jesus Valencia DO documented in this encounterSaint Mary's Health CenterMrfyqjoitz13-61-0980 History of Present illness Narrative* Dominique Yeboah LPN - 08/30/2024 2:10 PM EDT Reason for Appointment: Patient ID: Lakeisha Riddle is a 28 y.o. female who presents [...] nursing note reviewed. Exam conducted with a school inspector present. Vitals: Estimated body mass index is [...] of: Jesus Valencia DO documented in this encounterSaint Mary's Health CenterTjvqlhmypr98-11-4537 History of Present illness Narrative* Suri Mccall MA - 08/02/2024 1:30 PM EDT Reason for Appointment: Patient ID: Lakeisha Riddle is a 28 y.o. female who presents [...] nursing note reviewed. Exam conducted with a school inspector present. Vitals: Estimated body mass index is [...] MA on behalf of: Apryl Redman, MSN, SCHOOL INSPECTOR-BC documented in this encounterSaint Mary's Health CenterZhyzbenidy35-38-2261 History of Present illness Narrative* Dominique Yeboah LPN - 07/05/2024 1:50 PM EDT Reason for Appointment: Patient ID: Lakeisha Riddle is a 28 y.o. female who presents [...] nursing note reviewed. Exam conducted with a school inspector present. Vitals: Estimated body mass index is [...] or undercooked meat, and stay away from [facility]. Patient has been consulted regarding any further do's and don'tsof . Patient voiced understanding and all questions and concerns were answered. Orders Placed This Encounter Procedures POCT urinalysis dipstick manually resulted Follow Up: Patient is to return in 4 weeks for routine OB appointment. Documented by Dominique Yeboah LPN on behalf of: Jesus Valencia DO documented in this encounterSaint Mary's Health CenterXgaatbozum62-80-0741 History of Present illness Narrative* Maty Sanchez LPN - 06/08/2024 2:00 PM EDT Reason for Appointment: Patient ID: Lakeisha Riddle is a 28 y.o. female who presents [...] drink 6-8 glasses of water a day, eatno raw or undercooked meat, and stay away from [facility]. Patient has also been advised to not change litter boxes and eat 6 small meals a day. Patient has been consulted regarding the do's and don'ts ofpregnancy. Patient was given labs and all questions and concerns were answered. Cotuit ordered and patient aware to have this [...] by: Maty Sanchez LPN documented in this encounterSaint Mary's Health CenterCumhnbihzc96-78-7462 History of Present illness Narrative* Dominique Yeboah LPN - 04/25/2024 11:00 AM EST Reason for Appointment: Patient ID: Lakeisha Riddle is a 28 y.o. female who presents [...] nursing note reviewed. Exam conducted with a school inspector present. Vitals: Estimated body mass index is [...] of: Jesus Valencia DO documented in this encounterSaint Mary's Health CenterYnfsnmghjo57-34-7107 History of Present illness Narrative* Yolie Fletcher, RED LEADER - 01/28/2024 12:25 PM EDT HPI: Historian of HPI: patient Lakeisha Riddle is a 28 y.o. female who presents [...] by mouth every 12 (twelve) hours for 10days Take with a full glass of water [...] unspecified organism See 1 documented in this encounterSaint Mary's Health CenterJqkpetgant97-06-8277 History of Present illness Narrative* SHAD Thayer - 05/13/2023 9:40 AM EST Reason for Appointment: Patient ID: Lakeisha Riddle is a 27 y.o. female who presents for Weight Management (Adipex #6) Patient presents today for a weight management consultation. Patient has been prescribed Adipex andshe is here for her 6th prescription. Today's [...] Pt doing well and given 90 day supplywith this refill and will taper as needed. Documented by: SHAD Thayer on behalf of SHAD Thayer documented in this encounterSaint Mary's Health CenterEaretqrvrb84-86-3938 Evaluation note* Encounter Date Diagnosis Assessment Notes Treatment Notes Treatment Clinical Notes Jan, Chronic sinusitis, unspecified ( ICD-10 - J32.9) Finish antibiotics. Stay hydrated. Discussed GI effects w Augmentin. Jan,Other specified bacterial agents as the cause of diseases classified elsewhere (ICD-10 - B96.89) Jan,OtherDiscussed wellness needs and overall care w future treatment options. [employer] Other 07-25-2022 Evaluation note* Encounter Date Diagnosis Assessment Notes Treatment Notes Treatment Clinical Notes Sep, Well adult exam (ICD-10 - Z00.00 ) no concerns on exam. will follow as needed. will update labs. Sep,Weight gain (ICD-10 - R63.5)will get labs, if normal will set up with weight managament. Sep,Impacted cerumen of both ears (ICD-10 - H61.23)irrigated today without issue, large cerumen impaction removed from each ear. she will use debrox 1x per week to hopefully help prevent. Recommended against q tips. Sep,therPatient was given a written hand out of important bullet points of what we had talked about in today's office visit with reminders of ordered items, new or changed prescriptions, and follow-up timing. Patient was instructed if there are any questions/concerns to call the office between now and nextoffice visit. Patient had all questions/concerns that were relayed to me in the office visit today discussed/addressed. Patient denied further questions at conclusion of office visit. [employer] Other 01-01-2022 History general Narrative - Reported* Type Description Date Medical History Cellulitis as a child Surgical Historyhand [id number] Cgmptiscovctqcmxs43/2022 [employer] Other 04-14-2021 NotePatient Education Materials Follows: Pilonidal [...] these instructions at home: Medicines ? Take llgv-pai-gekjsis and prescription medicines only as told by [...] fried or sweet foods. ? Take an nzoy-jbn-hlnabkb or prescription medicine for constipation. ? You will need to have a caregiver help you manage wound care and dressing changes. Your caregivershould: ? Wash his or her hands with soap and water before changing your dressing. If soap and water are not available, your caregiver should use hand screen operator. ? Check your wound every day for [...] Document Revised: 01/05/2019 Docum (more content not included)...[facility]Evaluation noteNo InformationNothe rehabilitation institute of [facility] [employer] Other Evaluation note* Diagnosis Weight gain Other symptoms concerning nutrition, metabolism, and development Encounter for weight management documented in this encounter [facility] CenterEvaluation noteNo assessment information availableCincinnati Va Medical Center Work Phone: Evaluation note* Diagnosis Acute non-recurrent maxillary sinusitis- Primary Acute cough Acute bronchitis, unspecified organism History of candidal vulvovaginitis documented in this encounter [facility] CenterEvaluation note* Diagnosis Well woman exam with routine gynecological exam Routine gynecological examination documented in this encounter [facility] CenterEvaluation note* Diagnosis Missed menses , unspecified gestational age Encounter for supervision of normal first in first trimester [facility] Diagnosis First trimester state, incidental 12 weeks gestation of [facility]* Diagnosis Exposure to STD Second trimester state, incidental 16 weeks gestation of Screening, , for anatomic survey Encounter for anatomic survey Need for maternal serum alpha-protein (MSAFP) screening [facility]* Diagnosis Second trimester state, incidental 20 weeks gestation of [facility]* Diagnosis Encounter for follow-up ultrasound of anatomy ([facility])- Primary Diabetes mellitus screening Screening for diabetes mellitus Second trimester ([facility]) state, incidental 24 weeks gestation of ([facility]) [facility]* Diagnosis Second trimester ([facility]) state, incidental 27 weeks gestation of ([facility]) [facility]* Diagnosis 29 weeks gestation of ([facility]) Third trimester ([facility]) state, incidental [facility]* Diagnosis Size of fetus inconsistent with dates in first trimester ([facility])- Primary Third trimester ([facility]) state, incidental 31 weeks gestation of ([facility]) [facility]* Diagnosis Third trimester ([facility]) state, incidental 33 weeks gestation of ([facility]) [facility]* Diagnosis 35 weeks gestation of ([facility]) Third trimester ([facility]) state, incidental [facility]* Diagnosis Excessive growth affecting management of in third trimester, single or unspecified fetus ([facility])- Primary Third trimester ([facility]) state, incidental 36 weeks gestation of ([facility]) [facility]* Diagnosis Third trimester ([facility]) state, incidental 37 weeks gestation of ([facility]) [facility]* Diagnosis 38 weeks gestation of ([facility]) Third trimester ([facility]) state, incidental Excessive growth affecting management of in third trimester, single or unspecified fetus ([facility]) [facility]* Diagnosis Third trimester ([facility]) state, incidental 39 weeks gestation of ([facility]) [facility]* Diagnosis 40 weeks gestation of ([facility]) Third trimester ([facility]) state, incidental Excessive growth affecting management of in third trimester, single or unspecified fetus ([facility]) documented in this encounter [facility] Summary [...] section and content) DATE CREATED AUTHOR 07/21/2020 [facility] DATE CREATED AUTHOR AUTHOR'S ORGANIZ ATION 07/31/2022 [facility] DATE CREATED AUTHOR AUTHOR'S ORGANIZ ATION 01/16/2025 [facility] EPIC REASON FOR VISIT (unrecogniz ed section and content) ReasonCommentsWeight ManagementAdipex #6ReasonCommentsWell Women VisitReason CommentsAmenorrheaReasonCommentsRoutine Visit Care Teams (unrecognized sec tion and content) Team MemberRelationshipSpecialtyStart DateEnd Date Cielo Hilton DO [address] [place] [phone] PCP - GeneralFamily Medicine09/08/22 Team Status: Active Member Role Status Dates Perri Carmona MD Primary Care Provider Active Team Status: Inactive Member Role Status Dates Perri Carmona MD Primary Care Provide r, Attending Provider Active Start: July 22, 2023 End: July 22, 2023Team MemberRelationshipSpecialtyStart DateEnd Date Cielo Hilton DO [address] [place] [phone] PCP - Generalmily Medicine09/08/22 Team Status: Inactive Member Role Status Dates Perri Carmona MD Primary Care Provide r, Attending Provider Active Start: April 20, 2024 End: April 20, 2024Team MemberRelationshipSpecialtyStart DateEnd Date Cielo Hilton, [address] [place] [address] PCP - Generalmi Medicine09/08/22Team MemberRelationshipSpecialtyStart DateEnd Date Cielo Hilton DO [address] [place] [phone] PCP - [facility]09/08/22Team MemberRelationshipSpecialtyStart DateEnd Date Cielo Hilton DO [address] [place] [phone] PCP - [facility] Medicine09/08/22Team MemberRelationshipSpecialtyStart DateEnd Date Cielo Hilton DO [address] [place] [address] PCP - Generalmily Medicine09/08/22Team MemberRelationshipSpecialtyStart DateEnd Date Cielo Hilton DO [address] [place] [address] PCP - Generalmily Medicine09/08/22Team MemberRelationshipSpecialtyStart DateEnd Date Cielo Hilton, [address] [place] [phone] PCP - [facility] Medicine09/08/22Team MemberRelationshipSpecialtyStart DateEnd Date Cielo Hilton DO PCP - [facility] Medicine09/08/22Team MemberRelationshipSpecialtyStart DateEnd Date Cielo Hilton DO PCP - [facility] Medicine09/08/22Team MemberRelationshipSpecialtyStart DateEnd Date Cielo Hilton DO PCP - [facility] Medicine09/08/22Team MemberRelationshipSpecialtyStart DateEnd Date Cielo Hilton DO PCP - [facility] Medicine09/08/22Team MemberRelationshipSpecialtyStart DateEnd Date Cielo Hilton DO [address] [place] [phone] PCP - [facility] Medicine09/08/22Team MemberRelationshipSpecialtyStart DateEnd Date Cielo Hilton DO [address] [place] [phone] PCP - [facility] Medicine09/08/22Team MemberRelationshipSpecialtyStart DateEnd Date Cielo Hilton, DO [address] [place] [phone] PCP - Generalmily Medicine09/08/22Team MemberRelationshipSpecialtyStart DateEnd Date Cielo Hilton, DO [address] [place] [phone] PCP - Generalmily Medicine09/08/22Team MemberRelationshipSpecialtyStart DateEnd Date Cielo Hilton, [address] [place] [phone] PCP - Generalmily Medicine09/08/22Team MemberRelationshipSpecialtyStart DateEnd Date Cielo Hilton, DO [address] [place] [phone] [facility] - [facility]09/08/22Team MemberRelationshipSpecialtyStart DateEnd Date Cielo Hilton, [address] [place] [phone] PCP - Generalmily Medicine09/08/22Team MemberRelationshipSpecialtyStart DateEnd Date Cielo Hilton, DO [address] [place] [phone] PCP - GeneralFamily Medicine09/08/22Team MemberRelationshipSpecialtyStart DateEnd Date Cielo Hilton, [address] [facility] [place] [phone] PCP - GeneralFamily Medicine09/08/22 Goals (unrecognized section and content) Goals may [...] BE BASED ON THE PRIMARY CLINICAL RECORDS. [facility]. provides no warranty or guarantee of the accuracy or completeness of information in this document.
--- OUTSIDE RECORDS SUMMARY | 2025-01-17 05:11 | XMS_ITS | Encounter Summary ---
Author Organization [facility] Address [address] [place] [address] Care Team Providers Care Fisher Trawl Line Name Role Phone Chanel Hilton Primary Care Provider [phone] Encounter Details DateTypeDepartmentCare Team (Latest Contact Info)Yxohzetulcb09/20/2025amboo flowsheet [facility] [address] [place] [address] Jesus Valencia DO [address] Mani Warren, [facility] Social History Tobacco UseTypesPacks/DayYears UsedDateSmoking Tobacco: NeverSmokeless Tobacco: NeverAlcohol UseStandard Drinks/WeekCommentsYes0 (1 standard drink = 0.6 oz pure alcohol)drinks less than monthly in the past yearAUDIT-CAnswerDate RecordedQ1: How often do you have a drink containing alcohol?Monthly or less03/12/2023 Average Number of DrinksNot on file03/12/2023Frequency of Binge DrinkingNot on file03/12/2023Estimated Date of OjhibzjnZtthzcdoQgr05/20/2025Based on last menstrual period of 04/10/2024Sex and Gender InformationValueDate Recorded Sex Assigned at UwnuwIiwbyx94/12/2023 12:08 PM EDTLegal HzsGdbjwf73/15/2023 7:34 PM EDTGender ClxvwrcwQuruoe43/12/2023 12:08 PM EDTSexual OrientationStraight 09/07/2022 12:08 PM EDTdocumented as of this encounter Plan of Treatment DateTypeDepartmentCare Team (Latest Contact Info)Rcmzvgncxna02/03/2025 9:30 AM ESTPostpartum Visit [facility] [address] [place] [address] Reina Oneill PA [address] [place] [address] documented as of this encounter Goals GoalPatient Goal TypeAssociated ProblemsRecent ProgressPatient-Stated?Author Reminders Care PlanOB RemindersNoOpen Scheduling, Backgrounddocumented as of this encounter Visit Diagnoses Not on filedocumented in this encounter Additional Health Concerns Active ProblemsNoted DateDiagnosed DateOB Cllcspbdy79/18/2025 documented as of this encounter Care Teams Team MemberRelationshipSpecialtyStart DateEnd Date Chanel Hilton DO [address] [facility] [place] [phone] PCP - GeneralFamily Medicine09/08/22documented as of this encounter
--- OUTSIDE RECORDS SUMMARY | 2025-01-17 05:11 | XMS_ITS | Encounter Summary ---
Author Organization [facility] Address [address] [place] [address] Care Team Providers Care Anodic Operator Name Role Phone Chanel Hilton Primary Care Provider [phone] Encounter Details DateTypeDepartmentCare Team (Latest Contact Info)Etiayohbaku82/19/2025Travel Social History Tobacco UseTypesPacks/DayYears UsedDateSmoking Tobacco: NeverSmokeless Tobacco: NeverAlcohol UseStandard Drinks/WeekCommentsYes0 (1 standard drink = 0.6 oz pure alcohol)drinks less than monthly in the past yearAUDIT-CAnswerDate RecordedQ1: How often do you have a drink containing alcohol?Monthly or less03/12/2023 Average Number of DrinksNot on file03/12/2023Frequency of Binge DrinkingNot on file03/12/2023Estimated Date of KmonveeqFwlcxbruExw67/20/2025Based on last menstrual period of 04/10/2024Sex and Gender InformationValueDate Recorded Sex Assigned at YzqbdYdxtqx03/12/2023 12:08 PM EDTLegal QorQiqcfm10/15/2023 7:34 PM EDTGender MrjhmjnrXohtca51/12/2023 12:08 PM EDTSexual OrientationStraight 09/07/2022 12:08 PM EDTdocumented as of this encounter Plan of Treatment DateTypeDepartmentCare Team (Latest Contact Info)Apwfnujgvvi12/03/2025 9:30 AM ESTPostpartum Visit [facility] [address] [place] [address] [place] [address] Reina Oneill PA [address] [place] [address] [place] [address] documented as of this encounter Goals GoalPatient Goal TypeAssociated ProblemsRecent ProgressPatient-Stated?Author Reminders Care PlanOB RemindersNoOpen Scheduling, Backgrounddocumented as of this encounter Visit Diagnoses Not on filedocumented in this encounter Additional Health Concerns Active ProblemsNoted DateDiagnosed DateOB Wzbvqpdqs14/18/2025 documented as of this encounter Care Teams Team MemberRelationshipSpecialtyStart DateEnd Date Chanel Hilton DO [address] [facility] [place] [phone] PCP - GeneralFamily Medicine09/08/22documented as of this encounter
--- OUTSIDE RECORDS SUMMARY | 2025-01-17 05:11 | XMS_ITS | Encounter Summary ---
Author Organization [facility] Address [address] [place] [address] Care Team Providers Care Huc Ob Name Role Phone Chanel Hilton Primary Care Provider [phone] Encounter Details DateTypeDepartmentCare Team (Latest Contact Info)Wslnqocjcxm64/13/2025Travel Social History Tobacco UseTypesPacks/DayYears UsedDateSmoking Tobacco: NeverSmokeless Tobacco: NeverAlcohol UseStandard Drinks/WeekCommentsYes0 (1 standard drink = 0.6 oz pure alcohol)drinks less than monthly in the past yearAUDIT-CAnswerDate RecordedQ1: How often do you have a drink containing alcohol?Monthly or less03/12/2023 Average Number of DrinksNot on file03/12/2023Frequency of Binge DrinkingNot on file03/12/2023Estimated Date of BiuuwjyzBraleudcJpd78/20/2025Based on last menstrual period of 04/10/2024Sex and Gender InformationValueDate Recorded Sex Assigned at QwfifYqhino29/12/2023 12:08 PM EDTLegal PjcBwnjeh25/15/2023 7:34 PM EDTGender XcecqxreHwawsx13/12/2023 12:08 PM EDTSexual OrientationStraight 09/07/2022 12:08 PM EDTdocumented as of this encounter Plan of Treatment DateTypeDepartmentCare Team (Latest Contact Info)Rrkdavihfqb58/03/2025 9:30 AM ESTPostpartum Visit [facility] [address] [place] [address] [place] [address] Reina Oneill PA [address] [place] [address] [place] [address] documented as of this encounter Goals GoalPatient Goal TypeAssociated ProblemsRecent ProgressPatient-Stated?Author Reminders Care PlanOB RemindersNoOpen Scheduling, Backgrounddocumented as of this encounter Visit Diagnoses Not on filedocumented in this encounter Additional Health Concerns Active ProblemsNoted DateDiagnosed DateOB Xzkscqpjf65/18/2025 documented as of this encounter Care Teams Team MemberRelationshipSpecialtyStart DateEnd Date Chanel Hilton DO [address] [facility] [place] [id number] PCP - GeneralFamily Medicine09/08/22documented as of this encounter
--- OUTSIDE RECORDS SUMMARY | 2025-01-17 05:11 | XMS_ITS | Clinical Summary ---
Author Organization [facility] Address [address] [place] [address] Care Team Providers Care Night Patrol Inspector Name Role Phone Johnmaria luisaChanel Primary Care Provider Allergies No known active allergies Medications No known medications Encounters DateTypeDepartmentCare FyzvOohffcsueko91/20/2025 1:10 PM EDTRoutine [facility] [place] [facility] [address] [place] [address] [place] [phone] Azeem Valencia DO 40 weeks gestation of ([facility]); Third trimester ([facility]); Excessive growth affecting management of in third trimester, single or unspecified fetus ([facility])01/15/2025[facility] flowsheet NOMK[facility] GRANT [address] [place] [address] [place] [address] Azeem Valencia DO 01/14/20258996Tudbea72/14/2025 2:00 PM EDTRoutine [facility] [place] [facility] [address] [place] [address] [place] [phone] Azeem Valencia DO Third trimester ([facility]); 39 weeks gestation of ([facility])01/09/2025amb flowsheet NOMKrsy GRANT [address] [place] [address] [place] [address] Azeem Valencia DO 01/08/20251691Znkyae72/07/2025 1:20 PM EDTRoutine [facility] [place] [facility] [address] [facility] [place] [phone] Ashley Redman NP 38 weeks gestation of ([facility]); Third trimester ([facility]); Excessive growth affecting management of in third trimester, single or unspecified fetus ([facility])01/02/2025amboo flowsheet [facility] [place] [facility] [address] [facility] [place] [phone] Ashlye Redman, LIV 01/01/20252528Hoffdl05/29/2025 11:30 AM EDTAncillary Procedure [facility] [place] [facility] [address] [facility] [place] [phone] Excessive growth affecting management of in third trimester, single or unspecified fetus ([facility])12/25/2024 11:00 AM EDTRoutine [facility] [place] Pérez [facility] [place] [phone] Ashley Redman NP Third trimester ([facility]); 37 weeks gestation of ([facility])12/25/2024amboo flowsheet [facility] [place] P[facility]rez [facility] [place] [phone] Ashley Redman NP 12/25/20247999Gsblom89/23/2025 1:00 PM EDTRoutine [facility] [place] Pérez [facility] [place] [address] Azeem Valencia DO Excessive growth affecting management of in third trimester, single or unspecified fetus ([facility]) (Primary Dx); Third trimester ([facility]); 36 weeks gestation of ([facility])5Clinisync Result Encounter NOMS External Department Unsolicited Azeem Valencia DO 12/19/2024ambnicho flowsheet [facility] [place] GRANT [address] [place] [address] Azeem Valencia, 12/18/20249781Cavprz08/16/2025 11:20 AM EDTRoutine [facility] [place] [facility] [address] [facility] [place] [address] Azeem Valencia, 35 weeks gestation of ([facility]); Third trimester ([facility])12/12/2024amboo flowsheet [facility] [place] [facility] [address] [place] [address] [place] [address] Azeem Valencia DO 12/10/20240941Poofct25/02/2025 11:30 AM EDTRoutine [facility] [place] [facility] [address] [facility] [place] [address] Azeem Valencia, DO Third trimester ([facility]); 33 weeks gestation of ([facility])11/28/2024 11:00 AM EDTAncillary Procedure [facility] [place] [facility] [address] [place] [address] [place] [address] Size of fetus inconsistent with dates in first trimester ([facility])11/25/2024 Bqpnxx2811/15/2024 9:20 AM EDTRoutine [facility] [place] [facility] [address] [place] [address] [place] [address] Reina Oneill PA Size of fetus inconsistent with dates in first trimester ([facility]) (Primary Dx); Third trimester ([facility]); 31 weeks gestation of ([facility])11/15/2024amboo flowsheet [facility] [place] [facility] [address] [facility] [place] [address] Reina Oneill PA 11/14/2024Telephone [facility] [place] [facility] [address] [place] [address] [place] [address] Suri Mccall MA 11/14/20247648Stuhwd66/13/2025Telephone [facility] [place] [facility] [address] [place] [address] [place] [address] InesAlize posada, PAULA 11/06/2024linisync Result Encounter NOMS External Department Unsolicited Azeem Valencia, 11/06/2024linisync Result Encounter NOMS External Department Unsolicited Azeem Valencia, 11/06/2024Telephone [facility] [place] [facility] [address] [facility] [place] [address] Inesswetha Alize, PAULA 11/01/2024 2:30 PM EDTRoutine [facility] [place] OBVALENCIA [address] [place] [address] Azeem Valencia, 29 weeks gestation of ([facility]); Third trimester ([facility])5Bamboo flowsheet [facility] [place] [facility] [address] [facility] [place] [address] Azeem Valencia, 10/31/20241810Busdlq34/24/2025 9:50 AM EDTRoutine [facility] [place] OBVALENCIA [address] [place] [address] Azeem Valencia, Second trimester ([facility]); 27 weeks gestation of ([facility])5Bamboo flowsheet [facility] [place] [facility]BGYGer[facility] [address] [place] [address] [place] [address] Azeem Valencia, 5Clinisync Result Encounter NOMS External Department Unsolicited Azeem Valencia DO from Last 3 Months Family History Medical HistoryRelationNameCommentsGraves' diseaseMotherRelationNameStatus CommentsDaughter 1AliveDaughter 2AliveFatherAliveMotherAlive Social History Tobacco UseTypesPacks/DayYears UsedDateSmoking Tobacco: NeverSmokeless Tobacco: Never Tobacco Cessation:Counseling Given: Not Answered Alcohol UseStandard Drinks/WeekCommentsYes0 (1 standard drink = 0.6 oz pure alcohol)drinks less than monthly in the past yearAUDIT-CAnswerDate RecordedQ1: How often do you have a drink containing alcohol?Monthly or less03/12/2023 Average Number of DrinksNot on file03/12/2023Frequency of Binge DrinkingNot on file03/12/2023Estimated Date of LhtwlymbCizicndbZid62/20/2025Based on last menstrual period of 04/10/2024Sex and Gender InformationValueDate Recorded Sex Assigned at UuahzIxzpet67/12/2023 12:08 PM EDTLegal VgeGdjjjh97/15/2023 7:34 PM EDTGender KmmjiiieHqrxog72/12/2023 12:08 PM EDTSexual OrientationStraight 09/07/2022 12:08 PM EDT Last Filed Vital Signs Vital SignReadingTime TakenCommentsBlood Kqhgwvtc106/7001/15/2025 1:20 PM EDT Pidnh273501/28/2024 12:33 PM TSRMhzclunidfl90.1 ??C (97 ??F)01/28/2024 12:33 PM EDTRespiratory Rate--Oxygen Vffuunrion03%01/28/2024 12:33 PM EDTInhaled Oxygen Concentration--Znlbkt310 kg (234 lb 6.4 oz)01/15/2025 1:20 PM PMSBsshul438.2 cm (5' 7 )09/08/2022 11:08 AM EDTBody Mass Index36.71009/08/2022 11:08 AM EDT Plan of Treatment DateTypeDepartmentCare Team (Latest Contact Info)Azvimrqmgvq79/03/2025 9:30 AM ESTPostpartum Visit [facility] [place] [facility] [address] [facility] [place] [phone] Reina Oneill PA [address] [facility] [place] [address] Goals GoalPatient Goal TypeAssociated ProblemsRecent ProgressPatient-Stated?Author Reminders Care PlanOB RemindersNoOpen Scheduling, Background Procedures Procedure NamePriorityDate/TimeAssociated DiagnosisCommentsPOCT URINALYSIS VWAEUTCLUqsonpz77/20/2025 1:25 PM EDT 40 weeks gestation of ([facility]) Third trimester ([facility]) Excessive growth affecting management of in third trimester, single or unspecified fetus ([facility]) POCT URINALYSIS DQIXEZRCTdmrywl02/14/2025 2:16 PM EDT Third trimester ([facility]) CULTURE, GROUP B STREP WITH XWEKLAIDPKVMBMcwmvva62/08/2025 3:49 PM EDT Third trimester ([facility]) 36 weeks gestation of ([facility]) POCT URINALYSIS PWOTZKTSDdtriqz62/07/2025 2:04 PM EDT 38 weeks gestation of ([facility]) Third trimester ([facility]) US OB FOLLOW UP TRANSABDOMINAL RFFXHFOCAhtizid59/29/2025 12:03 PM EDT Excessive growth affecting management of in third trimester, single or unspecified fetus ([facility]) POCT URINALYSIS TPSYHOZXIggbyyp26/29/2025 11:17 AM EDT Third trimester ([facility]) POCT URINALYSIS PKJSHYWKAesmlok72/23/2025 1:15 PM EDT Third trimester ([facility]) 36 weeks gestation of ([facility]) STREP GP B CJ+BGNVHwtkgcn82/23/2025 1:09 PM EDT POCT URINALYSIS QRHFOLUOJtdopii29/16/2025 11:52 AM EDT 35 weeks gestation of ([facility]) Third trimester ([facility]) POCT URINALYSIS UERGPLESIetergu02/02/2025 11:39 AM EDT Third trimester ([facility]) US OB FOLLOW UP TRANSABDOMINAL SXCSQYJAOjqxdnq81/02/2025 11:18 AM EDT Size of fetus inconsistent with dates in first trimester ([facility]) POCT URINALYSIS UKRZGVILSkjrdow41/20/2025 9:40 AM EDT Third trimester ([facility]) 31 weeks gestation of ([facility]) US AMNIOTIC FLUID IAAMYD4711/06/2024 2:59 PM EDT US OB CERVICAL FVAQGA0711/06/2024 2:59 PM EDT POCT URINALYSIS SUJAJDZZJimcfyb73/06/2025 3:05 PM EDT 29 weeks gestation of ([facility]) Third trimester ([facility]) POCT URINALYSIS HJZANODCIljmjyu98/24/2025 11:17 AM EDT Second trimester ([facility]) 27 weeks gestation of ([facility]) GLUCOSE 1 UNHNIlobawf27/22/2025 8:27 AM EDT ALL CBC WITH AUTO NOASPxqrubo36/22/2025 8:27 AM EDT from Last 3 Months Results * POCT urinalysis dipstick manually resulted (01/15/2025 1:25 PM EDT) Only the most recent of10 resultswithin the time period is included. ComponentValueRef RangeTest MethodAnalysis TimePerformed AtPathologist Signature Color, UAYellowClarity, UAClearGlucose, UANegativeNegative - 2000(110) ++++ mg/dLBilirubin, UANegativeNegative - 4(70) +++ mg/dLKetones, UANegativeNegative - 160(16) ++++ mg/dLSpec Grav, UA1.0151 - 1.03Blood, UANegativeNegative - 50 Cassius/mcLpH, UA6.05 - 9Protein, UANegativeNegative - 2000(20) ++++ mg/dL Urobilinogen, UA1.00.2 - 12 mg/dLLeukocytes, UANegativeNegative - 500+++ Shane/mcL Nitrite, UANegativeNegative - PositiveSpecimen (Source)Anatomical Location / LateralityCollection Method / VolumeCollection TimeReceived EuwtMklzv10/20/2025 1:25 PM EDT Narrative Authorizing ProviderResult TypeResult StatusCorey Darian DOPOINT OF CARE TEST ENTER/EDIT ORDERABLESFinal Result * CULTURE, GROUP B STREP WITH SUSCEPTIBLITY (01/03/2025 3:49 PM EDT) Narrative Authorizing ProviderResult TypeResult StatusCorey Darian DOLAB BLOOD ORDERABLES Final ResultPerforming OrganizationAddressCity/State/ZIP CodePhone Number EXTERNAL LAB * US OB follow up transabdominal approach (12/25/2024 12:03 PM EDT) Only the most recent of2 resultswithin the time period is included. Anatomical RegionLateralityModalityBodyUltrasoundSpecimen (Source)Anatomical Location / LateralityCollection Method / VolumeCollection TimeReceived Time 12/25/2024 1:27 PM EDT Impressions 12/25/2024 1:56 PM EDT 1. Single, live intrauterine , current sonographic age of 37 weeks and 6 days, with an estimated date of delivery of January 09, 2025 (prior CARY January 06, 2025). 2. Current weight by percentile 81.9% (prior 61.4%) 3. DONG 19 cm (prior 17) * ??Estimated Weight (g) by Percentile is based upon an accurate estimated age based onlast menstrual period. ?? TRANSCRIBED BY: ? ELECTRONICALLY SIGNED BY: Sarabjit Frias MD Narrative 12/25/2024 1:56 PM EDT FINDINGS: Comparison made with prior exam November 28, 2024. A single, live intrauterine is present with normal cardiac rate of 144 beats per minute. Normal activity and amniotic fluid volume. Amniotic fluid index is 19 cm. ??Morphology is grossly normal. The current sonographic age is 37 weeks and 6 days, based on the following measurements: ?BPD ? 9.0 cm (36 weeks, 3 days) ?Head Circumference ?33.7 cm (38 weeks, 5 days) ?Abdominal Circumference ?34.3 cm (38 weeks, 2 days) ?Femur Length ? 7.5 cm (38 weeks, 1 day) ?Presentation ? Cephalic ? Weight (g) by Percentile ?? 81.9 % * These measurements result in an estimated date of delivery of January 09, 2025. ?? The current estimated weight is 3379 grams (7 pounds, 7 ounces). ?? Procedure Note Sarabjit Frias MD - 12/25/2024 FINDINGS: Comparison made with prior exam November 28, 2024. A single, live intrauterine is present with normal cardiacrate of 144 beats per minute. Normal activity and amniotic fluidvolume. Amniotic fluid index is 19 cm. Morphology is grossly normal. Thecurrent sonographic age is 37 weeks and 6 days, based on the followingmeasurements: BPD 9.0 cm (36 weeks, 3 days) Head Circumference 33.7 cm (38 weeks, 5 days) Abdominal Circumference 34.3 cm (38 weeks, 2 days) Femur Length 7.5 cm (38 weeks, 1 day) Presentation Cephalic Weight (g) by Percentile 81.9 % * These measurements result in an estimated date of delivery of December. The current estimated weight is 3379 grams (7 pounds, 7ounces). IMPRESSION: 1. Single, live intrauterine , current sonographic age of 37weeks and 6 days, with an estimated date of delivery of January 09, 2025(prior CARY January 06, 2025). 2. Current weight by percentile 81.9% (prior 61.4%) 3. DONG 19 cm (prior 17) * Estimated Weight (g) by Percentile is based upon an accurateestimated age based on last menstrual period. TRANSCRIBED BY: ELECTRONICALLY SIGNED BY: Sarabjit Frias MD Authorizing ProviderResult TypeResult StatusAmy Mai PAIMG OB US PROCEDURES Final Result * STREP GP B CJ+RFLX (12/19/2024 1:09 PM EDT)ComponentValueRef RangeTest Method Analysis TimePerformed AtPathologist SignatureSTREP GP B CJ+RFLXNegative NegativeTBHComment: Centers for Disease Control and Prevention (CDC) and [place] [employer] Obstetricians and Gynecologists (ACOG) guidelines [...] resistance to clindamycin is noted. Performed at: ?? - [facility] ??[id number] Stereoptician: Red Enrique PhD, Phone: ??[phone] Specimen (Source)Anatomical Location / LateralityCollection Method / Volume Collection TimeReceived Time12/19/2024 1:09 PM EDT12/19/2024 7:37 PM EDT Narrative MARAH - 12/22/2024 3:08 PM EDT Authorizing ProviderResult TypeResult StatusCorey Darian DOLAB BLOOD ORDERABLES Final ResultPerforming OrganizationAddressCity/State/ZIP CodePhone Number [facility] * US OB CERVICAL LENGTH (11/06/2024 2:59 PM EDT)Anatomical RegionLaterality ModalityOtherSpecimen (Source)Anatomical Location / LateralityCollection Method / VolumeCollection TimeReceived Time11/06/2024 2:59 PM EDT Narrative 11/06/2024 3:01 PM EDT [facility] ?[address] ? [place] [address] ? Ultrasound Report ? Signed ? Patient: ARABELLA,LAKEISHA G ?MR#: [id number] ?? : 1995 ?Acct:[id number] ?? Age/Sex: 28 / F ?ADM Date: 08//25 ?? Loc: US ? Attending Dr: Azeem Valencia D.O. ? Ordering Physician: Azeem Valencia D.O. ?? Date of Service: 11/06/24 ?? Procedure(s): US OB cervical length ?? Accession Number(s): [id number] ? cc: Perri Carmona M.D.; Azeem Valencia D.O. ? [facility] ? [address] ? [place] [address] ? Patient Name: ?? LAKEISHA Fenton ARABELLA ? MRN: [facility]:[id number] ? date: 1995 ?Sex: F ?? Assigned Patient Location: ?? Current Patient Location: US ?? Accession/Order Number: [id number] ?? Exam Date: 11/06/2024 ??14:56 ?Report Date: 11/06/2024 ??14:59 ? At the request of: ?? AZEEM ??DARIAN ??DO ? Procedure: ??US OB cervical length ? Cervical length ultrasound. ??DONG ultrasound. ? Reason for exam: Vaginal spotting. ? COMPARISON: None. ? TECHNIQUE: Transabdominal imaging of the gravid uterus was obtained. ? FINDINGS: DONG is normal and 19.9 cm. ??Cervical length is 5.5 cm without ?? evidence of funneling. ?? heart rate 152 bpm. ? US/US OB cervical length ?? IMPRESSION: Normal DONG. ? Normal cervical length. ? Impression dictated by: Sarabjit Whipple Jr. D.Josiah ??11/06/2024 2:59 PM ? Dictation Location: [facility]- ? Electronically authenticated by: [id number] ??Y ?? Date: 11/06/2024 ??14:59 ? Dictated By: ?Sarabjit Whipple M.D. ? Signed By: ?11/06/24 1501 ? DD/ 1459 ? TD/TT: ? Tandem Operator: Procedure Note Radiology, Radiologist, MD - 11/06/2024 [place] [address] Ultrasound Report Signed Patient: LAKEISHA BELL GMR#: [id number] : 1995Acct:[id number] Age/Sex: 28 / FADM Date: 11/06/24 Loc: US Attending Dr: Azeem [place] D.O. Ordering Physician: Azeem [place] D.O. Date of Service: 11/06/24 Procedure(s): US OB cervical length Accession Number(s): [id number] cc: Perri Carmona M.D.; zAeem [place] D.O. [place] [address] Patient Name: LAKEISHA BELL MRN: [facility]:[id number] date: 1995 Sex: F Assigned Patient Location: US Current Patient Location: US Accession/Order Number: [id number] Exam Date: 11/06/2024 14:56 Report Date: 11/06/2024 14:59 At the request of: AZEEM VALENCIA DO Procedure: US OB cervical length [...] Jr., D.O. 11/06/2024 2:59 PM Dictation Location: [place] [address] Electronically authenticated by: [id number] Y Date: 4:59 Dictated By: Sarabjit Whipple M.D. Signed By:11/06/24 1501 DD/ 1459 TD/TT: Tandem Operator: Authorizing ProviderResult TypeResult StatusCorey Darian DOCLINISYNC IMAGINGFinal Result * US AMNIOTIC FLUID VOLUME (11/06/2024 2:59 PM EDT)Anatomical RegionLaterality ModalityRadiographic ImagingSpecimen (Source)Anatomical Location / Laterality Collection Method / VolumeCollection TimeReceived Time11/06/2024 2:59 PM EDT Narrative 11/06/2024 3:02 PM EDT [facility] ?[address] ? [place] [address] ? Ultrasound Report ? Signed ? Patient: ARABELLA,LAKEISHA G ?MR#: [id number] ?? : 1995 ?Acct:[id number] ?? Age/Sex: 28 / F ?ADM Date: 08/11/25 ?? Loc: US ? Attending Dr: Azeem [place] D.O. ? Ordering Physician: Azeem [place] D.O. ?? Date of Service: 11/06/24 ?? Procedure(s): US OB amniotic fluid vol ?? Accession Number(s): [id number] ? cc: Perri Carmona M.D.; Azeem [place] D.O. ? [facility] ? [address] ? [place] [address] ? Patient Name: ?? LAKEISHA BELL ? MRN: [facility]:[id number] ? date: 1995 ?Sex: F ?? Assigned Patient Location: ?? Current Patient Location: ?? Accession/Order Number: [id number] ?? Exam Date: 11/06/2024 ??14:56 ?Report Date: 11/06/2024 ??14:59 ? At the request of: ?? AZEEM ??DARIAN ??DO ? Procedure: ??US OB cervical length ? Cervical length ultrasound. ??DONG ultrasound. ? Reason for exam: Vaginal spotting. ? COMPARISON: None. ? TECHNIQUE: Transabdominal imaging of the gravid uterus was obtained. ? FINDINGS: DONG is normal and 19.9 cm. ??Cervical length is 5.5 cm without ?? evidence of funneling. ?? heart rate 152 bpm. ? US/US OB amniotic fluid vol ?? IMPRESSION: Normal DONG. ? Normal cervical length. ? Impression dictated by: Sarabjit Whipple Jr. D.O. ??11/06/2024 2:59 PM ? Dictation Location: [facility]- ? Electronically authenticated by: [id number] ??Y ?? Date: 11/06/2024 ??14:59 ? Dictated By: ?Sarabjit Whipple M.D. ? Signed By: ?11/06/24 1502 ? DD/ 1459 ? TD/TT: ? Tandem Operator: Procedure Note Radiology, Radiologist, MD - 11/06/2024 [place] [address] Ultrasound Report Signed Patient: LAKEISHA BELL GMR#: [id number] : 1995Acct:[id number] Age/Sex: 28 / FADM Date: 11/06/24 Loc: US Attending Dr: Azeem [place] D.O. Ordering Physician: Azeem Valencia D.O. Date of Service: 11/06/24 Procedure(s): US OB amniotic fluid vol Accession Number(s): [id number] cc: Perri Carmona M.D.; Azeem [place] D.O. [place] [id number] Patient Name: LAKEISHA BELL MRN: [facility]:[id number] date: 1995 Sex: F Assigned Patient Location: US Current Patient Location: US Accession/Order Number: [id number] Exam Date: 11/06/2024 14:56 Report Date: 11/06/2024 14:59 At the request of: AZEEM VALENCIA DO Procedure: US OB cervical length [...] Jr., D.O. 11/06/2024 2:59 PM Dictation Location: [place] [address] Electronically authenticated by: [id number] Y Date: 4:59 Dictated By: Sarabjit Whipple M.D. Signed By:11/06/24 1502 DD/ 1459 TD/TT: Tandem Operator: Authorizing ProviderResult TypeResult StatusCorey Darian JACKSON XR PROCEDURESFinal Result * GLUCOSE 1 HOUR (10/17/2024 8:27 AM EDT)ComponentValueRef RangeTest Method Analysis TimePerformed AtPathologist SignatureGLUCOSE 1 ARCR156<130 mg/dLTBH Specimen (Source)Anatomical Location / LateralityCollection Method / Volume Collection TimeReceived Time10/17/2024 8:27 AM EDT07/ 8:30 AM EDT Narrative MARAH - 10/17/2024 9:23 AM EDT Authorizing ProviderResult TypeResult StatusCorey Darianleslie ROME BLOOD ORDERABLES Final ResultPerforming OrganizationAddressCity/State/ZIP CodePhone Number [facility] * (ABNORMAL) ALL CBC WITH AUTO DIFF (10/17/2024 8:27 AM EDT)ComponentValueRef RangeTest MethodAnalysis TimePerformed AtPathologist SignatureTBH WBC12.0(H) 4.0 - 11.0 10 3/uLTBHTBH RBC3.83(L)4.20 - 5.40 10 6/uLTBHTBH HGB12.812.0 - 16.0 g/dLTBHTBH HCT36.236.0 - 48.0 %TBHTBH MCV94.581.0 - 99.0 fLTBHTBH MCH33.4 26.7 - 34.0 pgTBHTBH MCHC35.4(H)29.9 - 35.2 g/dLTBHTBH RDW13.011.0 - 15.0 %TBH TBH PRB188307 - 450 10 3/uLTBHTBH MPV10.39.5 - 13.5 fLTBHNEUTROPHILS PERCENT AUTO80.1(H)43.0 - 75.0 %TBHLYMPHOCYTES PERCENT AUTO14.4(L)20.5 - 60.0 %TBH MONOCYTES PERCENT AUTO3.71.7 - 12.0 %TBHTBH EO %0.7(L)0.9 - 7.0 %TBHBASOPHILS PERCENT AUTO0.20.2 - 2.0 %TBHIMMATURE GRANULOCYTES PCT AUTO0.9(H)0.0 - 0.5 % TBHNEUTROPHILS ABSOLUTE AUTO9.6(H)1.4 - 6.5 10 3/uLTBHLYMPHOCYTES ABSOLUTE AUTO1.71.2 - 3.8 10 3/uLTBHMONOCYTES ABSOLUTE AUTO0.40.3 - 0.8 10 3/uLTBHTBH EO #0.10.0 - 0.7 10 3/uLTBHBASOPHILS ABSOLUTE AUTO0.00.0 - 0.1 10 3/uLTBH IMMATURE GRANULOCYTES ABS AUTO0.11(H)0.00 - 0.03 10 3/uLTBHSpecimen (Source) Anatomical Location / LateralityCollection Method / VolumeCollection Time Received Time10/17/2024 8:27 AM EDT10/17/2024 8:30 AM EDT Narrative CLIN[facility]NC - 10/17/2024 9:16 AM EDT Authorizing ProviderResult TypeResult StatusCorey Darian DOCLINISYNCFinal Result Performing OrganizationAddressCity/State/ZIP CodePhone Number CLINIS[facility]NC [facility] from Last 3 Months Additional Health Concerns Active ProblemsNoted DateDiagnosed DateOB Bpvauyyqg65/18/2025 Insurance Care Teams Team MemberRelationshipSpecialtyStart DateEnd Date Chanel Hilton DO [address] [facility] [place] [address] PCP - GeneralFamily Medicine09/08/22
--- OUTSIDE RECORDS SUMMARY | 2025-01-17 05:11 | XMS_ITS | Encounter Summary ---
Author Organization [facility] Address [address] [place] [address] Care Team Providers Care Slab Inspector Name Role Phone Chanel Hilton Primary Care Provider [phone] Encounter Details DateTypeDepartmentCare Team (Latest Contact Info)Exurknkvfiu24/14/2025amboo flowsheet [facility] [address] [place] [address] Jesus Valencia DO [address] Mani Warren, [facility] Social History Tobacco UseTypesPacks/DayYears UsedDateSmoking Tobacco: NeverSmokeless Tobacco: NeverAlcohol UseStandard Drinks/WeekCommentsYes0 (1 standard drink = 0.6 oz pure alcohol)drinks less than monthly in the past yearAUDIT-CAnswerDate RecordedQ1: How often do you have a drink containing alcohol?Monthly or less03/12/2023 Average Number of DrinksNot on file03/12/2023Frequency of Binge DrinkingNot on file03/12/2023Estimated Date of QoxuyxqbAwmcfnkrTqq33/20/2025Based on last menstrual period of 04/10/2024Sex and Gender InformationValueDate Recorded Sex Assigned at LxmboNgexsf53/12/2023 12:08 PM EDTLegal UreInzpiv48/15/2023 7:34 PM EDTGender TenkzdviWqhzgu74/12/2023 12:08 PM EDTSexual OrientationStraight 09/07/2022 12:08 PM EDTdocumented as of this encounter Plan of Treatment DateTypeDepartmentCare Team (Latest Contact Info)Rqglenllwyw06/03/2025 9:30 AM ESTPostpartum Visit [facility] [address] [place] [address] Reina Oneill PA [address] [place] [address] documented as of this encounter Goals GoalPatient Goal TypeAssociated ProblemsRecent ProgressPatient-Stated?Author Reminders Care PlanOB RemindersNoOpen Scheduling, Backgrounddocumented as of this encounter Visit Diagnoses Not on filedocumented in this encounter Additional Health Concerns Active ProblemsNoted DateDiagnosed DateOB Cgguryflk07/18/2025 documented as of this encounter Care Teams Team MemberRelationshipSpecialtyStart DateEnd Date Chanel Hilton DO [address] [facility] [place] [id number] PCP - GeneralFamily Medicine09/08/22documented as of this encounter
[2025-01-17 05:59] LABS: Hematocrit 34.0 % (36.0-48.0); Hemoglobin 12.2 g/dL (12.0-16.0); Mean Corpuscular HGB Conc 35.9 g/dL (29.9-35.2); Mean Corpuscular Hemoglobin 32.3 pg (26.7-34.0); Mean Corpuscular Volume 89.9 fL (81.0-99.0); Platelet Count 221 10^3/uL (150-450); Red Blood Count 3.78 10^6/uL (4.20-5.40); White Blood Count 9.8 10^3/uL (4.0-11.0)
[2025-01-17 06:13] LABS: Cannabinoid Screen Urine NEGATIVE (NEGATIVE); Methamphetamines Screen Urine NEGATIVE (NEGATIVE); Tricyclic Antidepressant Urine NEGATIVE (NEGATIVE)
[2025-01-17] MEDS: 0.9 % SODIUM CHLORIDE 1,000 ML 125 ML IV (06:18)
[2025-01-17] MEDS: OXYTOCIN/0.9 % SODIUM CHLORIDE 10 UNITS/500 ML PLAST..BAG 6 UNIT IV (06:20)
[2025-01-17] MEDS: 0.9 % SODIUM CHLORIDE 1,000 ML 1000 ML IV (12:50)
[2025-01-17] MEDS: ROPIVACAINE HCL/PF 400 MG/200 ML PREMIX 10 MG EPIDURAL (12:50)
--- NOTE | 2025-01-17 13:34 | PM.OBPRCVD ---
Procedure Intrapartal events: None Induction method: per pitocin protocol Delivery augmentation: rupture of membranes and pitocin Delivery monitor: external FHT and external uterine Route of delivery: Episiotomy Description: none Estimated blood loss (mL): 200 Anesthesia type: Epidural Disposition: floor Infant Delivery date: 01/17/25 Gender: male presentation: vertex Placental delivery description: Spontaneous cord description: 3 Vessels
[2025-01-17] MEDS: OXYTOCIN/0.9 % SODIUM CHLORIDE 20 UNITS/1,000 ML PLAST..BAG 125 UNIT IV (13:40)
[2025-01-17] MEDS: BENZOCAINE/MENTHOL 85 GRAM SPRAY BOTTLE 1 APPLIC TOPICAL (16:00)
[2025-01-17] MEDS: GLYCERIN/WITCH HAZEL PADS 1 PAD TOPICAL (16:01)
[2025-01-17] MEDS: IBUPROFEN 600 MG TABLET PO (16:01)
[2025-01-18] MEDS: IBUPROFEN 600 MG TABLET PO (00:40)
[2025-01-18 00:45] VITALS: TEMP 36.5
[2025-01-18 00:46] VITALS: BP 118/76; PULSE 63
[2025-01-18 06:13] LABS: Hematocrit 32.2 % (36.0-48.0); Hemoglobin 10.9 g/dL (12.0-16.0); Immature Granulocytes Abs Auto 0.07 10^3/uL (0.00-0.03); Immature Granulocytes Pct Auto 0.6 % (0.0-0.5); Lymphocytes Absolute Auto 1.8 10^3/uL (1.2-3.8); Mean Corpuscular HGB Conc 33.9 g/dL (29.9-35.2); Mean Corpuscular Hemoglobin 30.9 pg (26.7-34.0); Mean Corpuscular Volume 91.2 fL (81.0-99.0); Platelet Count 177 10^3/uL (150-450); Red Blood Count 3.53 10^6/uL (4.20-5.40); White Blood Count 11.3 10^3/uL (4.0-11.0)
[2025-01-18 08:35] VITALS: BP 127/75; PULSE 81; TEMP 36.6
[2025-01-18] MEDS: DOCUSATE SODIUM 100 MG CAPSULE PO (08:36)
[2025-01-18] MEDS: RHO(D) IMMUNE GLOBULIN 1,500 UNIT SYRINGE 1500 UNIT IV (08:36)
--- NOTE | 2025-01-18 13:59 | P.OBPN_ITS ---
OB - PN: Subj Subjective Patient comments: no complaints and pain well controlled [facility] status: doing well Exam Constitutional Vital Signs, click to edit/add: Last Vital Signs Temp 97.9 F 01/18/25 08:35 Pulse 81 01/18/25 08:35 Resp 18 01/18/25 08:35 BP 127/75 01/18/25 08:35 O2 Del Method Room Air 01/18/25 08:35 Documenting provider has reviewed patient's vital signs: yes Common normals: no apparent distress Respiratory Common normals: normal respiratory effort and clear to auscultation bilaterally Cardio Common normals: regular rate and regular rhythm GI Common normals: Normal to inspection, nondistended, normoactive bowel sounds present Extremity Common normals: normal to inspection, no clubbing, cyanosis or edema and no calf tenderness Results Labs Labs: Short CBC 01/18/25 Range/Units 05:56 WBC 11.3 H (4.0-11.0) 10^3/uL Hgb 10.9 L (12.0-16.0) g/dL Hct 32.2 L (36.0-48.0) % Plt Count 177 (150-450) 10^3/uL OB - PN: A/P Plan - Vaginal Delivery day: 1 Plan: routine care, discharge home and follow up 6 weeks Time Spent with Patient Time: Total time spent is greater than 50% in coordination of care (as documented) at patient's floor/unit and/or counseling patient: Total time spent with greater than 50% in coordination of care (as documented) at patient's floor/unit and/or counseling patient: less than 15 minutes
== END 2025-01-18 14:40 | disposition home or self-care (01) | DRG 807 ==
PROVIDERS: Admitting Provider Obstetrics & Gynecology; PCP Family Medicine; Visit Provider Obstetrics & Gynecology
DX: O26.893 Other specified pregnancy related conditions, third trimester (principal); Z37.0 Single live birth; Z67.11 Type A blood, Rh negative; Z86.16 Personal history of COVID-19; Z3A.40 40 weeks gestation of pregnancy
CPT/HCPCS: 36415; 59050; 59410; 80307; 85025; 85027; 85461; 86850; 86900; 86901; J0665; J2300; J2791; J2795